=== PATIENT | female | born 1980 | race Caucasian/White ===

== ENCOUNTER 2021-03-23 13:53 | Outpatient (CLI) | payer MEDICAID, SELFPAY ==
--- NOTE | 2021-03-23 13:57 | US_ITS ---
WS: [id number] TRANSABDOMINAL PELVIC AND TRANSVAGINAL PELVIC ULTRASOUND HISTORY: Pelvic PAIN, RIGHT COMPARISON: None available. Uterus: 8.1 cm x 4.6 cm x 3.7 cm. Anteverted uterus is mildly heterogeneous. No discrete fibroids are identified. Endometrium: 0.4 cm. Normal homogeneity. No increased vascularity. Right ovary: 2.4 cm x 1.4 cm x 1.3 cm. Small caliber ovary with normal vascularity. No solid or cysti c mass. Left ovary: 2.4 cm x 1.3 cm x 1.3 cm. No solid or cystic mass. Small follicle with a maximum diameter of 1.8 cm. Normal vascularity. No free fluid. US/US pelvic with transvaginal IMPRESSION: 1. No adnexal masses or cysts. 2. Normal anteverted uterus.
== END 2021-03-23 13:54 | disposition home or self-care (01) ==
PROVIDERS: PCP Family Medicine; Visit Provider Family Medicine
DX: R10.2 Pelvic and perineal pain (principal)
CPT/HCPCS: 76830; 76856

== ENCOUNTER → 2021-04-26 08:32 | Outpatient (BNVA) | payer MEDICAID, SELFPAY | PROVIDERS: PCP Family Medicine; Referring Provider Family Medicine; Visit Provider Specialist | DX: G43.711 Chronic migraine without aura, intractable, with status migrainosus (principal) | CPT/HCPCS: 99204 ==

== ENCOUNTER → 2021-04-30 13:59 | Outpatient (BNVA) | payer SELFPAY | PROVIDERS: PCP Family Medicine; Visit Provider Nurse Practitioner Family | DX: N30.10 Interstitial cystitis (chronic) without hematuria (principal); N30.20 Other chronic cystitis without hematuria | CPT/HCPCS: 81003 ==

== ENCOUNTER 2021-05-25 12:38 | Outpatient (CLI) | payer MEDICAID, SELFPAY ==
--- NOTE | 2021-05-25 12:45 | XR_ITS ---
WS: [id number] Lumbar spine with flexion, extension, and neutral lateral, 05/25/2021 Clinical Data: VERTEBROGENIC LOW BACK PAIN Comparison: None. Findings: No compression fractures or subluxation is seen. No disc space narrowing is seen. No limitation of motion or subluxation is seen. There is minimal anterior spurring of the L2-L5 vertebral bodies. There are clips in the upper abdome n probably from a cholecystectomy. XR/XR lumbar spine f/e only [id number] Impression: Negative lateral lumbar spine.
== END 2021-05-25 12:39 | disposition home or self-care (01) ==
LOC: RAD 12:40
PROVIDERS: PCP Family Medicine; Visit Provider Nurse Practitioner
DX: M54.51 Vertebrogenic low back pain (principal)
CPT/HCPCS: 72120

== ENCOUNTER → 2021-07-04 09:54 | Outpatient (BNVA) | payer MEDICAID, SELFPAY | PROVIDERS: PCP Family Medicine; Visit Provider Obstetrics & Gynecology | DX: M54.50 Low back pain, unspecified (principal) | CPT/HCPCS: 76830 ==

== ENCOUNTER → 2021-07-05 08:07 | Outpatient (BNVA) | payer MEDICAID, SELFPAY | PROVIDERS: PCP Family Medicine; Visit Provider Orthopaedic Surgery | DX: M54.50 Low back pain, unspecified (principal) | CPT/HCPCS: 72050 ==

== ENCOUNTER → 2021-07-12 12:03 | Outpatient (BNVA) | payer MEDICAID, SELFPAY | PROVIDERS: PCP Family Medicine; Visit Provider Specialist | DX: G43.711 Chronic migraine without aura, intractable, with status migrainosus (principal); M50.80 Other cervical disc disorders, unspecified cervical region | CPT/HCPCS: 96372; 99213; 99214; J1885 ==

== ENCOUNTER → 2021-08-07 11:31 | Outpatient (BNVA) | payer MEDICAID, SELFPAY | PROVIDERS: PCP Family Medicine; Visit Provider Specialist | DX: G43.711 Chronic migraine without aura, intractable, with status migrainosus (principal) | CPT/HCPCS: 96374; 96375; 96376; J1110; J1200; J1885; J2405; J2930 ==

== ENCOUNTER 2021-08-13 13:51 | Outpatient (CLI) | payer MEDICAID, SELFPAY ==
--- NOTE | 2021-08-13 13:57 | MR_ITS ---
WS: [id number] MRI CERVICAL SPINE NONCONTRAST TECHNIQUE: Sagittal T1, T2 and STIR imaging. Axial T2, gradient, and fiesta imaging. CLINICAL INFORMATION: M54.2 - Cervicalgia COMPARISON: None. FINDINGS: Straightening of the normal cervical lordosis. Mild disc bulging C4-C5 C5-C6 and C6-C7. Cord signal i s normal. C2-C3: Normal C3-C4: Mild facet arthropathy. Spinal canal and foramen are patent. C4-C5: Mild osteophytic ridging. Mild facet arthropathy. Spinal canal and foramen are patent. C5-C6: Disc osteophytic ridging with mild LEFT greater than RIGHT foraminal narrowing. Mild facet art hropathy. C6-C7: Disc osteophyte complex with endplate ridging. Mild central canal stenosis. Mild bilateral bon y foraminal narrowing LEFT greater than RIGHT. C7-T1: Mild LEFT and no significant RIGHT foraminal narrowing. Spinal canal is patent. Visualized brain stem structures: Normal. Prevertebral soft tissues: Normal. MR/MR cervical spin wo con* [id number] IMPRESSION: 1. Straightening of the normal cervical lordosis. Cord signal is normal. 2. Disc osteophyte complex with endplate ridging C6-C7 and mild central canal stenosis. 3. Mild bony foraminal narrowing more prominent at LEFT C5-C6 and bilateral C6 -C7 worse in the LEFT. 4. Overall no significant changes since the outside cervical spine MRI July 10, 2020
--- NOTE | 2021-08-13 13:57 | MR_ITS ---
WS: [id number] MRI LUMBAR SPINE NONCONTRAST TECHNIQUE: Sagittal T1, T2 and STIR imaging. Axial T1 and T2 imaging. CLINICAL INFORMATION: M54.50 - Low back pain, unspecified COMPARISON: None. FINDINGS: Mild lumbar curve. No acute compression. Mild annular bulging L4-L5 with a small annular tear. L1-L2: No significant disc bulging. Mild facet arthropathy. Spinal canal and foramen are patent. L2-L3: No significant disc bulging. Mild facet arthropathy. Spinal canal and foramen are patent. L3-L4: Mild annular bulging. Mild to moderate facet arthropathy. Spinal canal and foramen are patent. L4-L5: Mild disc bulging with a small shallow central protrusion. Small annular tear. Impingement traversing L5 nerve roots bilaterally. Mild central canal stenosis. I mpingement traversing L5 nerve roots bilaterally. Mild bilateral foraminal narrowing. Moderate facet arthropathy. L5-S1: Mild annular bulging with slight effacement of ventral thecal sac. Mild LEFT and no significan t RIGHT foraminal narrowing. Mild to moderate facet arthropathy. Visualized pelvic bony structures: Normal. Paravertebral soft tissues: Normal. Overall no significant changes since May 17, 2020 MR/MR lumbar spine wo con* [id number] IMPRESSION: 1. Mild lumbar curve. No acute compression. 2. Shallow central protrusion L4-L5 with a small annular tear and impingement traversing L5 nerve roots bilaterally. Mild central canal stenosis. Recommend c orrelation with L5 nerve root symptoms. 3. Slight annular bulging L5-S1 with slight effacement of ventral thecal sac. Mild LEFT L5-S1 foraminal narrowing. 4. Mild bilateral L4-L5 foraminal narrowing. 5. Mild to moderate facet arthropathy L3-L4 L4-L5 and L5-S1.
== END 2021-08-13 13:52 | disposition home or self-care (01) ==
LOC: RAD 13:53
PROVIDERS: PCP Family Medicine; Visit Provider Orthopaedic Surgery
DX: M47.816 Spondylosis without myelopathy or radiculopathy, lumbar region (principal); M47.817 Spondylosis without myelopathy or radiculopathy, lumbosacral region; M51.27 Other intervertebral disc displacement, lumbosacral region; M25.78 Osteophyte, vertebrae
CPT/HCPCS: 72141; 72148

== ENCOUNTER → 2021-08-17 09:40 | Outpatient (BNVA) | payer MEDICAID, SELFPAY | PROVIDERS: PCP Family Medicine; Visit Provider Obstetrics & Gynecology | DX: G89.29 Other chronic pain (principal); R10.2 Pelvic and perineal pain | CPT/HCPCS: 87635 ==

== ENCOUNTER 2021-08-22 05:41 | Day surgery (SDC) | payer MEDICAID, SELFPAY ==
[2021-08-21 09:08] LABS: Basophils # 0.1 10^3/uL (0.0-0.1); Basophils % 0.7 %; Eosinophils # 0.2 10^3/uL (0.0-0.8); Hematocrit 42.8 % (37.0-47.0); Hemoglobin 13.7 g/dL (11.5-15.3); Lymphocytes # 1.9 10^3/uL (0.8-4.8); Lymphocytes % 24.3 %; Mean Corpuscular Hemoglobin 29.4 pg (28.0-34.0); Mean Corpuscular Volume 91.8 fl (81-99); Mean Platelet Volume 11.2 fL (7.4-10.4); Monocytes # 0.8 10^3/uL (0.2-0.9); Neutrophils # 4.75 10^3/uL (1.8-7.7); Neutrophils % 61.7 %; Nucleated Red Blood Cells % 0 %; Platelet Count 236 10^3/cmm (130-400); Red Blood Count 4.66 10^6/uL (4.1-5.3); White Blood Count 7.7 10^3/uL (4.0-10.0)
[2021-08-21 09:12] VITALS: BMI 24.7
[2021-08-21 09:13] LABS: Add Urine Microscopic? YES; Bilirubin Urine Neg (Negative); Blood Urine Neg (Negative); Glucose Urine UA Norm (Normal); Ketones Urine Negative (Negative); Leukocyte Esterase Urine Trace (Negative); Nitrate Urine Negative (Negative); Protein Urine Neg (Negative); Specific Gravity, Urine 1.015 (1.005-1.030); Urine Appearance SL Hazy (CLEAR); Urine Color Yellow (Yellow); Urobilinogen Urine Norm (Negative); pH Urine 6.5 (5-7)
--- NOTE | 2021-08-21 09:24 | ANES.PREANE2 ---
Pre-Anesthetic Assessment Height/Weight: Height 1.6 m Weight 63.503 kg Operation Date: 08/22/21 07:00 Proposed Procedures p Laparoscopy 65127/chronic pelvic pain R10.2(Not Applicable) - Kam Edmondson MD Familial anesthetic complications: None Social No alcohol and No tobacco Exam alert, oriented x 3, clear to auscultation bilaterally and regular rate & rhythm Airway Cervical ROM: Other (mildly limited extension, d/t bone spurs) Mallampati: Class II Dentition: other (missing) GI Gastroesophageal Reflux Disease gastroparesis, unknown etiology Anesthetic Plan ASA status: 2 Anesthesia: General Risk of > 500 ml blood loss (7ml/kg in children): No Medications/Allergies Home Medications Medication Instructions Recorded Confirmed Last Taken Type baclofen 10 mg tablet 10 mg PO BID 03/26/21 08/21/21 08/20/21 20:00 History clonazepam 0.5 mg tablet 0.5 mg PO DAILY PRN 03/26/21 08/21/21 08/20/21 08:00 History meloxicam 7.5 mg tablet 7.5 mg PO BID PRN tab 03/26/21 08/21/21 08/20/21 20:00 History omeprazole 20 mg capsule,delayed 20 mg PO DAILY 03/26/21 08/21/21 08/20/21 History release rizatriptan 10 mg tablet See Rx Instructions PO .COMPLEX 03/26/21 08/21/21 08/15/21 History sertraline 100 mg tablet 100 mg PO DAILY 03/26/21 08/21/21 08/20/21 History topiramate 25 mg tablet (Topamax) 25 mg PO DAILY #30 tab 04/26/21 08/20/21 Unknown Rx polyethylene glycol 3350 17 See Rx Instructions .ROUTE .COMPLEX 08/21/21 08/21/21 08/20/21 History gram/dose oral powder (Miralax) Allergies Allergy/AdvReac Type Severity Reaction Status Date / Time adhesive tape Allergy Severe whelps, Verified 08/20/21 09:20 peels skin azithromycin Allergy Severe vomiting, Verified 08/20/21 09:20 mouth ulcers erythromycin base Allergy Severe mouth Verified 08/20/21 09:20 ulcers, vomiting gabapentin Allergy Severe memory Verified 08/20/21 09:20 issues Penicillins Allergy Severe itching, Verified 08/20/21 09:20 vomiting,mouth ulcers PFSH Anesthesia Medical History Chronic cystitis Interstitial cystitis Surgical History History of appendectomy History of back surgery History of bladder surgery History of cholecystectomy History of tonsillectomy Family History Mother , AT AGE 63 SMALL CELL CARCINOMA Cancer Hypertension Hyperlipidemia Grandmother Cancer Dementia CAD (coronary artery disease) Diabetes paternal Stroke paternal Heart disease paternal Grandfather Cancer Dementia Diabetes paternal Colon cancer maternal, 60's Father Hypertension Hyperlipidemia Denies family history of Ovarian cancer Clotting disorder Breast cancer Anesthesia complication Bleeding disorder Uterine cancer Thyroid condition Social History History of recent travel: No Female Reproductive History Date of last menstrual period: 08/07/21 Data Anesthesia : 08/21/21 08:45 08/21/21 08:45 Short CBC 08/21/21 Range/Units 08:45 WBC 7.7 (4.0-10.0) 10^3/uL Hgb 13.7 (11.5-15.3) g/dL Hct 42.8 (37.0-47.0) % MCV 91.8 (81-99) fl Plt Count 236 (130-400) 10^3/cmm Neut % (Auto) 61.7 % Neut # (Auto) 4.75 (1.8-7.7) 10^3/uL Urine 08/21/21 Range/Units 08:45 Urine Color Yellow (Yellow) Urine Appearance Sl hazy (CLEAR) Urine pH 6.5 (5-7) Ur Specific [place] 1.015 (1.005-1.030) Urine Protein Neg (Negative) Urine Glucose (UA) Norm (Normal) Urine Ketones Negative (Negative) Urine Nitrate Negative (Negative) Urine Bilirubin Neg (Negative) Ur Leukocyte Esterase Trace H (Negative) Cardiac Studies: No Data to Display
[2021-08-21 09:27] LABS: Add Urine Culture? No; Alanine Aminotransferase 27 U/L (0-33); Albumin Level 4.7 g/dL (3.5-5.2); Alkaline Phosphatase 87 IU/L (35-105); Anion Gap 13.3 (5-19); Aspartate Amino Transferase 19 U/L (0-32); Bacteria Urine 2+ /hpf; Blood Urea Nitrogen 15 mg/dL (6-20); Calcium 10.4 mg/dL (8.5-10.5); Carbon Dioxide 28 mmol/L (22-29); Chloride 101 mmol/L (98-107); Creatinine Clr Calc Pharmacy 73.8146; Globulin 2.9 g/dL (1.3-4.6); Glucose 102 mg/dL (65-115); Osmolality Calculated 287 mOsm/kg (285-295); Potassium 4.3 mmol/L (3.5-5.1); RBC Urine 0-4 /hpf (0-2); Sodium 138 mmol/L (136-145); Squamous Epithelial Cell Urine 25-40 /hpf (0-5); Total Bilirubin 0.9 mg/dL (0.15-1.2); Total Protein 7.6 g/dL (6.6-8.7); WBC Urine 0-4 /hpf (0-5)
[2021-08-22] VITALS (10 sets, daily range): BP systolic 89–161; BP diastolic 55–96; PULSE 58–68; RESP 17–20; TEMP 36.2–37.2; O2SAT 96–98
[2021-08-22] MEDS: vancomycin 1,000 MG in sodium chloride 0.9% 250 ML 250 MG IV (06:18)
[2021-08-22] MEDS: scopolamine 1.5 Patch 1 PATCH TRANSDERMA (06:18)
[2021-08-22] MEDS: sodium chloride 0.9% 500 ML IV (06:19)
[2021-08-22 06:44] LABS: OR HCG Qualitative Urine Negative (Negative)
[2021-08-22] MEDS: sodium chloride 0.9% 1,000 ML 30 ML IV (06:47)
--- NOTE | 2021-08-22 06:54 | W.PM.OPSUD ---
Surgery/Procedure H&P Update DATE OF PROCEDURE: August 22, 2021 DATE H&P PERFORMED: 08/02/21 H&P UPDATE INFORMATION: I have reviewed H&P completed within last 30 days and No changes to prior documentation PREOP DIAGNOSIS: Chronic pelvic pain PLANNED PROCEDURE: Operation Date: 08/22/21 07:00 Proposed Procedures p Laparoscopy 85943/chronic pelvic pain R10.2(Not Applicable) - Kam Edmondson MD
--- NOTE | 2021-08-22 07:37 | P.ANESUD_ITS ---
Pre-Anesthetic Update Pre-Anesthetic Assessment: Date of Surgery/Procedure: 08/22/21 Preop Elenita gnosis: Chronic pelvic pain Proposed Procedure: Operation Date: 08/22/21 07:00 Proposed Procedures p Laparoscopy 04551/chronic pelvic pain R10.2(Not Applicable) - Kam Edmondson MD Any changes to Pre-Anesthetic Assessment?: No Last Intake: Intake Last Liquid Date 08/21/21 Last Liquid Time 19:00 Last Solid Date 08/20/21 Last Solid Time 16:00 Labs Last 48hrs: Short CBC 08/21/21 Range/Units 08:45 WBC 7.7 (4.0-10.0) 10^3/ uL Hgb 13.7 (11.5-15.3) g/dL Hct 42.8 (37.0-47.0) % MCV 91.8 (81-99) fl Plt Count 236 (130-400) 10^3/c mm Neut % (Auto) 61.7 % Neut # (Auto) 4.75 (1.8-7.7) 10^3/u L BMP 08/21/21 08:45 Sodium 138 Potassium 4.3 Chloride 101 Carbon Dioxide 28 BUN 15 Creatinine 0.9 Glucose 102 Calcium 10.4 Liver Function 08/21/21 Range/Units 08:45 Total Bilirubin 0.9 (0.15-1.2) mg/dL AST 19 (0-32) U/L ALT 27 (0-33) U/L Alkaline Phosphata se 87 (35-105) IU/L Albumin 4.7 (3.5-5.2) g/dL Urine 08/21/21 Range/Units 08:45 Urine Color Yellow (Yellow) Urine Appearance Sl hazy (CLEAR) Urine pH 6.5 (5-7) Ur Specific [place] y 1.015 (1.005-1.030) Urine Protein Neg (Negative) Urine Glucose (UA) Norm (Normal) Urine Ketones Negative (Negative) Urine Nitrate Negative (Negative) Urine Bilirubin Neg (Negative) Ur Leukocyte Vanna ase Trace H (Negative) Urine RBC 0-4 H (0-2) /hpf Urine WBC 0-4 H (0-5) /hpf Blood Bank 08/21/21 08:45 Blood Type O Positive Rho(D) Type Positive Antibody Screen Negative Vitals: Temperature 97.2 F L 08/22/21 06:14 Temperature Source Temporal Artery S can 08/22/21 06:14 Pulse Rate 58 L 08/22/21 06:14 Respiratory Rate 18 08/22/21 06:14 Blood Pressure 89/55 08/22/21 06:14 Blood Pressure Elizabeth n 66 08/22/21 06:14 Pulse Oximetry 98 08/22/21 06:14 Oxygen Delivery Me thod 08/22/21 06:14 Exam: Pre-Anes Outpt Exam: alert, oriented x 3, clear to auscultation bilaterally and regular rate & rhythm Cardiac Studies: No Data to Display
--- NOTE | 2021-08-22 07:53 | P.OP_ITS ---
Operative Report Date of procedure: August 22, 2021 Pre-op diagnosis: Preop Diagnosis Chronic pelvic pain Post-op diagnosis: Pelvic pain Endometriosis mild-moderate Post-op findings: Endometriotic lesions on the right side adnexa and cul-de-sac Procedure done: Diagnostic laparoscopy. Fulguration of endometriosis lesions Implants: None Surgeon: Kam Edmondson MD Estimated blood loss: Less than 5 mL IV fluids: 500 mL Urine output: 25 mL Findings: Endometriosis on right adnexa Procedure: After informed consent, the patient was taken to the operating room where general anesthesia was administered. The patient was examined under anesthesia and found to have a normal uterus with normal adnexa. She was placed in the dorsal lithotomy position and prepped and draped in sterile fashion. Pre- Procedure Time-Out verifying the correct patient identity, correct procedure verified with consent, correct site and side, correct patient position, availability of correct implants and any special equipment or requirements was performed and acknowledge by the OR team. A weighted speculum was placed in the vagina, and the anterior lip of cervix was grasped with the single toothed tenaculum. A uterine manipulator was advanced into the endocervical. Tenaculum was removed after uterine manipulator was secured. The speculum was removed from the vagina. An intraumbilical incision was made with a scalpel. While tenting up on the abdomen, a Verres needle with sleeve was admitted into the intra-abdominal cavity. A saline drop test was performed and noted to be within normal limits. Pneumoperitoneum was attained with 4 liters of carbon dioxide. The Verres needle was removed. A 5 mm trocar and sleeve were admitted into the abdomen and laparoscopic confirmation of location was achieved, A second incision was made 3 cm above the symphysis pubis, and a 5 mm trocar and sleeve were admitted into the abdomen under direct, laparoscopic visualization without complication. A survey revealed normal abdominal anatomy but pelvic survey showed endometriosis lesion on the right adnexa and cul-de-sac. Also Hulka clips noted bilaterally. The uterus, left and right ovaries appered normal. A 5 mm blunt probe was advanced through the second trocar sleeve, and light manipulation of ovaries and uterus to assess the posterior aspects was performed. The vision is stable endometriosis lesions were fulgurated with the bipolar Voyant device. Due to the amount of lesions and size endometriosis considered to be from mild to moderate. The carbon dioxide was allowed to escape from the abdomen. The instruments were removed, and skin cover with a bandage. The instruments were removed from the vagina, and excellent hemostasis was noted. The patient tolerated the procedure well, and sponge, lap and needle count were correct times two. The patient taken to the recovery room in good condition.
[2021-08-22] MEDS: ondansetron 2 mg/ML SDV 2 mL 4 MG IVP ×2 (08:10→09:12)
[2021-08-22] MEDS: diphenhydrAMINE 50 mg/mL SDV 1mL (08:29)
[2021-08-22] MEDS: HYDROcodone-acetaminophen 5-325 mg Tablet 1 TAB PO (09:03)
--- NOTE | 2021-08-22 12:49 | ANE.PACU2 ---
Inpatient post-anesthesia follow up: Airway intact: Yes Vital signs: Temperature 98.0 F Pulse Rate 59 Respiratory Rate 18 Blood Pressure 132/74 Pulse Oximetry 96 Oxygen Delivery Me thod Room Air Oxygen Flow Rate Fraction of Inspir ed Oxygen Hydration adequate: Yes Nausea and vomiting: No Pain level: 2 Mental status: Baseline
== END 2021-08-22 09:57 | disposition home or self-care (01) ==
PROVIDERS: Anesthesiology; PCP Family Medicine; Visit Provider Obstetrics & Gynecology
PROC: (CPT 49320; principal; 2021-08-22 07:00)
DX: N80.3 Endometriosis of pelvic peritoneum (principal); R10.2 Pelvic and perineal pain; G89.29 Other chronic pain; K21.9 Gastro-esophageal reflux disease without esophagitis
CPT/HCPCS: 58662; 36415; 80053; 81001; 81025; 84703; 85025; 86850; 86900; 96365; 96372; J1100; J1200; J2405; J2704; J2710; J3010; J3370; J3490; J7030; J7040; J7050

== ENCOUNTER → 2021-10-08 08:26 | Outpatient (BNVA) | payer MEDICAID, SELFPAY | PROVIDERS: PCP Family Medicine; Visit Provider Obstetrics & Gynecology | DX: N80.9 Endometriosis, unspecified (principal); Z01.812 Encounter for preprocedural laboratory examination | CPT/HCPCS: 80053; 81000; 81025; 85025; 86850; 86900; 87635 ==

== ENCOUNTER 2021-10-10 09:10 | Observation (INO) | payer MEDICAID, SELFPAY ==
[2021-10-08 09:47] VITALS: BMI 25.7
--- NOTE | 2021-10-08 15:59 | ANES.PREANE2 ---
Pre-Anesthetic Assessment Height/Weight: Height 1.6 m Weight 65.771 kg Preop Diagnosis: Chronic pelvic pain Operation Date: 10/10/21 09:35 Proposed Procedures p Total Vaginal Hysterectomy 60565/n80.9(Not Applicable) - Kam Edmondson MD Familial anesthetic complications: None Was Beta Edenilson taken within 24 hours: N/A Was Clonidine taken within 24 hours: N/A Social No alcohol (Denies hx of ETOH abuse) and No tobacco Airway Submandibular: within normal limits Cervical ROM: Other (Limited ROM d/t pain) Mallampati: Class II Dentition: false Pulmonary None reported CV/HEM Hx of pre syncopal episodes when on propanolol for migraines None reported Cystitis Hepatic None reported GI Gastroesophageal Reflux Disease Hx of gastroparesis from unknown cause Metabolic None reported Denies hx of DM Musc/skel Osteoarthritis/DJD DDD Neuropsych Headache (Migraines ) and Neuropathy (Neuropathy in b/l UE d/ cervical degenerative disk disease) Takes baclofen Anesthetic Plan ASA status: 3 (40 year old with hx of gastroparesis, neuropathy, and cervical disk disease . ) Anesthesia: Anesthesia Evaluation and General Other: We discussed risk and benefits of general anesthesia including PONV, sore throat (sometimes severe), corneal abrasion, positioning and peripheral nerve injuries, life threatening allergic reaction, post operative ICU admission requiring prolonged intubation, stroke, heart attack, , and rare incidences of recall. Patient consents to proceed with general anesthesia. Hx of gastroparesis Plan RSI w/ GETA Risk of > 500 ml blood loss (7ml/kg in children): No Other Pertinent Information Home prescription for metoclopramide Medications/Allergies Home Medications Medication Instructions Recorded Confirmed Last Taken Type baclofen 10 mg tablet 10 mg PO BID 03/26/21 10/08/21 08/21/21 History clonazepam 0.5 mg tablet 0.5 mg PO BEDTIME PRN 03/26/21 10/08/21 08/21/21 History meloxicam 7.5 mg tablet 7.5 mg PO BID PRN tab 03/26/21 10/08/21 08/21/21 History omeprazole 20 mg capsule,delayed 20 mg PO DAILY 03/26/21 10/08/21 08/20/21 History release rizatriptan 10 mg tablet See Rx Instructions PO .COMPLEX PRN 03/26/21 10/08/2122 History sertraline 100 mg tablet 100 mg PO DAILY 03/26/21 10/08/21 08/22/21 History polyethylene glycol 3350 17 See Rx Instructions .ROUTE .COMPLEX 08/21/21 10/08/21 08/21/21 History gram/dose oral powder (Miralax) acetaminophen 325 mg capsule 325 mg PO Q4H PRN #60 cap 08/22/21 10/08/21 Unknown Rx ibuprofen 800 mg tablet 800 mg PO TID PRN #60 tab 08/22/21 10/08/21 Unknown Rx metoclopramide HCl 10 mg tablet 10 mg PO BID 08/22/21 10/08/21 08/22/21 History (Reglan) Allergies Allergy/AdvReac Type Severity Reaction Status Date / Time adhesive tape Allergy Severe whelps, Verified 10/08/21 11:11 peels skin azithromycin Allergy Severe vomiting, Verified 10/08/21 11:11 mouth ulcers erythromycin base Allergy Severe mouth Verified 10/08/21 11:11 ulcers, vomiting gabapentin Allergy Severe memory Verified 10/08/21 11:11 issues Penicillins Allergy Severe itching, Verified 10/08/21 11:11 vomiting,mouth ulcers [facility] Anesthesia Medical History Aftercare following surgery of the genitourinary system Chronic cystitis Interstitial cystitis Surgical History H/O laparoscopy 08/22/2021- Diagnostic Laparoscopy. Fulguration of endometriosis lesions. Preformed by Dr. Edmondson at [facility]. History of appendectomy History of back surgery History of bladder surgery History of cholecystectomy History of tonsillectomy Family History Mother , AT AGE 63 SMALL CELL CARCINOMA Cancer Hypertension Hyperlipidemia Grandmother Cancer Dementia CAD (coronary artery disease) Diabetes paternal Stroke paternal Heart disease paternal Grandfather Cancer Dementia Diabetes paternal Colon cancer maternal, 60's Father Hypertension Hyperlipidemia CAD (coronary artery disease) Denies family history of Ovarian cancer Clotting disorder Breast cancer Anesthesia complication Bleeding disorder Uterine cancer Thyroid condition Social History History of recent travel: No Female Reproductive History Date of last menstrual period: 09/10/21 Data Anesthesia Cardiac Studies: No Data to Display
[2021-10-10] VITALS (24 sets, daily range): BP systolic 97–133; BP diastolic 57–94; PULSE 58–98; RESP 14–26; TEMP 36.4–37.1; O2SAT 93–100
[2021-10-10] MEDS: sodium chloride 0.9% 500 ML IV (06:22)
[2021-10-10] MEDS: scopolamine 1.5 Patch 1 PATCH TRANSDERMA (06:28)
[2021-10-10] MEDS: ondansetron 2 mg/ML SDV 2 mL 4 MG IVP ×2 (06:35→09:58)
[2021-10-10] MEDS: sodium chloride 0.9% 1,000 ML 30 ML IV (06:46)
--- NOTE | 2021-10-10 06:53 | P.ANESUD_ITS ---
Pre-Anesthetic Update Pre-Anesthetic Assessment: Date of Surgery/Procedure: 10/10/21 Preop Elenita gnosis: Pelvic pain, endometriosis Proposed Procedure: Operation Date: 10/10/21 07:00 Proposed Procedures p Total Vaginal Hysterectomy 60086/n80.9(Not Applicable) - Kam Edmondson MD Any changes to Pre-Anesthetic Assessment?: No Last Intake: Intake Last Liquid Date 10/09/21 Last Liquid Time 20:00 Last Solid Date 10/07/21 Last Solid Time 00:00 Vitals: Temperature 97.6 F 10/10/21 06:13 Temperature Source Temporal Artery S can 10/10/21 06:13 Pulse Rate 60 10/10/21 06:13 Respiratory Rate 16 10/10/21 06:13 Blood Pressure 107/65 10/10/21 06:13 Blood Pressure Elizabeth n 79 10/10/21 06:13 Pulse Oximetry 98 10/10/21 06:13 Oxygen Delivery Me thod 10/10/21 06:13 Exam: Pre-Anes Outpt Exam: alert, oriented x 3, clear to auscultation bilaterally and regular rate & rhythm Cardiac Studies: No Data to Display
--- NOTE | 2021-10-10 07:01 | W.PM.OPSUD ---
Surgery/Procedure H&P Update DATE OF PROCEDURE: October 10, 2021 DATE H&P PERFORMED: 10/08/21 H&P UPDATE INFORMATION: I have reviewed H&P completed within last 30 days, I have examined patient prior to procedure and No changes to prior documentation PREOP DIAGNOSIS: Pelvic pain, endometriosis PLANNED PROCEDURE: Operation Date: 10/10/21 07:00 Proposed Procedures p Total Vaginal Hysterectomy 40581/n80.9(Not Applicable) - Kam Edmondson MD
[2021-10-10] MEDS: levofloxacin-dextrose 5 % 500 MG/100 ML PREMIX 100 MG IV (07:03)
[2021-10-10] MEDS: vancomycin 1,000 MG in sodium chloride 0.9% 250 ML 250 MG IV (07:20)
--- NOTE | 2021-10-10 08:29 | PM.OP ---
Operative Report Date of procedure: October 10, 2021 Pre-op diagnosis: Preop Diagnosis Pelvic pain, endometriosis Post-op diagnosis: Same as above Post-op findings: Normal size uterus. Procedure done: Total vaginal hysterectomy Specimens removed/disposition: Uterus Pathology: Uterus Surgeon: Kam Edmondson MD Anesthesia: General Estimated blood loss (mL): 150 IV fluids (mL): 500 Urine output (mL): 300 Complications: None Findings: Normal-sized Procedure: After informed consent and risks, benefits, indications and alternatives reviewed with the patient was taken to the operating room. The patient was placed in dorsal lithotomy position prepped, and draped in the usual sterile fashion. The pre-procedure timeout verifying the correct patient, procedure, site and side, could not requirements was performed and acknowledge by the OR team. A Sheppard catheter was placed. A Bookwalter vaginal retractor was placed into the vagina in usual manner visualize the cervix. Cervix was grasped with a single tooth tenaculum and circumferentially infiltrated with 2% lidocaine with epi. Then cervix was circumferentially incised with bovie and the bladder was dissected off the pubovesical cervical fascia anteriorly with a sponge stick and Metzenbaum scissors. The anterior peritoneal reflection was identified and the anterior cul-de-sac was entered sharply with Metzenbaum scissors. The same procedure was performed posteriorly and a posterior colpotomy was made through the posterior cul-de-sac space without difficulty and the posterior blade of the Bookwalter vaginal retractor was advanced posteriorly into the cul-de-sac. At this time, the left and right uterosacral ligaments were isolated and ligated with 0 Vicryl. The Enseal device was placed over the uterosacral ligaments on either side and was then used in a serial fashion up through the cardinal ligaments bilaterally cross-clamped, cut, and sealed with the Enseal device. Finally, the uterine arteries were cross-clamped, cut, sealed and ligated with the Enseal device. Hemostasis was assured. The broad ligaments were then serially clamped, sealed and cut with the Enseal device on both sides. Excellent hemostasis was visualized. Both cornua were clamped, sealed and cut with the Enseal device. Then the pedicles were then suture ligated with excellent hemostasis. The uterus was excised and submitted for pathologic evaluation. No other abnormalities were noted in the pelvic cavity. The peritoneum was then closed in a pursestring fashion with 0 Vicryl suture. The patient was given IV methylene blue. The vaginal cuff angles were closed with [id number] #0 Vicryl suture on both sides and transfixed with the ipsilateral cardinal and uterosacral ligaments. The remainder of the vaginal cuff was closed with #0 Vicryl in a running locked fashion. At this time, instruments were removed from the vagina at hemostasis assured. Sheppard catheter was noted yielding clear pedro urine. The patient was taken out of dorsal lithotomy position and awakened from the general anesthesia. The patient tolerated the procedure well and was taken to the PACU recovery room in a stable condition. Sponge, lap, needle and instruments counts were correct x3. Related Problem List Diagnoses (1) Endometriosis determined by laparoscopy: (2) Chronic pelvic pain in female:
[2021-10-10] MEDS: HYDROmorphone 1 mg/mL INJ 1 mL 0.5 MG IVP ×4 (08:35→09:12)
--- NOTE | 2021-10-10 09:16 | SUR.PHASEI ---
0832 PT TO PACU AWAKE ALERT ON RA PT MOANS AND SHIVERS, WARM BLANKETS X 4 5O P5, P5 RATES LOWER ABD PAIN (CRAMPING PAIN ) AT 10 , ORDERS RECIEVED FROM CLAUDIA SILVA TO USE DILAUDID FIRST FOR PAIN PER DR FORMAN. PT ABDOMEN SOFT, NGUYỄN PAD D/I BILAT SCDS ON, PT LANTIGUA WITH CLEAR YELLOW URINE TO TUBING AND BAG STATLOCK TO RT THIGH, IV TO LT WRIST #20 WITH 500ML NS UP AT MOD RATE PER GRAVITY. 0845 PT MOANS AND STATES PAIN IS UNCHANGED VSS SEE MEDS GIVEN FOR PAIN URINE IS NOW LT BLUE TINGED BUT CLEAR 0900 PT CONTINUES TO CRY OUT RATES PAIN AT 9-10 SEE PAIN MEDS GIVEN.
[2021-10-10] MEDS: ketorolac 30 mg/mL INJ IVP ×3 (09:57→20:38)
[2021-10-10] MEDS: HYDROcodone-acetaminophen 5-325 mg Tablet PO ×3 (09:58→23:02)
[2021-10-10] MEDS: dextrose 5%-lactated ringers 1,000 ML 125 ML IV ×2 (09:58→18:32)
[2021-10-10] MEDS: fentaNYL 50 mcg/mL INJ 2mL IVP ×2 (12:34→21:23)
--- NOTE | 2021-10-10 17:35 | ANE.PACU2 ---
Inpatient post-anesthesia follow up: Airway intact: Yes Vital signs: Temperature 98.0 F Pulse Rate 75 Respiratory Rate 16 Blood Pressure 101/63 Pulse Oximetry 95 Oxygen Delivery Me thod Room Air Oxygen Flow Rate Fraction of Inspir ed Oxygen Hydration adequate: Yes Nausea and vomiting: No Pain level: 6 Mental status: Baseline
[2021-10-10] MEDS: docusate sodium 100 mg Capsule PO (18:32)
[2021-10-10] MEDS: metoclopramide 10 mg Tablet PO (18:32)
[2021-10-10] MEDS: baclofen 10 mg Tablet PO (18:32)
[2021-10-10] MEDS: CLONazepam 1 mg Tablet 0.5 MG PO (21:23)
[2021-10-11] MEDS: dextrose 5%-lactated ringers 1,000 ML 125 ML IV (01:49)
[2021-10-11 03:00] VITALS: BP 110/67; PULSE 58; TEMP 37.1
[2021-10-11] MEDS: ketorolac 30 mg/mL INJ IVP (03:03)
[2021-10-11] MEDS: HYDROcodone-acetaminophen 5-325 mg Tablet PO (04:50)
[2021-10-11 05:02] LABS: Hematocrit 32.1 % (37.0-47.0); Hemoglobin 10.6 g/dL (11.5-15.3); Mean Corpuscular Hemoglobin 30.3 pg (28.0-34.0); Mean Corpuscular Volume 91.7 fl (81-99); Mean Platelet Volume 11.6 fL (7.4-10.4); Platelet Count 191 10^3/cmm (130-400); Red Cell Distribution Width 12.8 % (12.1-15.1); White Blood Count 10.1 10^3/uL (4.0-10.0)
[2021-10-11 08:00] VITALS: BP 102/64; PULSE 60; RESP 18; TEMP 36.9
[2021-10-11] MEDS: docusate sodium 100 mg Capsule PO (09:07)
[2021-10-11] MEDS: sertraline 100 mg Tablet PO (09:08)
[2021-10-11] MEDS: pantoprazole DR 40 mg Tablet PO (09:08)
[2021-10-11] MEDS: ibuprofen 800 mg tablet PO (09:08)
[2021-10-11] MEDS: baclofen 10 mg Tablet PO (09:08)
[2021-10-11] MEDS: metoclopramide 10 mg Tablet PO (09:09)
--- NOTE | 2021-10-11 10:45 | P.DS_ITS ---
Discharge Providers ADMINISTRATOR Date of Admission: 10/10/21 09:10 Date of Discharge: 10/11/21 Attending Provider at Admission: Kam Edmondson MD Attending Provider at Discharge: Kam Edmondson MD Primary ADMINISTRATOR: Kam Edmondson MD Primary Care Provider: Huy Quintanilla MD Diagnoses at Discharge Discharge Diagnosis (1) Endometriosis determined by laparoscopy: Status: Acute (2) Chronic pelvic pain in female: Status: Acute Reason for Visit Reason for Visit: endometriosis Brief History: Mrs. Velasco 40-year-old female with a history of chronic pelvic pain and endometriosis diagnosed by laparoscopy. Hospital Course Hospital Course Mrs. Velasco 40-year-old female with a history of chronic pelvic pain admitted for planned total vaginal hysterectomy. The procedure was performed without complications. Overnight observation was uneventful. She is afebrile and hemodynamically stable postoperative day 1. Tolerating diet well. Ambulating without difficulty. Pain under control with medication. Physical Exam Narrative: GA: Alert and oriented ?3. HEENT: WNL. Heart: Regular rate and rhythm. Lungs: Clear to auscultation bilaterally. Abdomen: Bowel sounds present, nontender. STATION GATEMAN: No bleeding. Extremities: No edema, no cyanosis, no calves pain. Urinary Catheter Management: Sheppard Latex: Cath Placed During This Visit: yes, but has since been removed by the nurse Reason for Continuing Indwelling Catheter: Decision to DC Catheter Urinary Catheter Date of Insertion: 10/10/21 Urinary Catheter Time of Insertion: 07:28 Date Urinary Catheter Removed: 10/11/21 Time Urinary Catheter Discontinued: 04:57 History History History 5 Term 3 Miscarriages/Ectopic 2 0 Living Children 3 Discharge Data Studies Completed and Pending Pending at discharge Category Date Time Status Pathology: Surgical [PTH] Routine Pth 10/10/21 08:07 Received Laboratory Results WBC 10.1 10^3/uL (4.0-10.0) H 10/11/21 04:52 RBC 3.50 10^6/uL (4.1-5.3) L 10/11/21 04:52 Hgb 10.6 g/dL (11.5-15.3) L 10/11/21 04:52 Hct 32.1 % (37.0-47.0) L 10/11/21 04:52 MCV 91.7 fl (81-99) 10/11/21 04:52 MCH 30.3 pg (28.0-34.0) 10/11/21 04:52 MCHC 33.0 g/dL (30.0-36.0) 10/11/21 04:52 RDW 12.8 % (12.1-15.1) 10/11/21 04:52 Plt Count 191 10^3/cmm (130-400) 10/11/21 04:52 MPV 11.6 fL (7.4-10.4) H 10/11/21 04:52 Vitals Last Vital Signs Temp 98.4 F 10/11/21 08:00 Pulse 60 10/11/21 08:00 Resp 18 10/11/21 08:00 BP 102/64 10/11/21 08:00 Pulse Ox 95 10/10/21 15:00 Discharge Plan Discharge Patient Disposition: Home Condition: Stable Prescriptions: New hydrocodone-acetaminophen 5-325 mg tablet 1 tab PO Q4H PRN (Reason: pain) Qty: 30 0RF acetaminophen 325 mg capsule 325 mg PO Q4H PRN (Reason: fever or pain) Qty: 60 0RF ferrous sulfate [Iron (ferrous sulfate)] 325 mg (65 mg iron) tablet 325 mg PO BID Qty: 60 0RF docusate sodium [Colace] 100 mg capsule 100 mg PO BID Qty: 60 0RF ibuprofen 800 mg tablet 800 mg PO TID PRN (Reason: pain) Qty: 60 0RF Continued rizatriptan 10 mg tablet See Rx Instructions PO .COMPLEX PRN (Reason: migraine headache) 0RF Rx Instructions: take 1 tab at onset of headache; if no relief may repeat 1 tab after at least 2 hrs; max = 3 tabs/24 hr PO omeprazole 20 mg capsule,delayed release(DR/EC) 20 mg PO DAILY 0RF baclofen 10 mg tablet 10 mg PO BID 0RF clonazepam 0.5 mg tablet 0.5 mg PO BEDTIME PRN (Reason: Anxiety) 0RF meloxicam 7.5 mg tablet 7.5 mg PO BID PRN (Reason: Pain) 0RF sertraline 100 mg tablet 100 mg PO DAILY 0RF polyethylene glycol 3350 [Miralax] 17 gram/dose powder See Rx Instructions .ROUTE .COMPLEX 0RF Rx Instructions: as directed metoclopramide HCl [Reglan] 10 mg tablet 10 mg PO BID 0RF ibuprofen 800 mg tablet 800 mg PO TID PRN (Reason: pain) Qty: 60 0RF acetaminophen 325 mg capsule 325 mg PO Q4H PRN (Reason: fever or pain) Qty: 60 0RF Discharge Orders: Discharge Order (Routine); Ordered 10/11/21 Ordered By: Kam Edmondson Referrals: Kam Edmondson MD [Physician] - 2 weeks Discharge Diet: Advance as tolerated and Usual diet Discharge Activity: Limit activity as instructed Patient Instructions: Opioid Safety, Vaginal Hysterectomy (GEN) Activity Restrictions/Additional Instructions: 1. Please call [facility] on next working day to make your post-operative appointment in 2 weeks. 2. Please stay home until you come back to the clinic on first post-operative check up. 3. Please follow instructions on your medications CAREFULLY. 4. If you have abdominal incision, do not cover it unless dressing is necessary because of drainage. OK to shower, but avoid bath. Leave steri-strips until they fall off. If they are still on one week after surgery, you may remove them. 5. If you had vaginal surgery or vaginal repair, Dr. Edmondson may instruct you to take SITZ bath. 6. Yellow, blood tinged odorous vaginal discharge is usually normal after hysterectomy or vaginal surgeries. 7. No sexual intercourse, tampons, or douches until you are completely released from the post-operative care. 8. Avoid constipation by eating right and maybe using some Metamucil or Milk of Magnesia. 9. All prescription refills are given during the working hours. Please do no wait till it runs out. Call the clinic at [phone] before your medication runs out. The clinic will get in touch with your doctor to prescribe medications if necessary. 10. Please remain within 40 mile radius from our hospital because emergencies do happen now and then during the post-operative period. 11. If you have stairs at home, take one step at a time slowly and minimize the number of trips. It helps to stay in one floor for the next few days. No lifting except what you can lift by one hand until you are released from the post-operative care. 12. Driving is discouraged until you are well healed. It may be 3-4 weeks before you feel strong enough to drive. You should be able to turn and look through the rear window without pain and you should be able to push the brake pedal very hard without pain before you drive. No fast rules, but SAFETY should be your primary concern. DO NOT drive if you are on sedating medications such as narcotics. 13. Call the clinic (during working hours) to make urgent appointment or go to the Emergency room, if any of the following occurs: i. Vaginal bleeding becomes heavy, more than a period. ii. Incision becomes red and sore, or drains pus. iii. Your temperature is over 100.4 or you have chill. iv. IV site becomes red and swollen (a little ``knot?? is usually OK) v. Persistent nausea and vomiting vi. Persistent constipation or diarrhea vii. Rash or allergic reaction to medications. Discharge Attestations ADMINISTRATOR Time Spent in Discharge Care*: greater than 30 min Coding Level of Care Code Acute Animal Care Giver for g Fwd Diagnoses Endometriosis determined by laparoscopy N80.9 Chronic pelvic pain in female R10.2; G89.29
[2021-10-11 11:45] VITALS: BP 122/68; PULSE 60; RESP 18; TEMP 36.9
[2021-10-11 12:05] VITALS: BP 122/68; PULSE 60; RESP 18; TEMP 36.9
== END 2021-10-11 12:05 | disposition home or self-care (01) ==
LOC: OBGYN 09:11
PROVIDERS: Admitting Provider Obstetrics & Gynecology; PCP Family Medicine; Visit Provider Obstetrics & Gynecology
PROC: (CPT 58260; principal; 2021-10-10 07:00)
DX: N80.9 Endometriosis, unspecified (principal); R10.2 Pelvic and perineal pain; G89.29 Other chronic pain; K21.9 Gastro-esophageal reflux disease without esophagitis; M19.90 Unspecified osteoarthritis, unspecified site
CPT/HCPCS: 58260; 36415; 85027; 88307; G0378; J1100; J1170; J1885; J1956; J2250; J2405; J2704; J2710; J3010; J3370; J3490; J7030; J7040; J7050; J8597; Q9968

== ENCOUNTER → 2021-10-18 07:53 | Outpatient (BNVA) | payer MEDICAID, SELFPAY | PROVIDERS: PCP Family Medicine; Visit Provider Specialist | DX: M54.2 Cervicalgia (principal); G89.29 Other chronic pain; R20.0 Anesthesia of skin; R20.2 Paresthesia of skin; G43.711 Chronic migraine without aura, intractable, with status migrainosus | CPT/HCPCS: 95886; 95910; 99213; 99214 ==

== ENCOUNTER → 2021-10-26 15:54 | Outpatient (BNVA) | payer MEDICAID, SELFPAY | PROVIDERS: PCP Family Medicine; Visit Provider Obstetrics & Gynecology | DX: R61 Generalized hyperhidrosis (principal) | CPT/HCPCS: 83001 ==

== ENCOUNTER → 2021-10-29 15:50 | Outpatient (BNVA) | payer MEDICAID, SELFPAY | PROVIDERS: PCP Family Medicine; Visit Provider Urology | DX: N30.20 Other chronic cystitis without hematuria (principal); N30.10 Interstitial cystitis (chronic) without hematuria | CPT/HCPCS: 81003; 99213 ==

== ENCOUNTER → 2022-02-01 11:54 | Day surgery (SDC) | payer MEDICAID, SELFPAY ==
[2022-02-01] MEDS: ondansetron 2 mg/ML SDV 2 mL 4 MG IVP (12:23)
[2022-02-01] MEDS: diphenhydrAMINE 50 mg/mL SDV 1mL 25 MG IVP (12:23)
[2022-02-01 12:30] VITALS: BP 145/98; PULSE 83; RESP 18; TEMP 36.9; O2SAT 97
[2022-02-01] MEDS: dihydroergotamine 1 mg/mL Inj IVP ×2 (12:34→12:44)
[2022-02-01] MEDS: ketorolac 30 mg/mL INJ IVP (13:06)
== END ==
PROVIDERS: PCP Family Medicine; Visit Provider Specialist
DX: G43.711 Chronic migraine without aura, intractable, with status migrainosus (principal)
CPT/HCPCS: 96374; 96375; J1110; J1200; J1885; J2405

== ENCOUNTER → 2022-02-12 08:56 | Outpatient (BNVA) | payer MEDICAID, SELFPAY | PROVIDERS: PCP Family Medicine; Visit Provider Physician Assistant | DX: M47.22 Other spondylosis with radiculopathy, cervical region (principal); M48.061 Spinal stenosis, lumbar region without neurogenic claudication | CPT/HCPCS: 99214 ==

== ENCOUNTER → 2022-03-06 09:57 | Outpatient (BNVA) | payer MEDICAID, SELFPAY | PROVIDERS: PCP Family Medicine; Visit Provider Anesthesiology Pain Medicine | DX: G89.29 Other chronic pain (principal); M48.061 Spinal stenosis, lumbar region without neurogenic claudication; M47.22 Other spondylosis with radiculopathy, cervical region; M47.816 Spondylosis without myelopathy or radiculopathy, lumbar region; M51.36 Other intervertebral disc degeneration, lumbar region | CPT/HCPCS: 99205 ==

== ENCOUNTER → 2022-03-26 13:32 | Outpatient (BNVA) | payer MEDICAID, SELFPAY | PROVIDERS: PCP Family Medicine; Visit Provider Anesthesiology Pain Medicine | DX: G89.29 Other chronic pain (principal); M54.2 Cervicalgia; M54.16 Radiculopathy, lumbar region | CPT/HCPCS: 62323; J1040; J3490 ==

== ENCOUNTER → 2022-03-27 13:34 | Outpatient (BNVA) | payer MEDICAID, SELFPAY | PROVIDERS: PCP Family Medicine; Visit Provider Specialist | DX: G43.711 Chronic migraine without aura, intractable, with status migrainosus (principal) | CPT/HCPCS: 99214 ==

== ENCOUNTER 2022-04-05 11:08 | Outpatient (CLI) | payer MEDICAID, SELFPAY ==
--- NOTE | 2022-04-05 11:23 | MM_ITS ---
WS: [id number] SCREENING DIGITAL BREAST TOMOSYNTHESIS MAMMOGRAM WITH CAD HISTORY: Z12.39 - Encounter for other screening for malignant neoplasm. COMPARISON: None available. Bilateral CC and MLO with tomosynthesis and synthetic mammography submitted. Computer aided detection analyzed. Breast composition: The breasts are heterogeneously dense, which may obscure small masses. Focal asym metry in the mid to posterior breast near 12:00 needs further evaluation. This may be superimposed fi broglandular densities. The RIGHT breast is negative. Benign calcification central LEFT breast. MM/[place] [id number] IMPRESSION: BI-RADS: 0-Incomplete: Need additional imaging evaluation FOLLOW UP: Need Additional Imaging LEFT breast: Spot compression views (CC and MLO). True ML. Ultrasound to follow if abnormality persists.
== END 2022-04-05 11:09 | disposition home or self-care (01) ==
LOC: RAD 11:09
PROVIDERS: PCP Family Medicine; Visit Provider Obstetrics & Gynecology
DX: Z12.31 Encounter for screening mammogram for malignant neoplasm of breast (principal)
CPT/HCPCS: 77063; 77067

== ENCOUNTER → 2022-04-17 12:45 | Outpatient (BNVA) | payer MEDICAID, SELFPAY | PROVIDERS: PCP Family Medicine; Visit Provider Anesthesiology Pain Medicine | DX: G89.29 Other chronic pain (principal); M47.22 Other spondylosis with radiculopathy, cervical region; M48.061 Spinal stenosis, lumbar region without neurogenic claudication; M47.816 Spondylosis without myelopathy or radiculopathy, lumbar region; M51.36 Other intervertebral disc degeneration, lumbar region; M79.604 Pain in right leg; M79.605 Pain in left leg; F12.90 Cannabis use, unspecified, uncomplicated | CPT/HCPCS: 99214 ==

== ENCOUNTER 2022-04-24 14:10 | Outpatient (CLI) | payer MEDICAID, SELFPAY ==
--- NOTE | 2022-04-24 14:16 | MM_ITS ---
WS: [id number] ADDITIONAL VIEWS LEFT MAMMOGRAM WITH DIGITAL BREAST TOMOSYNTHESIS. HISTORY: Area of distortion on the screening mammogram. COMPARISON: 04/05/2022 Spot compression views LEFT breast in CC, MLO projections and true ML submitted with digital breast t omosynthesis and SM. The area of asymmetry and distortion seen on the LEFT MLO projection is no longer present with additi onal views. No additional imaging or ultrasound needed. MM/[place] [id number] IMPRESSION: BI-RADS: 2-Benign FOLLOW UP: 1 Year Follow-up Return to annual screening.
== END 2022-04-24 14:11 | disposition home or self-care (01) ==
LOC: RAD 14:10
PROVIDERS: PCP Family Medicine; Visit Provider Obstetrics & Gynecology
DX: R92.8 Other abnormal and inconclusive findings on diagnostic imaging of breast (principal)
CPT/HCPCS: 77061

== ENCOUNTER → 2022-05-01 14:41 | Outpatient (BNVA) | payer MEDICAID, SELFPAY | PROVIDERS: PCP Family Medicine; Visit Provider Anesthesiology Pain Medicine | DX: G89.29 Other chronic pain (principal); M47.816 Spondylosis without myelopathy or radiculopathy, lumbar region; M54.2 Cervicalgia | CPT/HCPCS: 64493; 64494; 64495 ==

== ENCOUNTER → 2022-06-04 10:58 | Outpatient (BNVA) | payer MEDICAID, SELFPAY | PROVIDERS: PCP Family Medicine; Visit Provider Anesthesiology Pain Medicine | DX: G89.29 Other chronic pain (principal); M48.061 Spinal stenosis, lumbar region without neurogenic claudication; M51.36 Other intervertebral disc degeneration, lumbar region; M47.816 Spondylosis without myelopathy or radiculopathy, lumbar region; M47.22 Other spondylosis with radiculopathy, cervical region; M79.604 Pain in right leg; M79.605 Pain in left leg | CPT/HCPCS: 99214 ==

== ENCOUNTER → 2022-07-01 13:56 | Outpatient (BNVA) | payer MEDICAID, SELFPAY | PROVIDERS: PCP Family Medicine; Visit Provider Anesthesiology Pain Medicine | DX: G89.29 Other chronic pain (principal); M47.816 Spondylosis without myelopathy or radiculopathy, lumbar region; M54.2 Cervicalgia | CPT/HCPCS: 64635; 64636; J1030 ==

== ENCOUNTER → 2022-07-25 13:03 | Outpatient (BNVA) | payer MEDICAID, SELFPAY | PROVIDERS: PCP Family Medicine; Visit Provider Specialist | DX: G43.711 Chronic migraine without aura, intractable, with status migrainosus (principal) | CPT/HCPCS: 96372; 99213; J1885; J2405 ==

== ENCOUNTER 2022-08-09 12:53 | Emergency (ER) | payer MEDICAID, SELFPAY ==
[2022-08-09 13:05] VITALS: BP 142/81; PULSE 61; RESP 14; TEMP 36.8; O2SAT 97; BMI 25.6
--- NOTE | 2022-08-09 13:39 | ED_ITS ---
HPI - Headache General: Chief Complaint: Headache Stated Complaint: headache x5 days Time Seen by Provider: 08/09/22 13:00 Source: patient Mode of arrival: ambulatory History of Present Illness: 41-year-old female who presents to the emergency room with complaints of a migraine headache for the last 5 days no recent head injury or fall she has been nauseous but not actually vomited some photophobia with that. She cannot recall anything that triggered it she tried various medications at home to relieve it including triptans with no improvement. Pertinent past history: HIV Onset (ago): day(s) (5) Location: right Severity: severe Quality & Timing: throbbing and constant Exacerbating factors: light and noise Relieving factors: nothing Associated symptoms: Reports eye pain, lightheadedness, malaise, nausea, photophobia and sound sensitivity; Deny confusion, diaphoresis, eye redness, fever(s), loss of vision, neck stiffness, paresthesias, pre-syncope or rash Treatments prior to arrival: acetaminophen, ibuprofen, prescription analgesic and migraine medication Review of Systems Const: Reports: malaise; Denies: fever(s), chills, fatigue or diaphoresis ENMT: Denies: throat pain, ear or mastoid pain, nasal discharge or nasal congestion Card: Reports: lightheadedness; Denies: pre-syncope Resp: Denies: dyspnea, productive cough or non-productive cough GI: Reports: nausea; Denies: abdominal pain : Denies: flank pain, difficulty voiding, dysuria, urinary frequency or urinary urgency Skin/Breast: Denies: rash or pruritus Neuro: Reports: headache(s); Denies: confusion PFSH ED PFSH: Medical History Aftercare following surgery of the genitourinary system Cervical disc herniation Chronic cystitis Depression GERD (gastroesophageal reflux disease) Interstitial cystitis Lumbar disc herniation Migraines Surgical History H/O laparoscopy 08/22/2021- Diagnostic Laparoscopy. Fulguration of endometriosis lesions. Preformed by Dr. Edmondson at [facility]. H/O ovarian cystectomy at age 15 H/O tubal ligation 2002 H/O: hysterectomy 10/10/2021: TVH performed by Dr. Edmondson at [facility] History of appendectomy History of back surgery History of bladder surgery History of cholecystectomy History of tonsillectomy Hx of adenoidectomy Family History Mother , AT AGE 63 SMALL CELL CARCINOMA Cancer Hypertension Hyperlipidemia Grandmother Cancer Dementia CAD (coronary artery disease) Diabetes paternal Stroke paternal Heart disease paternal Grandfather Cancer Dementia Diabetes paternal Colon cancer maternal, 60's Father Hypertension Hyperlipidemia CAD (coronary artery disease) Denies family history of Ovarian cancer Clotting disorder Breast cancer Anesthesia complication Bleeding disorder Uterine cancer Thyroid condition Social History Smoking and tobacco status: current every day smoker (MARIJUANA) Physical Exam Const: GENERAL APPEARANCE: cooperative and comfortable ORIENTATION/CONSCIOUSNESS: Yes awake, Yes oriented to person, Yes oriented to place and Yes oriented to time HENMT: COMMON NORMALS: normocephalic, atraumatic and hearing grossly normal bilaterally HEAD & SCALP: normocephalic and atraumatic Eye: DIRECT OPHTHALMOSCOPY: Yes photophobia Resp: COMMON NORMALS: normal respiratory effort, No retractions, No use of accessory muscles and clear to auscultation bilaterally AUSCULTATION: clear to auscultation bilaterally Cardio: COMMON NORMALS: regular rate, regular rhythm and No murmurs present (Cardio) RATE: regular rate RHYTHM: regular rhythm GI: COMMON NORMALS: Soft to palpation and No hepatosplenomegaly present AUSCULTATION: Yes normoactive bowel sounds PALPATION: Yes Soft to palpation, No Tenderness to palpation present (GI), No Guarding due to palpation present (GI) and Yes No hepatosplenomegaly present Extremity: COMMON NORMALS: normal to inspection, capillary refill normal, no clubbing, cyanosis or edema, no calf tenderness and no pedal edema Neuro: SENSORIUM/ORIENTATION: Yes oriented to person, Yes oriented to place and Yes oriented to time Skin: COMMON NORMALS: no rashes or lesions noted GENERAL SKIN EXAM: no rashes or lesions noted Course Vital Signs: Vital signs: Vital Signs Temperature 98.3 F 08/09/22 13:05 Pulse Rate 64 08/09/22 14:26 Respiratory Rate 16 08/09/22 14:26 Blood Pressure 128/84 08/09/22 14:26 Pulse Oximetry 99 02/17/23 14:26 Oxygen Delivery Me thod 08/09/22 14:26 MDM - Headache Medical Decision Making Headache improved with medications we will use promethazine as needed. Exam initially and at the time of discharge no focal neurologic deficits no sign of trauma. Medical Records I reviewed the patient's medical records. Lab Data I reviewed the patient's lab results. Discharge Plan Discharge Patient Disposition: Home Clinical Impression: Migraine Condition: Stable Prescriptions: New promethazine 25 mg tablet 25 mg PO Q6H PRN (Reason: nausea and vomiting) Qty: 20 0RF No Action omeprazole 20 mg capsule,delayed release(DR/EC) 20 mg PO DAILY baclofen 10 mg tablet 10 mg PO BID clonazepam 0.5 mg tablet 0.5 mg PO BEDTIME PRN (Reason: Anxiety) meloxicam 7.5 mg tablet 7.5 mg PO BID PRN (Reason: Pain) sertraline 100 mg tablet 100 mg PO QAM Emgality Pen 120 mg/mL pen injector 240 mg SUBCUT ONCE Qty: 1 0RF Rx Instructions: Loading dose for first month propranolol 20 mg tablet 20 mg PO BID Qty: 60 3RF polyethylene glycol 3350 [Miralax] 17 gram/dose powder 17 g PO DAILY metoclopramide HCl [Reglan] 10 mg tablet 10 mg PO BID multivitamin Tablet 1 tab PO DAILY mineral oil Oil 15 ml PO DAILY PRN (Reason: Constipation) Viqv-Cngy-Nmqko (vit C-biotin) 50 mg -1,250 mcg Tablet,Chewable 2 tab PO DAILY rizatriptan 10 mg tablet 10 mg PO DAILY PRN (Reason: migraine headache) Emgality Pen 120 mg/mL pen injector 120 mg SUBCUT Q30D Discharge Orders: Discharge ED (Routine); Ordered 08/09/22 Ordered By: Robby Ferguson Referrals: Huy Quintanilla MD [Primary Care Provider] - Discharge Diet: Usual diet Discharge Activity: Increase activity as tolerated Patient Instructions: Opioid Safety, Pain Management Activity Restrictions/Additional Instructions: You were seen today for migraine headaches. Treatments here in the emergency room seem to improve your symptoms. Recommend that you use the promethazine as needed along with the triptan you were given by Dr. Hendricks follow-up with Dr. Hendricks as scheduled. Coding Level of Care Code ED Stave Block Roller for Kaz Osborn
[2022-08-09] MEDS: promethazine 25 mg/mL SDV 1 mL IM (14:19)
[2022-08-09] MEDS: ketorolac 30 mg/mL INJ IVP (14:19)
[2022-08-09] MEDS: sodium chloride 0.9% 1,000 ML 999 ML IV (14:19)
[2022-08-09] MEDS: diphenhydrAMINE 50 mg/mL SDV 1mL IVP (14:19)
[2022-08-09 14:26] VITALS: BP 128/84; PULSE 64; RESP 16; O2SAT 99
[2022-08-09 16:34] VITALS: BP 128/84; PULSE 64; RESP 16; O2SAT 99
== END 2022-08-09 16:05 | disposition home or self-care (01) ==
PROVIDERS: Emergency Provider Family Medicine; PCP Family Medicine
DX: G43.909 Migraine, unspecified, not intractable, without status migrainosus (principal)
CPT/HCPCS: 96372; 96374; 96375; 99284; J1200; J1885; J2550; J7030

== ENCOUNTER → 2022-10-08 15:34 | Outpatient (BNVA) | payer MEDICAID, SELFPAY | PROVIDERS: PCP Family Medicine; Visit Provider Physician Assistant | DX: M51.36 Other intervertebral disc degeneration, lumbar region (principal); M47.816 Spondylosis without myelopathy or radiculopathy, lumbar region; M47.26 Other spondylosis with radiculopathy, lumbar region | CPT/HCPCS: 99213 ==

== ENCOUNTER → 2022-10-08 15:53 | Outpatient (BNVA) | payer MEDICAID, SELFPAY | PROVIDERS: PCP Family Medicine; Visit Provider Physician Assistant | DX: M51.36 Other intervertebral disc degeneration, lumbar region (principal); M47.816 Spondylosis without myelopathy or radiculopathy, lumbar region | CPT/HCPCS: 72100 ==

== ENCOUNTER 2022-10-25 13:02 | Outpatient (CLI) | payer MEDICAID, SELFPAY ==
--- NOTE | 2022-10-25 13:00 | MR_ITS ---
WS: [id number] MRI LUMBAR SPINE NONCONTRAST TECHNIQUE: Sagittal T1, T2 and STIR imaging. Axial T1 and T2 imaging. CLINICAL INFORMATION: pain COMPARISON: MRI August 13, 2021 FINDINGS: Mild lumbar curve. No acute compression. Disc bulging worse L4-L5 with a small annular tear. Central disc protrusion impinges the traversing L5 nerve roots bilaterally with moderate to severe central ca nal stenosis. This is progressed compared to previous. Moderate facet arthropathy. Mild bilateral for aminal narrowing. L1-L2: Mild facet arthropathy. Spinal canal and foramen are patent. L2-L3: No significant disc bulging. Mild facet arthropathy. Spinal canal and foramen are patent. L3-L4: Mild annular bulging. Slight narrowing of the subarticular recess bilaterally RIGHT greater th an LEFT. Mild RIGHT foraminal narrowing. Moderate facet arthropathy. L4-L5: Central disc protrusion with annular tear. Moderate central canal stenosis progressed compared to previous. Impingement traversing L5 nerve roots. Moderate facet arthropathy. Mild LEFT greater th an RIGHT foraminal narrowing. L5-S1: Mild mild disc osteophytic ridging. Spinal canal and foramen are patent. Slight narrowing of t he LEFT subarticular recess. Moderate facet arthropathy. Visualized pelvic bony structures: Normal. Paravertebral soft tissues: Normal. MR/MR lumbar spine wo con* [id number] IMPRESSION: 1. Mild lumbar curve. No acute compression. 2. Moderate to severe central canal stenosis L4-L5 with central disc protrusio n with annular tear. This is progressed compared to previous. Impingement trave rsing L5 nerve roots bilaterally. 3. Moderate facet arthropathy L4-L5 and L5-S1. 4. Slight narrowing of the RIGHT L3-L4 subarticular recess. Mild RIGHT L3-L4 f oraminal narrowing. 5. Mild bilateral L4-L5 foraminal narrowing.
== END 2022-10-25 13:03 | disposition home or self-care (01) ==
PROVIDERS: PCP Family Medicine; Visit Provider Physician Assistant
DX: M47.816 Spondylosis without myelopathy or radiculopathy, lumbar region (principal); M51.36 Other intervertebral disc degeneration, lumbar region; M48.061 Spinal stenosis, lumbar region without neurogenic claudication; M51.26 Other intervertebral disc displacement, lumbar region
CPT/HCPCS: 72148; 99213

== ENCOUNTER 2022-12-05 14:16 | Outpatient (CLI) | payer MEDICAID, SELFPAY ==
--- NOTE | 2022-12-05 14:23 | US_ITS ---
WS: [id number] US pelv w/transvag [id number] HISTORY: R10.2 - Pelvic and perineal pain COMPARISON: 07/04/2021 Prior hysterectomy since the prior study. No midline mass. Right ovary: 2.1 cm x 2.4 cm x 2.1 cm. Normal size and vascularity, no cystic or solid masses. Small follicles. No solid or cystic mass. Left ovary: 2.8 cm x 1.8 cm x 1.8 cm. Normal size and vascularity, no cystic or solid masses. Hemorrh agic follicle LEFT ovary 1.2 x 0.9 1.6 cm. No free fluid in the cul-de-sac. US/US pelv w/transvag [id number] IMPRESSION: 1. Status post hysterectomy since the prior examination. 2. Normal appearing bilateral ovaries.
== END 2022-12-05 14:17 | disposition home or self-care (01) ==
LOC: RAD 14:18
PROVIDERS: PCP Family Medicine; Visit Provider Obstetrics & Gynecology
DX: R10.2 Pelvic and perineal pain (principal); G89.29 Other chronic pain
CPT/HCPCS: 76830; 76856

== ENCOUNTER → 2022-12-12 15:25 | Outpatient (BNVA) | payer MEDICAID, SELFPAY | PROVIDERS: PCP Family Medicine; Visit Provider Orthopaedic Surgery | DX: M48.061 Spinal stenosis, lumbar region without neurogenic claudication (principal) | CPT/HCPCS: 99214 ==

== ENCOUNTER 2023-01-01 07:24 | Day surgery (SDC) | payer MEDICAID, SELFPAY ==
[2022-12-30 09:19] VITALS: BMI 25.7
[2022-12-30 09:34] LABS: Add Urine Microscopic? NO; Charge for UA Resulting for Rev
[2022-12-30 09:40] LABS: Basophils % 0.6 %; Eosinophils # 0.2 10^3/uL (0.0-0.8); Eosinophils % 3.6 %; Hematocrit 37.8 % (37.0-47.0); Hemoglobin 12.3 g/dL (11.5-15.3); Lymphocytes # 1.7 10^3/uL (0.8-4.8); Lymphocytes % 26.4 %; Mean Corpuscular HGB Conc 32.5 g/dL (30.0-36.0); Mean Corpuscular Hemoglobin 28.9 pg (28.0-34.0); Mean Corpuscular Volume 88.9 fl (81-99); Mean Platelet Volume 10.5 fL (7.4-10.4); Monocytes # 0.7 10^3/uL (0.2-0.9); Monocytes % 10.8 %; Neutrophils # 3.78 10^3/uL (1.8-7.7); Neutrophils % 58.4 %; Nucleated Red Blood Cells % 0 %; Platelet Count 254 10^3/cmm (130-400); Red Blood Count 4.25 10^6/uL (4.1-5.3); Red Cell Distribution Width 13.6 % (12.1-15.1); White Blood Count 6.5 10^3/uL (4.0-10.0)
--- NOTE | 2022-12-30 09:53 | ANES.PREANE2 ---
Pre-Anesthetic Assessment Height/Weight: Height 1.6 m Weight 65.771 kg Operation Date: 01/01/23 07:00 Proposed Procedures p Diagnostic laparoscopy 69885,R10.2(Not Applicable) - Kam Edmondson MD Familial anesthetic complications: none Social No alcohol and No tobacco marijuana Exam alert, oriented x 3, clear to auscultation bilaterally and regular rate & rhythm Airway Mallampati: Class II Dentition: full GI Gastroesophageal Reflux Disease gastroparesis Anesthetic Plan ASA status: 2 Anesthesia: General Risk of > 500 ml blood loss (7ml/kg in children): No Medications/Allergies Home Medications Medication Instructions Recorded Confirmed Last Taken Type baclofen 10 mg tablet 10 mg PO BID 03/26/21 12/30/22 12/29/22 History meloxicam 7.5 mg tablet 7.5 mg PO BID PRN Pain 03/26/21 12/30/22 12/29/22 History omeprazole 20 mg capsule,delayed 20 mg PO DAILY 03/26/21 12/30/22 12/29/22 History release sertraline 100 mg tablet 100 mg PO QAM 03/26/21 12/30/22 12/29/22 History polyethylene glycol 3350 17 17 g PO DAILY 08/21/21 12/30/22 12/27/22 History gram/dose oral powder (Miralax) metoclopramide HCl 10 mg tablet 10 mg PO BID 08/22/21 12/30/22 12/29/22 History (Reglan) galcanezumab-gnlm 120 mg/mL 120 mg SUBCUT Q30D 08/09/22 12/30/22 12/19/22 History subcutaneous pen injector (Emgality Pen) mineral oil 15 ml PO DAILY PRN Constipation 08/09/22 12/30/22 12/27/22 History multivitamin 1 tab PO DAILY 08/09/22 12/30/22 12/29/22 History promethazine 25 mg tablet 25 mg PO Q6H PRN nausea and 08/09/22 12/30/22 12/29/22 Rx vomiting #20 tabs rizatriptan 10 mg tablet 10 mg PO DAILY PRN migraine 08/09/22 12/30/22 12/28/22 History headache vitamin C 50 mg-biotin 1,250 mcg 2 tab PO DAILY 08/09/22 12/30/22 Unknown History chewable tablet (Wiqk-Urgs-Iuyzj (vit C-biotin)) propranolol 20 mg tablet 20 mg PO BID #60 tabs 10/25/22 12/30/22 12/29/22 Rx Allergies Allergy/AdvReac Type Severity Reaction Status Date / Time adhesive tape Allergy Severe whelps, Verified 12/30/22 09:12 peels skin azithromycin Allergy Severe vomiting, Verified 12/30/22 09:12 mouth ulcers erythromycin base Allergy Severe mouth Verified 12/30/22 09:12 ulcers, vomiting gabapentin Allergy Severe memory Verified 12/30/22 09:12 issues Penicillins Allergy Severe itching, Verified 12/30/22 09:12 vomiting,mouth ulcers [facility] Anesthesia Medical History Aftercare following surgery of the genitourinary system Cervical disc herniation Chronic cystitis Degenerative lumbar disc Depression GERD (gastroesophageal reflux disease) Interstitial cystitis Lumbar disc herniation Migraines Surgical History H/O laparoscopy 08/22/2021- Diagnostic Laparoscopy. Fulguration of endometriosis lesions. Preformed by Dr. Edmondson at [facility]. H/O ovarian cystectomy at age 15 H/O tubal ligation 2002 H/O: hysterectomy 10/10/2021: TVH performed by Dr. Edmondson at [facility] History of appendectomy History of back surgery History of bladder surgery History of cholecystectomy History of tonsillectomy Hx of adenoidectomy Family History Mother , AT AGE 63 SMALL CELL CARCINOMA Cancer Hypertension Hyperlipidemia Grandmother Cancer Dementia CAD (coronary artery disease) Diabetes paternal Stroke paternal Heart disease paternal Grandfather Cancer Dementia Diabetes paternal Colon cancer maternal, 60's Father Hypertension Hyperlipidemia CAD (coronary artery disease) Denies family history of Ovarian cancer Clotting disorder Breast cancer Anesthesia complication Bleeding disorder Uterine cancer Thyroid condition Social History Smoking and tobacco status: current every day smoker (MARIJUANA) Data Anesthesia 12/30/22 09:13 12/30/22 09:13 Short CBC 12/30/22 Range/Units 09:13 WBC 6.5 (4.0-10.0) 10^3/uL Hgb 12.3 (11.5-15.3) g/dL Hct 37.8 (37.0-47.0) % MCV 88.9 (81-99) fl Plt Count 254 (130-400) 10^3/cmm Neut % (Auto) 58.4 % Neut # (Auto) 3.78 (1.8-7.7) 10^3/uL Cardiac Studies: No Data to Display
[2022-12-30 09:56] LABS: Alanine Aminotransferase 26 U/L (0-33); Albumin Level 4.3 g/dL (3.5-5.2); Alkaline Phosphatase 105 U/L (35-105); Anion Gap 12.1 (5-19); Aspartate Amino Transferase 20 U/L (0-32); Blood Urea Nitrogen 14 mg/dL (6-20); Calcium 9.2 mg/dL (8.5-10.5); Carbon Dioxide 27 mmol/L (22-29); Chloride 104 mmol/L (98-107); Globulin 2.5 g/dL (1.3-4.6); Glomerular Filtration Rate 78.3 mL/min (90-130); Glucose 101 mg/dL (65-115); Osmolality Calculated 289 mOsm/kg (285-295); Potassium 4.1 mmol/L (3.5-5.1); Sodium 139 mmol/L (136-145); Total Bilirubin 0.6 mg/dL (0.15-1.2); Total Protein 6.8 g/dL (6.6-8.7)
[2022-12-30 09:56] LABS: Bilirubin Urine Neg (Negative); Blood Urine Neg (Negative); Glucose Urine UA Norm (Normal); Ketones Urine Negative (Negative); Leukocyte Esterase Urine Negative (Negative); Nitrate Urine Negative (Negative); Protein Urine Neg (Negative); Specific Gravity, Urine 1.015 (1.005-1.030); Urine Appearance Clear (CLEAR); Urine Color Yellow (Yellow); Urobilinogen Urine Norm (Negative); pH Urine 6 (5-7)
[2023-01-01] VITALS (9 sets, daily range): BP systolic 122–148; BP diastolic 76–90; PULSE 54–67; RESP 16–20; TEMP 36.1–36.6; O2SAT 97–100
[2023-01-01] MEDS: scopolamine 1.5 Patch 1 PATCH TRANSDERMA (07:40)
[2023-01-01] MEDS: sodium chloride 0.9% 500 ML IV (07:40)
[2023-01-01] MEDS: sodium chloride 0.9% 1,000 ML 30 ML IV (08:30)
--- NOTE | 2023-01-01 08:40 | P.ANESUD_ITS ---
Pre-Anesthetic Update Pre-Anesthetic Assessment: Date of Surgery/Procedure: 01/01/23 Preop Elenita gnosis: Pelvic pain Proposed Procedure: Operation Date: 01/01/23 09:25 Proposed Procedures p Diagnostic laparoscopy 71847,R10.2(Not Applicable) - Kam Edmondson MD Any changes to Pre-Anesthetic Assessment?: No Last Intake: Intake Last Liquid Date 12/31/22 Last Liquid Time 19:30 Last Solid Date 12/31/22 Last Solid Time 19:30 Labs Last 48hrs: Short CBC 12/30/22 Range/Units 09:13 WBC 6.5 (4.0-10.0) 10^3/ uL Hgb 12.3 (11.5-15.3) g/dL Hct 37.8 (37.0-47.0) % MCV 88.9 (81-99) fl Plt Count 254 (130-400) 10^3/c mm Neut % (Auto) 58.4 % Neut # (Auto) 3.78 (1.8-7.7) 10^3/u L BMP 12/30/22 09:13 Sodium 139 Potassium 4.1 Chloride 104 Carbon Dioxide 27 BUN 14 Creatinine 0.8 Glucose 101 Calcium 9.2 Liver Function 12/30/22 Range/Units 09:13 Total Bilirubin 0.6 (0.15-1.2) mg/dL AST 20 (0-32) U/L ALT 26 (0-33) U/L Alkaline Phosphata se 105 (35-105) U/L Albumin 4.3 (3.5-5.2) g/dL Urine 12/30/22 Range/Units 09:10 Urine Color Yellow (Yellow) Urine Appearance Clear (CLEAR) Urine pH 6 (5-7) Ur Specific Gravit y 1.015 (1.005-1.030) Urine Protein Neg (Negative) Urine Glucose (UA) Norm (Normal) Urine Ketones Negative (Negative) Urine Nitrate Negative (Negative) Urine Bilirubin Neg (Negative) Ur Leukocyte Vanna ase Negative (Negative) Blood Bank 12/30/22 09:13 Blood Type O Positive Rho(D) Type Positive Antibody Screen Negative Vitals: Temperature 97.8 F 01/01/23 07:34 Temperature Source Temporal Artery S can 01/01/23 07:34 Pulse Rate 54 L 01/01/23 07:34 Respiratory Rate 18 01/01/23 07:34 Blood Pressure 143/89 01/01/23 07:34 Blood Pressure Elizabeth n 107 01/01/23 07:34 Pulse Oximetry 99 01/01/23 07:34 Oxygen Delivery Me thod Room Air 01/01/23 07:35 Exam: Pre-Anes Outpt Exam: alert, oriented x 3, clear to auscultation bilaterally and regular rate & rhythm Cardiac Studies: No Data to Display
[2023-01-01] MEDS: ondansetron 2 mg/ML SDV 2 mL 4 MG IVP (08:41)
[2023-01-01] MEDS: vancomycin 1,000 MG in sodium chloride 0.9% 250 ML 250 MG IV (09:42)
--- NOTE | 2023-01-01 09:52 | W.PM.OPSUD ---
Surgery/Procedure H&P Update DATE OF PROCEDURE: January 01, 2023 DATE H&P PERFORMED: 12/30/22 H&P UPDATE INFORMATION: I have reviewed H&P completed within last 30 days, I have examined patient prior to procedure and No changes to prior documentation PREOP DIAGNOSIS: Pelvic pain PLANNED PROCEDURE: Operation Date: 01/01/23 09:25 Proposed Procedures p Diagnostic laparoscopy 26057,R10.2(Not Applicable) - Kam Edmondson MD
--- NOTE | 2023-01-01 11:07 | P.OP_ITS ---
Operative Report Date of procedure: January 01, 2023 Pre-op diagnosis: Preop Diagnosis Pelvic pain Post-op diagnosis: Same as above. Endometriosis Procedure done: Diagnostic laparoscopy Specimens removed/disposition: None Surgeon: Kam Edmondson MD Estimated blood loss (mL): 1 Urine output (mL): 200 Complications: None Findings: Endometriosis lesion over the right ureter. Procedure: DESCRIPTION OF PROCEDURE: After informed consent, the patient was taken to the operating room where general anesthesia was administered. The patient was examined under anesthesia and found to have a normal uterus with normal adnexa. She was placed in the dorsal lithotomy position and prepped and draped in sterile fashion. Pre- Procedure Time-Out verifying the correct patient identity, correct procedure verified with consent, correct site and side, correct patient position, availability of correct implants and any special equipment or requirements was performed and acknowledge by the OR team. A weighted speculum was placed in the vagina, and the anterior lip of cervix was grasped with the single toothed tenaculum. A uterine manipulator was advanced into the endocervical. Tenaculum was removed after uterine manipulator was secured. The speculum was removed from the vagina. An intraumbilical incision was made with a scalpel. While tenting up on the abdomen, a Verres needle with sleeve was admitted into the intra-abdominal cavity. A saline drop test was performed and noted to be within normal limits. Pneumoperitoneum was attained with 4 liters of carbon dioxide. The Verres needle was removed. A 5 mm trocar and sleeve were admitted into the abdomen and laparoscopic confirmation of location was achieved, A second incision was made 3 cm above the symphysis pubis, and a 5 mm trocar and sleeve were admitted into the abdomen under direct, laparoscopic visualization without complication. A survey revealed normal abdominal anatomy. The pelvic survey shows single endometriosis lesions over the right pelvic wall. A 5 mm blunt probe was advanced through the second trocar sleeve, and light manipulation manipulation of bowels to assess the posterior aspects was performed. A free [place] clip was noted in the cul-de-sac. A third incision was made in left lower quadrant, and a 5 mm trocar and sleeve were admitted into the abdomen under direct, laparoscopic visualization without complication. A atraumatic grasper was used to mobilized the rectum and with laparoscopic [place] the clip was grasped and extracted through the 5 mm trocar sleeve. The endometriosis lesion on the right fossa could not be cauterized because it was right over the right ureter. The carbon dioxide was allowed to escape from the abdomen. The instruments were removed, and skin cover with a bandage. The instruments were removed from the vagina, and excellent hemostasis was noted. The patient tolerated the procedure well, and sponge, lap and needle count were correct times two. The patient taken to the recovery room in good condition.
[2023-01-01] MEDS: HYDROcodone-acetaminophen 5-325 mg Tablet 1 TAB PO (12:01)
--- NOTE | 2023-01-01 12:29 | ANE.PACU2 ---
Inpatient post-anesthesia follow up: Airway intact: Yes Vital signs: Temperature 97.0 F Pulse Rate 54 Respiratory Rate 18 Blood Pressure 136/83 Pulse Oximetry 100 Oxygen Delivery Me thod Room Air Oxygen Flow Rate 6 Fraction of Inspir ed Oxygen Hydration adequate: Yes Nausea and vomiting: No Pain level: 2 Mental status: Baseline
== END 2023-01-01 12:35 | disposition home or self-care (01) ==
PROVIDERS: PCP Family Medicine; Visit Provider Obstetrics & Gynecology
PROC: (CPT 49320; principal; 2023-01-01 09:25)
DX: N80.A61 Endometriosis of right ureter, unspecified depth (principal); N80.351 Endometriosis of the right pelvic sidewall, unspecified depth; K21.9 Gastro-esophageal reflux disease without esophagitis; F32.A Depression, unspecified
CPT/HCPCS: 49320; 80053; 81003; 85025; 86850; 86900; J0330; J1100; J1200; J1885; J2250; J2405; J2704; J3010; J3370; J3490; J7030; J7040; J7050

== ENCOUNTER → 2023-02-12 09:35 | Outpatient (BNVA) | payer MEDICAID, SELFPAY | PROVIDERS: PCP Family Medicine; Visit Provider Family Medicine | DX: Z01.818 Encounter for other preprocedural examination (principal) | CPT/HCPCS: 80048; 85025 ==

== ENCOUNTER → 2023-02-18 15:16 | Outpatient (BNVA) | payer MEDICAID, SELFPAY | PROVIDERS: PCP Family Medicine; Visit Provider Specialist | DX: G43.711 Chronic migraine without aura, intractable, with status migrainosus (principal); R11.0 Nausea | CPT/HCPCS: 96372; 99214; J1885; J2405 ==

== ENCOUNTER 2023-02-26 05:47 | Day surgery (SDC) | payer MEDICAID, SELFPAY ==
[2023-02-25 11:41] VITALS: BMI 26.0
[2023-02-26] VITALS (8 sets, daily range): BP systolic 125–161; BP diastolic 74–101; PULSE 57–63; RESP 16–18; TEMP 35.9–36.5; O2SAT 95–99; BMI 26.0
--- NOTE | 2023-02-26 | XR_ITS ---
WS: [id number] INTRAOPERATIVE TECHNIQUE: 2 Spot fluoroscopic images for intraoperative purposes. FLUOROSCOPY TIME: 9.1 seconds CLINICAL INFORMATION: l4-5 decompression COMPARISON: None. FINDINGS: Localization marker projected over the L4-5 interspace. IMPRESSION: Images obtained for intraoperative purposes.
[2023-02-26] MEDS: sodium chloride 0.9% 1,000 ML 30 ML IV (06:24)
[2023-02-26] MEDS: vancomycin 1,000 MG in sodium chloride 0.9% 250 ML 250 MG IV (06:27)
[2023-02-26] MEDS: scopolamine 1.5 Patch 1 PATCH TRANSDERMA (06:27)
--- NOTE | 2023-02-26 06:39 | ANES.PREANE2 ---
Pre-Anesthetic Assessment Height/Weight: Height 1.6 m Weight 66.678 kg Temp Pulse Resp BP Pulse Ox O2 Del Method 97.7 F 63 18 161/101 99 Room Air 02/26/23 06:05 02/26/23 06:05 02/26/23 06:05 02/26/23 06:05 02/26/23 06:05 02/26/23 06:06 Preop Diagnosis: Lumbar stenosis Operation Date: 02/26/23 07:00 Proposed Procedures p bilat L4/5 decompression:45363,M48.061(Bilateral) - Kyle Olivas, Familial anesthetic complications: None Was Beta Edenilson taken within 24 hours: N/A Was Clonidine taken within 24 hours: N/A Last intake: Intake Last Liquid Date 02/25/23 Last Liquid Time 22:00 Last Solid Date 02/25/23 Last Solid Time 22:00 Social No alcohol and No tobacco Exam alert, oriented x 3, clear to auscultation bilaterally and regular rate & rhythm Airway Mallampati: Class II Dentition: full GI Gastroesophageal Reflux Disease gastroparesis - RSI Neuropsych Headache Anesthetic Plan ASA status: 2 Anesthesia: General Other: RSI for hx gastroparesis Risk of > 500 ml blood loss (7ml/kg in children): No Medications/Allergies Home Medications Medication Instructions Recorded Confirmed Last Taken Type baclofen 10 mg tablet 10 mg PO BID 03/26/21 02/25/23 02/24/23 History meloxicam 7.5 mg tablet 7.5 mg PO BID PRN Pain 03/26/21 02/25/23 02/22/23 History omeprazole 20 mg capsule,delayed 20 mg PO DAILY 03/26/21 02/26/23 02/26/23 History release sertraline 100 mg tablet 100 mg PO QAM 03/26/21 02/26/23 02/26/23 History polyethylene glycol 3350 17 17 g PO DAILY 08/21/21 02/25/23 02/20/23 History gram/dose oral powder (Miralax) mineral oil 15 ml PO DAILY PRN Constipation 08/09/22 02/25/23 02/12/23 History multivitamin 1 tab PO DAILY 08/09/22 02/25/23 02/24/23 History promethazine 25 mg tablet 25 mg PO Q6H PRN nausea and 0202/25/23 12/31/22 Rx vomiting #20 tabs rizatriptan 10 mg tablet 10 mg PO DAILY PRN migraine 08/09/22 02/25/23 02/23/23 History headache vitamin C 50 mg-biotin 1,250 mcg 2 tab PO DAILY 08/09/22 02/25/23 02/24/23 History chewable tablet (Mknd-Hwwa-Lrnsr (vit C-biotin)) ibuprofen 800 mg tablet 800 mg PO TID PRN pain #60 tabs 01/01/23 02/25/23 02/22/23 Rx propranolol 20 mg tablet 20 mg PO BID #60 tabs 02/06/23 02/26/23 02/26/23 Rx galcanezumab-gnlm 120 mg/mL 120 mg SUBCUT ONCE #3 mL 02/12/23 02/25/23 02/06/23 Rx subcutaneous pen injector (Emgality Pen) hydroxyzine HCl 25 mg tablet 25 mg PO Q6H PRN Anxiety 02/12/23 02/25/23 02/20/23 History diclofenac potassium 25 mg tablet 25 mg PO .twice a day 02/18/23 02/25/23 02/25/23 History Allergies Allergy/AdvReac Type Severity Reaction Status Date / Time adhesive tape Allergy Severe whelps, Verified 02/25/23 11:33 peels skin azithromycin Allergy Severe vomiting, Verified 02/25/23 11:33 mouth ulcers erythromycin base Allergy Severe mouth Verified 02/25/23 11:33 ulcers, vomiting gabapentin Allergy Severe memory Verified 02/25/23 11:33 issues Penicillins Allergy Severe itching, Verified 02/25/23 11:33 vomiting,mouth ulcers hydrocodone Allergy ADR-Nausea Verified 02/25/23 11:34 Current Medications Generic Name Dose Route Start Last Admin Trade Name Freq PRN Reason Stop Dose Admin Vancomycin HCl 1,000 mg/ 250 mls @ 250 mls/hr 02/26/23 05:55 02/26/23 06:27 Sodium Chloride IV 02/26/23 06:54 250 mls/hr ONCE ONE Administration Protocol Sodium Chloride 1,000 mls @ 30 mls/hr 02/26/23 06:00 02/26/23 06:24 Sodium Chloride 0.9% IV 02/27/23 05:59 30 mls/hr .Q24H APOLINAR Administration PFSH Anesthesia Medical History Aftercare following surgery of the genitourinary system Cervical disc herniation Chronic cystitis Degenerative lumbar disc Depression GERD (gastroesophageal reflux disease) Interstitial cystitis Lumbar disc herniation Migraines Surgical History H/O laparoscopy 08/22/2021- Diagnostic Laparoscopy. Fulguration of endometriosis lesions. Preformed by Dr. Edmondson at [facility]. H/O ovarian cystectomy at age 15 H/O tubal ligation 2002 H/O: hysterectomy 10/10/2021: TVH performed by Dr. Edmondson at [facility] History of appendectomy History of back surgery History of bladder surgery History of cholecystectomy History of tonsillectomy Hx of adenoidectomy Family History Mother , AT AGE 63 SMALL CELL CARCINOMA Cancer Hypertension Hyperlipidemia Grandmother Cancer Dementia CAD (coronary artery disease) Diabetes paternal Stroke paternal Heart disease paternal Grandfather Cancer Dementia Diabetes paternal Colon cancer maternal, 60's Father Hypertension Hyperlipidemia CAD (coronary artery disease) Denies family history of Ovarian cancer Clotting disorder Breast cancer Anesthesia complication Bleeding disorder Uterine cancer Thyroid condition Social History Smoking and tobacco status: current every day smoker (MARIJUANA) Data Anesthesia Cardiac Studies: No Data to Display
--- NOTE | 2023-02-26 06:44 | P.HP_ITS ---
Same Day Surgery H&P Indication for Procedure/HPI DATE OF PROCEDURE: February 26, 2023 CHIEF COMPLAINT/INDICATIONFOR SURGICAL PROCEDURE: back pain PREOP DIAGNOSIS: Lumbar stenosis with neurogenic claudication PLANNED PROCEDURE: Operation Date: 02/26/23 07:00 Proposed Procedures p bilat L4/5 decompression:58734,M48.061(Bilateral) - Kyle Olivas, DO Medications/Allergies* Home Medications Medication Instructions Recorded Confirmed Type baclofen 10 mg tablet 10 mg PO BID 03/26/21 02/25/23 History meloxicam 7.5 mg tablet 7.5 mg PO BID PRN Pain 03/26/21 02/25/23 History omeprazole 20 mg capsule,delayed 20 mg PO DAILY 03/26/21 02/26/23 History release sertraline 100 mg tablet 100 mg PO QAM 03/26/21 02/26/23 History polyethylene glycol 3350 17 17 g PO DAILY 08/21/21 02/25/23 History gram/dose oral powder (Miralax) mineral oil 15 ml PO DAILY PRN Constipation 08/09/22 02/25/23 History multivitamin 1 tab PO DAILY 08/09/22 02/25/23 History rizatriptan 10 mg tablet 10 mg PO DAILY PRN migraine 08/09/22 02/25/23 History headache vitamin C 50 mg-biotin 1,250 mcg 2 tab PO DAILY 08/09/22 02/25/23 History chewable tablet (Nhyl-Xjgz-Cklud (vit C-biotin)) hydroxyzine HCl 25 mg tablet 25 mg PO Q6H PRN Anxiety 02/12/23 02/25/23 History diclofenac potassium 25 mg tablet 25 mg PO .twice a day 02/18/23 02/25/23 History Allergies/Adverse Reactions Allergy/AdvReac Type Severity Reaction Status Date / Time adhesive tape Allergy Severe whelps, Verified 02/25/23 11:33 peels skin azithromycin Allergy Severe vomiting, Verified 02/25/23 11:33 mouth ulcers erythromycin base Allergy Severe mouth Verified 02/25/23 11:33 ulcers, vomiting gabapentin Allergy Severe memory Verified 02/25/23 11:33 issues Penicillins Allergy Severe itching, Verified 02/25/23 11:33 vomiting,mouth ulcers hydrocodone Allergy ADR-Nausea Verified 02/25/23 11:34 Current Medications: Generic Name Dose Route Start Last Admin Trade Name Freq PRN Reason Stop Dose Admin Vancomycin HCl 1,000 mg/ 250 mls @ 250 mls/hr 02/26/23 05:55 02/26/23 06:27 Sodium Chloride IV 02/26/23 06:54 250 mls/hr ONCE ONE Administration Protocol Sodium Chloride 1,000 mls @ 30 mls/hr 02/26/23 06:00 02/26/23 06:24 Sodium Chloride 0.9% IV 02/27/23 05:59 30 mls/hr .Q24H APOLINAR Administration Pertinent History/Comorbid Conditions* Medical History (Updated 12/13/22 @ 07:23 by Kam Edmondson MD) Aftercare following surgery of the genitourinary system Cervical disc herniation Chronic cystitis Degenerative lumbar disc Depression GERD (gastroesophageal reflux disease) Interstitial cystitis Lumbar disc herniation Migraines Surgical History (Updated 10/26/21 @ 15:52 by Kam Edmondson MD) H/O laparoscopy 08/22/2021- Diagnostic Laparoscopy. Fulguration of endometriosis lesions. Preformed by Dr. Edmondson at [facility]. H/O ovarian cystectomy at age 15 H/O tubal ligation 2002 H/O: hysterectomy 10/10/2021: TVH performed by Dr. Edmondson at [facility] History of appendectomy History of back surgery History of bladder surgery History of cholecystectomy History of tonsillectomy Hx of adenoidectomy Family History (Updated 09/04/21 @ 13:57 by Rubi Lynn LPN) Grandfather Grandmother Mother, AT AGE 63 SMALL CELL CARCINOMA Colon cancer Grandfather maternal, 60's Diabetes Grandmother paternal Grandfather paternal CAD (coronary artery disease) Grandmother Father Dementia Grandmother Grandfather Heart disease Grandmother paternal Hyperlipidemia Mother Father Cancer Mother Grandmother Grandfather Hypertension Mother Father Stroke Grandmother paternal Denies family history of Ovarian cancer Clotting disorder Breast cancer Anesthesia complication Bleeding disorder Uterine cancer Thyroid condition Social History Smoking and tobacco status: current every day smoker (MARIJUANA) Pertinent Exam Findings alert and oriented x 3 Recommendations Surgery/Procedure today Coding Level of Care Code Acute Code for Chg Fwd Diagnoses
[2023-02-26] MEDS: lidocaine-epi 1% 20 mL INJ INJECTION (07:34)
--- NOTE | 2023-02-26 08:00 | P.OP_ITS ---
Operative Report Date of procedure: February 26, 2023 Pre-op diagnosis: lumbar stenosis with neurogenic claudication Post-op diagnosis: same Procedure done: L4/5 laminectomy with partial facetectomy Surgeon: Kyle Olivas DO Lecturer In Computer Science: Ryan Rodriguez Lecturer In Computer Science: The neurosurgical physician assistant, Ryan Rodriguez, RHIANNON was needed for his expertise under the microscope. He was important and necessary throughout the procedure to complete in a safe and timely manner. He assisted with patient positioning prepping and draping tissue retraction suctioning of the operative field protection of the dural sac and tissue closure Estimated blood loss (mL): 5 Procedure: L4/5 laminectomy with partial facetectomy Patient is brought to the operative suite. After undergoing anesthesia they are placed in the prone position. All areas of impingement are well padded. Patient is then prepped and draped in the normal sterile fashion. A skin incision is made over the L4-5 level. This is confirmed under c-arm guidance. A series of dilators are passed and the tubular retractor is docked on the L4 lamina. A bovie is used to clear the soft tissue off the lamina and the L 4/5 facet joint. A high speed pratima is then used to perform the laminectomy and take down the medial aspect of the L 4/5 facet joint. A kerrison rongeure was then used to take down the remaining lamina and smooth the edged of the laminectomy up to the point where the ligamentum flavum attaches. Attention was then brought to the medial aspect of the facet joint. The remaining medial aspect of the superior and inferior aspect of the facet joint were taken down with the kerrison from the pedicle of L4 to L 5. The facet joint had significant hypertrophy. Attention was then brought to the Ligamentum Flavum. The ligament was taken down from the lamina of L4 to L5 and out medially to the remaining facet joint. The ligament was thick. The dura was then exposed. The dura was in good repair. The L4 nerve was then traced with a curette out the L4/5 foramen and found to be adequately decompressed. The L5 nerve was traced with a curette around the L5 pedicle. The lateral recess was opened with a kerrison helping to further decompress the L5 nerve. The tubular retractor was then tilted to the contralateral side. The bovie was used to take down the soft tissue on the spinous process. The high speed pratima was used to take down the spinous process and then the contralateral lamina of L4. The kerrison rongeur was used to take down the remaining lamina to the point where the ligamentum flavum attached and the ligamentum flavum was taken down from L4 to L5. The kerrison rongeur was then used to reach across and take down the medial aspect of the contralateral L4/5 facet joint.The currete was used to trace the contralateral L4 nerve out the L4/5 foramen to make sure it was decompressed adequatesly and the L5 was traced around the L5 pedicle. The lateral recess was opened further with the kerrison to ensure the L5 is adequately decompressed. Wound is then irrigated copiously with saline and surgiflo is used to stop any bleeding. The tubular retractor is removed and the wound is closed with vicryl and monocryl suture. Glue is then used to protect the wound. A sterile dressing is then placed. Patient was then placed in the supine position and transferred to the PACU in stable condition.
[2023-02-26] MEDS: HYDROcodone-acetaminophen 5-325 mg Tablet 2 TAB PO (08:49)
--- NOTE | 2023-02-26 09:40 | ANE.PACU2 ---
Inpatient post-anesthesia follow up: Airway intact: Yes Vital signs: Temperature 96.6 F Pulse Rate 58 Respiratory Rate 16 Blood Pressure 135/79 Pulse Oximetry 97 Oxygen Delivery Me thod Room Air Oxygen Flow Rate Fraction of Inspir ed Oxygen Hydration adequate: Yes Nausea and vomiting: No Pain level: 1 Mental status: Baseline
== END 2023-02-26 09:45 | disposition home or self-care (01) ==
PROVIDERS: PCP Family Medicine; Visit Provider Orthopaedic Surgery
PROC: (CPT 63005; principal; 2023-02-26 07:00)
DX: M48.062 Spinal stenosis, lumbar region with neurogenic claudication (principal); K21.9 Gastro-esophageal reflux disease without esophagitis
CPT/HCPCS: 63047; 72020; 76000; J0330; J1100; J1170; J1200; J2250; J2371; J2405; J2704; J2710; J3010; J3370; J3490; J7030; J7050

== ENCOUNTER → 2023-03-13 09:59 | Outpatient (BNVA) | payer MEDICAID, SELFPAY | PROVIDERS: PCP Family Medicine; Visit Provider Physician Assistant | DX: Z47.89 Encounter for other orthopedic aftercare (principal) | CPT/HCPCS: 99024 ==

== ENCOUNTER → 2023-03-27 11:47 | Outpatient (BNVA) | payer MEDICAID, SELFPAY | PROVIDERS: PCP Family Medicine; Visit Provider Specialist | DX: G43.711 Chronic migraine without aura, intractable, with status migrainosus (principal) | CPT/HCPCS: 64615; J0585 ==

== ENCOUNTER 2023-04-15 11:43 | Inpatient (IN) | payer MEDICAID, SELFPAY ==
[2023-04-15] VITALS (28 sets, daily range): BP systolic 131–176; BP diastolic 73–130; PULSE 68–124; RESP 14–28; TEMP 36.2–36.8; O2SAT 96–100; BMI 26.2
--- NOTE | 2023-04-15 11:48 | XR_ITS ---
WS: [id number] Exam: XR ankle LT min 3V* [id number] Date/Time of Exam: 04/15/2023 11:48 AM Reason For Exam: trauma There is a comminuted fracture of the lower tibia with nondisplaced fracture through the medial malle olus. Posterior tibial shelf fracture minimally displaced. Displaced angulated fracture of the distal fibula. No dislocation. Mild medial subluxation of the tibia upon the talar dome. IMPRESSION: 1. Trimalleolar fracture of the LEFT ankle with additional comminution of the lower tibia. Mild media l subluxation of the tibia upon the talar dome.
--- NOTE | 2023-04-15 11:50 | ED_ITS ---
HPI - Extremity Injury (Lower) General: Chief Complaint: Extremity Injury, Lower Stated Complaint: left ankle injury Time Seen by Provider: 04/15/23 11:45 Source: patient Mode of arrival: ambulatory History of Present Illness: 42-year-old female presents emergency room complaining of left ankle pain as she was outside doing some chores and slipped on the gravel had an inversion type injury of her left ankle has severe pain was unable to bear any weight. No other injury did not strike her head. No previous injuries to this ankle. MD complaint: ankle injury (Left) Onset (ago): minute(s) Type of Injury: inversion Place: home Severity: severe Relieving factors: immobilization Exacerbating factors: movement and palpation Context: fall and walking Associated symptoms: Reports inability to bear weight Review of Systems Const: Denies: fever(s) or chills Card: Denies: chest pain Resp: Denies: dyspnea GI: Denies: abdominal pain : Denies: dysuria, urinary frequency or urinary urgency Musc: Denies: neck pain or back pain Skin/Breast: Denies: rash PFSH ED PFSH: Medical History Aftercare following surgery of the genitourinary system Cervical disc herniation Chronic cystitis Degenerative lumbar disc Depression GERD (gastroesophageal reflux disease) Interstitial cystitis Lumbar disc herniation Migraines Surgical History H/O laparoscopy 08/22/2021- Diagnostic Laparoscopy. Fulguration of endometriosis lesions. Preformed by Dr. Edmondson at [facility]. H/O ovarian cystectomy at age 15 H/O tubal ligation 2002 H/O: hysterectomy 10/10/2021: TVH performed by Dr. Edmondson at [facility] History of appendectomy History of back surgery History of bladder surgery History of cholecystectomy History of tonsillectomy Hx of adenoidectomy Family History Mother , AT AGE 63 SMALL CELL CARCINOMA Cancer Hypertension Hyperlipidemia Grandmother Cancer Dementia CAD (coronary artery disease) Diabetes paternal Stroke paternal Heart disease paternal Grandfather Cancer Dementia Diabetes paternal Colon cancer maternal, 60's Father Hypertension Hyperlipidemia CAD (coronary artery disease) Denies family history of Ovarian cancer Clotting disorder Breast cancer Anesthesia complication Bleeding disorder Uterine cancer Thyroid disease Social History Smoking and tobacco/nicotine status: current every day tobacco/nicotine user Physical Exam Const: GENERAL APPEARANCE: cooperative and comfortable ORIENTATION/CONSCIOUSNESS: Yes awake, Yes oriented to person, Yes oriented to place and Yes oriented to time HENMT: COMMON NORMALS: normocephalic, atraumatic and hearing grossly normal bilaterally HEAD & SCALP: normocephalic and atraumatic Resp: COMMON NORMALS: normal respiratory effort, No retractions, No use of accessory muscles and clear to auscultation bilaterally AUSCULTATION: clear to auscultation bilaterally Cardio: COMMON NORMALS: regular rate, regular rhythm and No murmurs present (Cardio) RATE: regular rate RHYTHM: regular rhythm GI: COMMON NORMALS: Soft to palpation and No hepatosplenomegaly present AUSCULTATION: Yes normoactive bowel sounds PALPATION: Yes Soft to palpation, No Tenderness to palpation present (GI), No Guarding due to palpation present (GI) and Yes No hepatosplenomegaly present Extremity: COMMON NORMALS: capillary refill normal, no clubbing, cyanosis or edema, no calf tenderness and no pedal edema OTHER: Moderate swelling and ecchymosis of the lateral portion of the ankle dorsalis pedis pulse normal sensation and active motion at the toes normal due to pain and inability to dorsiflex or plantarflex at the ankle. Neuro: SENSORIUM/ORIENTATION: Yes oriented to person, Yes oriented to place and Yes oriented to time Skin: COMMON NORMALS: no rashes or lesions noted GENERAL SKIN EXAM: no rashes or lesions noted Course Vital Signs: Vital signs: Vital Signs Temperature 98.2 F 04/15/23 11:47 Pulse Rate 68 04/15/23 14:56 Respiratory Rate 17 04/15/23 15:11 Blood Pressure 135/94 04/15/23 14:56 Pulse Oximetry 98 04/15/23 15:11 Oxygen Delivery Me thod Room Air 04/15/23 14:56 MDM - Extremity Injury (Lower) Medical Decision Making Trimalleolar fracture left ankle moderate swelling difficult to control pain. Dr. Fernandez was kind enough to come and see the patient will admit to Dr. Omar Fine to consult. Medical Records I reviewed the patient's medical records. (X-ray reviewed) Lab Data I reviewed the patient's lab results. All radiology interpretation(s) finalized by discharge Discharge Plan Discharge Patient Disposition: Admitted As Inpatient Clinical Impression: Closed trimalleolar fracture Condition: Stable Coding Level of Care Code ED American History Professor for Kaz Osborn
[2023-04-15] MEDS: ondansetron 2 mg/ML SDV 2 mL 4 MG IVP (12:06)
[2023-04-15] MEDS: morphine 4 mg/mL SDV 1 mL IVP ×3 (12:06→12:36)
[2023-04-15] MEDS: HYDROmorphone 1 mg/mL INJ 1 mL IVP ×6 (13:07→23:37)
--- NOTE | 2023-04-15 15:38 | W.PM.OPSFHP ---
Same Day Surgery H&P Indication for Procedure/HPI DATE OF PROCEDURE: April 15, 2023 CHIEF COMPLAINT/INDICATIONFOR SURGICAL PROCEDURE: Left ankle pilon fracture PREOP DIAGNOSIS: Left ankle pilon fracture PLANNED PROCEDURE: Operation Date: 04/15/23 15:40 Proposed Procedures p External Fixator Lower Extremity External Fixator Ankle(Left) - Dewey Wallace DPM Medications/Allergies* Home Medications Medication Instructions Recorded Confirmed Type baclofen 10 mg tablet 10 mg PO BID 03/26/21 04/15/23 History meloxicam 7.5 mg tablet 7.5 mg PO BID PRN Pain 03/26/21 04/15/23 History omeprazole 20 mg capsule,delayed 20 mg PO DAILY 03/26/21 04/15/23 History release sertraline 100 mg tablet 100 mg PO QAM 03/26/21 04/15/23 History polyethylene glycol 3350 17 17 g PO DAILY PRN Constipation 08/21/21 04/15/23 History gram/dose oral powder (Miralax) multivitamin 1 tab PO DAILY 08/09/22 04/15/23 History rizatriptan 10 mg tablet 10 mg PO DAILY PRN migraine 08/09/22 04/15/23 History headache hydroxyzine HCl 25 mg tablet 25 mg PO Q6H PRN Anxiety 02/12/23 04/15/23 History diclofenac potassium 25 mg tablet 25 mg PO BID 02/18/23 04/15/23 History ibuprofen 200 mg capsule 800 mg PO Q6H PRN Pain 04/15/23 04/15/23 History Allergies/Adverse Reactions Allergy/AdvReac Type Severity Reaction Status Date / Time adhesive tape Allergy Severe whelps, Verified 04/15/23 12:39 peels skin azithromycin Allergy Severe vomiting, Verified 04/15/23 12:39 mouth ulcers erythromycin base Allergy Severe mouth Verified 04/15/23 12:39 ulcers, vomiting gabapentin Allergy Severe memory Verified 04/15/23 12:39 issues Penicillins Allergy Severe itching, Verified 04/15/23 12:39 vomiting,mouth ulcers hydrocodone Allergy ADR-Nausea Verified 04/15/23 12:39 Pertinent History/Comorbid Conditions* Medical History (Updated 12/13/22 @ 07:23 by Kam Edmondson MD) Aftercare following surgery of the genitourinary system Cervical disc herniation Chronic cystitis Degenerative lumbar disc Depression GERD (gastroesophageal reflux disease) Interstitial cystitis Lumbar disc herniation Migraines Surgical History (Updated 03/13/23 @ 10:18 by Ryan Rodriguez PA-C) H/O laparoscopy 08/22/2021- Diagnostic Laparoscopy. Fulguration of endometriosis lesions. Preformed by Dr. Edmondson at [facility]. H/O ovarian cystectomy at age 15 H/O tubal ligation 2002 H/O: hysterectomy 10/10/2021: TVH performed by Dr. Edmondson at [facility] History of appendectomy History of back surgery History of bladder surgery History of cholecystectomy History of tonsillectomy Hx of adenoidectomy Family History (Updated 09/04/21 @ 13:57 by Rubi Lynn LPN) Grandfather Grandmother Mother, AT AGE 63 SMALL CELL CARCINOMA Colon cancer Grandfather maternal, 60's Diabetes Grandmother paternal Grandfather paternal CAD (coronary artery disease) Grandmother Father Dementia Grandmother Grandfather Heart disease Grandmother paternal Hyperlipidemia Mother Father Cancer Mother Grandmother Grandfather Hypertension Mother Father Stroke Grandmother paternal Denies family history of Ovarian cancer Clotting disorder Breast cancer Anesthesia complication Bleeding disorder Uterine cancer Thyroid disease Social History Smoking and tobacco/nicotine status: current every day tobacco/nicotine user Pertinent Exam Findings alert, oriented x 3, clear to auscultation bilaterally, regular rate & rhythm, operative site marked and procedure specific exam findings GENERAL: A&O x 3 VASCULAR: DP/PT pulses palpable 2/4 with CFT intact, <3seconds to distal digits DERMATOLOGICAL: Skin turgor and temperature is within normal limits. No open wounds or skin lesions noted. Nails are well manicured and normotrophic. No interdigital maceration noted. MUSCULOSKELETAL: Pain left ankle. Full msk deferred secondary to post-traumatic state NEUROLOGICAL: Neurological sensation to the affected foot and ankle is present through L4-S1 dermatomes with no hyper/hypoesthesias, negative Tinel or Valleix's sign Recommendations Surgery/Procedure today Other Plans: ORIF left fibular fracture with application of external fixator Coding Level of Care Code Acute Code for Chg Fwd Diagnoses
[2023-04-15] MEDS: ceFAZolin 2,000 MG in sodium chloride 0.9% (plus) 50 ML 100 MG IV (15:40)
[2023-04-15] MEDS: sodium chloride 0.9% 1,000 ML 30 ML (15:41)
[2023-04-15] MEDS: BUPivacaine 0.5% INJ 30 mL INJECTION (16:26)
--- NOTE | 2023-04-15 16:51 | P.ANESASSM_ITS ---
Pre-Anesthetic Assessment Height/Weight: Height 1.6 m Weight 67.132 kg Temp Pulse Resp BP Pulse Ox O2 Del Method 98.2 F 68 17 135/94 98 Room Air 04/15/23 11:47 04/15/23 14:56 04/15/23 15:11 04/15/23 14:56 04/15/23 15:11 04/15/23 14:56 Preop Diagnosis: Left ankle pilon fracture Operation Date: 04/15/23 15:40 Proposed Procedures p External Fixator Lower Extremity External Fixator Ankle(Left) - Dewey Wallace DPM Familial anesthetic complications: none Was Beta Edenilson taken within 24 hours: Yes Was Clonidine taken within 24 hours: N/A Last intake: Intake Last Liquid Date 04/14/23 Last Liquid Time 18:00 Last Solid Date 04/14/23 Last Solid Time 18:00 Social No alcohol and No tobacco Exam alert, oriented x 3, clear to auscultation bilaterally and regular rate & rhythm Airway Submandibular: within normal limits Cervical ROM: within normal limits Mallampati: Class II Dentition: chipped GI Gastroesophageal Reflux Disease gastroparesis Musc/skel Lower Back Pain and Osteoarthritis/DJD Chronic pain Anesthetic Plan ASA status: 3 Anesthesia: General and Regional (specify below) (left pop blk) Medications/Allergies Home Medications Medication Instructions Recorded Confirmed Last Taken Type baclofen 10 mg tablet 10 mg PO BID 03/26/21 04/15/23 02/24/23 History meloxicam 7.5 mg tablet 7.5 mg PO BID PRN Pain 03/26/21 04/15/23 02/22/23 History omeprazole 20 mg capsule,delayed 20 mg PO DAILY 03/26/21 04/15/23 02/26/23 History release sertraline 100 mg tablet 100 mg PO QAM 03/26/21 04/15/23 02/26/23 History polyethylene glycol 3350 17 17 g PO DAILY PRN Constipation 08/21/21 04/15/23 02/20/23 History gram/dose oral powder (Miralax) multivitamin 1 tab PO DAILY 08/09/22 04/15/23 02/24/23 History rizatriptan 10 mg tablet 10 mg PO DAILY PRN migraine 08/09/22 04/15/23 02/23/23 History headache propranolol 20 mg tablet 20 mg PO BID #60 tabs 02/06/23 04/15/23 02/26/23 Rx hydroxyzine HCl 25 mg tablet 25 mg PO Q6H PRN Anxiety 02/12/23 04/15/23 02/20/23 History diclofenac potassium 25 mg tablet 25 mg PO BID 02/18/23 04/15/23 02/25/23 History ibuprofen 200 mg capsule 800 mg PO Q6H PRN Pain 04/15/23 04/15/23 Unknown History Allergies Allergy/AdvReac Type Severity Reaction Status Date / Time adhesive tape Allergy Severe whelps, Verified 04/15/23 12:39 peels skin azithromycin Allergy Severe vomiting, Verified 04/15/23 12:39 mouth ulcers erythromycin base Allergy Severe mouth Verified 04/15/23 12:39 ulcers, vomiting gabapentin Allergy Severe memory Verified 04/15/23 12:39 issues Penicillins Allergy Severe itching, Verified 04/15/23 12:39 vomiting,mouth ulcers hydrocodone Allergy ADR-Nausea Verified 04/15/23 12:39 [facility] Anesthesia Medical History Aftercare following surgery of the genitourinary system Cervical disc herniation Chronic cystitis Degenerative lumbar disc Depression GERD (gastroesophageal reflux disease) Interstitial cystitis Lumbar disc herniation Migraines Surgical History H/O laparoscopy 08/22/2021- Diagnostic Laparoscopy. Fulguration of endometriosis lesions. Preformed by Dr. Edmondson at [facility]. H/O ovarian cystectomy at age 15 H/O tubal ligation 2002 H/O: hysterectomy 10/10/2021: TVH performed by Dr. Edmondson at [facility] History of appendectomy History of back surgery History of bladder surgery History of cholecystectomy History of tonsillectomy Hx of adenoidectomy Family History Mother , AT AGE 63 SMALL CELL CARCINOMA Cancer Hypertension Hyperlipidemia Grandmother Cancer Dementia CAD (coronary artery disease) Diabetes paternal Stroke paternal Heart disease paternal Grandfather Cancer Dementia Diabetes paternal Colon cancer maternal, 60's Father Hypertension Hyperlipidemia CAD (coronary artery disease) Denies family history of Ovarian cancer Clotting disorder Breast cancer Anesthesia complication Bleeding disorder Uterine cancer Thyroid disease Social History Smoking and tobacco/nicotine status: current every day tobacco/nicotine user Data Anesthesia Cardiac Studies: No Data to Display Anesthesia Procedures Nerve Block Nerve Block 1: Main Anesthesia: general anesthesia Time Out Performed: Yes Consent: requested by attending/covering physician, from patient, risks and benefits reviewed and patient agrees to proceed Nerve block location: popliteal (left) Anesthesia monitors applied: pulse oximetry, EKG, BP cuff and oxygen Nerve block position: supine Anesthetic Used: ropivicaine 0.5% Amount of anesthesia used (mL): 30 Ultrasound used to: recognize landmarks Nerve Stimulator Used?: No Interscalene/Femoral BLK: 4 stimuplex 21 g needle used for position and inplane approach Injection: neg aspiration of heme Patient Tolerated Procedure: well Complications: none
--- NOTE | 2023-04-15 17:25 | P.BOP_ITS ---
Date of procedure: 04/15/23 Surgeon name: Dr. Dewey Wallace DPM Esthetician Makeup Artist(s) name(s): None Procedure(s) performed: ORIF left fibular fracture and application of external fixator left lower leg Description of findings: Left distal tibia and fibular fracture Estimated blood loss: less than 20 cc Specimen(s) removed: None Post-operative diagnosis: Left ankle pilon fracture
--- NOTE | 2023-04-15 17:34 | PM.CONSULT ---
Providers/Reason For Consult Consulting Physician/Specialty*: Dr. Dewey Wallace, D.P.M./podiatry Reason for Consult*: Left ankle pilon fracture Attending Physician: Dewey Wallace DPM Primary Care Provider: Huy Quintanilla MD History of Present Illness History of Present Illness Felicitas Velasco is a 42 year old female who presented to the emergency department earlier this afternoon 04/15/2023 with chief complaint of left ankle pain. Patient states that she was working in her yard when she slipped on gravel rolling her ankle. She had immediate onset of pain and instability to the left ankle. She presented to the emergency department in extreme pain. Work-up in the emergency department revealed a distal tib?fib fracture of the left ankle. Podiatry was consulted to evaluate and provide treatment recommendations. Patient has been n.p.o. since yesterday evening. Review of Systems General: Reports: 10 or more systems reviewed and unremarkable except in HPI and below Const: Denies: fever(s), chills or fatigue Eyes: Denies: change in vision ENMT: Denies: sinus pain Card: Denies: chest pain, palpitations or lightheadedness Resp: Denies: dyspnea GI: Denies: abdominal pain, nausea or vomiting Musc: Reports: extremity pain, extremity swelling and limited range of motion; Denies: neck pain or back pain Skin/Breast: Reports: skin swelling Neuro: Denies: numbness in extremities Medications/Allergies Home Medications Medication Instructions Recorded Confirmed Last Taken Type baclofen 10 mg tablet 10 mg PO BID 03/26/21 04/15/23 02/24/23 History meloxicam 7.5 mg tablet 7.5 mg PO BID PRN Pain 03/26/21 04/15/23 02/22/23 History omeprazole 20 mg capsule,delayed 20 mg PO DAILY 03/26/21 04/15/23 02/26/23 History release sertraline 100 mg tablet 100 mg PO QAM 03/26/21 04/15/23 02/26/23 History polyethylene glycol 3350 17 17 g PO DAILY PRN Constipation 08/21/21 04/15/23 02/20/23 History gram/dose oral powder (Miralax) multivitamin 1 tab PO DAILY 08/09/22 04/15/23 02/24/23 History rizatriptan 10 mg tablet 10 mg PO DAILY PRN migraine 08/09/22 04/15/23 02/23/23 History headache propranolol 20 mg tablet 20 mg PO BID #60 tabs 02/06/23 04/15/23 02/26/23 Rx hydroxyzine HCl 25 mg tablet 25 mg PO Q6H PRN Anxiety 02/12/23 04/15/23 02/20/23 History diclofenac potassium 25 mg tablet 25 mg PO BID 02/18/23 04/15/23 02/25/23 History ibuprofen 200 mg capsule 800 mg PO Q6H PRN Pain 04/15/23 04/15/23 Unknown History Allergies Allergy/AdvReac Type Severity Reaction Status Date / Time adhesive tape Allergy Severe whelps, Verified 04/15/23 12:39 peels skin azithromycin Allergy Severe vomiting, Verified 04/15/23 12:39 mouth ulcers erythromycin base Allergy Severe mouth Verified 04/15/23 12:39 ulcers, vomiting gabapentin Allergy Severe memory Verified 04/15/23 12:39 issues Penicillins Allergy Severe itching, Verified 04/15/23 12:39 vomiting,mouth ulcers hydrocodone Allergy ADR-Nausea Verified 04/15/23 12:39 PFSH Acute PFSH: Medical History Aftercare following surgery of the genitourinary system Cervical disc herniation Chronic cystitis Degenerative lumbar disc Depression GERD (gastroesophageal reflux disease) Interstitial cystitis Lumbar disc herniation Migraines Surgical History H/O laparoscopy 08/22/2021- Diagnostic Laparoscopy. Fulguration of endometriosis lesions. Preformed by Dr. Edmondson at [facility]. H/O ovarian cystectomy at age 15 H/O tubal ligation 2002 H/O: hysterectomy 10/10/2021: TVH performed by Dr. Edmondson at [facility] History of appendectomy History of back surgery History of bladder surgery History of cholecystectomy History of tonsillectomy Hx of adenoidectomy Family History Mother , AT AGE 63 SMALL CELL CARCINOMA Cancer Hypertension Hyperlipidemia Grandmother Cancer Dementia CAD (coronary artery disease) Diabetes paternal Stroke paternal Heart disease paternal Grandfather Cancer Dementia Diabetes paternal Colon cancer maternal, 60's Father Hypertension Hyperlipidemia CAD (coronary artery disease) Denies family history of Ovarian cancer Clotting disorder Breast cancer Anesthesia complication Bleeding disorder Uterine cancer Thyroid disease Social History Smoking and tobacco/nicotine status: current every day tobacco/nicotine user Vitals/I&O/Wt Last Vital Signs Temp 97.4 F L 04/15/23 17:26 Pulse 120 H 04/15/23 17:26 Resp 18 04/15/23 17:26 BP 154/96 04/15/23 17:26 Pulse Ox 100 04/15/23 17:26 O2 Del Method Room Air 04/15/23 17:26 04/15/23 04/15/23 04/15/23 06:59 14:59 22:59 Intake Total 50 / 50 Output Total Balance 40 / 40 Weight last 48 hrs Weight 148 lb Physical Exam Narrative: BELOW IS A FOCUSED LOWER EXTREMITY EXAM GENERAL: A&O x 3 VASCULAR: DP/PT pulses palpable 2/4 with CFT intact, <3seconds to distal digits DERMATOLOGICAL: Skin turgor and temperature is within normal limits. No interdigital maceration noted. MUSCULOSKELETAL: Obvious ankle deformity of left ankle. Left ankle is tender to touch. Full musculoskeletal exam deferred secondary to posttraumatic state. NEUROLOGICAL: Neurological sensation to the affected foot and ankle is present through L4-S1 dermatomes with no hyper/hypoesthesias, negative Tinel or Valleix's sign IMAGING: Three-view x-rays of the left ankle taken the emergency department personally interpreted by me which show displaced distal tibia/fibula fracture consistent with pilon variant and distal fibular fracture. A&P Assessment and plan (1) Pilon fracture of left tibia: (2) Closed fracture of left distal fibula: (3) Pain in left ankle: Plan -Left ankle distal tib/fib fracture -Labs and vitals reviewed -VSS -Diet: Okay for diet -Patient was taken to the operating room today 04/11/2023 for open reduction internal fixation of left distal fibular fracture and application of external fixator to stabilize the distal tibial fracture. Patient will be admitted for overnight postoperative pain control with likely discharge tomorrow morning. -Pain Mgmt: Per primary admitting physician. Recommend discharge with Percocet 5-325 mg tablets -Weight bearing: Nonweightbearing to left lower extremity. Recommend crutches. We will place PT consult to evaluate and treat and provide recommendations for DME for discharge -Dressings: Surgical dressing to be left clean, dry, intact -Discharge plan: Plan for discharge tomorrow morning 04/16/2023 if pain is well controlled postoperatively -Podiatry will round on patient tomorrow morning. Coding Level of Care Code Acute Code for [facility] Fwd Diagnoses Pilon fracture of left tibia S82.872A Closed fracture of left distal fibula S82.832A Pain in left ankle M25.572
--- NOTE | 2023-04-15 17:41 | P.OP_ITS ---
Operative Report Date of procedure: April 15, 2023 Pre-op diagnosis: Left distal tibia, fibula fracture Post-op diagnosis: Same Post-op findings: Distal tibia fracture well reduced after ORIF distal fibula fracture. Stabilized with external fixator Procedure done: 1. ORIF Left distal fibula fracture CPT 67145 2. Application external fixator left ankle CPT 26941 Implants: Distal fibula anatomic plate mikael with 3.5mm locking screws, delta frame external fixator Surgeon: Dewey Wallace DPM Estimated blood loss: 10cc 60 minutes Complications: none Findings: see above Procedure: Patient is a 42-year-old female that has a history of left ankle distal tibia?fibular fracture. The patient sustained this fracture earlier today while working in her yard. She rolled her left ankle. She presented to the emergency department where she was noted to have a distal tibia?fibular fracture. I discussed with the patient that the the instability of the fracture warrants at minimum external fixation. A lengthy discussion regarding the procedure, including risks and complications has been had with the patient and is noted in the recent clinic note. Written and verbal consent have been obtained. All patient questions have been answered to the patient?s satisfaction. No written or verbal guarantees have been given or implied. The patient has been NPO since yesterday evening. The history has been reviewed and the history and physical is current. The signed consent was confirmed and placed in the patient chart. Patient imaging has been reviewed and is consistent with the diagnosis. Under mild sedation, the patient was brought into the operating room and placed on the table in the position. IV antibiotics were given by the anesthesia team as preoperative surgical prophylaxis. General sedation was then performed by the anesthesiateam. A popliteal block was performed by the anesthesia department A pneumatic tourniquet was then placed about the left thigh. The operative extremity was then prepped and draped in the usual fashion. The extremity was then elevated and exsanguinated before the tourniquet was inflated to 325 mmHg. After inflation, the following procedure was then performed. Attention was directed to the lateral aspect of the fibula where an 8 cm incision was made using a #15 blade. Blunt dissection was carried down through subcutaneous and superficial fascia to the level of the level of deep fascia. This was then incised using a #15 blade. Debridement is carried down to level of periosteum which was dissected to expose the lateral aspect of the fibula. There was noted to be extensive hematoma formation at the area of the distal fibular fracture. The hematoma within the fracture site was removed using a dental pick before a lobster-claw reduction clamp was used to reduce the distal fibular fracture. Good reduction was visualized clinically as well as on C-arm imaging. A 3.5 mm nonlocking interfrag screw was placed in the fibula to maintain the length and positioning of the fracture fragment. Next an anatomic fibular plate from [employer] was placed on the lateral aspect of the fibula. The distal holes of the plate were drilled and filled per the manufacture protocol using 3.5 mm locking screws. Care was taken to avoid the joint. Next the proximal holes of the plate were drilled using 3.5 mm locking screws. Good positioning of the plate and screws was visualized clinically as well as on C- arm imaging. The site was then irrigated with copious muscle sterile saline before attention was directed to closure. Deep tissue was closed with 2-0 Vicryl followed by subcuticular closure with 3-0 Vicryl and skin closure with skin evon. Attention was then directed directed to the anterior surface of the left tibia. A #15 blade was used to make 2 small stab incisions over the anteromedial surface of the tibia. Mosquito hemostat was used to bluntly dissect down to the level of bone. Next, 2 tibial half pins were driven into the anterior medial tibia from anterior to posterior. Next, a transfixation pin was driven in the perpendicular plane to the tibial half pins from lateral to medial through the calcaneus. This was done after a small stab incision was made on the lateral and medial aspect of the calcaneus. Blunt dissection was carried down to the level of the lateral wall of the calcaneus before the transfixing pin was driven from lateral to medial until it was appropriately positioned in the body of the calcaneus. This was visualized on calcaneal axial view. Next, a mental health program director was attached to the tibial half pins. Under direct visualization of C-arm fluoroscopy the right ankle fracture was manually reduced to a more satisfactory anatomical alignment. With the ankle reduced to a satisfactory position, the mental health program director was then fixated to a carbon fiber bar measuring 350 mm that was then fixated to the transaxial pin of the calcaneus. This was performed on both the medial and lateral aspect of the right lower extremity in standard delta frame fashion. Good positioning and alignment of the fracture fragments was visualized on C-arm imaging as well as clinically. The pin sites were dressed with Xeroform, 4 x 4 gauze, Kerlix before the leg was wrapped in 4 inch Mike bandage. The left lateral ankle incision was also dressed with Xeroform, 4 x 4 gauze. The patient tolerated the procedure and anesthesia well and without comp lication. The patient was transported from the operating room to the recovery room with vital signs stable and vascular status intact to all digits of the left foot. The patient was instructed to remain non-weightbearing to the operative extremity, to keep surgical dressing clean, dry and intact. The patient will be transferred back to the floor once anesthesia criteria is met. I will continue to round on and follow the patient in the inpatient setting and provide recommendations to stabilize the patient for discharge.
--- NOTE | 2023-04-15 17:48 | PC.NURSE ---
7177 - DR ZHU AT PTS SIDE - NOTIFIED PER THIS NURSE OF ELEVATED HEART RATE
--- NOTE | 2023-04-15 18:03 | ANE.PACU2 ---
Inpatient post-anesthesia follow up: Airway intact: Yes Vital signs: Temperature 97.4 F Pulse Rate 104 Respiratory Rate 21 Blood Pressure 142/84 Pulse Oximetry 98 Oxygen Delivery Me thod Room Air Oxygen Flow Rate Fraction of Inspir ed Oxygen Hydration adequate: Yes Nausea and vomiting: No Pain level: 1 Mental status: Baseline
[2023-04-15] MEDS: sodium chloride 0.9% 1,000 ML 100 ML IV (18:50)
--- NOTE | 2023-04-15 18:51 | PM.HP ---
Providers/Chief Complaint Admitting Physician: Dewey Wallace DPM Primary Care Provider: Huy Quintanilla MD Chief Complaint: left ankle injury History of Present Illness Felicitas Velasco is a 42 year old female complaining of left ankle pain as she was outside doing some chores and slipped on the gravel had an inversion type injury of her left ankle has severe pain was unable to bear any weight.? No other injury did not strike her head.? No previous injuries to this ankle.? Due to severe pain and inability to control patient was taken to the OR emergently for external fixation of the tibia and was able to repair the fibula. Patient is seen postoperatively vital signs are stable no complaints. at the bedside. Review of Systems Const: Denies: fever(s) or chills Eyes: Denies: change in vision ENMT: Denies: throat pain or nasal congestion Card: Denies: chest pain or palpitations Resp: Denies: dyspnea or productive cough GI: Denies: abdominal pain, nausea, vomiting or change in stool character : Denies: dysuria Musc: Reports: back pain (chronic, s/p surgery) and extremity pain Skin/Breast: Denies: rash or lesions Neuro: Denies: headache(s) or dizziness Psych: Denies: anxiety or depression Cresencio/Lymph: Denies: easy bruising or easy bleeding Medications/Allergies Home Medications Medication Instructions Recorded Confirmed Last Taken Type baclofen 10 mg tablet 10 mg PO BID 03/26/21 04/15/23 02/24/23 History meloxicam 7.5 mg tablet 7.5 mg PO BID PRN Pain 03/26/21 04/15/23 02/22/23 History omeprazole 20 mg capsule,delayed 20 mg PO DAILY 03/26/21 04/15/23 02/26/23 History release sertraline 100 mg tablet 100 mg PO QAM 03/26/21 04/15/23 02/26/23 History polyethylene glycol 3350 17 17 g PO DAILY PRN Constipation 08/21/21 04/15/23 02/20/23 History gram/dose oral powder (Miralax) multivitamin 1 tab PO DAILY 08/09/22 04/15/23 02/24/23 History rizatriptan 10 mg tablet 10 mg PO DAILY PRN migraine 08/09/22 04/15/23 02/23/23 History headache propranolol 20 mg tablet 20 mg PO BID #60 tabs 02/06/23 04/15/23 02/26/23 Rx hydroxyzine HCl 25 mg tablet 25 mg PO Q6H PRN Anxiety 02/12/23 04/15/23 02/20/23 History diclofenac potassium 25 mg tablet 25 mg PO BID 02/18/23 04/15/23 02/25/23 History ibuprofen 200 mg capsule 800 mg PO Q6H PRN Pain 04/15/23 04/15/23 Unknown History Allergies Allergy/AdvReac Type Severity Reaction Status Date / Time adhesive tape Allergy Severe whelps, Verified 04/15/23 12:39 peels skin azithromycin Allergy Severe vomiting, Verified 04/15/23 12:39 mouth ulcers erythromycin base Allergy Severe mouth Verified 04/15/23 12:39 ulcers, vomiting gabapentin Allergy Severe memory Verified 04/15/23 12:39 issues Penicillins Allergy Severe itching, Verified 04/15/23 12:39 vomiting,mouth ulcers hydrocodone Allergy ADR-Nausea Verified 04/15/23 12:39 PFSH Acute PFSH: Medical History Aftercare following surgery of the genitourinary system Cervical disc herniation Chronic cystitis Degenerative lumbar disc Depression GERD (gastroesophageal reflux disease) Interstitial cystitis Lumbar disc herniation Migraines Surgical History H/O laparoscopy 08/22/2021- Diagnostic Laparoscopy. Fulguration of endometriosis lesions. Preformed by Dr. Edmondson at [facility]. H/O ovarian cystectomy at age 15 H/O tubal ligation 2002 H/O: hysterectomy 10/10/2021: TVH performed by Dr. Edmondson at [facility] History of appendectomy History of back surgery History of bladder surgery History of cholecystectomy History of tonsillectomy Hx of adenoidectomy Family History Mother , AT AGE 63 SMALL CELL CARCINOMA Cancer Hypertension Hyperlipidemia Grandmother Cancer Dementia CAD (coronary artery disease) Diabetes paternal Stroke paternal Heart disease paternal Grandfather Cancer Dementia Diabetes paternal Colon cancer maternal, 60's Father Hypertension Hyperlipidemia CAD (coronary artery disease) Denies family history of Ovarian cancer Clotting disorder Breast cancer Anesthesia complication Bleeding disorder Uterine cancer Thyroid disease Social History Smoking and tobacco/nicotine status: current every day tobacco/nicotine user Vitals/I&O/Wt Last Vital Signs Temp 97.4 F L 04/15/23 18:00 Pulse 104 H 04/15/23 18:00 Resp 21 H 04/15/23 18:00 BP 142/84 04/15/23 18:00 Pulse Ox 98 04/15/23 18:00 O2 Del Method Room Air 04/15/23 18:19 04/15/23 04/15/23 04/15/23 06:59 14:59 22:59 Intake Total 100 / 100 Output Total Balance 90 / 90 Weight last 48 hrs Weight 67.132 kg Physical Exam Narrative: Patient is postoperative sleepy but alert able to answer a few questions. HEENT head is normocephalic atraumatic PERRLA/EOMI. No scleral icterus mucous membranes are slightly dry. Neck is supple no JVD carotid bruits or lymphadenopathy Heart regular normal S1-S2 without murmurs clicks gallops or rubs Lungs clear to auscultation anteriorly Abdomen soft nontender nondistended positive bowel sounds Extremities right lower extremity without edema, left lower extremity is wrapped with an external fixation device. A&P Assessment and plan (1) Closed trimalleolar fracture: Status post ORIF left fibular fracture and application of external fixator left lower leg (2) Status post lumbar laminectomy: (3) Chronic neck and back pain: (4) Chronic migraine without aura, intractable, with status migrainosus: (5) Chronic pelvic pain in female: Plan We will continue home medications. Discussed with Dr. Wallace. Patient will be able to be discharged home. Patient will require crutches. Nonweightbearing status. Attestations Medical Necessity Statement*: Patient required urgent surgical intervention for a left ankle fracture. Patient will be kept overnight for monitoring and pain control plan to discharge home in a.m. Coding Level of Care Code Acute Code for [facility] Fwd Diagnoses Closed trimalleolar fracture S82.853A Status post lumbar laminectomy Z98.890 Chronic neck and back pain M54.2; M54.9; G89.29 Chronic migraine without aura, intractable, with status migrainosus G43.711 Chronic pelvic pain in female R10.2; G89.29
[2023-04-15] MEDS: HYDROmorphone 1 mg/mL INJ 1 mL 0.5 MG IVP (19:52)
--- NOTE | 2023-04-15 20:12 | XR_ITS ---
WS: [id number] Exam: XR ankle LT 1V [id number] Date/Time of Exam: 04/15/2023 8:12 PM Reason For Exam: OR PICS Intraoperative C-arm images of the LEFT ankle are submitted for evaluation. Final images demonstrate plate and screw fixation involving a fracture of the lower fibula. The ankle mortise has been restore d. Again noted is comminuted fracture of the lower tibia in satisfactory position for healing. Latera l surgical skin clips are noted. External traction pin noted in the calcaneus. No other significant f inding on this limited study.
[2023-04-15] MEDS: oxyCODONE-APAP 5-325 mg Tablet 1 TAB PO (21:11)
[2023-04-15] MEDS: baclofen 10 mg Tablet PO (21:12)
[2023-04-15] MEDS: hyDROXYzine 25 mg Capsule PO (21:12)
[2023-04-15] MEDS: meloxicam 7.5 mg tablet PO (21:12)
[2023-04-16] VITALS (23 sets, daily range): BP systolic 117–148; BP diastolic 70–85; PULSE 11–92; RESP 16–22; TEMP 36.4–36.8; O2SAT 96–99
[2023-04-16] MEDS: oxyCODONE-APAP 5-325 mg Tablet 1 TAB PO ×2 (01:05→05:16)
[2023-04-16] MEDS: sodium chloride 0.9% 1,000 ML 100 ML IV (03:35)
[2023-04-16] MEDS: ibuprofen 800 mg tablet PO ×2 (03:35→09:48)
[2023-04-16] MEDS: hyDROXYzine 25 mg Capsule PO ×3 (03:35→16:23)
[2023-04-16] MEDS: HYDROmorphone 1 mg/mL INJ 1 mL IVP ×2 (03:40→05:27)
[2023-04-16] MEDS: sertraline 100 mg Tablet PO (05:17)
[2023-04-16] MEDS: HYDROmorphone 1 mg/mL INJ 1 mL 2 MG IVP ×7 (06:04→21:42)
--- NOTE | 2023-04-16 06:04 | PC.NURSE ---
Pain medication patients pain has been uncontrolled overnight, despite multiple medication dose and frequency changes. contacted Dr Duran concerning patients pain 10/10 on pain scale despite IVP 1mg dilaudid 30 minutes ago. telephone order given to administer one time dose of 2 mg dilaudid and reassess patient's pain within an hour. If patients pain is controlled and has a therapeutic response, doctor gave order to make IVP dilaudid 2mg Q2H prn the standing order.
--- NOTE | 2023-04-16 06:17 | P.PN_ITS ---
Subjective Subjective: Patient seen at bedside this morning. States that her pain is not well controlled. Overnight there was difficulty controlling her pain medication. Despite cflatg-inf-fyups Dilaudid, oxycodone 5 mg, baclofen, meloxicam. In discussing with the patient she said that the liquid, oral Dilaudid seem to help the most with her pain control in the past in the outpatient setting. I asked the patient at what point her nerve block wore off. She states that her leg still feels numb but she can feel the pain at the break. Vitals/I&O/Wt Last Vital Signs Temp 98.2 F 04/16/23 05:35 Pulse 85 04/16/23 05:35 Resp 20 H 04/16/23 06:04 BP 127/83 04/16/23 05:35 Pulse Ox 99 04/16/23 05:35 O2 Del Method Room Air 04/16/23 05:35 04/15/23 04/15/23 04/16/23 14:59 22:59 06:59 Intake Total 100 / 100 875 / 975 Output Total 610 / 610 Balance -510 / -510 875 / 365 Weight last 48 hrs Weight 148 lb Physical Exam Narrative: BELOW IS A FOCUSED LOWER EXTREMITY EXAM GENERAL: A&O x 3 VASCULAR: DP/PT pulses palpable 2/4 with CFT intact, <3seconds to distal digits DERMATOLOGICAL: Surgical dressing to left lower extremity clean, dry, intact with no strikethrough noted MUSCULOSKELETAL: External fixator intact to left lower extremity. Full musculoskeletal exam deferred secondary to postoperative state NEUROLOGICAL: Neurological sensation to the affected foot and ankle is present through L4-S1 dermatomes with no hyper/hypoesthesias, negative Tinel or Valleix's sign A&P Assessment and plan (1) Pilon fracture of left tibia: (2) Closed fracture of left distal fibula: (3) Pain in left ankle: Plan -Left ankle distal tib/fib fracture -Labs and vitals reviewed -VSS -Diet: Okay for diet -Patient was taken to the operating room today 04/11/2023 for open reduction internal fixation of left distal fibular fracture and application of external fixator to stabilize the distal tibial fracture. Patient admitted for overnight postoperative pain control with likely discharge today. -Pain Mgmt: Per primary admitting physician. -Weight bearing: Nonweightbearing to left lower extremity. Recommend crutches. We will place PT consult to evaluate and treat and provide recommendations for DME for discharge -Dressings: Surgical dressing to be left clean, dry, intact -Discharge plan: Okay to discharge home from podiatry standpoint once pain is under control and appropriate outpatient pain management regimen is established for the patient -Patient is to follow-up with podiatry within 1 week of discharge from the hospital Attestations Medical Necessity Statement*: See hospitalist note. Status post left fibular fracture open reduction internal fixation with application of external fixator. Admission overnight for pain control. Coding Level of Care Code Acute Code for [facility] Fwd Diagnoses Pilon fracture of left tibia S82.872A Closed fracture of left distal fibula S82.832A Pain in left ankle M25.572
[2023-04-16] MEDS: propranolol 20 mg Tablet PO ×2 (08:01→17:22)
[2023-04-16] MEDS: pantoprazole DR 40 mg Tablet PO (08:01)
[2023-04-16] MEDS: baclofen 10 mg Tablet PO ×4 (09:14→22:58)
[2023-04-16] MEDS: multivitamin therapeutic Tablet 1 TAB PO (09:14)
[2023-04-16] MEDS: oxyCODONE-APAP 5-325 mg Tablet 2 TAB PO ×4 (09:14→22:58)
[2023-04-16] MEDS: meloxicam 7.5 mg tablet PO (09:18)
--- NOTE | 2023-04-16 10:58 | PC.CHAP ---
Pastoral Care Encounter/Spiritual Assessment Type of Contact [] Declined community support professional visit [] Patient/Family/Request visit [] Outpatient visit [] Follow-up visit [] Physician referral [] Code/Alert [x] Routine visit [] Staff referral [] Actively dying [] Patient sleeping [] Family support [] [] Out of room [] Palliative care [] [] Receiving care in room [] Pre-surgical visit [] Trauma [] Long length of stay [] ICU visit [] Other: Relational/Emotional Strength [] Patient feels connected with others/family/visitors/staff [] Distress [] Loneliness/isolation [] Abandonment Spirituality of Patient [] Person of Tuyet [] Attends Restoration of their Tuyet [] Believes in Prayer [] Reads Bible or Confucianist materials [] There are Spiritual issues to be addressed [employer] Interventions [x] Prayer [x] Active listening [] Non-anxious presence [] Spiritual/emotional support [] Crisis/trauma care [] Spiritual counseling [] Bereavement support [] Provided bereavement packet [] Provided Bible/devotional materials [] Provided toy/stuffed animal, coloring book to patient or family member [] Provided Communion [] Anointing/[place] [] Salvation [] Completed spiritual assessment [] Other: Impact on Illness or Injury [] Angry [] Fearful [] Anxious [] Often cries [] Exhaustion [] Unable to work [] Unable to attend taoism [] Unable to walk/stand [] Unable to read [] Unable to drive [] Unable to eat/drink [] Unable to sleep [] Unable to be with family [] Patient intubated [] Other: Summary Time spent with patient 15 min
[2023-04-16] MEDS: CELEcoxib 200 mg Capsule 400 MG PO (11:44)
[2023-04-16] MEDS: pregabalin 150 mg Capsule PO (11:44)
[2023-04-16] MEDS: duloxetine 30 mg Capsule PO (11:48)
[2023-04-16] MEDS: LORazepam 2 mg/mL INJ 1 mL 1 MG IVP ×2 (12:33→19:36)
--- NOTE | 2023-04-16 14:24 | PM.PN ---
Subjective Subjective: Patient in extreme pain. She complains of burning, shooting pain, intense fiery pain. She is currently receiving Dilaudid 2 mg every 2 hours and oxycodone 10 mg every 4 hours along with most of her home medications without much effect. She states that she gets about an hour of lessened pain after the Dilaudid. And that overall the oxycodone keeps it fairly tolerable. Vitals/I&O/Wt Last Vital Signs Temp 97.5 F L 04/16/23 13:16 Pulse 71 04/16/23 13:16 Resp 20 H 04/16/23 13:16 BP 122/78 04/16/23 13:16 Pulse Ox 98 04/16/23 13:16 O2 Del Method Room Air 04/16/23 13:16 04/15/23 04/16/23 04/16/23 22:59 06:59 14:59 Intake Total 100 / 100 875 / 975 1173.333 / 1173.333 Output Total 610 / 610 500 / 500 Balance -510 / -510 875 / 365 673.333 / 673.333 Weight last 48 hrs Weight 67.132 kg Physical Exam Narrative: Patient lying in bed with eyes wide open and she is holding onto the bed rails. She is shaking a bit and purposefully breathing fast. Heart regular slightly tacky normal S1-S2 without murmurs clicks gallops or rubs Lungs clear to auscultation anteriorly Abdomen soft nontender nondistended positive bowel sounds Extremities right lower extremity without edema, left lower extremity is wrapped with an external fixation device. A&P Assessment and plan (1) Acute pain: Adjusted patient's home meds and focused on acute and chronic pain control. Added Cymbalta 30 mg daily as the only antidepressant proven to help subjective pain. Changed nonsteroidal anti-inflammatories from as needed to scheduled Celebrex with high loading dose and high scheduled dosing. Started Lyrica with loading dose and 75 mg p.o. every 12. I did note allergy to gabapentin I feel that short-term Lyrica use in this situation the benefits are greater than risk. Increase Dilaudid to every hour since that is what working best for her. And lastly added Ativan 0.5 mg 3 times daily as needed with a give first dose now. (2) Closed trimalleolar fracture: Status post ORIF left fibular fracture and application of external fixator left lower leg (3) Status post lumbar laminectomy: (4) Chronic neck and back pain: (5) Chronic migraine without aura, intractable, with status migrainosus: (6) Chronic pelvic pain in female: Plan Patient without adequate pain control and requiring IV pain medications. Will likely need to stay 2 midnights past 2 midnights. Will change to full admit. Attestations Medical Necessity Statement*: Status post trimalleolar fracture with acute on chronic pain syndrome inability to manage pain in outpatient setting. Will require greater than 2 midnight hospital stay Coding Level of Care Code Acute Code for g Fwd Diagnoses Acute pain R52 Closed trimalleolar fracture S82.853A Status post lumbar laminectomy Z98.890 Chronic neck and back pain M54.2; M54.9; G89.29 Chronic migraine without aura, intractable, with status migrainosus G43.711 Chronic pelvic pain in female R10.2; G89.29
[2023-04-16] MEDS: pregabalin 75 mg Capsule PO (17:22)
--- NOTE | 2023-04-16 17:22 | CT_ITS ---
WS: [id number] CT LEFT ANKLE, NONCONTRAST. HISTORY: Post op Technique: All CT scans at [facility] use at least one of these dose optimization techniques: automated exposure control; mA and/or kV adjustment per patient size (includes targeted exams where dose is matched to clinical indication); or iterative reconstruction. DLP: 153.37 mGy.cm COMPARISON: LEFT ankle radiographs 04/15/2023 External fixation hardware extends from the mid tibia to the calcaneus. The hardware in the mid tibia was not included. Spiral type fracture extends over a length of 4.8 cm involving the distal tibia. Fracture is not sign ificantly displaced. Comminuted fracture through the tibial metaphysis extending to the tibial plafon d. Fracture is through both the anterior and posterior malleolus. Distal tibiotalar articulation is n ormal. Plate and screw fixation involving the distal fibula. Fibular fracture in good alignment. Overlying s utures along the lateral malleolus. No additional fractures are identified. Moderate amount of soft tissue edema surrounding the ankle. S mall amount of postoperative air at the ankle joint. Ankle mortise is normal and symmetric. IMPRESSION: 1. External fixator device extends from the mid tibia to the calcaneus. 2. Comminuted fracture involving the distal 4.8 cm of the tibia with extension through the metaphysis and tibial plafond. Fracture involves the medial and posterior malleolus. Normal alignment. 3. Plate and screw fixation distal fibular fracture in good alignment.
[2023-04-16] MEDS: CELEcoxib 200 mg Capsule PO (20:26)
[2023-04-17] VITALS (20 sets, daily range): BP systolic 127–153; BP diastolic 72–91; PULSE 63–84; RESP 15–18; TEMP 36.5–37.2; O2SAT 96–98
[2023-04-17] MEDS: HYDROmorphone 1 mg/mL INJ 1 mL 2 MG IVP ×3 (00:24→12:03)
[2023-04-17] MEDS: LORazepam 2 mg/mL INJ 1 mL 1 MG IVP ×2 (01:36→07:35)
[2023-04-17] MEDS: oxyCODONE-APAP 5-325 mg Tablet 2 TAB PO ×4 (03:28→15:48)
[2023-04-17] MEDS: hyDROXYzine 25 mg Capsule PO ×3 (04:08→23:09)
[2023-04-17] MEDS: baclofen 10 mg Tablet PO ×4 (05:55→23:08)
[2023-04-17] MEDS: sertraline 100 mg Tablet PO (05:55)
[2023-04-17] MEDS: pregabalin 75 mg Capsule PO ×2 (05:55→17:56)
--- NOTE | 2023-04-17 07:34 | PM.PN ---
Subjective Subjective: Patient was seen and evaluated at bedside this morning. Overall she states that her pain is better controlled. Surgical dressing is clean, dry, intact. Vitals/I&O/Wt Last Vital Signs Temp 98.9 F 04/17/23 07:20 Pulse 80 04/17/23 07:20 Resp 16 04/17/23 06:00 BP 132/82 04/17/23 07:20 Pulse Ox 96 04/17/23 07:20 O2 Del Method Room Air 04/17/23 07:20 04/16/23 04/17/23 04/17/23 22:59 06:59 14:59 Intake Total 306.667 / 1480.000 966 / 2446.000 Output Total 250 / 1550 425 / 1975 Balance 56.667 / -70.000 541 / 471.000 Weight last 48 hrs Weight 148 lb Physical Exam Narrative: BELOW IS A FOCUSED LOWER EXTREMITY EXAM GENERAL: A&O x 3 VASCULAR: Capillary refill intact to distal digits of the left lower extremity DERMATOLOGICAL: Surgical dressing to left lower extremity clean, dry, intact with no strikethrough noted MUSCULOSKELETAL: External fixator intact to left lower extremity. Full musculoskeletal exam deferred secondary to postoperative state NEUROLOGICAL: Neurological sensation to the affected foot and ankle is present through L4-S1 dermatomes with no hyper/hypoesthesias, negative Tinel or Valleix's sign A&P Assessment and plan (1) Pilon fracture of left tibia: (2) Closed fracture of left distal fibula: (3) Pain in left ankle: Plan -Left ankle distal tib/fib fracture -Labs and vitals reviewed -VSS -Diet: Okay for diet -Patient is status post open reduction internal fixation left fibula with application of external fixator. Unable to control pain adequately postoperatively. Patient has a long history of chronic pain. Patient was admitted for postoperative pain management. Patient does state the pain is improved at bedside this morning. -Pain Mgmt: Per primary admitting physician. -Weight bearing: Nonweightbearing to left lower extremity. Recommend crutches. We will place PT consult to evaluate and treat and provide recommendations for DME for discharge -Dressings: Surgical dressing to be left clean, dry, intact -Discharge plan: Okay to discharge home from podiatry standpoint once pain is under control and appropriate outpatient pain management regimen is established for the patient -Patient is to follow-up with podiatry within 1 week of discharge from the hospital Attestations Medical Necessity Statement*: Postoperative pain management admission after open reduction internal fixation left fibula and application of external fixator for distal tibia fracture Coding Level of Care Code Acute Code for g Fwd Diagnoses Pilon fracture of left tibia S82.872A Closed fracture of left distal fibula S82.832A Pain in left ankle M25.572
[2023-04-17] MEDS: CELEcoxib 200 mg Capsule PO ×2 (07:39→21:29)
[2023-04-17] MEDS: duloxetine 30 mg Capsule PO (07:39)
[2023-04-17] MEDS: propranolol 20 mg Tablet PO ×2 (07:40→17:56)
[2023-04-17] MEDS: multivitamin therapeutic Tablet 1 TAB PO (07:40)
[2023-04-17] MEDS: pantoprazole DR 40 mg Tablet PO (07:40)
[2023-04-17] MEDS: morphine IR 15 mg Tablet 30 MG PO ×4 (10:12→23:08)
[2023-04-17] MEDS: diazePAM 5 mg Tablet PO ×3 (10:12→21:30)
[2023-04-17] MEDS: morphine ER (12 HR) 30 mg tablet 90 MG PO ×2 (10:13→17:55)
--- NOTE | 2023-04-17 11:22 | PC.CHAP ---
Pastoral Care Encounter/Spiritual Assessment Type of Contact [] Declined teacher of the emotionally disturbed visit [] Patient/Family/Request visit [] Outpatient visit [] Follow-up visit [] Physician referral [] Code/Alert [x] Routine visit [] Staff referral [] Actively dying [] Patient sleeping [] Family support [] [] Out of room [] Palliative care [] [x] Receiving care in room [] Pre-surgical visit [] Trauma [] Long length of stay [] ICU visit [] Other: Relational/Emotional Strength [x] Patient feels connected with others/family/visitors/staff [] Distress [] Loneliness/isolation [] Abandonment Spirituality of Patient [x] Person of Tuyet [] Attends Roman Catholic of their Tuyet [x] Believes in Prayer [] Reads Bible or Gnosticist materials [] There are Spiritual issues to be addressed Junior Database Administrator Interventions [x] Prayer [x] Active listening [x] Non-anxious presence [x] Spiritual/emotional support [] Crisis/trauma care [x] Spiritual counseling [] Bereavement support [] Provided bereavement packet [] Provided Bible/devotional materials [] Provided toy/stuffed animal, coloring book to patient or family member [] Provided Communion [] Anointing/[place] [] Salvation [x] Completed spiritual assessment [] Other: Impact on Illness or Injury [] Angry [] Fearful [] Anxious [] Often cries [] Exhaustion [] Unable to work [] Unable to attend buddhism [] Unable to walk/stand [] Unable to read [] Unable to drive [] Unable to eat/drink [] Unable to sleep [] Unable to be with family [] Patient intubated [] Other: Summary negative had surgery well rehab at home has a good attitude in some pain Time spent with patient 10 mins
--- NOTE | 2023-04-17 16:22 | P.PN_ITS ---
Subjective Subjective: Patient is doing much better today. Her pain is between a level 3-5. When we discussed my goal to change her to morphine she wanted to let me know that morphine has never worked in the past. I suspect that she was never given the doses I will be giving. Vitals/I&O/Wt Last Vital Signs Temp 98.0 F 04/17/23 15:30 Pulse 84 04/17/23 15:30 Resp 15 04/17/23 15:48 BP 145/81 04/17/23 15:30 Pulse Ox 98 04/17/23 15:30 O2 Del Method Room Air 04/17/23 15:30 04/17/23 04/17/23 04/17/23 06:59 14:59 22:59 Intake Total 966 / 2446.000 360 / 360 Output Total 425 / 1975 Balance 541 / 471.000 360 / 360 Physical Exam Narrative: Very sleepy will awaken to talk but does not hardly open eyes. Heart regular rate and rhythm normal S1-S2 without murmurs clicks gallops or rubs Lungs clear to auscultation anteriorly Abdomen soft nontender nondistended positive bowel sounds Extremities right lower extremity without edema, left lower extremity is wrapped with an external fixation device. A&P Assessment and plan (1) Acute pain: Stop IV Dilaudid. Stop Percocet due to high doses of Tylenol. Converted Dilaudid IV and oxycodone p.o. doses to morphine milligram equivalents. Patient had been receiving 350 mme's. I am giving approximately half the dose and extended release form with MS ER and MS IR90 mg p.o. twice daily 30 mg every 4 hours as needed. Continue the following adjunctant medications: * Cymbalta 30 mg daily as the only antidepressant proven to help subjective pain. * Celebrex 200 mg twice daily * Lyrica with loading dose and 75 mg p.o. every 12. I did note allergy to gabapentin I feel that short-term Lyrica use in this situation the benefits are greater than risk. * Changed to Valium for muscle relaxant properties greater than Ativan. 5 mg every 6 hours scheduled I have ordered Dilaudid decreased to 1 mg every 4 hours for severe pain that is also objective and not just subjective. I had an extensive talk with Caro ROBERT to discuss that the patient will only use this if the RN feels appropriate. (2) Closed trimalleolar fracture: Status post ORIF left fibular fracture and application of external fixator left lower leg (3) Status post lumbar laminectomy: (4) Chronic neck and back pain: (5) Chronic migraine without aura, intractable, with status migrainosus: (6) Chronic pelvic pain in female: Plan Patient's pain is better. She has significant anxiety and previous uncontrolled pain issues that patient is doubtful and very anxious. I also feel the patient does better when her is not here he is left for the day and she should be allowed to rest overnight and I am hopeful that scheduling the Valium will help. Attestations Medical Necessity Statement*: Postoperative pain management admission after open reduction internal fixation left fibula and application of external fixator for distal tibia fracture Coding Level of Care Code Acute Code for [facility] Fwd Diagnoses Acute pain R52 Closed trimalleolar fracture S82.853A Status post lumbar laminectomy Z98.890 Chronic neck and back pain M54.2; M54.9; G89.29 Chronic migraine without aura, intractable, with status migrainosus G43.711 Chronic pelvic pain in female R10.2; G89.29
[2023-04-18] VITALS (16 sets, daily range): BP systolic 110–188; BP diastolic 72–101; PULSE 63–85; RESP 14–18; TEMP 36.4–36.8; O2SAT 92–98
[2023-04-18] MEDS: acetaminophen 325 mg Tablet 650 MG PO (01:45)
[2023-04-18] MEDS: morphine IR 15 mg Tablet 30 MG PO ×6 (03:20→22:59)
[2023-04-18] MEDS: diazePAM 5 mg Tablet PO ×3 (04:35→15:38)
[2023-04-18] MEDS: baclofen 10 mg Tablet PO ×4 (05:40→23:00)
[2023-04-18] MEDS: pregabalin 75 mg Capsule PO ×2 (05:40→18:04)
[2023-04-18] MEDS: sertraline 100 mg Tablet PO (05:40)
[2023-04-18] MEDS: HYDROmorphone 1 mg/mL INJ 1 mL IVP ×2 (08:09→22:03)
[2023-04-18] MEDS: morphine ER (12 HR) 30 mg tablet 90 MG PO (08:10)
[2023-04-18] MEDS: duloxetine 30 mg Capsule PO (08:11)
[2023-04-18] MEDS: multivitamin therapeutic Tablet 1 TAB PO (08:11)
[2023-04-18] MEDS: propranolol 20 mg Tablet PO ×2 (08:11→18:04)
[2023-04-18] MEDS: CELEcoxib 200 mg Capsule PO ×2 (08:11→21:13)
[2023-04-18] MEDS: pantoprazole DR 40 mg Tablet PO (08:11)
[2023-04-18] MEDS: hyDROXYzine 25 mg Capsule PO ×2 (08:16→14:24)
--- NOTE | 2023-04-18 13:17 | P.DS_ITS ---
Discharge Providers Date of Admission: 04/16/23 18:18 Date of Discharge: April 18, 2023 Attending Provider at Admission: Dewey Wallace DPM Attending Provider at Discharge: Hakeem Leslie DO Primary Care Provider: Huy Quintanilla MD Diagnoses at Discharge Discharge Diagnosis (1) Acute pain: Status: Acute Permanent problem details: post surgical/fx pain with underlying chronic pain syndrome (2) Closed trimalleolar fracture: Status: Acute (3) Status post lumbar laminectomy: Status: Acute (4) Chronic neck and back pain: Status: Acute (5) Chronic migraine without aura, intractable, with status migrainosus: Status: Acute (6) Chronic pelvic pain in female: Status: Acute Reason for Visit Reason for Visit: left ankle injury Brief History: Patient had fallen and had a trimalleolar fracture. Patient was in severe pain it was felt that surgical intervention would help control pain. Hospital Course Hospital Course Dr. Wallace performed ORIF left fibular fracture and application of external fixator left lower leg. The tibia would have to be fixed in his second stage surgical procedure. She was monitored overnight for pain control 04/16/2023. Patient's acute pain was severe; she lives with chronic neck back and pelvic pain as well as chronic daily migraines. She was utilizing significant amounts of IV Dilaudid. Thus, Adjusted patient's home meds and focused on acute and chronic pain control. Added Cymbalta 30 mg daily as the only antidepressant proven to help subjective pain. Changed nonsteroidal anti-inflammatories from as needed to scheduled Celebrex with high loading dose and high scheduled dosing. Started Lyrica with loading dose and 75 mg p.o. every 12.? I did note allergy to gabapentin I feel that short-term Lyrica use in this situation the benefits are greater than risk. Increase Dilaudid to every hour since that is what working best for her. And lastly added Ativan 0.5 mg 3 times daily as needed with a give first dose now. 04/17/2023. IV Dilaudid was discontinued. Percocet was also discontinued due to high doses of Tylenol. Dilaudid IV and oxycodone p.o. doses were converted to morphine milligram equivalents patient had been receiving 350 mm ED's. Thus MS ER was started at 90 mg p.o. twice daily and MS IR was started at 30 mg p.o. every 4 hours as needed. 04/18/2023. Dilaudid was on as needed med list and only to be given if patient had severe pain. She was startled and jerked her leg causing severe pain and she had a dose of 1 mg. Currently she is smiling although she does complain of a headache. She says that her pain is well controlled on the regimen. Please note multiple medications that she takes at home had to be discontinued to make adjustments for the new acute on chronic pain medication regimen. Physical Exam Narrative: More awake today. Actually smiling. She is markedly improved. Heart regular rate and rhythm normal S1-S2 without murmurs clicks gallops or rubs Lungs clear to auscultation anteriorly Abdomen soft nontender nondistended positive bowel sounds Extremities right lower extremity without edema, left lower extremity is wrapped with an external fixation device. Discharge Data Studies Completed and Pending Completed Studies During Hospitalization Category Date Time Status CT ankle LT wo con* [id number] Routine Cat Scan 04/16/23 17:22 Completed XR ankle LT 1V [id number] Routine Exams 04/15/23 20:12 Completed XR ankle LT min 3V* [id number] Stat Exams 04/15/23 11:48 Completed Vitals Last Vital Signs Temp 97.5 F L 04/18/23 12:00 Pulse 72 04/18/23 12:00 Resp 16 04/18/23 12:00 BP 163/98 04/18/23 12:00 Pulse Ox 97 04/18/23 12:00 O2 Del Method Room Air 04/18/23 12:00 Discharge Plan Discharge Condition: Stable Prescriptions: New celecoxib 200 mg Capsule 200 mg PO 0900,2100 Qty: 60 0RF morphine 30 mg Tablet Extended Release 90 mg PO BID Qty: 30 0RF morphine 15 mg Tablet 30 mg PO Q4H PRN (Reason: Severe Pain) Qty: 30 0RF diazepam 5 mg Tablet 5 mg PO Q6H Qty: 120 0RF duloxetine 30 mg Capsule,Delayed Release(Dr/Ec) 30 mg PO DAILY Qty: 30 0RF pregabalin 75 mg Capsule 75 mg PO 0600,1800 Qty: 60 0RF Continued omeprazole 20 mg capsule,delayed release(DR/EC) 20 mg PO DAILY sertraline 100 mg tablet 100 mg PO QAM hydroxyzine HCl 25 mg tablet 25 mg PO Q6H PRN (Reason: Anxiety) propranolol 20 mg tablet 20 mg PO BID Qty: 60 3RF polyethylene glycol 3350 [Miralax] 17 gram/dose powder 17 g PO DAILY PRN (Reason: Constipation) multivitamin Tablet 1 tab PO DAILY rizatriptan 10 mg tablet 10 mg PO DAILY PRN (Reason: migraine headache) Changed baclofen 10 mg tablet 10 mg PO QID PRN (Reason: Pain) Qty: 60 0RF Discontinued meloxicam 7.5 mg tablet 7.5 mg PO BID PRN (Reason: Pain) diclofenac potassium 25 mg tablet 25 mg PO BID ibuprofen 200 mg Capsule 800 mg PO Q6H PRN (Reason: Pain) Other Ambulatory Orders: DME: [employer] (Order) Location: None Selected Ordered By: Dewey Wallace DME: Walker (Order) Location: None Selected Ordered By: Dewey Wallace DME: Walker (Order) Location: None Selected Ordered By: Dewey Wallace DME: Wheelchair (Order) Location: None Selected Ordered By: Dewey Wallace Referrals: Huy Quintanilla MD [Primary Care Provider] - 04/23/23 1:30 pm Dewey Wallace DPM [Physician] - 04/30/23 3:30 pm () Discharge Diet: Usual diet Discharge Activity: Limit activity as instructed, Wheelchair as instructed and As per PT/OT instructions Patient Instructions: Opioid Safety Discharge Attestations Time Spent in Discharge Care*: less than 30 min Quality Metrics Clinical Quality Measures [ No reported AMI, CVA or VTE this stay] Coding Level of Care Code Acute Code for [facility] Diagnoses Acute pain R52 Closed trimalleolar fracture S82.853A Status post lumbar laminectomy Z98.890 Chronic neck and back pain M54.2; M54.9; G89.29 Chronic migraine without aura, intractable, with status migrainosus G43.711 Chronic pelvic pain in female R10.2; G89.29
--- NOTE | 2023-04-18 14:24 | P.PN_ITS ---
Subjective Subjective: 04/15/2023. Felicitas Velasco is a 42 year old female complaining of left ankle pain as she was outside doing some chores and slipped on the gravel had an inversion type injury of her left ankle has severe pain was unable to bear any weight.? No other injury did not strike her head.? No previous injuries to this ankle.? Due to severe pain and inability to control patient was taken to the OR rogelio gently for external fixation of the tibia and was able to repair the fibula.? Patient was receiving 2 mg Dilaudid every 2 hours; without significant improvement. 04/16/2023 Adjusted patient's home meds and focused on acute and chronic pain control. Added Cymbalta 30 mg daily as the only antidepressant proven to help subjective pain. Changed nonsteroidal anti-inflammatories from as needed to scheduled Celebrex with high loading dose and high scheduled dosing. Started Lyrica with loading dose and 75 mg p.o. every 12.? I did note allergy to gabapentin I feel that short-term Lyrica use in this situation the benefits are greater than risk. Increase Dilaudid to every hour since that is what working best for her. And lastly added Ativan 0.5 mg 3 times daily as needed with a give first dose now. 04/17/2023:Stop IV Dilaudid.? Stop Percocet due to high doses of Tylenol. Converted Dilaudid IV and oxycodone p.o. doses to morphine milligram equivalents.? Patient had been receiving 350 mme's.? I am giving approximately half the dose and extended release form with MS ER and MS IR90 mg p.o. twice daily 30 mg every 4 hours as needed. Continue the following adjunctant medications: * Cymbalta 30 mg daily as the only antidepressant proven to help subjective pain. * ?Celebrex 200 mg twice daily * ?Lyrica with loading dose and 75 mg p.o. every 12.? I did note allergy to gabapentin I feel that short-term Lyrica use in this situation the benefits are greater than risk. * Changed to Valium for muscle relaxant properties greater than Ativan.? 5 mg every 6 hours scheduled Patient's pain is better.? She has significant anxiety and previous uncontrolled pain issues that patient is doubtful and very anxious.? I also feel the patient does better when her is not here he is left for the day and she should be allowed to rest overnight and I am hopeful that scheduling the Valium will help. 04/18/2023: Patient was stable and improved to go home with the above regimen. Unfortunately there was problems with her Medicaid insurance that would not cover the morphine ER nor give more than a few days of the MS IR. By the time this was recognized it was 4 PM and unable to get pre-auth paperwork for Medicaid. The plan is to stay over the weekend Pt doing well today. Smiling. Vitals/I&O/Wt Last Vital Signs Temp 98.0 F 04/21/23 11:02 Pulse 64 04/21/23 11:02 Resp 14 04/21/23 11:02 BP 102/67 04/21/23 11:02 Pulse Ox 98 04/21/23 11:02 O2 Del Method Room Air 04/21/23 11:02 04/20/23 04/21/23 04/21/23 22:59 06:59 14:59 Intake Total 480 / 960 360 / 360 Output Total 1100 / 1100 Balance 480 / 960 -1100 / -140 360 / 360 Physical Exam Narrative: More awake today. Actually smiling. She is markedly improved. Heart regular rate and rhythm normal S1-S2 without murmurs clicks gallops or rubs Lungs clear to auscultation anteriorly Abdomen soft nontender nondistended positive bowel sounds Extremities right lower extremity without edema, left lower extremity is wrapped with an external fixation device. Data 04/21/23 13:18 04/21/23 13:18 A&P Assessment and plan (1) Acute pain: off dilaudid and percocet successfully. Converted Dilaudid IV and oxycodone p.o. doses to morphine milligram equi valents. Patient had been receiving 350 mme's. I am giving approximately half the dose and extended release form with MS ER and MS IR90 mg p.o. twice daily 30 mg every 4 hours as needed. This is a less expensive regiment and giving adequate control of pain. Continue the following adjunctant medications: * Cymbalta 30 mg daily as the only antidepressant proven to help subjective pain. * Celebrex 200 mg twice daily * Lyrica with loading dose and 75 mg p.o. every 12. I did note allergy to fiorella pentin I feel that short-term Lyrica use in this situation the benefits are greater than risk. * Changed to Valium for muscle relaxant properties greater than Ativan. 5 mg every 6 hours scheduled (2) Closed trimalleolar fracture: Status post ORIF left fibular fracture and application of external fixator left lower leg (3) Status post lumbar laminectomy: (4) Chronic neck and back pain: (5) Chronic migraine without aura, intractable, with status migrainosus: (6) Chronic pelvic pain in female: Plan Patient's pain is better. She has significant anxiety and previous uncontrolled pain issues that patient is doubtful and very anxious. I also feel the patient does better when her is not here he is left for the day and she should be allowed to rest overnight and I am hopeful that scheduling the Valium will help. Attestations Medical Necessity Statement*: At this time if her insurance would cover her pain medications patient could be discharged home however this is not the case and subsequently she cannot be d ischarged home Coding Level of Care Code Acute Code for [facility] Diagnoses Acute pain R52 Closed trimalleolar fracture S82.853A Status post lumbar laminectomy Z98.890 Chronic neck and back pain M54.2; M54.9; G89.29 Chronic migraine without aura, intractable, with status migrainosus G43.711 Chronic pelvic pain in female R10.2; G89.29
[2023-04-18] MEDS: morphine ER (12 HR) 30 mg tablet 60 MG PO (16:56)
[2023-04-18] MEDS: diazePAM 5 mg Tablet 10 MG PO (21:12)
[2023-04-19] VITALS (11 sets, daily range): BP systolic 120–129; BP diastolic 76–92; PULSE 60–84; RESP 16–18; TEMP 36.6–36.8; O2SAT 95–99
--- NOTE | 2023-04-19 01:37 | PC.NURSE ---
rounding pt eyes closed, resp equal and unlabored.
--- NOTE | 2023-04-19 01:40 | PC.NURSE ---
pt pain medicine this nurse had extensive discussion about pain medication with pt d/t pt asking for iv pain medication. this nurse educated that pt should hold off because our goal is to get pt home tomorrow and she wont have iv pain meds at home. she told this nurse she was told she had meds for breakthrough pain and wanted it anyway. pt has been asleep for my 2300 roundings and 0100 roundings.
[2023-04-19] MEDS: morphine IR 15 mg Tablet 30 MG PO ×4 (03:42→21:29)
--- NOTE | 2023-04-19 03:45 | PC.NURSE ---
pt bedside commode pt up to bathroom twice throughout the night.
[2023-04-19] MEDS: hyDROXYzine 25 mg Capsule PO (03:53)
--- NOTE | 2023-04-19 04:42 | PC.NURSE ---
ice pack pt up to bedside commode and given ice pack diring 0300/ 0400 roundings.
[2023-04-19] MEDS: diazePAM 5 mg Tablet PO (07:50)
[2023-04-19] MEDS: baclofen 10 mg Tablet PO ×3 (08:44→17:40)
[2023-04-19] MEDS: morphine ER (12 HR) 30 mg tablet 60 MG PO ×2 (08:44→16:04)
[2023-04-19] MEDS: multivitamin therapeutic Tablet 1 TAB PO (08:45)
[2023-04-19] MEDS: duloxetine 30 mg Capsule PO (08:45)
[2023-04-19] MEDS: propranolol 20 mg Tablet PO ×2 (08:45→17:40)
[2023-04-19] MEDS: CELEcoxib 200 mg Capsule PO ×2 (08:45→21:30)
[2023-04-19] MEDS: pantoprazole DR 40 mg Tablet PO (08:45)
[2023-04-19] MEDS: sertraline 100 mg Tablet PO (08:45)
[2023-04-19] MEDS: HYDROmorphone 1 mg/mL INJ 1 mL IVP (11:37)
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
[2023-04-19] MEDS: pregabalin 75 mg Capsule PO (17:40)
[2023-04-19] MEDS: diazePAM 5 mg Tablet 10 MG PO (21:30)
[2023-04-20] VITALS (16 sets, daily range): BP systolic 98–137; BP diastolic 68–88; PULSE 60–84; RESP 13–18; TEMP 36.4–36.8; O2SAT 93–99
[2023-04-20] MEDS: baclofen 10 mg Tablet PO ×5 (00:06→23:24)
[2023-04-20] MEDS: morphine ER (12 HR) 30 mg tablet 60 MG PO ×3 (00:06→16:53)
[2023-04-20] MEDS: morphine IR 15 mg Tablet 30 MG PO ×6 (01:37→23:24)
[2023-04-20] MEDS: acetaminophen 325 mg Tablet 650 MG PO (04:07)
[2023-04-20] MEDS: hyDROXYzine 25 mg Capsule PO (04:07)
[2023-04-20] MEDS: sertraline 100 mg Tablet PO (05:26)
[2023-04-20] MEDS: pregabalin 75 mg Capsule PO ×2 (05:26→17:53)
[2023-04-20] MEDS: pantoprazole DR 40 mg Tablet PO (08:02)
[2023-04-20] MEDS: duloxetine 30 mg Capsule PO (08:02)
[2023-04-20] MEDS: propranolol 20 mg Tablet PO ×2 (08:02→17:54)
[2023-04-20] MEDS: multivitamin therapeutic Tablet 1 TAB PO (08:02)
[2023-04-20] MEDS: CELEcoxib 200 mg Capsule PO ×2 (08:04→21:12)
[2023-04-20] MEDS: diazePAM 5 mg Tablet PO (08:10)
--- NOTE | 2023-04-20 11:14 | P.PN_ITS ---
Subjective Subjective: 04/15/2023. Felicitas Velasco is a 42 year old female complaining of left ankle pain as she was outside doing some chores and slipped on the gravel had an inversion type injury of her left ankle has severe pain was unable to bear any weight.? No other injury did not strike her head.? No previous injuries to this ankle.? Due to severe pain and inability to control patient was taken to the OR emergently for external fixation of the tibia and was able to repair the fibula.? Patient was receiving 2 mg Dilaudid every 2 hours; without significant improvement. 04/16/2023 Adjusted patient's home meds and focused on acute and chronic pain control. Added Cymbalta 30 mg daily as the only antidepressant proven to help subjective pain. Changed nonsteroidal anti-inflammatories from as needed to scheduled Celebrex with high loading dose and high scheduled dosing. Started Lyrica with loading dose and 75 mg p.o. every 12.? I did note allergy to gabapentin I feel that short-term Lyrica use in this situation the benefits are greater than risk. Increase Dilaudid to every hour since that is what working best for her. And lastly added Ativan 0.5 mg 3 times daily as needed with a give first dose now. 04/17/2023:Stop IV Dilaudid.? Stop Percocet due to high doses of Tylenol. Converted Dilaudid IV and oxycodone p.o. doses to morphine milligram equivalents.? Patient had been receiving 350 mme's.? I am giving approximately half the dose and extended release form with MS ER and MS IR90 mg p.o. twice daily 30 mg every 4 hours as needed. Continue the following adjunctant medications: * Cymbalta 30 mg daily as the only antidepressant proven to help subjective pain. * ?Celebrex 200 mg twice daily * ?Lyrica with loading dose and 75 mg p.o. every 12.? I did note allergy to gabapentin I feel that short-term Lyrica use in this situation the benefits are greater than risk. * Changed to Valium for muscle relaxant properties greater than Ativan.? 5 mg every 6 hours scheduled Patient's pain is better.? She has significant anxiety and previous uncontrolled pain issues that patient is doubtful and very anxious.? I also feel the patient does better when her is not here he is left for the day and she should be allowed to rest overnight and I am hopeful that scheduling the Valium will help. 04/18/2023: Patient was stable and improved to go home with the above regimen. Unfortunately there was problems with her Medicaid insurance that would not cover the morphine ER nor give more than a few days of the MS IR. By the time this was recognized it was 4 PM and unable to get pre-office and fill out the paperwork for Medicaid. The plan was to stay over the weekend 04/19/2023: Patient was doing remarkably better and wanting to go home. We tried again to get medications through [employer]. Patient and her family were willing to pay [id number] for the long-acting morphine. However, the pharmacist, Fazal Thomas, was not comfortable giving the long-acting morphine. Since our outpatient pharmacy here in the hospital was willing to obtain prior Auth and assist the patient will await until Friday. I have talked with her extensively this whole hospital stay to use other methods for controlling pain and relieving pain. She states that she meditates regularly I asked her to bring in meditative music or other music that would help she is allowed to bring in her dog and essential oils as needed. A more comfortable blanket and comfortable cloths would probably be helpful to. 04/19/2023: Patient has not been provided with any of the other means at anxiety and pain control from home. It is raining today and bringing the dog is probably unrealistic. Continue current regimen. Vitals/I&O/Wt Last Vital Signs Temp 97.5 F L 04/20/23 07:22 Pulse 73 04/20/23 07:22 Resp 16 04/20/23 09:48 BP 105/68 04/20/23 07:22 Pulse Ox 98 04/20/23 07:22 O2 Del Method Room Air 04/20/23 07:22 04/19/23 04/20/23 04/20/23 22:59 06:59 14:59 Intake Total 240 / 840 240 / 240 Balance 240 / 840 240 / 240 Physical Exam Narrative: Heart regular rate and rhythm normal S1-S2 without murmurs clicks gallops or rubs Lungs clear to auscultation anteriorly Abdomen soft nontender nondistended positive bowel sounds Extremities right lower extremity without edema, left lower extremity is wrapped with an external fixation device. A&P Assessment and plan (1) Acute pain: MS ER 60 mg every 8 hours and MS IR 30 mg every 4 hours as needed. Note she has better coverage with the MS ER 60 mg every 8 hours then the 90 mg every 12 hours. Continue the following adjunctant medications: * Cymbalta 30 mg daily as the only antidepressant proven to help subjective pain. * Celebrex 200 mg twice daily * Lyrica 75 mg p.o. every 12. I did note allergy to gabapentin I feel that short-term Lyrica use in this situation the benefits are greater than risk. * Valium for muscle relaxant properties greater than Ativan. 5 mg every 6 hours scheduled Stop Dilaudid or any other IV pain medication at this time (2) Closed trimalleolar fracture: Status post ORIF left fibular fracture and application of external fixator left lower leg (3) Status post lumbar laminectomy: (4) Chronic neck and back pain: (5) Chronic migraine without aura, intractable, with status migrainosus: (6) Chronic pelvic pain in female: Plan Her Medicaid insurance will not pay for long-acting morphine and only a few day supply of short acting. They need prior authorization to help cover the cost of multiple medications. [facility] outpatient pharmacy will assist with prior Auth and lower cost of [id number] expense. As above I encouraged her to bring home to her is much as possible. I have also encouraged her to stay out of bed most of the day and be more active. She has permission to allow her dog to visit. She will need to stay until Friday when the outpatient [facility] pharmacy and staff can assist with Medicaid preauthorization for these medications. Attestations Medical Necessity Statement*: At this time if her insurance would cover her pain medications patient could be discharged home however this is not the case and subsequently she cannot be discharged home Coding Level of Care Code Acute Code for [facility] Diagnoses Acute pain R52 Closed trimalleolar fracture S82.853A Status post lumbar laminectomy Z98.890 Chronic neck and back pain M54.2; M54.9; G89.29 Chronic migraine without aura, intractable, with status migrainosus G43.711 Chronic pelvic pain in female R10.2; G89.29
[2023-04-20] MEDS: diazePAM 5 mg Tablet 10 MG PO (21:12)
[2023-04-21] VITALS (10 sets, daily range): BP systolic 98–134; BP diastolic 67–87; PULSE 64–80; RESP 14–17; TEMP 36.4–36.7; O2SAT 96–98
[2023-04-21] MEDS: morphine ER (12 HR) 30 mg tablet 60 MG PO ×2 (00:54→07:55)
[2023-04-21] MEDS: morphine IR 15 mg Tablet 30 MG PO ×2 (03:26→10:52)
[2023-04-21] MEDS: pregabalin 75 mg Capsule PO ×2 (05:15→17:15)
[2023-04-21] MEDS: sertraline 100 mg Tablet PO (05:15)
[2023-04-21] MEDS: baclofen 10 mg Tablet PO ×3 (05:15→17:15)
[2023-04-21] MEDS: CELEcoxib 200 mg Capsule PO ×2 (07:55→20:37)
[2023-04-21] MEDS: propranolol 20 mg Tablet PO ×2 (07:55→17:15)
[2023-04-21] MEDS: multivitamin therapeutic Tablet 1 TAB PO (07:56)
[2023-04-21] MEDS: duloxetine 30 mg Capsule PO (07:56)
[2023-04-21] MEDS: pantoprazole DR 40 mg Tablet PO (07:56)
[2023-04-21 13:36] LABS: Basophils % 0.7 %; Eosinophils # 0.4 10^3/uL (0.0-0.8); Eosinophils % 5.7 %; Hematocrit 41.3 % (36-47); Lymphocytes % 32.7 %; Mean Corpuscular HGB Conc 32.2 g/dL (30-55); Mean Corpuscular Volume 90.2 fl (85-98); Mean Platelet Volume 10.4 fL (7.4-10.4); Monocytes # 0.8 10^3/uL (0.2-0.9); Monocytes % 13.7 %; Neutrophils # 2.88 10^3/uL (1.8-7.7); Neutrophils % 46.9 %; Nucleated Red Blood Cells % 0 %; Platelet Count 262 10^3/cmm (157-399); Red Blood Count 4.58 10^6/uL (3.85-5.65); Red Cell Distribution Width 12.8 % (12.1-15.1); White Blood Count 6.14 10^3/uL (3.29-11.43)
[2023-04-21 14:19] LABS: Alanine Aminotransferase 52 U/L (0-33); Albumin Level 3.7 g/dL (3.5-5.2); Alkaline Phosphatase 112 U/L (35-105); Anion Gap 11.7 (5-19); Aspartate Amino Transferase 44 U/L (0-32); Blood Urea Nitrogen 7 mg/dL (6-20); Calcium 9.2 mg/dL (8.5-10.5); Carbon Dioxide 31 mmol/L (22-29); Chloride 101 mmol/L (98-107); Glomerular Filtration Rate 109.1 mL/min (90-130); Glucose 97 mg/dL (65-115); Iron 42 ug/dL (37-145); Osmolality Calculated 288 mOsm/kg (285-295); Percent Saturation 18.5 % (20-50); Potassium 3.7 mmol/L (3.5-5.1); Sodium 140 mmol/L (136-145); Thyroid Stimulating Hormone 0.99 uIU/mL (0.27-4.20); Total Bilirubin 0.4 mg/dL (0.15-1.2); Total Iron Binding Capacity 227 mcg/dl; Total Protein 6.7 g/dL (6.6-8.7); Unsaturated Iron Binding 185 ug/dL (112-347); Vitamin B12 863 pg/mL (232-1245)
--- NOTE | 2023-04-21 16:14 | P.PN_ITS ---
Subjective Subjective: Hospital course, labs appreciated. Patient was discharged on Friday. But could not be discharged as pharmacies were uncomfortable prescribing high doses of pain medications. Discussed in detail with outpatient pharmacy today. As per the pharmacist patient's insurance company is not authorizing high dose of morphine. As per them patient cannot get more than 45 mg daily of morphine for now. No blood work in chart for this hospitalization. On examination patient sitting comfortably in bed without having any pain, denies any nausea, vomiting, headache. She did became emotional when discussing about decreasing pain medications. Vitals/I&O/Wt Last Vital Signs Temp 98.0 F 04/21/23 11:02 Pulse 75 04/21/23 15:47 Resp 16 04/21/23 15:47 BP 98/67 04/21/23 15:47 Pulse Ox 98 04/21/23 15:47 O2 Del Method Room Air 04/21/23 15:47 04/21/23 04/21/23 04/21/23 06:59 14:59 22:59 Intake Total 360 / 360 Output Total 1100 / 1100 Balance -1100 / -140 360 / 360 Physical Exam Narrative: No acute distress, AO x3, comfortable Heart regular rate and rhythm normal S1-S2 without murmurs clicks gallops or rubs Lungs clear to auscultation anteriorly Abdomen soft nontender nondistended positive bowel sounds Extremities right lower extremity without edema, left lower extremity is wrapped with an external fixation device. Data 04/21/23 13:18 04/21/23 13:18 A&P Assessment and plan (1) Acute pain: Postoperative status. Currently patient is on morphine immediate release 30 mg every 6 hourly as neede d, morphine sustained-release 60 mg every 8 hours scheduled, Lyrica 75 mg twice daily, Valium 5 mg by BD as needed, 10 mg nightly, Celebrex 200 mg twice daily. Patient is 7-day postoperative. Discussed in detail with the patient that we will need to decrease the frequency and strength of the pain medications for safe discharge. Discussed the concerns from the pharmacist and insurance companies in detail. Patient states she was on a lot of pain medication before for pain in her cervical and thoracic spine while she was in [place] and for migraine when she was in [place] but currently she was not taking any pain medication other than home grown CBD. Discussed in detail with patient for need to follow-up with pain management team as an outpatient. Discussed the need for decreased in strength and frequency of pain medications. Patient is reluctantly agreeable though is tearful about the same. Discussed for now we will change the morphine immediate release to 30 mg every 6 hourly as needed, Will need to start on oxycodone 10 mg every 8 hours as needed. Stop sustained-release morphine. Should avoid any withdrawal. Change Valium to 5 mg twice daily as needed and 5 mg nightly. For now continue with same dose of Lyrica and Celebrex. Plan for decrease in pain medication discussed in detail with nursing staff. (2) Closed trimalleolar fracture: Status post ORIF left fibular fracture and application of external fixator left lower leg. Appreciate podiatry recommendations. Physical therapy. (3) Status post lumbar laminectomy: (4) Chronic neck and back pain: (5) Chronic migraine without aura, intractable, with status migrainosus: (6) Chronic pelvic pain in female: Plan Check CBC, CMP. Full code Regular diet Heparin 5000 every 12 hourly for DVT prophylaxis Protonix for PUD prophylaxis. Attestations Medical Necessity Statement*: Requires further hospitalization while pain medications are gradually and safely tapered Diagnoses Acute pain R52 Closed trimalleolar fracture S82.853A Status post lumbar laminectomy Z98.890 Chronic neck and back pain M54.2; M54.9; G89.29 Chronic migraine without aura, intractable, with status migrainosus G43.711 Chronic pelvic pain in female R10.2; G89.29
--- NOTE | 2023-04-21 16:18 | P.PN_ITS ---
Subjective Subjective: Patient seen at bedside today. States that her pain is better managed than previously. However, she states that her pain does become excruciating at times. We are attempting to get her pain under control to a point that can be managed with outpatient medication that is a reasonable dose. Patient does state improvement of pain. Vitals/I&O/Wt Last Vital Signs Temp 98.0 F 04/21/23 11:02 Pulse 75 04/21/23 15:47 Resp 16 04/21/23 15:47 BP 98/67 04/21/23 15:47 Pulse Ox 98 04/21/23 15:47 O2 Del Method Room Air 04/21/23 15:47 04/21/23 04/21/23 04/21/23 06:59 14:59 22:59 Intake Total 360 / 360 Output Total 1100 / 1100 Balance -1100 / -140 360 / 360 Physical Exam Narrative: BELOW IS A FOCUSED LOWER EXTREMITY EXAM GENERAL: A&O x 3 VASCULAR: Capillary refill intact to distal digits of the left lower extremity DERMATOLOGICAL: Surgical dressing to left lower extremity clean, dry, intact with no strikethrough noted MUSCULOSKELETAL: External fixator intact to left lower extremity. Full musculoskeletal exam deferred secondary to postoperative state NEUROLOGICAL: Neurological sensation to the affected foot and ankle is present through L4-S1 dermatomes with no hyper/hypoesthesias, negative Tinel or Valleix's sign Data 04/21/23 13:18 04/21/23 13:18 A&P Assessment and plan (1) Pilon fracture of left tibia: (2) Closed fracture of left distal fibula: (3) Pain in left ankle: Plan -Left ankle distal tib/fib fracture -Labs and vitals reviewed -VSS -Diet: Okay for diet -Patient is status post open reduction internal fixation left fibula with application of external fixator. Unable to control pain adequately postoperatively. Patient has a long history of chronic pain. Lengthy discussion was had with patient patient's at bedside in regards to her current pain. We discussed that we need to taper her pain medication down to a manageable dose that can be taken in the outpatient setting safely. -Pain Mgmt: Per primary admitting physician. -Weight bearing: Nonweightbearing to left lower extremity. Recommend crutches. We will place PT consult to evaluate and treat and provide recommendations for DME for discharge -Dressings: Surgical dressing to be left clean, dry, intact -Discharge plan: Okay to discharge home from podiatry standpoint once pain is under control and appropriate outpatient pain management regimen is established for the patient -Patient is to follow-up with podiatry within 1 week of discharge from the hospital Attestations Medical Necessity Statement*: Patient needs continued admission for pain control. Tapering down to manageable pain medication dose that can be taken in the outpatient setting. Time Spent in Patient Care: 16 - 35 minutes Coding Level of Care Code Acute Code for [facility] Fwd Diagnoses Pilon fracture of left tibia S82.872A Closed fracture of left distal fibula S82.832A Pain in left ankle M25.572
[2023-04-21] MEDS: diazePAM 5 mg Tablet PO (20:37)
[2023-04-22] VITALS (9 sets, daily range): BP systolic 115–157; BP diastolic 74–97; PULSE 64–88; RESP 14–18; TEMP 36.4–36.9; O2SAT 96–99
[2023-04-22] MEDS: oxyCODONE 5 mg IR Tab/Cap 10 MG PO ×2 (05:02→13:39)
[2023-04-22] MEDS: sertraline 100 mg Tablet PO (05:18)
[2023-04-22] MEDS: pregabalin 75 mg Capsule PO ×2 (05:18→18:39)
[2023-04-22 07:12] LABS: Folate Level > 20.0 ng/mL (4.8-37.3)
--- NOTE | 2023-04-22 07:50 | PM.PN ---
Subjective Subjective: Patient seen at bedside this morning. Resting comfortably. States her pain is much controlled. She states that she does not think that she had any pain medication overnight. She is asking about how much pain medication she has received in the past 24 hours. Vitals/I&O/Wt Last Vital Signs Temp 97.5 F L 04/22/23 07:22 Pulse 88 04/22/23 07:22 Resp 16 04/22/23 07:22 BP 136/95 04/22/23 07:22 Pulse Ox 98 04/22/23 07:22 O2 Del Method Room Air 04/22/23 07:22 04/21/23 04/22/23 04/22/23 22:59 06:59 14:59 Intake Total 360 / 720 120 / 840 Balance 360 / 720 120 / 840 Physical Exam Narrative: BELOW IS A FOCUSED LOWER EXTREMITY EXAM GENERAL: A&O x 3 VASCULAR: Capillary refill intact to distal digits of the left lower extremity DERMATOLOGICAL: Surgical dressing to left lower extremity clean, dry, intact with no strikethrough noted MUSCULOSKELETAL: External fixator intact to left lower extremity. Full musculoskeletal exam deferred secondary to postoperative state NEUROLOGICAL: Neurological sensation to the affected foot and ankle is present through L4-S1 dermatomes with no hyper/hypoesthesias, negative Tinel or Valleix's sign Data 04/21/23 13:18 04/21/23 13:18 A&P Assessment and plan (1) Pilon fracture of left tibia: (2) Closed fracture of left distal fibula: (3) Pain in left ankle: Plan -Left ankle distal tib/fib fracture -Labs and vitals reviewed -VSS -Diet: Okay for diet -Patient is status post open reduction internal fixation left fibula with application of external fixator. Unable to control pain adequately postoperatively. Patient has a long history of chronic pain. Lengthy discussion was had with patient patient's at bedside in regards to her current pain. We discussed that we need to taper her pain medication down to a manageable dose that can be taken in the outpatient setting safely. This was discussed further with Dr. Blake. According to patient's insurance, she has passed past history of drug-seeking behavior -Pain Mgmt: Per primary admitting physician. -Weight bearing: Nonweightbearing to left lower extremity. Recommend crutches. We will place PT consult to evaluate and treat and provide recommendations for DME for discharge -Dressings: Surgical dressing to be left clean, dry, intact -Discharge plan: Okay to discharge home from podiatry standpoint once pain is under control and appropriate outpatient pain management regimen is established for the patient -Patient is to follow-up with podiatry within 1 week of discharge from the hospital Attestations Medical Necessity Statement*: Postoperative pain management. Working on getting patient to dose that can safely be taken in the outpatient setting and the insurance will approve Coding Level of Care Code Acute Code for [facility] Fwd Diagnoses Pilon fracture of left tibia S82.872A Closed fracture of left distal fibula S82.832A Pain in left ankle M25.572
[2023-04-22] MEDS: propranolol 20 mg Tablet PO ×2 (08:12→18:39)
[2023-04-22] MEDS: CELEcoxib 200 mg Capsule PO ×2 (08:12→20:54)
[2023-04-22] MEDS: duloxetine 30 mg Capsule PO (08:12)
[2023-04-22] MEDS: pantoprazole DR 40 mg Tablet PO (08:12)
[2023-04-22] MEDS: baclofen 10 mg Tablet PO ×2 (08:12→18:39)
[2023-04-22] MEDS: multivitamin therapeutic Tablet 1 TAB PO (08:12)
[2023-04-22] MEDS: morphine IR 15 mg Tablet 30 MG PO ×2 (08:13→18:39)
[2023-04-22 10:54] LABS: Alanine Aminotransferase 56 U/L (0-33); Albumin Level 3.7 g/dL (3.5-5.2); Alkaline Phosphatase 103 U/L (35-105); Anion Gap 10.9 (5-19); Aspartate Amino Transferase 44 U/L (0-32); Blood Urea Nitrogen 10 mg/dL (6-20); Carbon Dioxide 31 mmol/L (22-29); Chloride 100 mmol/L (98-107); Globulin 2.7 g/dL (1.3-4.6); Glomerular Filtration Rate 78.3 mL/min (90-130); Glucose 92 mg/dL (65-115); Osmolality Calculated 285 mOsm/kg (285-295); Potassium 3.9 mmol/L (3.5-5.1); Sodium 138 mmol/L (136-145); Total Bilirubin 0.4 mg/dL (0.15-1.2); Total Protein 6.4 g/dL (6.6-8.7)
[2023-04-22 11:10] LABS: Hepatitis A Antibody IgM Non-Reactive (Nonreactive); Hepatitis B Core AB, Total Non-Reactive (Nonreactive); Hepatitis B Surface Antigen Non-Reactive (Nonreactive); Hepatitis C Virus Antibody Non-Reactive (Nonreactive)
[2023-04-22 11:11] LABS: Hepatitis B Surface AB < 3.5 (11.5-1000)
[2023-04-22] MEDS: acetaminophen 325 mg Tablet 650 MG PO (12:55)
[2023-04-22] MEDS: polyethylene glycol 3350 Pkt 17 gm PO (13:39)
--- NOTE | 2023-04-22 14:44 | PM.PN ---
Subjective Subjective: No acute events overnight. Patient has remained hemodynamically stable and afebrile. Today morning on examination patient is awake and alert, in pleasant mood. Has doing well with tapering off pain medications. Denies any nausea, vomiting, headache. Complaining of mild constipation. Blood work appreciated for a normal CBC, CMP showing creatinine 0.8, stable electrolytes with AST/ALT of 44/56 Vitals/I&O/Wt Last Vital Signs Temp 97.5 F L 04/22/23 11:09 Pulse 76 04/22/23 11:09 Resp 15 04/22/23 13:39 BP 115/78 04/22/23 11:09 Pulse Ox 97 04/22/23 11:09 O2 Del Method Room Air 04/22/23 11:09 04/21/23 04/22/23 04/22/23 22:59 06:59 14:59 Intake Total 360 / 720 120 / 840 480 / 480 Balance 360 / 720 120 / 840 480 / 480 Physical Exam Narrative: No acute distress, AO x3, comfortable Heart regular rate and rhythm normal S1-S2 without murmurs clicks gallops or rubs Lungs clear to auscultation anteriorly Abdomen soft nontender nondistended positive bowel sounds Extremities right lower extremity without edema, left lower extremity is wrapped with an external fixation device. Data 04/21/23 13:18 04/22/23 04:50 A&P Assessment and plan (1) Acute pain: Postoperative status. Currently patient is on morphine immediate release 30 mg every 6 hourly as needed, morphine sustained-release 60 mg every 8 hours scheduled, Lyrica 75 mg twice daily, Valium 5 mg by BD as needed, 10 mg nightly, Celebrex 200 mg twice daily. Patient is 7-day postoperative. Discussed in detail with the patient that we will need to decrease the frequency and strength of the pain medications for safe discharge. Discussed the concerns from the pharmacist and insurance companies in detail. Patient states she was on a lot of pain medication before for pain in her cervical and thoracic spine while she was in [place] and for migraine when she was in [place] but currently she was not taking any pain medication other than home grown CBD. Discussed in detail with patient for need to follow-up with pain management team as an outpatient. Discussed the need for decreased in strength and frequency of pain medications. Patient is reluctantly agreeable though is tearful about the same. Discussed for now we will change the morphine immediate release to 30 mg every 6 hourly as needed, Will need to start on oxycodone 10 mg every 8 hours as needed. Stop sustained-release morphine. Should avoid any withdrawal. Change Valium to 5 mg twice daily as needed and 5 mg nightly. For now continue with same dose of Lyrica and Celebrex. 04/22: Patient is doing well with taper of pain medications. Will taper down further and change morphine immediate release to 30 mg every 12 hourly as needed, continue oxycodone 10 mg every 8 hours as needed. Further change Valium to 5 mg as needed daily, 5 mg nightly scheduled. Discussed taper in detail with the patient and she is agreeable. Plan for decrease in pain medication discussed in detail with nursing staff. (2) Closed trimalleolar fracture: Status post ORIF left fibular fracture and application of external fixator left lower leg. Appreciate podiatry recommendations. Physical therapy. (3) Status post lumbar laminectomy: (4) Chronic neck and back pain: (5) Chronic migraine without aura, intractable, with status migrainosus: (6) Chronic pelvic pain in female: Plan Transaminitis: Could be in setting of acute fracture and postoperative status or in setting of high-dose pain medications. Check hepatitis panel. Most likely patient will need to repeat LFTs in the next 1 month as an outpatient. Discussed in detail with the patient and she is agreeable. Aggressive bowel regimen. Full code Regular diet Heparin 5000 every 12 hourly for DVT prophylaxis Protonix for PUD prophylaxis. Attestations Medical Necessity Statement*: Requires further hospitalization as further pain medications are weaned down to avoid withdrawal and safe discharge in a patient who is post ORIF for closed trimalleolar fracture Diagnoses Acute pain R52 Closed trimalleolar fracture S82.853A Status post lumbar laminectomy Z98.890 Chronic neck and back pain M54.2; M54.9; G89.29 Chronic migraine without aura, intractable, with status migrainosus G43.711 Chronic pelvic pain in female R10.2; G89.29
[2023-04-22] MEDS: heparin 5,000 unit/mL INJ 1 mL 5000 UNIT SUBCUT (16:46)
[2023-04-22] MEDS: diazePAM 5 mg Tablet PO (20:54)
[2023-04-23 00:11] VITALS: RESP 16; O2SAT 99
[2023-04-23] MEDS: oxyCODONE 5 mg IR Tab/Cap 10 MG PO (00:11)
[2023-04-23] MEDS: heparin 5,000 unit/mL INJ 1 mL 5000 UNIT SUBCUT (02:25)
[2023-04-23 04:11] VITALS: BP 112/72; PULSE 66; RESP 15; TEMP 36.8; O2SAT 96
[2023-04-23] MEDS: sertraline 100 mg Tablet PO (05:06)
[2023-04-23] MEDS: pregabalin 75 mg Capsule PO (05:06)
[2023-04-23 07:45] VITALS: PULSE 68; RESP 16; TEMP 36.6; O2SAT 97
[2023-04-23] MEDS: duloxetine 30 mg Capsule PO (08:16)
[2023-04-23] MEDS: CELEcoxib 200 mg Capsule PO (08:16)
[2023-04-23] MEDS: baclofen 10 mg Tablet PO (08:16)
[2023-04-23] MEDS: multivitamin therapeutic Tablet 1 TAB PO (08:16)
[2023-04-23 08:17] VITALS: RESP 16
[2023-04-23] MEDS: pantoprazole DR 40 mg Tablet PO (08:17)
[2023-04-23] MEDS: morphine IR 15 mg Tablet 30 MG PO (08:17)
[2023-04-23] MEDS: propranolol 20 mg Tablet PO (08:17)
--- NOTE | 2023-04-23 09:58 | PM.DCS ---
Discharge Providers Date of Admission: 04/16/23 18:18 Date of Discharge: April 23, 2023 Attending Provider at Admission: Dewey Wallace DPM Attending Provider at Discharge: Eduardo Yuan MD Primary Care Provider: Huy Quintanilla MD Diagnoses at Discharge Discharge Diagnosis (1) Acute pain: Status: Acute Permanent problem details: post surgical/fx pain with underlying chronic pain syndrome (2) Closed trimalleolar fracture: Status: Acute (3) Status post lumbar laminectomy: Status: Acute (4) Chronic neck and back pain: Status: Acute (5) Chronic migraine without aura, intractable, with status migrainosus: Status: Acute (6) Chronic pelvic pain in female: Status: Acute Reason for Visit Reason for Visit: left ankle injury Brief History: History as per HPI: Felicitas Velasco is a 42 year old female complaining of left ankle pain as she was outside doing some chores and slipped on the gravel had an inversion type injury of her left ankle has severe pain was unable to bear any weight.? No other injury did not strike her head.? No previous injuries to this ankle.? Due to severe pain and inability to control patient was taken to the OR emergently for external fixation of the tibia and was able to repair the fibula.? Patient is seen postoperatively vital signs are stable no complaints.? at the bedside Hospital Course Hospital Course Dr. Wallace performed ORIF left fibular fracture and application of external fixator left lower leg. The tibia would have to be fixed in his second stage surgical procedure. She was monitored overnight for pain control 04/16/2023. Patient's acute pain was severe; she lives with chronic neck back and pelvic pain as well as chronic daily migraines. She was utilizing significant amounts of IV Dilaudid. Thus, Adjusted patient's home meds and focused on acute and chronic pain control. Added Cymbalta 30 mg daily as the only antidepressant proven to help subjective pain. Changed nonsteroidal anti-inflammatories from as needed to scheduled Celebrex with high loading dose and high scheduled dosing. Started Lyrica with loading dose and 75 mg p.o. every 12.? I did note allergy to gabapentin I feel that short-term Lyrica use in this situation the benefits are greater than risk. Increase Dilaudid to every hour since that is what working best for her. And lastly added Ativan 0.5 mg 3 times daily as needed with a give first dose now. 04/17/2023. IV Dilaudid was discontinued. Percocet was also discontinued due to high doses of Tylenol. Dilaudid IV and oxycodone p.o. doses were converted to morphine milligram equivalents patient had been receiving 350 mm ED's. Thus MS ER was started at 90 mg p.o. twice daily and MS IR was started at 30 mg p.o. every 4 hours as needed. 04/18/2023. Dilaudid was on as needed med list and only to be given if patient had severe pain. She was startled and jerked her leg causing severe pain and she had a dose of 1 mg. Currently she is smiling although she does complain of a headache. She says that her pain is well controlled on the regimen. Please note multiple medications that she takes at home had to be discontinued to make adjustments for the new acute on chronic pain medication regimen. Patient's hospitalization was unremarkable. She was discharged on 04/18 but she could not go home as the pain medications prescribed by the previous physician could not be refilled due to concerns by the pharmacist about the strength of the medications. For safe discharge patient's pain medications are gradually decreased to avoid withdrawal symptoms. Pain medication thus far has been safely weaned down. Patient working appropriately has been working appropriately with physical therapy and current pain medications. Pain medication with 1 week supply has been provided to the patient. All the other pain medication scripts have been discontinued. She is to follow-up with a primary care provider within next [address] Wallace in 1 week for further evaluation and management. Physical Exam Narrative: No acute distress, AO x3, comfortable Heart regular rate and rhythm normal S1-S2 without murmurs clicks gallops or rubs Lungs clear to auscultation anteriorly Abdomen soft nontender nondistended positive bowel sounds Extremities right lower extremity without edema, left lower extremity is wrapped with an external fixation device. Discharge Data Studies Completed and Pending Completed Studies During Hospitalization Category Date Time Status CT ankle LT wo con* [id number] Routine Cat Scan 04/16/23 17:22 Completed XR ankle LT 1V [id number] Routine Exams 04/15/23 20:12 Completed XR ankle LT min 3V* [id number] Stat Exams 04/15/23 11:48 Completed Laboratory Results WBC 6.14 10^3/uL (3.29-11.43) 04/21/23 13:18 RBC 4.58 10^6/uL (3.85-5.65) 04/21/23 13:18 Hgb 13.30 g/dL (11.27-16.99) 04/21/23 13:18 Hct 41.3 % (36-47) 04/21/23 13:18 MCV 90.2 fl (85-98) 04/21/23 13:18 MCH 29.0 pg (27-33) 04/21/23 13:18 MCHC 32.2 g/dL (30-55) 04/21/23 13:18 RDW 12.8 % (12.1-15.1) 04/21/23 13:18 Plt Count 262 10^3/cmm (157-399) 04/21/23 13:18 MPV 10.4 fL (7.4-10.4) 04/21/23 13:18 Neut % (Auto) 46.9 % 04/21/23 13:18 Lymph % (Auto) 32.7 % 04/21/23 13:18 Aurora % (Auto) 13.7 % 04/21/23 13:18 Eos % (Auto) 5.7 % 04/21/23 13:18 Baso % (Auto) 0.7 % 04/21/23 13:18 Neut # (Auto) 2.88 10^3/uL (1.8-7.7) 04/21/23 13:18 Lymph # (Auto) 2.0 10^3/uL (0.8-4.8) 04/21/23 13:18 Aurora # (Auto) 0.8 10^3/uL (0.2-0.9) 04/21/23 13:18 Eos # (Auto) 0.4 10^3/uL (0.0-0.8) 04/21/23 13:18 Baso # (Auto) 0.0 10^3/uL (0.0-0.1) 04/21/23 13:18 Nucleated RBC % (auto) 0 % 04/21/23 13:18 Nucleated RBCs # 0.0 /100WBC 04/21/23 13:18 Sodium 138 mmol/L (136-145) 04/22/23 04:50 Potassium 3.9 mmol/L (3.5-5.1) 04/22/23 04:50 Chloride 100 mmol/L (98-107) 04/22/23 04:50 Carbon Dioxide 31 mmol/L (22-29) H 04/22/23 04:50 Anion Gap 10.9 (5-19) 04/22/23 04:50 BUN 10 mg/dL (6-20) 04/22/23 04:50 Creatinine 0.8 mg/dL (0.5-0.9) 04/22/23 04:50 GFR Calculation 78.3 mL/min (90-130) L 04/22/23 04:50 Glucose 92 mg/dL (65-115) 04/22/23 04:50 Calculated Osmolality 285 mOsm/kg (285-295) 04/22/23 04:50 Calcium 9.0 mg/dL (8.5-10.5) 04/22/23 04:50 Iron 42 ug/dL (37-145) 04/21/23 13:18 TIBC 227 mcg/dl 04/21/23 13:18 % Saturation 18.5 % (20-50) L 04/21/23 13:18 Unsat Iron Binding 185 ug/dL (112-347) 04/21/23 13:18 Total Bilirubin 0.4 mg/dL (0.15-1.2) 04/22/23 04:50 AST 44 U/L (0-32) H 04/22/23 04:50 ALT 56 U/L (0-33) H 04/22/23 04:50 Alkaline Phosphatase 103 U/L (35-105) 04/22/23 04:50 Total Protein 6.4 g/dL (6.6-8.7) L 04/22/23 04:50 Albumin 3.7 g/dL (3.5-5.2) 04/22/23 04:50 Globulin 2.7 g/dL (1.3-4.6) 04/22/23 04:50 Vitamin B12 863 pg/mL (232-1245) 04/21/23 13:18 Folate > 20.0 ng/mL (4.8-37.3) 04/22/23 04:50 TSH 0.99 uIU/mL (0.27-4.20) 04/21/23 13:18 Hepatitis A IgM Ab Non-reactive (Nonreactive) 04/22/23 04:50 Hep Bs Antigen Non-reactive (Nonreactive) 04/22/23 04:50 Hep Bs Antibody < 3.5 (11.5-1000) L 04/22/23 04:50 Hep B Core Total Ab Non-reactive (Nonreactive) 04/22/23 04:50 Hepatitis C Antibody Non-reactive (Nonreactive) 04/22/23 04:50 Vitals Last Vital Signs Temp 97.8 F 04/23/23 07:45 Pulse 68 04/23/23 07:45 Resp 16 04/23/23 08:17 BP 112/72 04/23/23 04:11 Pulse Ox 97 04/23/23 07:45 O2 Del Method Room Air 04/23/23 07:45 Discharge Plan Discharge Patient Disposition: Home Condition: Stable Prescriptions: New celecoxib 200 mg Capsule 200 mg PO 0900,2100 14 Days Qty: 28 0RF baclofen 10 mg Tablet 10 mg PO BID Qty: 30 0RF morphine 15 mg Tablet 30 mg PO Q12H PRN (Reason: Severe Pain) 7 Days Qty: 28 0RF diazepam 5 mg Tablet 5 mg PO BEDTIME 14 Days Qty: 14 0RF oxycodone 5 mg Tablet 5 mg PO Q8H PRN (Reason: Severe Pain) 7 Days Qty: 21 0RF duloxetine 30 mg Capsule,Delayed Release(Dr/Ec) 30 mg PO DAILY 30 Days Qty: 30 0RF pregabalin 75 mg Capsule 75 mg PO 0600,1800 14 Days Qty: 28 0RF Continued omeprazole 20 mg capsule,delayed release(DR/EC) 20 mg PO DAILY sertraline 100 mg tablet 100 mg PO QAM hydroxyzine HCl 25 mg tablet 25 mg PO Q6H PRN (Reason: Anxiety) propranolol 20 mg tablet 20 mg PO BID Qty: 60 3RF polyethylene glycol 3350 [Miralax] 17 gram/dose powder 17 g PO DAILY PRN (Reason: Constipation) multivitamin Tablet 1 tab PO DAILY rizatriptan 10 mg tablet 10 mg PO DAILY PRN (Reason: migraine headache) Discontinued baclofen 10 mg tablet 10 mg PO BID meloxicam 7.5 mg tablet 7.5 mg PO BID PRN (Reason: Pain) diclofenac potassium 25 mg tablet 25 mg PO BID ibuprofen 200 mg Capsule 800 mg PO Q6H PRN (Reason: Pain) Discharge Orders: Discharge Order (Routine); Ordered 04/23/23 Ordered By: Eduardo Yuan Other Ambulatory Orders: DME: [employer] (Order) Location: None Selected Ordered By: Dewey Wallace DME: Walker (Order) Location: None Selected Ordered By: Dewey Wallace DME: Walker (Order) Location: None Selected Ordered By: Dewey Wallace DME: Wheelchair (Order) Location: None Selected Ordered By: Dewey Wallace Referrals: Huy Quintanilla MD [Primary Care Provider] - 04/29/23 10:30 am Dewey Wallace DPM [Physician] - 04/30/23 3:30 pm () Discharge Diet: Usual diet Discharge Activity: Limit activity as instructed, Wheelchair as instructed and As per PT/OT instructions Patient Instructions: Diazepam (By mouth), Morphine, Rapid Release (By mouth) (Roxanol), Celecoxib (By mouth) (Selebreks, eliksib), Morphine, Slow Release (By mouth), Duloxetine (By mouth), Pregabalin (By mouth), External Fixation of an Ankle Fracture (DC), Opioid Safety Activity Restrictions/Additional Instructions: Please make sure that you do not take more pain medications than has been prescribed to you. 1 week supply of pain medications have been sent over to the pharmacy. For further pain medication you should follow-up with a primary care provider or with pain management team. You have an appointment with podiatry/Dr. Wallace in 1 week. Please continue with physical therapy as discussed in detail. Discharge Attestations Time Spent in Discharge Care*: greater than 30 min Specific Discharge Activities: educating patient, educating and/or supporting family/caregiver, discussing with pcp/other providers, discussing with correctional case manager/social workers/dc planners, documenting/other paperwork and evaluating patient/reviewing data Status at Discharge: Cognitive status at discharge: cognitively intact, Behavioral status at discharge: cooperative, Functional status at discharge: uses cane/walker, Overall status at discharge: patient is progressing back to baseline Quality Metrics Clinical Quality Measures [ No reported AMI, CVA or VTE this stay] Coding Level of Care Code 79565 Total time (in minutes) for Discharge: 60 Diagnoses Acute pain R52 Closed trimalleolar fracture S82.853A Status post lumbar laminectomy Z98.890 Chronic neck and back pain M54.2; M54.9; G89.29 Chronic migraine without aura, intractable, with status migrainosus G43.711 Chronic pelvic pain in female R10.2; G89.29
[2023-04-23 11:34] VITALS: BP 128/86; PULSE 71; RESP 15; TEMP 36.4; O2SAT 97
[2023-04-23 14:10] VITALS: BP 128/86; PULSE 71; RESP 15; TEMP 36.4; O2SAT 97
== END 2023-04-23 14:12 | disposition home or self-care (01) | DRG 494 ==
LOC: ER 14:56 → OR 15:07 → MEDSURG 17:28
PROVIDERS: Admitting Provider Podiatrist Foot & Ankle Surgery; Emergency Provider Family Medicine; PCP Family Medicine; Visit Provider Student in an Organized Health Care Education/Training Program
PROC: 0QSK04Z Reposition Left Fibula with Internal Fixation Device, Open Approach (ICD-10-PCS; principal; 2023-04-15 15:30)
PROC: 0QSK04Z Reposition Left Fibula with Internal Fixation Device, Open Approach (ICD-10-PCS; 2023-04-15 15:30)
DX: S82.872A Displaced pilon fracture of left tibia, initial encounter for closed fracture (principal); S82.832A Other fracture of upper and lower end of left fibula, initial encounter for closed fracture; W18.09XA Striking against other object with subsequent fall, initial encounter; Y92.017 Garden or yard in single-family (private) house as the place of occurrence of the external cause; K21.9 Gastro-esophageal reflux disease without esophagitis; G89.29 Other chronic pain; M54.2 Cervicalgia; M54.9 Dorsalgia, unspecified; R10.2 Pelvic and perineal pain; G43.711 Chronic migraine without aura, intractable, with status migrainosus; F17.200 Nicotine dependence, unspecified, uncomplicated
CPT/HCPCS: 36415; 73600; 73610; 73700; 76000; 80053; 82607; 82746; 83540; 83550; 84443; 85025; 86705; 86706; 86709; 86803; 87340; 96365; 96372; 96375; 96376; 97161; 97530; 99285; C1713; G0378; J0690; J1100; J1170; J1200; J1644; J1885; J2060; J2250; J2270; J2405; J2704; J2795; J3010; J3490; J7030

== ENCOUNTER → 2023-04-30 15:18 | Outpatient (BNVA) | payer MEDICAID, SELFPAY | PROVIDERS: PCP Family Medicine; Visit Provider Podiatrist Foot & Ankle Surgery | DX: S82.832A Other fracture of upper and lower end of left fibula, initial encounter for closed fracture (principal); S82.872A Displaced pilon fracture of left tibia, initial encounter for closed fracture; X58.XXXA Exposure to other specified factors, initial encounter | CPT/HCPCS: 73610; 99024 ==

== ENCOUNTER 2023-05-09 12:34 | Outpatient (CLI) | payer MEDICAID, SELFPAY ==
[2023-05-09 14:11] LABS: Alanine Aminotransferase 33 U/L (0-33); Albumin Level 4.2 g/dL (3.5-5.2); Alkaline Phosphatase 104 U/L (35-105); Anion Gap 15.8 (5-19); Aspartate Amino Transferase 24 U/L (0-32); Blood Urea Nitrogen 17 mg/dL (6-20); Calcium 9.9 mg/dL (8.5-10.5); Carbon Dioxide 27 mmol/L (22-29); Chloride 101 mmol/L (98-107); Globulin 2.8 g/dL (1.3-4.6); Glomerular Filtration Rate 91.3 mL/min (90-130); Glucose 94 mg/dL (65-115); Osmolality Calculated 289 mOsm/kg (285-295); Potassium 4.8 mmol/L (3.5-5.1); Sodium 139 mmol/L (136-145); Total Bilirubin 0.6 mg/dL (0.15-1.2)
== END 2023-05-09 12:35 | disposition home or self-care (01) ==
PROVIDERS: PCP Family Medicine; Visit Provider Podiatrist Foot & Ankle Surgery
DX: R74.8 Abnormal levels of other serum enzymes (principal)
CPT/HCPCS: 36415; 80053

== ENCOUNTER → 2023-05-20 13:58 | Outpatient (BNVA) | payer MEDICAID, SELFPAY | PROVIDERS: PCP Family Medicine; Visit Provider Orthopaedic Surgery | DX: Z47.89 Encounter for other orthopedic aftercare (principal); Z98.1 Arthrodesis status | CPT/HCPCS: 99024; 99212 ==

== ENCOUNTER → 2023-05-21 13:03 | Outpatient (BNVA) | payer MEDICAID, SELFPAY | PROVIDERS: PCP Family Medicine; Visit Provider Podiatrist Foot & Ankle Surgery | DX: Z98.890 Other specified postprocedural states (principal); S82.832A Other fracture of upper and lower end of left fibula, initial encounter for closed fracture; S82.872A Displaced pilon fracture of left tibia, initial encounter for closed fracture; M25.572 Pain in left ankle and joints of left foot; X58.XXXA Exposure to other specified factors, initial encounter | CPT/HCPCS: 99024 ==

== ENCOUNTER 2023-05-27 05:42 | Day surgery (SDC) | payer MEDICAID, SELFPAY ==
[2023-05-27] VITALS (9 sets, daily range): BP systolic 118–137; BP diastolic 74–93; PULSE 72–83; RESP 10–22; TEMP 36.1; O2SAT 97–99
--- NOTE | 2023-05-27 | XR_ITS ---
WS: [id number] INTRAOPERATIVE TECHNIQUE: 2 Spot fluoroscopic images for intraoperative purposes. FLUOROSCOPY TIME: 14 seconds DLP: 48.77 mgy/cm CLINICAL INFORMATION: removal of ex fixator, left ankle, or pic COMPARISON: None. FINDINGS: Fluoroscopy used for intraoperative purposes. Plate and screw fixation involving the distal fibula an d lateral malleolus. Splint is in place. Normal ankle mortise. Previously described fracture involvin g the distal tibia. IMPRESSION: Images obtained for intraoperative purposes.
[2023-05-27] MEDS: sodium chloride 0.9% 1,000 ML 30 ML IV (06:25)
[2023-05-27] MEDS: acetaminophen 1,000 MG/100 ML PIGGYBACK 400 MG IV (06:25)
[2023-05-27] MEDS: ondansetron 2 mg/ML SDV 2 mL 4 MG IVP (06:44)
--- NOTE | 2023-05-27 06:50 | W.PM.OPSUD ---
Surgery/Procedure H&P Update DATE OF PROCEDURE: May 27, 2023 DATE H&P PERFORMED: 05/21/23 H&P UPDATE INFORMATION: I have reviewed H&P completed within last 30 days, I have examined patient prior to procedure, No changes to prior documentation and H&P is in [facility] [place] on date indicated PREOP DIAGNOSIS: Left ankle pilon fracture PLANNED PROCEDURE: Operation Date: 05/27/23 07:00 Proposed Procedures p Removal external fixator right ankle under anesthesia 50240, s82.876G(Right) - Dewey Wallace DPM
[2023-05-27] MEDS: vancomycin 1,000 MG in sodium chloride 0.9% 250 ML 250 MG IV (07:01)
[2023-05-27] MEDS: BUPivacaine 0.5% INJ 30 mL XX (07:30)
--- NOTE | 2023-05-27 07:40 | ANES.PREANE2 ---
Pre-Anesthetic Assessment Height/Weight: Height 1.6 m O2 Del Method Room Air 05/27/23 06:16 Preop Diagnosis: Left ankle pilon fracture Operation Date: 05/27/23 07:00 Proposed Procedures p Removal external fixator right ankle under anesthesia 50394, s82.872D(Right) - Dewey Wallace DPM Familial anesthetic complications: none Was Beta Edenilson taken within 24 hours: Yes Was Clonidine taken within 24 hours: N/A Last intake: Intake Last Liquid Date 05/26/23 Last Liquid Time 23:55 Last Solid Date 05/26/23 Last Solid Time 18:00 Social No alcohol and No tobacco Exam alert, oriented x 3, clear to auscultation bilaterally and regular rate & rhythm Airway Submandibular: within normal limits Cervical ROM: within normal limits Mallampati: Class II Dentition: chipped GI Gastroesophageal Reflux Disease Musc/skel Lower Back Pain and Osteoarthritis/DJD chronic pain Neuropsych Anxiety and Depression Anesthetic Plan ASA status: 3 Anesthesia: General Medications/Allergies Home Medications Medication Instructions Recorded Confirmed Last Taken Type omeprazole 20 mg capsule,delayed 20 mg PO DAILY 03/26/21 05/26/23 05/26/23 History release sertraline 100 mg tablet 100 mg PO QAM 03/26/21 05/26/23 05/27/23 History polyethylene glycol 3350 17 17 g PO DAILY PRN Constipation 08/21/21 05/26/23 05/19/23 History gram/dose oral powder (Miralax) multivitamin 1 tab PO DAILY 08/09/22 05/26/23 05/25/23 History rizatriptan 10 mg tablet 10 mg PO DAILY PRN migraine 08/09/22 05/26/23 05/24/23 History headache propranolol 20 mg tablet 20 mg PO BID #60 tabs 02/06/23 05/26/23 05/27/23 Rx hydroxyzine HCl 25 mg tablet 25 mg PO Q6H PRN Anxiety 02/12/23 05/26/23 05/24/23 History baclofen 10 mg tablet 10 mg PO BID #30 tabs 04/23/23 05/26/23 05/25/23 Rx diazepam 5 mg tablet 5 mg PO DAILY PRN anxiety #14 tabs 05/08/23 05/26/23 05/26/23 Rx oxycodone 5 mg tablet 5 mg PO Q8H PRN pain 7 days #21 05/08/23 05/26/23 05/26/23 Rx tabs Allergies Allergy/AdvReac Type Severity Reaction Status Date / Time adhesive tape Allergy Severe whelps, Verified 05/21/23 13:03 peels skin azithromycin Allergy Severe vomiting, Verified 05/21/23 13:03 mouth ulcers erythromycin base Allergy Severe mouth Verified 05/21/23 13:03 ulcers, vomiting gabapentin Allergy Severe memory Verified 05/21/23 13:03 issues Penicillins Allergy Severe itching, Verified 05/21/23 13:03 vomiting,mouth ulcers hydrocodone Allergy ADR-Nausea Verified 05/21/23 13:03 Current Medications Generic Name Dose Route Start Last Admin Trade Name Freq PRN Reason Stop Dose Admin Sodium Chloride 1,000 mls @ 30 mls/hr 05/27/23 06:00 05/27/23 06:25 Sodium Chloride 0.9% IV 05/28/23 05:59 30 mls/hr .Q24H APOLINAR Administration Ondansetron HCl 4 mg 05/27/23 05:52 05/27/23 06:44 Ondansetron 2 Mg/Ml Sdv 2 Ml IVP 4 mg ONCE PRN Administration NAUSEA AND VOMITING PFSH Anesthesia Medical History Degenerative lumbar disc Chronic neck and back pain Migraines Depression GERD (gastroesophageal reflux disease) Lumbar disc herniation Cervical disc herniation Chronic pelvic pain in female Aftercare following surgery of the genitourinary system Chronic migraine without aura, intractable, with status migrainosus Chronic cystitis Interstitial cystitis Surgical History Status post lumbar laminectomy Hx of adenoidectomy H/O ovarian cystectomy at age 15 H/O tubal ligation 2002 H/O: hysterectomy 10/10/2021: TVH performed by Dr. Edmondson at [facility] H/O laparoscopy 08/22/2021- Diagnostic Laparoscopy. Fulguration of endometriosis lesions. Preformed by Dr. Edmondson at [facility]. History of back surgery History of bladder surgery History of cholecystectomy History of appendectomy History of tonsillectomy Family History Mother , AT AGE 63 SMALL CELL CARCINOMA Cancer Hypertension Hyperlipidemia Grandmother Cancer Dementia CAD (coronary artery disease) Diabetes paternal Stroke paternal Heart disease paternal Grandfather Cancer Dementia Diabetes paternal Colon cancer maternal, 60's Father Hypertension Hyperlipidemia CAD (coronary artery disease) Denies family history of Ovarian cancer Clotting disorder Breast cancer Anesthesia complication Bleeding disorder Uterine cancer Thyroid disease Social History Smoking and tobacco/nicotine status: current every day tobacco/nicotine user Data Anesthesia Cardiac Studies: No Data to Display
--- NOTE | 2023-05-27 07:48 | W.PM.BPON ---
Date of procedure: 05/27/2023 Surgeon name: Placido LeviPEitan [employer] Consultant(s) name(s): Jorge Procedure(s) performed: Removal of external fixator left ankle under general anesthesia, cast application Description of findings: Healing left tibial fibular fracture Estimated blood loss: 5 cc Tourniquet time: No tourniquet Specimen(s) removed: None Post-operative diagnosis: Left ankle pilon fracture
--- NOTE | 2023-05-27 07:49 | PM.OP ---
Operative Report Date of procedure: May 27, 2023 Pre-op diagnosis: Left ankle pilon fracture Post-op diagnosis: Same Post-op findings: Anatomically reduced left ankle pilon fracture status post open reduction internal fixation left fibula Procedure done: 1. Removal external fixator under anesthesia CPT 36584 2. Closed treatment of distal tibial fracture requiring manipulation CPT 43677 Surgeon: Dewey Wallace DPM Estimated blood loss: 5 cc Complications: None Findings: Anatomically reduced pilon fracture left ankle Brief History: Felicitsa Velasco is a 42-year-old female who sustained a left ankle pilon fracture. Date of injury 04/15/2023. The patient went to the operating room on 04/15/2023 for open reduction internal fixation of left ankle fibular fracture. The left ankle then underwent distal tibial manipulation to reduce fracture fragments of tibia. External fixator was applied to left lower extremity. The outcome of the application of external fixator was unknown at that time and there was the possibility of subsequent surgery of open reduction and internal fixation of the tibia. Over the course of the following weeks and external fixator no further displacement was noted. Routine healing of the distal tibia fracture was noted. No further surgery was warranted. The patient returns the operating room today for removal of external fixator of left lower extremity and cast application. Distal tibia fracture care which was started on initial surgery on which included manipulation of distal tibial fracture will be continued today with fiberglass cast application. All patient questions were answered to patient's satisfaction. Consent form has been signed and is on the patient chart. No guarantees have been given or implied. The patient has been n.p.o. since midnight. The patient was brought to the operating room and placed on the table in supine position. General anesthesia was administered by the anesthesia department. The nonsterile portion of the external fixator was removed prior to prep. The transfixing calcaneal pin was left intact as well as the half pins of the tibia. After everything was removed except for the pins a Betadine prep was performed. After prep, the site was draped and the following procedure was then performed. Procedure: Attention was directed to the half tibial pins to the anterior surface of the left tibia. These were removed from the leg without incident. The transfixing calcaneal pin was then removed from the calcaneus. Care was taken to maintain anatomic position of the left lower extremity. 4-0 nylon was used to close the pin sites. The pin sites were then anesthetized using 0.5% Marcaine plain. They were then dressed with Xeroform, 4 x 4 gauze, Kerlix before a fiberglass cast was applied to the left lower extremity using Webril for padding. Good positioning of the distal tibia fracture was confirmed on imaging. The patient tolerated the procedure and anesthesia well and without complication. The patient was transported from the operating room to the recovery room with vital signs stable and vascular status intact to all digits of the left foot. Thepatient was given both written and verbal instructions to remain nonweightbearing to the operative extremity, to keep dressings/splint clean, dry and intact and to take pain medication as directed. The patient will follow-up in the outpatient setting at their scheduledappointment. The patient was discharged with my personal number and was instructed to call if any questions or issues should arise. They were discharged home once anesthesia criteria was met. -- CPT 92594 was not billed at initial surgery due to uncertainty if patient would undergo open reduction internal fixation of distal tibia. Patient did undergo manipulation and traction of distal tibial fracture. This anatomic position that was achieved through manipulation and traction was preserved with cast application during today's procedure. Patient does not need to undergo open reduction internal fixation of distal tibia at this time. We will proceed with closed treatment of distal tibia fracture at this time
--- NOTE | 2023-05-27 14:02 | ANE.PACU2 ---
Inpatient post-anesthesia follow up: Airway intact: Yes Vital signs: Temperature 97 F Pulse Rate 72 Respiratory Rate 16 Blood Pressure 118/74 Pulse Oximetry 97 Oxygen Delivery Me thod Room Air Oxygen Flow Rate Fraction of Inspir ed Oxygen Hydration adequate: Yes Nausea and vomiting: No Pain level: 2 Mental status: Baseline
== END 2023-05-27 09:04 | disposition home or self-care (01) ==
PROVIDERS: PCP Family Medicine; Visit Provider Podiatrist Foot & Ankle Surgery
PROC: (CPT 20694; principal; 2023-05-27 07:00)
DX: S82.872A Displaced pilon fracture of left tibia, initial encounter for closed fracture (principal); S82.832A Other fracture of upper and lower end of left fibula, initial encounter for closed fracture; X58.XXXA Exposure to other specified factors, initial encounter; K21.9 Gastro-esophageal reflux disease without esophagitis; F17.200 Nicotine dependence, unspecified, uncomplicated
CPT/HCPCS: 20694; 27825; 73600; 76000; J0131; J1100; J1200; J2250; J2405; J2704; J3010; J3370; J3490; J7030; J7050

== ENCOUNTER → 2023-06-11 13:10 | Outpatient (BNVA) | payer MEDICAID, SELFPAY | PROVIDERS: PCP Family Medicine; Visit Provider Podiatrist Foot & Ankle Surgery | DX: Z98.890 Other specified postprocedural states; S82.832D Other fracture of upper and lower end of left fibula, subsequent encounter for closed fracture with routine healing; S82.872D Displaced pilon fracture of left tibia, subsequent encounter for closed fracture with routine healing; X58.XXXD Exposure to other specified factors, subsequent encounter | CPT/HCPCS: 29405; 73610; 99024 ==

== ENCOUNTER → 2023-06-24 08:39 | Outpatient (BNVA) | payer MEDICAID, SELFPAY | PROVIDERS: PCP Family Medicine; Visit Provider Physician Assistant | DX: Z47.89 Encounter for other orthopedic aftercare (principal) | CPT/HCPCS: 99213 ==

== ENCOUNTER → 2023-06-25 13:52 | Outpatient (BNVA) | payer MEDICAID, SELFPAY | PROVIDERS: PCP Family Medicine; Visit Provider Podiatrist Foot & Ankle Surgery | DX: Z98.890 Other specified postprocedural states; S82.832D Other fracture of upper and lower end of left fibula, subsequent encounter for closed fracture with routine healing; S82.872D Displaced pilon fracture of left tibia, subsequent encounter for closed fracture with routine healing; X58.XXXD Exposure to other specified factors, subsequent encounter | CPT/HCPCS: 73610; 99024 ==

== ENCOUNTER → 2023-07-09 14:58 | Outpatient (BNVA) | payer MEDICAID, SELFPAY | PROVIDERS: PCP Family Medicine; Visit Provider Podiatrist Foot & Ankle Surgery | DX: Z98.890 Other specified postprocedural states; S82.832D Other fracture of upper and lower end of left fibula, subsequent encounter for closed fracture with routine healing; S82.872D Displaced pilon fracture of left tibia, subsequent encounter for closed fracture with routine healing; X58.XXXD Exposure to other specified factors, subsequent encounter | CPT/HCPCS: 36415; 73610; 80053; 99024 ==

== ENCOUNTER → 2023-07-10 09:37 | Outpatient (BNVA) | payer MEDICAID, SELFPAY | PROVIDERS: PCP Family Medicine; Visit Provider Specialist | DX: G43.711 Chronic migraine without aura, intractable, with status migrainosus (principal) | CPT/HCPCS: 64615; J0585 ==

== ENCOUNTER → 2023-07-23 14:34 | Outpatient (BNVA) | payer MEDICAID, SELFPAY | PROVIDERS: PCP Family Medicine; Visit Provider Podiatrist Foot & Ankle Surgery | DX: Z98.890 Other specified postprocedural states (principal); S82.832D Other fracture of upper and lower end of left fibula, subsequent encounter for closed fracture with routine healing; S82.872D Displaced pilon fracture of left tibia, subsequent encounter for closed fracture with routine healing; X58.XXXD Exposure to other specified factors, subsequent encounter | CPT/HCPCS: 73610; 99024 ==

== ENCOUNTER → 2023-08-13 13:53 | Outpatient (BNVA) | payer MEDICAID, SELFPAY | PROVIDERS: PCP Family Medicine; Visit Provider Podiatrist Foot & Ankle Surgery | DX: Z98.890 Other specified postprocedural states; S82.832D Other fracture of upper and lower end of left fibula, subsequent encounter for closed fracture with routine healing; S82.872D Displaced pilon fracture of left tibia, subsequent encounter for closed fracture with routine healing; X58.XXXD Exposure to other specified factors, subsequent encounter | CPT/HCPCS: 73610; 99213 ==

== ENCOUNTER → 2023-08-27 14:50 | Outpatient (BNVA) | payer MEDICAID, SELFPAY | PROVIDERS: PCP Family Medicine; Visit Provider Podiatrist Foot & Ankle Surgery | DX: Z98.890 Other specified postprocedural states; S82.832D Other fracture of upper and lower end of left fibula, subsequent encounter for closed fracture with routine healing; S82.872D Displaced pilon fracture of left tibia, subsequent encounter for closed fracture with routine healing; X58.XXXD Exposure to other specified factors, subsequent encounter | CPT/HCPCS: 73610; 99213 ==

== ENCOUNTER → 2023-08-28 12:34 | Outpatient (BNVA) | payer MEDICAID, SELFPAY | PROVIDERS: PCP Family Medicine; Visit Provider Orthopaedic Surgery | DX: M54.9 Dorsalgia, unspecified (principal); Z98.890 Other specified postprocedural states | CPT/HCPCS: 72100; 99214 ==

== ENCOUNTER 2023-09-19 12:24 | Outpatient (CLI) | payer MEDICAID, SELFPAY ==
--- NOTE | 2023-09-19 13:00 | MR_ITS ---
WS: [id number] MRI LUMBAR SPINE NONCONTRAST HISTORY: back pain COMPARISON: 10/25/2022 TECHNIQUE: Sagittal and axial multisequence imaging is submitted. Normal posterior lumbar alignment. No compression fractures or marrow edema. Mild disc desiccation at L4-5. Disc spaces and vertebral body heights are well-preserved. Conus terminates normally at L1-2 disc level. L1-L2: Mild facet arthropathy. No stenosis. L2-L3: Mild bilateral facet arthritis. No focal disc protrusion. No stenosis. L3-L4: Mild annular disc bulging with at least moderate facet joint and ligamentum flavum arthritis. Mild narrowing of the subarticular recesses, RIGHT greater than LEFT. Mild bilateral foraminal stenos is. Similar to the prior study. L4-L5: Diffuse annular disc bulging with a central disc protrusion and annular fissure. Disc encroach es upon the subarticular recesses and the traversing L5 nerve roots. Interval LEFT hemilaminectomy de fect. Slight improvement in the central canal stenosis. Mild bilateral foraminal stenosis. L5-S1: Mild annular disc bulging and facet arthritis. Very shallow LEFT foraminal disc protrusion and annular fissure. Mild bilateral foraminal stenosis, LEFT greater than RIGHT but similar to the prior study. Paravertebral soft tissues are normal. IMPRESSION: 1. Since the prior examination status post LEFT hemilaminectomy at L4-5. Slight improvement in the p reviously described central stenosis. 2. No significant progression or high-grade stenosis in the lumbar spine. 3. L3-4: Mild subarticular recess and foraminal stenosis slightly greater encroachment upon the RIGH T subarticular recess. 4. L4-5: Shallow central disc protrusion and annular fissure. There is mild disc encroachment upon t he subarticular recesses and mild foraminal stenosis. 5. L5-S1: Very shallow LEFT foraminal disc protrusion with fissure. Mild bilateral foraminal stenosi s, LEFT greater than RIGHT.
== END 2023-09-19 12:25 | disposition home or self-care (01) ==
LOC: RAD 12:25
PROVIDERS: PCP Family Medicine; Visit Provider Orthopaedic Surgery
DX: M48.061 Spinal stenosis, lumbar region without neurogenic claudication (principal); M51.26 Other intervertebral disc displacement, lumbar region; M51.27 Other intervertebral disc displacement, lumbosacral region
CPT/HCPCS: 72148

== ENCOUNTER 2023-09-25 18:32 | Inpatient (IN) | payer MEDICAID, SELFPAY ==
[2023-09-25] VITALS (19 sets, daily range): BP systolic 112–182; BP diastolic 71–140; PULSE 73–113; RESP 13–26; TEMP 36.8; O2SAT 93–100; BMI 26.5
--- NOTE | 2023-09-25 19:15 | ED_ITS ---
HPI - Abdominal Pain 2 General: Chief Complaint: Abdominal Pain Stated Complaint: Lower abd pain Time Seen by Provider: 09/25/23 18:55 History of Present Illness: Patient presents to the ER with a complaint of abdominal pain. Patient rates a 10 out of 10. Patient is rocking back and forth in pain unable to sit still patient also complains of nausea. Patient has a history of C. difficile, H. pylori and gastroparesis. Patient states that this episode is been going on for about a week and she is pretty sure gastroparesis may be flaring up again. Patient also states she is very antibiotic resistant and the last antibiotic she had to take for this was was vancomycin. Review of Systems 2 General: Reports: 10 or more systems reviewed and unremarkable except in HPI and below PFSH ED 2 PFSH: Medical History Chronic migraine without aura, intractable, with status migrainosus Degenerative lumbar disc Chronic neck and back pain Migraines Depression GERD (gastroesophageal reflux disease) Lumbar disc herniation Cervical disc herniation Chronic pelvic pain in female Aftercare following surgery of the genitourinary system Chronic cystitis Interstitial cystitis Surgical History Status post lumbar laminectomy Hx of adenoidectomy H/O ovarian cystectomy at age 15 H/O tubal ligation 2002 H/O: hysterectomy 10/10/2021: TVH performed by Dr. Edmondson at [facility] H/O laparoscopy 08/22/2021- Diagnostic Laparoscopy. Fulguration of endometriosis lesions. Preformed by Dr. Edmondson at [facility]. History of back surgery History of bladder surgery History of cholecystectomy History of appendectomy History of tonsillectomy Family History Mother , AT AGE 63 SMALL CELL CARCINOMA Cancer Hypertension Hyperlipidemia Grandmother Cancer Dementia CAD (coronary artery disease) Diabetes paternal Stroke paternal Heart disease paternal Grandfather Cancer Dementia Diabetes paternal Colon cancer maternal, 60's Father Hypertension Hyperlipidemia CAD (coronary artery disease) Denies family history of Ovarian cancer Clotting disorder Breast cancer Anesthesia complication Bleeding disorder Uterine cancer Thyroid disease Social History Smoking and tobacco/nicotine status: current every day tobacco/nicotine user Physical Exam 2 Const: COMMON NORMALS: no acute distress, average body habitus, patient oriented x3, no limitations, healthy appearing, alert and well nourished HENMT: COMMON NORMALS: normocephalic, atraumatic, hearing grossly normal bilaterally, external ears normal, Normal external nose present, moist oral mucous membranes and oropharynx normal HEAD & SCALP: normocephalic and atraumatic NOSE: Normal external nose present EXTERNAL EAR: Yes external ears normal Neck/C-Spine: COMMON NORMALS: no JVD Chest: COMMONS NORMALS: normal inspection of the chest and normal palpation of entire chest wall Resp: COMMON NORMALS: normal respiratory effort, No retractions, No use of accessory muscles and clear to auscultation bilaterally AUSCULTATION: clear to auscultation bilaterally Cardio: COMMON NORMALS: no JVD, regular rate, regular rhythm, S1 normal heart sound present, S2 normal heart sound present, No gallops present (Cardio), No clicks present (Cardio), No murmurs present (Cardio) and No rub (Cardio) R ATE: regular rate RHYTHM: regular rhythm HEART SOUNDS: S1 normal heart sound present and S2 normal heart sound present GI: COMMON NORMALS: Normal to inspection, nondistended, normoactive bowel sounds present, Soft to palpation, No hepatosplenomegaly present and no masses; negative for non-tender (Tender to palpation diffusely) PALPATION: Yes Soft to palpation and Yes No hepatosplenomegaly present Neuro: COMMON NORMALS: patient oriented x3 SENSORIUM/ORIENTATION: Yes alert Course 2 Vital Signs: Vital signs: Vital Signs Temperature 97.7 F 09/26/23 00:00 Pulse Rate 77 09/26/23 00:00 Respiratory Rate 20 H 09/26/23 00:00 Blood Pressure 151/95 09/26/23 00:00 Pulse Oximetry 98 09/26/23 00:00 Oxygen Delivery Me thod Room Air 09/25/23 21:01 MDM - Abdominal Pain Medical Decision Making Patient was given multiple doses of pain medicine to control her pain. Lab work was obtained as well as urinalysis and contrasted CT scan of her abdomen pelvis. CT scan showed findings consistent proctocolitis and abnormal position of the cecum. Dr. Parikh was consulted who agreed to place patient in [facility] for further evaluation and treatment. Dr. Valencia was consulted who wants the patient on a clear liquid diet. Differential Diagnosis Likely abdominal pain; Unlikely acute appendicitis, calculus of kidney, constipation, diverticulitis, endometriosis, gastroenteritis, pancreatitis or small bowel obstruction Medical Records I reviewed the patient's medical records. Lab Data I reviewed the patient's lab results. 09/25/23 19:05 09/25/23 19:05 Labs/Radiology: Radiology Impressions Abdomen/Pelvis CT 09/25/23 19:42 IMPRESSION: 1. Thickening of the large bowel extending to the rectum compatible with infectious or inflammatory proctocolitis. 2. Abnormal position of the cecum within the mid abdomen, but without significant cecal dilation to raise concern for volvulus. Laboratory Results WBC 11.73 10^3/uL (3.29-11.43) H 09/25/23 19:05 RBC 4.88 10^6/uL (3.85-5.65) 09/25/23 19:05 Hgb 14.10 g/dL (11.27-16.99) 09/25/23 19:05 Hct 42.4 % (36-47) 09/25/23 19:05 MCV 86.9 fl (85-98) 09/25/23 19:05 MCH 28.9 pg (27-33) 09/25/23 19:05 MCHC 33.3 g/dL (30-55) 09/25/23 19:05 RDW 13.7 % (12.1-15.1) 09/25/23 19:05 Plt Count 391 10^3/cmm (157-399) 09/25/23 19:05 MPV 11.3 fL (7.4-10.4) H 09/25/23 19:05 Neut % (Auto) 61.1 % 09/25/23 19:05 Lymph % (Auto) 25.7 % 09/25/23 19:05 Dickson % (Auto) 9.3 % 09/25/23 19:05 Eos % (Auto) 3.0 % 09/25/23 19:05 Baso % (Auto) 0.6 % 09/25/23 19:05 Neut # (Auto) 7.17 10^3/uL (1.8-7.7) 09/25/23 19:05 Lymph # (Auto) 3.0 10^3/uL (0.8-4.8) 09/25/23 19:05 Dickson # (Auto) 1.1 10^3/uL (0.2-0.9) H 09/25/23 19:05 Eos # (Auto) 0.4 10^3/uL (0.0-0.8) 09/25/23 19:05 Baso # (Auto) 0.1 10^3/uL (0.0-0.1) 09/25/23 19:05 Nucleated RBC % (auto) 0 % 09/25/23 19:05 Nucleated RBCs # 0.0 /100WBC 09/25/23 19:05 ESR 17 mm/hr (0-15) H 09/25/23 19:05 Sodium 137 mmol/L (136-145) 09/25/23 19:05 Potassium 4.5 mmol/L (3.5-5.1) 09/25/23 19:05 Chloride 102 mmol/L (98-107) 09/25/23 19:05 Carbon Dioxide 20 mmol/L (22-29) L 09/25/23 19:05 Anion Gap 19.5 (5-19) H 09/25/23 19:05 BUN 15 mg/dL (6-20) 09/25/23 19:05 Creatinine 0.9 mg/dL (0.5-0.9) 09/25/23 19:05 GFR Calculation 68.3 mL/min (90-130) L 09/25/23 19:05 Glucose 110 mg/dL (65-115) 09/25/23 19:05 Calculated Osmolality 285 mOsm/kg (285-295) 09/25/23 19:05 Lactic Acid 3.1 mmol/L (0.5-2.2) H 09/25/23 19:05 Calcium 10.0 mg/dL (8.5-10.5) 09/25/23 19:05 Total Bilirubin 0.7 mg/dL (0.15-1.2) 09/25/23 19:05 AST 30 U/L (0-32) 09/25/23 19:05 ALT 35 U/L (0-33) H 09/25/23 19:05 Alkaline Phosphatase 127 U/L (35-105) H 09/25/23 19:05 C-Reactive Protein 3.0 mg/L (0.0-4.9) 09/25/23 19:05 Total Protein 7.7 g/dL (6.6-8.7) 09/25/23 19:05 Albumin 4.8 g/dL (3.5-5.2) 09/25/23 19:05 Globulin 2.9 g/dL (1.3-4.6) 09/25/23 19:05 Lipase 31 U/L (13-60) 09/25/23 19:05 Procalcitonin 0.03 ng/mL (0-0.5) 09/25/23 19:05 TSH 0.96 uIU/mL (0.27-4.20) 09/25/23 19:05 HCG, Qual Negative (Negative) 09/25/23 19:05 Urine Color Yellow (Yellow) 09/25/23 21:43 Urine Appearance Clear (CLEAR) 09/25/23 21:43 Urine pH 5 (5-7) 09/25/23 21:43 Ur Specific [place] 1.005 (1.005-1.030) 09/25/23 21:43 Urine Protein Neg (Negative) 09/25/23 21:43 Urine Glucose (UA) Norm (Normal) 09/25/23 21:43 Urine Ketones 1+ (Negative) H 09/25/23 21:43 Urine Blood Neg (Negative) 09/25/23 21:43 Urine Nitrate Negative (Negative) 09/25/23 21:43 Urine Bilirubin Neg (Negative) 09/25/23 21:43 Urine Urobilinogen Neg mg/dL (Negative) 09/25/23 21:43 Ur Leukocyte Esterase Negative (Negative) 09/25/23 21:43 All radiology interpretation(s) finalized by discharge Discharge Plan Discharge Patient Disposition: Admitted As Inpatient Admit Provider: Raoul Gee Clinical Impression: Proctocolitis Abdominal pain Qualifiers: Abdominal location: generalized Qualified Code(s): R10.84 - Generalized abdominal pain Condition: Stable Coding Level of Care Code ED [employer] for Kaz Osborn
[2023-09-25] MEDS: sodium chloride 0.9% 1,000 ML 999 ML IV ×2 (19:25→21:24)
[2023-09-25 19:26] LABS: Basophils # 0.1 10^3/uL (0.0-0.1); Basophils % 0.6 %; Eosinophils # 0.4 10^3/uL (0.0-0.8); Hematocrit 42.4 % (36-47); Lymphocytes % 25.7 %; Mean Corpuscular HGB Conc 33.3 g/dL (30-55); Mean Corpuscular Hemoglobin 28.9 pg (27-33); Mean Corpuscular Volume 86.9 fl (85-98); Mean Platelet Volume 11.3 fL (7.4-10.4); Monocytes # 1.1 10^3/uL (0.2-0.9); Monocytes % 9.3 %; Neutrophils # 7.17 10^3/uL (1.8-7.7); Neutrophils % 61.1 %; Nucleated Red Blood Cells % 0 %; Platelet Count 391 10^3/cmm (157-399); Red Blood Count 4.88 10^6/uL (3.85-5.65); Red Cell Distribution Width 13.7 % (12.1-15.1); White Blood Count 11.73 10^3/uL (3.29-11.43)
[2023-09-25] MEDS: ondansetron 2 mg/ML SDV 2 mL 8 MG IVP (19:26)
[2023-09-25] MEDS: HYDROmorphone 1 mg/mL INJ 1 mL IVP ×2 (19:28→19:56)
[2023-09-25 19:33] LABS: HCG, Serum Qual Negative (Negative)
[2023-09-25 19:39] LABS: Alanine Aminotransferase 35 U/L (0-33); Albumin Level 4.8 g/dL (3.5-5.2); Alkaline Phosphatase 127 U/L (35-105); Anion Gap 19.5 (5-19); Aspartate Amino Transferase 30 U/L (0-32); Blood Urea Nitrogen 15 mg/dL (6-20); Carbon Dioxide 20 mmol/L (22-29); Chloride 102 mmol/L (98-107); Globulin 2.9 g/dL (1.3-4.6); Glomerular Filtration Rate 68.3 mL/min (90-130); Glucose 110 mg/dL (65-115); Lipase 31 U/L (13-60); Osmolality Calculated 285 mOsm/kg (285-295); Potassium 4.5 mmol/L (3.5-5.1); Sodium 137 mmol/L (136-145); Total Bilirubin 0.7 mg/dL (0.15-1.2); Total Protein 7.7 g/dL (6.6-8.7)
--- NOTE | 2023-09-25 19:42 | CTR_ITS ---
PROCEDURE INFORMATION: Exam: CT Abdomen And Pelvis With Contrast Exam date and time: 09/25/2023 8:07 PM Age: 42 years old Clinical indication: Abdominal pain; Localized; Right lower quadrant (rlq); Prior surgery; Surgery date: 6+ months; Surgery type: Tubal; Additional info: Abd pain, n/v, TECHNIQUE: Imaging protocol: Computed tomography of the abdomen and pelvis with contrast. Radiation optimization: All CT scans at this facility use at least one of these dose optimization techniques: automated exposure control; mA and/or kV adjustment per patient size (includes targeted exams where dose is matched to clinical indication); or iterative reconstruction. Contrast material: OMNI 350; Contrast volume: 100 ml; Contrast route: INTRAVENOUS (IV); COMPARISON: MR lumbar spine wo con* [id number] 09/19/2023 1:01 PM RADIATION DOSE METRICS: Total DLP (mGy-cm): 702.29 FINDINGS: Liver: Unremarkable. Gallbladder and bile ducts: Post cholecystectomy. Pancreas: Unremarkable. Spleen: Unremarkable. Adrenal glands: Unremarkable. Kidneys and ureters: Unremarkable. No hydronephrosis. Stomach and bowel: Thickening of the large bowel extending to the rectum. No bowel obstruction. Abnormal position of the cecum within the mid abdomen. Appendix: Appendix not definitely visualized, but no inflammatory changes in the right lower quadrant in the expected location of the appendix. Intraperitoneal space: Unremarkable. Vasculature: Multiple pelvic phleboliths. Retroaortic left renal vein. Lymph nodes: Unremarkable. Urinary bladder: Unremarkable as visualized. Reproductive: Post hysterectomy Bones/joints: No acute osseous abnormality. Soft tissues: Unremarkable. CT/CT abdomen pelvis w con* [id number] IMPRESSION: 1. Thickening of the large bowel extending to the rectum compatible with infectious or inflammatory proctocolitis. 2. Abnormal position of the cecum within the mid abdomen, but without significant cecal dilation to raise concern for volvulus.
[2023-09-25] MEDS: iohexol 350 mg/mL 500 mL Btl (per mL) IV (20:11)
[2023-09-25] MEDS: fentaNYL 50 mcg/mL INJ 2mL 100 MCG IVP (20:33)
[2023-09-25] MEDS: midazolam 1 mg/mL INJ 2 mL 2 MG IVP (20:46)
[2023-09-25] MEDS: fentaNYL 50 mcg/mL INJ 2mL IVP ×2 (21:51→23:25)
[2023-09-25 21:59] LABS: Add Urine Microscopic? NO; Charge for UA Resulting for Rev
[2023-09-25 22:03] LABS: Bilirubin Urine Neg (Negative); Blood Urine Neg (Negative); Glucose Urine UA Norm (Normal); Ketones Urine 1+ (Negative); Leukocyte Esterase Urine Negative (Negative); Nitrate Urine Negative (Negative); Protein Urine Neg (Negative); Specific Gravity, Urine 1.005 (1.005-1.030); Urine Appearance Clear (CLEAR); Urine Color Yellow (Yellow); Urobilinogen Urine Neg (Negative); pH Urine 5 (5-7)
[2023-09-25] MEDS: metoclopramide 5 mg/mL SDV 2 mL 10 MG IVP (22:30)
--- NOTE | 2023-09-25 23:25 | PM.HP ---
Providers/Chief Complaint Primary Care Provider: Huy Quintanilla MD Chief Complaint: Lower abd pain History of Present Illness Felicitas Velasco is a 42 year old female with a past medical history of gastroparesis, history of C. difficile, history of bilateral tubal ligation, history of endometriosis who presents [facility] due to sudden onset of abdominal pain. Patient tells me that she has been doing okay this week she has been belching more than usual, but this afternoon she had a sudden onset of lower abdominal pain, she tells me the pain is very severe, it comes out in spasms, she tells me that she has not had a bowel movement today, she is passing gas, she is urinating, denies any bloody or black stools, no history of food poisoning, she tells me that the pain came all of a sudden, no prodrome of symptoms, she has vomited, she does feel nauseous, her only abdominal surgery was her tubal ligation and her surgery for endometriosis, she has not had any other abdominal surgeries, in the emergency room, she has received a total of 150 mcg of fentanyl, 2 mg of Dilaudid, 2 mg of Versed several doses of Zofran, Reglan, promethazine but she continues to have severe abdominal pain currently rating the pain 9 out of 10, sitting in position due to severe pain, CAT scan CT/CT abdomen pelvis w con* [id number] IMPRESSION: 1. Thickening of the large bowel extending to the rectum compatible with infectious or inflammatory proctocolitis. 2. Abnormal position of the cecum within the mid abdomen, but without significant cecal dilation to raise concern for volvulus. I have advised ER physician to speak to general surgery as I am worried for the possibility of volvulus, we discussed starting her on IV antibiotics, getting her pain under control IV fluids will keep her n.p.o., will await surgery's recommendations Review of Systems Card: Denies: chest pain Resp: Denies: dyspnea GI: Reports: abdominal pain, nausea, vomiting and GI cramping : Denies: flank pain Medications/Allergies Home Medications Medication Instructions Recorded Confirmed Last Taken Type omeprazole 20 mg capsule,delayed 20 mg PO DAILY 03/26/21 08/28/23 05/26/23 History release sertraline 100 mg tablet 100 mg PO QAM 03/26/21 08/28/23 05/27/23 History polyethylene glycol 3350 17 17 g PO DAILY PRN Constipation 08/21/21 08/28/23 05/19/23 History gram/dose oral powder (Miralax) multivitamin 1 tab PO DAILY 08/09/22 08/28/23 05/25/23 History rizatriptan 10 mg tablet 10 mg PO DAILY PRN migraine 08/09/22 08/28/23 05/24/23 History headache hydroxyzine HCl 25 mg tablet 25 mg PO Q6H PRN Anxiety 02/12/23 08/28/23 05/24/23 History baclofen 10 mg tablet 10 mg PO BID #30 tabs 04/23/23 08/28/23 05/25/23 Rx diazepam 5 mg tablet 5 mg PO DAILY PRN anxiety #14 tabs 05/08/23 08/28/23 05/26/23 Rx propranolol 20 mg tablet 20 mg PO BID #60 tabs 06/24/23 08/28/23 Unknown Rx CAM boot #1 ea 06/25/23 08/28/23 Unknown Rx crutches #1 ea 07/09/23 08/28/23 Unknown Rx buspirone 5 mg tablet 5 mg PO BID 07/10/23 08/28/23 Unknown History ASO ankle brace #1 ea 08/27/23 08/28/23 Unknown Rx prednisone 20 mg tablet 20 mg PO DAILY #15 tabs 08/28/23 08/28/23 Unknown Rx Allergies Allergy/AdvReac Type Severity Reaction Status Date / Time adhesive tape Allergy Severe whelps, Verified 08/28/23 12:53 peels skin azithromycin Allergy Severe vomiting, Verified 08/28/23 12:53 mouth ulcers erythromycin base Allergy Severe mouth Verified 08/28/23 12:53 ulcers, vomiting gabapentin Allergy Severe memory Verified 08/28/23 12:53 issues Penicillins Allergy Severe itching, Verified 08/28/23 12:53 vomiting,mouth ulcers hydrocodone Allergy ADR-Nausea Verified 08/28/23 12:53 PFSH Acute PFSH: Medical History Chronic migraine without aura, intractable, with status migrainosus Degenerative lumbar disc Chronic neck and back pain Migraines Depression GERD (gastroesophageal reflux disease) Lumbar disc herniation Cervical disc herniation Chronic pelvic pain in female Aftercare following surgery of the genitourinary system Chronic cystitis Interstitial cystitis Surgical History Status post lumbar laminectomy Hx of adenoidectomy H/O ovarian cystectomy at age 15 H/O tubal ligation 2002 H/O: hysterectomy 10/10/2021: TVH performed by Dr. Edmondson at [facility] H/O laparoscopy 08/22/2021- Diagnostic Laparoscopy. Fulguration of endometriosis lesions. Preformed by Dr. Edmondson at [facility]. History of back surgery History of bladder surgery History of cholecystectomy History of appendectomy History of tonsillectomy Family History Mother , AT AGE 63 SMALL CELL CARCINOMA Cancer Hypertension Hyperlipidemia Grandmother Cancer Dementia CAD (coronary artery disease) Diabetes paternal Stroke paternal Heart disease paternal Grandfather Cancer Dementia Diabetes paternal Colon cancer maternal, 60's Father Hypertension Hyperlipidemia CAD (coronary artery disease) Denies family history of Ovarian cancer Clotting disorder Breast cancer Anesthesia complication Bleeding disorder Uterine cancer Thyroid disease Social History Smoking and tobacco/nicotine status: current every day tobacco/nicotine user Vitals/I&O/Wt Last Vital Signs Temp 98.3 F 09/25/23 18:41 Pulse 84 09/25/23 19:10 Resp 20 H 09/25/23 21:51 BP 182/140 09/25/23 19:10 Pulse Ox 98 09/25/23 21:51 O2 Del Method Room Air 09/25/23 18:41 09/25/23 09/25/23 09/26/23 14:59 22:59 06:59 Intake Total 1000 / 1000 Balance 1000 / 1000 Weight last 48 hrs Weight 68.039 kg Physical Exam Const: COMMON NORMALS: no acute distress and patient oriented x3 Eye: COMMON NORMALS: Equal, round and reactive pupils present and EOMs intact bilaterally Neck/C-Spine: COMMON NORMALS: full ROM and no lymphadenopathy Resp: COMMON NORMALS: normal respiratory effort, No retractions, No use of accessory muscles and clear to auscultation bilaterally AUSCULTATION: clear to auscultation bilaterally Cardio: COMMON NORMALS: no JVD, regular rate, regular rhythm, S1 normal heart sound present and S2 normal heart sound present RATE: regular rate RHYTHM: regular rhythm HEART SOUNDS: S1 normal heart sound present and S2 normal heart sound present GI: OTHER: Abdomen soft, slightly distended, no guarding, rebound, rigidity, diminished bowel sounds in all 4 quadrants, does have diffuse abdominal tenderness to palpation Extremity: COMMON NORMALS: no pedal edema Neuro: COMMON NORMALS: patient oriented x3, CN's II-XII intact bilaterally and moves all extremities Psych: COMMON NORMALS: mental status grossly normal Data 09/25/23 19:05 09/25/23 19:05 A&P Assessment and plan (1) Abdominal pain: 1. Thickening of the large bowel extending to the rectum compatible with infectious or inflammatory proctocolitis. 2. Abnormal position of the cecum within the mid abdomen, but without significant cecal dilation to raise concern for volvulus. I plan -Serial abdominal exams, ? Repeat KUB in the morning ? Dilaudid 1 mg every 4 hours as needed for pain ? Zofran, Reglan, promethazine for nausea and vomiting ? Will keep n.p.o., ? Start ciprofloxacin, start Flagyl ? Stool studies ? Full code Lovenox for DVT prophylaxis Qualifiers: Abdominal location: generalized Qualified Code(s): R10.84 - Generalized abdominal pain Attestations Medical Necessity Statement*: Patient requires hospitalization, inpatient, greater than 2 midnights, for abdominal pain intractable abdominal pain Diagnoses Abdominal pain R10.84 Abdominal location: generalized
[2023-09-25 23:34] LABS: Erythrocyte Sedimentation Rate 17 mm/hr (0-15)
[2023-09-25 23:51] LABS: Lactic Sepsis W/Reflex 3.1 mmol/L (0.5-2.2)
[2023-09-26] VITALS (14 sets, daily range): BP systolic 119–151; BP diastolic 73–95; PULSE 71–82; RESP 14–20; TEMP 36.5–37; O2SAT 95–100; BMI 26.5
[2023-09-26 00:01] LABS: Procalcitonin 0.03 ng/mL (0-0.5); Thyroid Stimulating Hormone 0.96 uIU/mL (0.27-4.20)
[2023-09-26] MEDS: sodium chloride 0.9% 1,000 ML 125 ML IV ×2 (00:30→07:54)
[2023-09-26] MEDS: metroNIDAZOLE IV 500 MG/100 ML PREMIX 100 MG IV ×3 (00:30→18:20)
[2023-09-26] MEDS: enoxaparin 40 mg/0.4 mL Syringe SUBCUT ×2 (00:31→23:00)
[2023-09-26] MEDS: pantoprazole 40 mg SDV IVP ×2 (00:52→23:00)
[2023-09-26] MEDS: HYDROmorphone 1 mg/mL INJ 1 mL IVP ×6 (00:53→23:02)
--- NOTE | 2023-09-26 01:03 | PC.NURSE ---
Addendum entered by Chelsi Arias RN 09/26/23 01:09: Patient also states she uses medical cannibas. Original Note: In addition to the medications listed on med rec, patient also takes the following at home: spirulina, mineral oil, probiotic, Vitamin D3, magnesium, and Shliget.
[2023-09-26 01:14] LABS: Reflex Lactate Order REFLEX LACTIC ORDERD
--- NOTE | 2023-09-26 01:15 | PC.NURSE ---
Patient states she has a prolapsed perineum and is scheduled for surgery in November as well as a bladder sling.
[2023-09-26 01:30] LABS: Basophils % 0.3 %; Eosinophils # 0.3 10^3/uL (0.0-0.8); Eosinophils % 2.7 %; Hematocrit 36.9 % (36-47); Lymphocytes # 2.3 10^3/uL (0.8-4.8); Lymphocytes % 24.1 %; Mean Corpuscular HGB Conc 32.5 g/dL (30-55); Mean Corpuscular Hemoglobin 28.4 pg (27-33); Mean Corpuscular Volume 87.2 fl (85-98); Mean Platelet Volume 10.6 fL (7.4-10.4); Monocytes # 1.1 10^3/uL (0.2-0.9); Monocytes % 11.3 %; Neutrophils # 5.88 10^3/uL (1.8-7.7); Neutrophils % 61.5 %; Nucleated Red Blood Cells % 0 %; Platelet Count 245 10^3/cmm (157-399); Red Blood Count 4.23 10^6/uL (3.85-5.65); Red Cell Distribution Width 13.9 % (12.1-15.1); White Blood Count 9.56 10^3/uL (3.29-11.43)
[2023-09-26] MEDS: promethazine 25 mg/mL SDV 1 mL 12.5 MG IM ×2 (01:34→22:59)
[2023-09-26] MEDS: ciprofloxacin 400 MG/200 ML PREMIX 200 MG IV ×3 (01:35→23:00)
[2023-09-26 01:47] LABS: Alanine Aminotransferase 27 U/L (0-33); Albumin Level 3.9 g/dL (3.5-5.2); Alkaline Phosphatase 102 U/L (35-105); Anion Gap 12.3 (5-19); Aspartate Amino Transferase 22 U/L (0-32); Blood Urea Nitrogen 11 mg/dL (6-20); Calcium 8.4 mg/dL (8.5-10.5); Carbon Dioxide 23 mmol/L (22-29); Chloride 104 mmol/L (98-107); Globulin 2.3 g/dL (1.3-4.6); Glomerular Filtration Rate 78.3 mL/min (90-130); Glucose 95 mg/dL (65-115); Magnesium 1.8 mg/dL (1.7-2.3); Osmolality Calculated 281 mOsm/kg (285-295); Phosphorus 1.9 mg/dL (2.5-4.5); Potassium 3.3 mmol/L (3.5-5.1); Sodium 136 mmol/L (136-145); Total Bilirubin 0.6 mg/dL (0.15-1.2); Total Protein 6.2 g/dL (6.6-8.7)
[2023-09-26 01:48] LABS: Lactic Acid level (Lactate) 0.8 mmol/L (0.5-2.2)
[2023-09-26] MEDS: ondansetron 2 mg/ML SDV 2 mL 4 MG IVP ×2 (05:26→18:22)
--- NOTE | 2023-09-26 06:00 | XRR_ITS ---
PROCEDURE INFORMATION: Exam: XR Abdomen Exam date and time: 09/26/2023 4:15 AM Age: 42 years old Clinical indication: Other: Distention; Prior surgery; Surgery date: 6+ months; Surgery type: Appendix, bladder, hyst, gb, spine, ovarian cystectomy TECHNIQUE: Imaging protocol: Radiologic exam of the abdomen. Views: Frontal supine view of the abdomen. 1 View. COMPARISON: CT abdomen pelvis w con* [id number] 09/25/2023 8:07 PM FINDINGS: Gastrointestinal tract: Gas within loops of colon and small bowel the definitely distended. No erect film obtained and I cannot evaluate gas fluid level. Bones/joints: Unremarkable. XR/XR KUB portable [id number] IMPRESSION: Nonspecific.
[2023-09-26] MEDS: metoclopramide 5 mg/mL SDV 2 mL IVP ×2 (07:54→13:55)
--- NOTE | 2023-09-26 08:08 | P.CONIM_ITS ---
Providers/Reason For Consult 2 Consulting Physician/Specialty*: Dr. Shaun Valencia, DO/General surgery Reason for Consult*: Abdominal pain nausea vomiting diarrhea Attending Physician: Raoul Gee MD Primary Care Provider: Huy Quintanilla MD History of Present Illness History of Present Illness Felicitas Velasco is a 42 year old female, with a history of H. pylori and C. difficile infections approximately 2 years ago, who presented to the hospital with 1 day history of diffuse abdominal pain which is mostly located over the epigastrium. Palpation makes pain worse. Nothing makes pain better. The pain does not radiate. She reports that she was having diarrhea prior to arrival but that she has not had a bowel movement since yesterday. She denies any hematemesis, hematochezia and/or melena. She denies any sick contacts, recent travel or possibly eating bad food. CT abdomen pelvis shows diffuse thickening of the colon concerning for possible infectious or inflammatory etiology with some midline displacement of the cecum without any evidence of obstruction Review of Systems 2 General: Reports: 10 or more systems reviewed and unremarkable except in HPI and below Medications/Allergies Home Medications Medication Instructions Recorded Confirmed Last Taken Type omeprazole 20 mg capsule,delayed 20 mg PO DAILY 03/26/21 09/26/23 05/26/23 History release sertraline 100 mg tablet 100 mg PO DAILY 03/26/21 09/26/23 05/27/23 History polyethylene glycol 3350 17 17 g PO DAILY PRN Constipation 08/21/21 09/26/23 05/19/23 History gram/dose oral powder (Miralax) multivitamin 1 tab PO DAILY 08/09/22 09/26/23 05/25/23 History rizatriptan 10 mg tablet 10 mg PO DAILY PRN migraine 08/09/22 09/26/23 05/24/23 History headache hydroxyzine HCl 25 mg tablet 25 mg PO Q6H PRN Anxiety 02/12/23 09/26/23 05/24/23 History baclofen 10 mg tablet 10 mg PO BID #30 tabs 04/23/23 09/26/23 05/25/23 Rx propranolol 20 mg tablet 20 mg PO BID #60 tabs 06/24/23 09/26/23 Unknown Rx CAM boot #1 ea 06/25/23 09/26/23 Unknown Rx crutches #1 ea 07/09/23 09/26/23 Unknown Rx buspirone 5 mg tablet 5 mg PO BID 07/10/23 09/26/23 Unknown History ASO ankle brace #1 ea 08/27/23 09/26/23 Unknown Rx diazepam 5 mg tablet 5 mg PO BEDTIME PRN Anxiety 09/26/23 09/26/23 Unknown History galcanezumab-gnlm 120 mg/mL See Rx Instructions .Route .COMPLEX 09/26/23 09/26/23 Unknown History subcutaneous pen injector (Emgality Pen) Allergies Allergy/AdvReac Type Severity Reaction Status Date / Time adhesive tape Allergy Severe whelps, Verified 08/28/23 12:53 peels skin azithromycin Allergy Severe vomiting, Verified 08/28/23 12:53 mouth ulcers erythromycin base Allergy Severe mouth Verified 08/28/23 12:53 ulcers, vomiting gabapentin Allergy Severe memory Verified 08/28/23 12:53 issues Penicillins Allergy Severe itching, Verified 08/28/23 12:53 vomiting,mouth ulcers hydrocodone Allergy ADR-Nausea Verified 08/28/23 12:53 Current Medications Generic Name Dose Route Start Last Admin Trade Name Freq PRN Reason Stop Dose Admin Enoxaparin Sodium 40 mg 09/25/23 23:30 09/26/23 00:31 Enoxaparin 40 Mg/0.4 Ml Syringe SUBCUT 40 mg Q24H APOLINAR Administration Hydromorphone HCl 1 mg 09/26/23 00:14 09/26/23 05:26 Hydromorphone 1 Mg/Ml Inj 1 Ml IVP 1 mg Q4H PRN Administration pain Ciprofloxacin/Dextrose 400 mg in 200 mls @ 200 mls/hr 09/25/23 23:30 09/26/23 02:47 Cipro IV Infused Q12H APOLINAR Infusion Protocol Metronidazole 500 mg in 100 mls @ 100 mls/hr 09/25/23 23:30 09/26/23 07:53 Flagyl Iv IV 100 mls/hr Q8H APOLINAR Administration Protocol Sodium Chloride 1,000 mls @ 125 mls/hr 09/25/23 23:30 09/26/23 07:54 Sodium Chloride 0.9% IV 125 mls/hr .Q8H APOLINAR Administration Metoclopramide HCl 5 mg 09/26/23 00:14 09/26/23 07:54 Metoclopramide 5 Mg/Ml Sdv 2 Ml IVP 5 mg Q6H PRN Administration NAUSEA AND VOMITING Ondansetron HCl 4 mg 09/25/23 23:21 09/26/23 05:26 Ondansetron 2 Mg/Ml Sdv 2 Ml IVP 4 mg Q8H PRN Administration vomiting, or N/V if npo Pantoprazole Sodium 40 mg 09/25/23 23:30 09/26/23 00:52 Pantoprazole 40 Mg Sdv IVP 40 mg Q24H APOLINAR Administration Promethazine HCl 12.5 mg 09/25/23 23:21 09/26/23 01:34 Promethazine 25 Mg/Ml Sdv 1 Ml IM 12.5 mg Q6H PRN Administration NAUSEA PFSH Acute 2 PFSH: Medical History Chronic migraine without aura, intractable, with status migrainosus Degenerative lumbar disc Chronic neck and back pain Migraines Depression GERD (gastroesophageal reflux disease) Lumbar disc herniation Cervical disc herniation Chronic pelvic pain in female Aftercare following surgery of the genitourinary system Chronic cystitis Interstitial cystitis Surgical History Status post lumbar laminectomy Hx of adenoidectomy H/O ovarian cystectomy at age 15 H/O tubal ligation 2002 H/O: hysterectomy 10/10/2021: TVH performed by Dr. Edmondson at [facility] H/O laparoscopy 08/22/2021- Diagnostic Laparoscopy. Fulguration of endometriosis lesions. Preformed by Dr. Edmondson at [facility]. History of back surgery History of bladder surgery History of cholecystectomy History of appendectomy History of tonsillectomy Family History Mother , AT AGE 63 SMALL CELL CARCINOMA Cancer Hypertension Hyperlipidemia Grandmother Cancer Dementia CAD (coronary artery disease) Diabetes paternal Stroke paternal Heart disease paternal Grandfather Cancer Dementia Diabetes paternal Colon cancer maternal, 60's Father Hypertension Hyperlipidemia CAD (coronary artery disease) Denies family history of Ovarian cancer Clotting disorder Breast cancer Anesthesia complication Bleeding disorder Uterine cancer Thyroid disease Social History Smoking and tobacco/nicotine status: current every day tobacco/nicotine user Vitals/I&O/Wt Last Vital Signs Temp 97.8 F 09/26/23 07:48 Pulse 78 09/26/23 07:48 Resp 16 09/26/23 07:48 BP 119/73 09/26/23 07:48 Pulse Ox 100 09/26/23 07:48 O2 Del Method Room Air 09/26/23 07:48 09/25/23 09/26/23 09/26/23 22:59 06:59 14:59 Intake Total 1000 / 1000 1300 / 2300 925 / 925 Balance 1000 / 1000 1300 / 2300 925 / 925 Weight last 48 hrs Weight 168 lb 3.2 oz Weight 150 lb Weight 150 lb Physical Exam 2 Narrative: General : Patient is well developed , no acute distress, oriented x3 Head : Normal cephalic, a-traumatic. Ears : Pinnae and external canal are normal. Hearing is normal. Eyes : PERRLA, Sclera and injection are normal. No conjunctival discharge. Nose : Mucous membranes are without erythema. Throat : buccal mucosa is normal, gums are without significant recession or hypertrophy. Lungs : Equal chest rise bilaterally, no use of accessory muscles, trachea is midline. Cor : Rate and rhythm are normal. Abdomen : Soft, mildly distended, diffusely tender to palpation but mildly and mostly located over the epigastrium no g/r/m Extremities : No edema, no cyanosis or clubbing, dorsalis pedis pulses are present bilaterally, non-tender to palpation of calves. Upper extremities are normal bilaterally. Back : non-tender to palpation, no CVA tenderness. Neuro : CN II - XII intact, Upper and lower extremities have equal and full strength Data 09/26/23 01:24 09/26/23 01:24 A&P Assessment and plan (1) Abdominal pain: Qualifiers: Abdominal location: generalized Qualified Code(s): R10.84 - Generalized abdominal pain (2) Colitis: (3) History of Clostridioides difficile infection: (4) History of Helicobacter pylori infection: Plan IV fluids Stool studies including C. difficile and H. pylori Possible endoscopy in the near future I am off today and over the weekend, there is a covering surgeon who will see her and make further surgical recommendations Medical management per hospitalist Coding Level of Care Code 71890 Diagnoses Abdominal pain R10.84 Abdominal location: generalized Colitis K52.9 History of Clostridioides difficile infection Z86.19 History of Helicobacter pylori infection Z86.19
--- NOTE | 2023-09-26 08:52 | PC.CHAP ---
Pastoral Care Encounter/Spiritual Assessment Type of Contact [] Declined stopping builder visit [] Patient/Family/Request visit [] Outpatient visit [] Follow-up visit [] Physician referral [] Code/Alert [] Routine visit [] Staff referral [] Actively dying [] Patient sleeping [] Family support [] [] Out of room [] Palliative care [] [] Receiving care in room [] Pre-surgical visit [] Trauma [] Long length of stay [] ICU visit [x] Other:Contact precautions. No visit. Relational/Emotional Strength [] Patient feels connected with others/family/visitors/staff [] Distress [] Loneliness/isolation [] Abandonment Spirituality of Patient [] Person of Tuyet [] Attends Holiness of their [place]uyet [] Believes in Prayer [] Reads Bible or Quaker materials [] There are Spiritual issues to be addressed Patient Care Interventions [] Prayer [] Active listening [] Non-anxious presence [] Spiritual/emotional support [] Crisis/trauma care [] Spiritual counseling [] Bereavement support [] Provided bereavement packet [] Provided Bible/devotional materials [] Provided toy/stuffed animal, coloring book to patient or family member [] Provided Communion [] Anointing/[place] [] Salvation [] Completed spiritual assessment [] Other: Impact on Illness or Injury [] Angry [] Fearful [] Anxious [] Often cries [] Exhaustion [] Unable to work [] Unable to attend hindu [] Unable to walk/stand [] Unable to read [] Unable to drive [] Unable to eat/drink [] Unable to sleep [] Unable to be with family [] Patient intubated [] Other: Summary Time spent with patient
[2023-09-26 11:49] LABS: Amphetamines Screen Urine Negative (Negative); Barbiturates Screen Urine Negative (Negative); Benzodiazepines Screen Urine Negative (Negative); Cocaine Screen Urine Negative (Negative); Opiate Screen Urine Positive (Negative); PCP Screen Urine Negative (Negative); THC Screen Urine Positive (Negative)
[2023-09-26] MEDS: magnesium hydroxide 30 mL UDC PO ×2 (12:01→20:25)
[2023-09-26] MEDS: hyDROXYzine 25 mg Capsule PO ×2 (12:01→18:20)
[2023-09-26] MEDS: baclofen 10 mg Tablet PO ×2 (12:01→18:21)
--- NOTE | 2023-09-26 13:33 | P.PN_ITS ---
Subjective 2 Subjective: Admitted overnight. Today morning patient seen laying in bed. Continues to complain of lower abdominal pain cramping in nature. Still no bowel movements. Occasional episodes of nausea but no vomiting. Passing flatus on and off. Vitals/I&O/Wt Last Vital Signs Temp 98.3 F 09/26/23 11:20 Pulse 76 09/26/23 11:20 Resp 14 09/26/23 11:20 BP 127/79 09/26/23 11:20 Pulse Ox 97 09/26/23 11:20 O2 Del Method Room Air 09/26/23 11:20 09/25/23 09/26/23 09/26/23 22:59 06:59 14:59 Intake Total 1000 / 1000 1300 / 2300 1225 / 1225 Balance 1000 / 1000 1300 / 2300 1225 / 1225 Weight last 48 hrs Weight 76.294 kg Weight 68.039 kg Weight 68.039 kg Physical Exam 2 Narrative: General: In distress from abdominal pain, AO x 3, no pallor HEENT: PERRLA, pupils bilaterally equal and reactive Chest: Normal vesicular breath sounds, no added sounds, equal good air entry bilaterally CVS: S1-S2 regular, no murmurs, no tachycardia, no gallops, no rubs Abdomen: Soft, tender in lower abdomen, no organomegaly, bowel sounds present sluggish Neuro: No focal deficits, no facial deformity, AO x3, power 5/5 in all limbs Data 09/26/23 01:24 09/26/23 01:24 A&P Assessment and plan (1) Abdominal pain: Qualifiers: Abdominal location: generalized Qualified Code(s): R10.84 - Generalized abdominal pain (2) Proctocolitis: (3) History of Helicobacter pylori infection: (4) History of Clostridioides difficile infection: (5) Hypokalemia: Plan Abdominal pain: Most likely in setting of proctocolitis. Appreciate CT abdomen pelvis results. Appreciate surgical recommendations. No concerns for volvulus for now as per surgical team. History of treated H pylori and C. difficile in past which as per the history and the patient had cleared up on testing. Aggressive bowel regimen with milk of magnesia and senna Colace. Trial of clear liquid diet Protonix daily, Zofran as needed Dilaudid 1 mg IV every 4 hours as needed. Follow-up stool studies including C. difficile, H. pylori, on ova and parasite. Continue with Cipro and Flagyl for now. Patient is allergic to penicillin so we will hold off on Zosyn for now. Restart other home medications including baclofen, BuSpar, Zoloft. Normal saline at 75 cc/h. Ambulate. Replete 40 mg of IV potassium. Full code Protonix for PUD prophylaxis Lovenox for DVT prophylaxis Attestations 2 Medical Necessity Statement*: Requires further hospitalization for management of abdominal pain in setting of proctocolitis in a patient with history of C. difficile and H. pylori Diagnoses Abdominal pain R10.84 Abdominal location: generalized Proctocolitis K52.9 History of Helicobacter pylori infection Z86.19 History of Clostridioides difficile infection Z86.19 Hypokalemia E87.6
[2023-09-26 14:37] LABS: H. Pylori IgG Antibody Negative (Negative)
[2023-09-26] MEDS: sennosides-docusate Tablet 1 TAB PO (18:20)
[2023-09-26] MEDS: BuSPIRONE 10 mg Tablet 5 MG PO (18:21)
[2023-09-26] MEDS: sodium chloride 0.9% 1,000 ML 75 ML IV (20:25)
[2023-09-26 23:20] LABS: C.Diff PCR (Lab) NEGATIVE (Negative)
[2023-09-27] VITALS (11 sets, daily range): BP systolic 118–141; BP diastolic 72–89; PULSE 66–112; RESP 16–18; TEMP 36.4–36.9; O2SAT 95–98
[2023-09-27] MEDS: metroNIDAZOLE IV 500 MG/100 ML PREMIX 100 MG IV ×3 (01:13→17:44)
[2023-09-27 05:22] LABS: Basophils % 0.6 %; Eosinophils # 0.3 10^3/uL (0.0-0.8); Eosinophils % 5.7 %; Hematocrit 36.5 % (36-47); Lymphocytes # 1.9 10^3/uL (0.8-4.8); Lymphocytes % 39.3 %; Mean Corpuscular HGB Conc 32.1 g/dL (30-55); Mean Corpuscular Hemoglobin 28.9 pg (27-33); Mean Corpuscular Volume 90.1 fl (85-98); Monocytes # 0.6 10^3/uL (0.2-0.9); Monocytes % 13.5 %; Neutrophils # 1.92 10^3/uL (1.8-7.7); Neutrophils % 40.7 %; Nucleated Red Blood Cells % 0 %; Platelet Count 223 10^3/cmm (157-399); Red Blood Count 4.05 10^6/uL (3.85-5.65); Red Cell Distribution Width 14.2 % (12.1-15.1); White Blood Count 4.73 10^3/uL (3.29-11.43)
[2023-09-27 05:35] LABS: Alanine Aminotransferase 25 U/L (0-33); Albumin Level 3.6 g/dL (3.5-5.2); Alkaline Phosphatase 97 U/L (35-105); Anion Gap 11.5 (5-19); Aspartate Amino Transferase 24 U/L (0-32); Blood Urea Nitrogen 3 mg/dL (6-20); Calcium 8.3 mg/dL (8.5-10.5); Carbon Dioxide 28 mmol/L (22-29); Chloride 107 mmol/L (98-107); Creatinine Clr Calc Pharmacy 78.8334; Glomerular Filtration Rate 68.3 mL/min (90-130); Glucose 91 mg/dL (65-115); Osmolality Calculated 292 mOsm/kg (285-295); Potassium 3.5 mmol/L (3.5-5.1); Sodium 143 mmol/L (136-145); Total Bilirubin 0.6 mg/dL (0.15-1.2); Total Protein 5.6 g/dL (6.6-8.7)
[2023-09-27 05:37] LABS: Estmated Average Glucose 103; Hemoglobin A1C 5.2 % (4.0-6.0)
[2023-09-27 05:40] LABS: Magnesium 2.3 mg/dL (1.7-2.3)
[2023-09-27 06:00] LABS: Folate Level > 20.0 ng/mL (4.8-37.3)
[2023-09-27] MEDS: HYDROmorphone 1 mg/mL INJ 1 mL IVP (06:51)
[2023-09-27] MEDS: metoclopramide 5 mg/mL SDV 2 mL IVP (06:51)
[2023-09-27] MEDS: baclofen 10 mg Tablet PO ×2 (07:53→17:44)
[2023-09-27] MEDS: BuSPIRONE 10 mg Tablet 5 MG PO ×2 (07:53→17:44)
[2023-09-27] MEDS: sertraline 100 mg Tablet PO (07:54)
--- NOTE | 2023-09-27 09:44 | P.PN_ITS ---
Subjective 2 Subjective: No acute events overnight. Decreasing abdominal pain. Vitals/I&O/Wt Last Vital Signs Temp 97.5 F L 09/27/23 07:54 Pulse 87 09/27/23 07:54 Resp 16 09/27/23 07:54 BP 120/76 09/27/23 07:54 Pulse Ox 96 09/27/23 07:54 O2 Del Method Room Air 09/27/23 07:54 09/26/23 09/27/23 09/27/23 22:59 06:59 14:59 Intake Total 617.917 / 2595.000 820 / 3415.000 480 / 480 Balance 617.917 / 2595.000 820 / 3415.000 480 / 480 Weight last 48 hrs Weight 170 lb 6.4 oz Weight 168 lb 3.2 oz Weight 150 lb Weight 150 lb Physical Exam 2 Const: COMMON NORMALS: no acute distress, average body habitus, patient oriented x3, alert and well nourished GENERAL APPEARANCE: cooperative HENMT: COMMON NORMALS: normocephalic and atraumatic HEAD & SCALP: n ormocephalic and atraumatic Eye: COMMON NORMALS: EOMs intact bilaterally and no scleral icterus GENERAL EYE: appearance normal, both eyes and all related structures Neck/C-Spine: COMMON NORMALS: full ROM and supple GENERAL: Yes normal visual inspection Resp: COMMON NORMALS: normal respiratory effort EFFORT & INSPECTION: Yes able to speak in complete sentences and Yes symmetric chest movement Cardio: COMMON NORMALS: regular rate and regular rhythm RATE: regular rate RHYTHM: regular rhythm GI: COMMON NORMALS: Soft to palpation INSPECTION: Yes normal to inspection PALPATION: Yes Soft to palpation, Yes Tenderness to palpation present (GI) Details: RLQ (mild), No Guarding due to palpation present (GI) and No Rigid due to palpation Extremity: COMMON NORMALS: normal to inspection Neuro: COMMON NORMALS: patient oriented x3 SENSORIUM/ORIENTATION: Yes alert Psych: COMMON NORMALS: mental status grossly normal, Normal thought process present and speech normal ATTITUDE: Yes calm and Yes engaged A CTIVITY/MOTOR BEHAVIOR: Yes appropriate eye contact SPEECH: Yes normal speech MOOD & AFFECT: Yes euthymic mood THOUGHT PROCESS: Normal thought process present THOUGHT CONTENT: Yes Normal thought content present A TTENTION/CONCENTRATION: Yes attention grossly intact Skin: COMMON NORMALS: no rashes or lesions noted GENERAL SKIN EXAM: no rashes or lesions noted Data 09/27/23 03:28 09/27/23 03:28 Other Labs: C diff PCR negative H pylori IgG serology negative, stool pending Micro: Microbiology 09/26/23 21:40 Stool Lactoferrin - Final Stool Occult Blood (FIT) - Final A&P Assessment and plan (1) History of Helicobacter pylori infection: (2) History of Clostridioides difficile infection: (3) Colitis: (4) Abdominal pain: Qualifiers: Abdominal location: generalized Qualified Code(s): R10.84 - Generalized abdominal pain Plan H. pylori serology negative, stool evaluation pending Leukocytosis resolved, pain improving with antibiotic treatment of colitis, no surgical/endoscopic intervention recommended at this time Medical management per hospitalist Attestations 2 Medical Necessity Statement*: Requires further hospitalization for management of abdominal pain in setting of proctocolitis in a patient with history of C. difficile and H. pylori Coding Level of Care Code Acute Code for Chg Fwd Diagnoses History of Helicobacter pylori infection Z86.19 History of Clostridioides difficile infection Z86.19 Colitis K52.9 Abdominal pain R10.84 Abdominal location: generalized
[2023-09-27] MEDS: sodium chloride 0.9% 1,000 ML 75 ML IV (10:47)
[2023-09-27] MEDS: ciprofloxacin 400 MG/200 ML PREMIX 200 MG IV (10:50)
--- NOTE | 2023-09-27 15:14 | P.PN_ITS ---
Subjective 2 Subjective: No acute events overnight. Patient states he is feeling slightly better. Abdominal pain is improving. Able to tolerate diet. Had multiple bowel movements overnight. Vitals/I&O/Wt Last Vital Signs Temp 98.5 F 09/27/23 11:34 Pulse 112 H 09/27/23 11:34 Resp 18 09/27/23 11:34 BP 141/89 09/27/23 11:34 Pulse Ox 96 09/27/23 11:34 O2 Del Method Room Air 09/27/23 11:34 09/27/23 09/27/23 09/27/23 06:59 14:59 22:59 Intake Total 820 / 3415.000 2140 / 2140 Balance 820 / 3415.000 2140 / 2140 Weight last 48 hrs Weight 77.292 kg Weight 76.294 kg Weight 68.039 kg Weight 68.039 kg Physical Exam 2 Narrative: General: In distress from abdominal pain, AO x 3, no pallor HEENT: PERRLA, pupils bilaterally equal and reactive Chest: Normal vesicular breath sounds, no added sounds, equal good air entry bilaterally CVS: S1-S2 regular, no murmurs, no tachycardia, no gallops, no rubs Abdomen: Soft, tender in lower abdomen, no organomegaly, bowel sounds present sluggish Neuro: No focal deficits, no facial deformity, AO x3, power 5/5 in all limbs Data 09/27/23 03:28 09/27/23 03:28 Micro: Microbiology 09/26/23 21:40 Stool Lactoferrin - Final Stool Occult Blood (FIT) - Final A&P Assessment and plan (1) Abdominal pain: Qualifiers: Abdominal location: generalized Qualified Code(s): R10.84 - Generalized abdominal pain (2) Proctocolitis: (3) History of Helicobacter pylori infection: (4) History of Clostridioides difficile infection: Plan Abdominal pain: Most likely in setting of proctocolitis. Appreciate CT abdomen pelvis results. Appreciate surgical recommendations. No concerns for volvulus for now as per surgical team. History of treated H pylori and C. difficile in past which as per the history and the patient had cleared up on testing. Switch to full liquid diet. Follow-up stool studies. C. difficile negative. H. pylori pending. Continue with empiric Cipro and Flagyl. Leukocytosis resolved. Dilaudid 0.5 every 4 as needed. Multiple bowel movements overnight. Switch milk of magnesia to as needed. Protonix daily, Zofran as needed Continue chronic home medications including baclofen, BuSpar, Zoloft. Appreciate surgical recommendations. Normal saline at 75 cc/h. Ambulate. Replete potassium. Full code Protonix for PUD prophylaxis Lovenox for DVT prophylaxis Attestations 2 Medical Necessity Statement*: Requires further hospitalization for management of abdominal pain in setting of proctocolitis Diagnoses Abdominal pain R10.84 Abdominal location: generalized Proctocolitis K52.9 History of Helicobacter pylori infection Z86.19 History of Clostridioides difficile infection Z86.19
[2023-09-27] MEDS: promethazine 25 mg/mL SDV 1 mL 12.5 MG IM (17:46)
[2023-09-28] MEDS: enoxaparin 40 mg/0.4 mL Syringe SUBCUT (00:19)
[2023-09-28] MEDS: ciprofloxacin 400 MG/200 ML PREMIX 200 MG IV (00:19)
[2023-09-28] MEDS: pantoprazole 40 mg SDV IVP (00:19)
[2023-09-28] MEDS: sodium chloride 0.9% 1,000 ML 75 ML IV (00:21)
[2023-09-28] MEDS: metroNIDAZOLE IV 500 MG/100 ML PREMIX 100 MG IV ×2 (01:29→09:50)
[2023-09-28 02:55] LABS: Basophils % 0.7 %; Eosinophils # 0.4 10^3/uL (0.0-0.8); Eosinophils % 6.6 %; Hematocrit 36.8 % (36-47); Lymphocytes # 1.9 10^3/uL (0.8-4.8); Lymphocytes % 30.8 %; Mean Corpuscular HGB Conc 32.6 g/dL (30-55); Mean Corpuscular Hemoglobin 29.1 pg (27-33); Mean Corpuscular Volume 89.3 fl (85-98); Mean Platelet Volume 10.8 fL (7.4-10.4); Monocytes # 0.9 10^3/uL (0.2-0.9); Monocytes % 14.5 %; Neutrophils # 2.87 10^3/uL (1.8-7.7); Neutrophils % 47.1 %; Nucleated Red Blood Cells % 0 %; Platelet Count 261 10^3/cmm (157-399); Red Blood Count 4.12 10^6/uL (3.85-5.65); White Blood Count 6.08 10^3/uL (3.29-11.43)
[2023-09-28 03:18] LABS: Magnesium 1.9 mg/dL (1.7-2.3)
[2023-09-28 03:21] LABS: Alanine Aminotransferase 27 U/L (0-33); Albumin Level 3.7 g/dL (3.5-5.2); Alkaline Phosphatase 100 U/L (35-105); Anion Gap 11.8 (5-19); Aspartate Amino Transferase 26 U/L (0-32); Blood Urea Nitrogen 2 mg/dL (6-20); Calcium 8.8 mg/dL (8.5-10.5); Carbon Dioxide 25 mmol/L (22-29); Chloride 109 mmol/L (98-107); Globulin 2.1 g/dL (1.3-4.6); Glomerular Filtration Rate 78.3 mL/min (90-130); Glucose 97 mg/dL (65-115); Osmolality Calculated 290 mOsm/kg (285-295); Potassium 3.8 mmol/L (3.5-5.1); Sodium 142 mmol/L (136-145); Total Bilirubin 0.5 mg/dL (0.15-1.2); Total Protein 5.8 g/dL (6.6-8.7)
[2023-09-28 03:49] VITALS: BP 144/78; PULSE 73; RESP 18; TEMP 36.3; O2SAT 97
[2023-09-28 03:50] VITALS: BMI 23.8
[2023-09-28 06:00] VITALS: PULSE 65
[2023-09-28] MEDS: ondansetron 2 mg/ML SDV 2 mL 4 MG IVP (06:30)
[2023-09-28 06:44] VITALS: RESP 18; O2SAT 97
[2023-09-28] MEDS: HYDROmorphone 1 mg/mL INJ 1 mL 0.5 MG IVP (06:44)
[2023-09-28 08:13] VITALS: BP 144/83; PULSE 88; RESP 19; TEMP 36.7; O2SAT 97
[2023-09-28] MEDS: BuSPIRONE 10 mg Tablet 5 MG PO (09:46)
[2023-09-28] MEDS: baclofen 10 mg Tablet PO (09:46)
[2023-09-28] MEDS: sertraline 100 mg Tablet PO (09:46)
--- NOTE | 2023-09-28 10:25 | P.DS_ITS ---
Discharge Providers Date of Admission: 09/25/23 23:26 Date of Discharge: September 28, 2023 Attending Provider at Admission: Raoul Gee MD Attending Provider at Discharge: Eduardo Yuan MD Consults: Surgery: Dr. Valencia Primary Care Provider: Huy Quintanilla MD Diagnoses at Discharge Discharge Diagnosis (1) Abdominal pain: Status: Acute Qualifiers: Abdominal location: generalized Qualified Code(s): R10.84 - Generalized abdominal pain (2) Proctocolitis: Status: Acute (3) History of Helicobacter pylori infection: Status: Acute (4) History of Clostridioides difficile infection: Status: Acute Reason for Visit Reason for Visit: Lower abd pain Brief History: History as per HPI: Felicitas Velasco is a 42 year old female with a past medical history of gastr oparesis, history of C. difficile, history of bilateral tubal ligation, history of endometriosis who presents [facility] due to sudden onset of abdominal pain. Patient tells me that she has been doing okay this week she has been belching more than usual, but this afternoon she had a sudden onset of lower abdominal pain, she tells me the pain is very severe, it comes out in spasms, she tells me that she has not had a bowel movement today, she is passing gas, she is urinating, denies any bloody or black stools, no history of food poisoning, she tells me that the pain came all of a sudden, no prodrome of symptoms, she has vomited, she does feel nauseous, her only abdominal surgery was her tubal ligation and her surgery for endometriosis, she has not had any other abdominal surgeries, in the emergency room, she has received a total of 150 mcg of fentanyl, 2 mg of Dilaudid, 2 mg of Versed several doses of Zofran, Reglan, promethazine but she continues to have severe abdominal pain currently rating the pain 9 out of 10, sitting in position due to severe pain, CAT scan Hospital Course Hospital Course Patient was admitted to the hospital further evaluation and management of abdominal pain in setting of proctocolitis seen on CT abdomen pelvis done on admission. There was a concern for volvulus on admission which was ruled out by surgical consultation. She was started on IV antibiotics and aggressive bowel regimen. Patient has been able to tolerate full liquid diet. Her symptoms gr adually improved. Patient is having soft bowel movements. She has been discharged hemodynamic stable condition on oral antibiotics for 5 more days, with advised to continue full liquid diet for the next 2 days and then advance gradually to a regular diet within next 1 week. She advised to follow-up with a primary care provider within next 10 days and with the surgical team within next 2 weeks for a possible colonoscopy. Stool studies are pending for now though C. difficile is negative. Physical Exam Narrative: General: In distress from abdominal pain, AO x 3, no pallor HEENT: PERRLA, pupils bilaterally equal and reactive Chest: Normal vesicular breath sounds, no added sounds, equal good air entry bilaterally CVS: S1-S2 regular, no murmurs, no tachycardia, no gallops, no rubs Abdomen: Soft, tender in lower abdomen, no organomegaly, bowel sounds present sluggish Neuro: No focal deficits, no facial deformity, AO x3, power 5/5 in all limbs Discharge Data Studies Completed and Pending Completed Studies During Hospitalization Category Date Time Status CT abdomen pelvis w con* [id number] Stat Cat Scan 09/25/23 19:42 Completed XR KUB portable [id number] QAM Exams 09/26/23 06:00 Completed Pending at discharge Category Date Time Status Helicobacter Pylori AG Stool Routine Lab 09/26/23 21:54 Received MAG [Magnesium] AM LABS Lab 09/29/23 04:00 Ordered OVA and Parasites, Conc and PE Routine Lab 09/26/23 13:35 Received Salmonella / Shigella / Campy Routine Lab 09/26/23 13:35 Received Radiology Impressions Abdomen/Pelvis CT 09/25/23 19:42 IMPRESSION: 1. Thickening of the large bowel extending to the rectum compatible with infectious or inflammatory proctocolitis. 2. Abnormal position of the cecum within the mid abdomen, but without significant cecal dilation to raise concern for volvulus. KUB X-Ray 09/26/23 06:00 IMPRESSION: Nonspecific. Laboratory Results WBC 6.08 10^3/uL (3.29-11.43) 09/28/23 02:06 RBC 4.12 10^6/uL (3.85-5.65) 09/28/23 02:06 Hgb 12.00 g/dL (11.27-16.99) 09/28/23 02:06 Hct 36.8 % (36-47) 09/28/23 02:06 MCV 89.3 fl (85-98) 09/28/23 02:06 MCH 29.1 pg (27-33) 09/28/23 02:06 MCHC 32.6 g/dL (30-55) 09/28/23 02:06 RDW 14.0 % (12.1-15.1) 09/28/23 02:06 Plt Count 261 10^3/cmm (157-399) 09/28/23 02:06 MPV 10.8 fL (7.4-10.4) H 09/28/23 02:06 Neut % (Auto) 47.1 % 09/28/23 02:06 Lymph % (Auto) 30.8 % 09/28/23 02:06 [place] % (Auto) 14.5 % 09/28/23 02:06 Eos % (Auto) 6.6 % 09/28/23 02:06 Baso % (Auto) 0.7 % 09/28/23 02:06 Neut # (Auto) 2.87 10^3/uL (1.8-7.7) 09/28/23 02:06 Lymph # (Auto) 1.9 10^3/uL (0.8-4.8) 09/28/23 02:06 [place] # (Auto) 0.9 10^3/uL (0.2-0.9) 09/28/23 02:06 Eos # (Auto) 0.4 10^3/uL (0.0-0.8) 09/28/23 02:06 Baso # (Auto) 0.0 10^3/uL (0.0-0.1) 09/28/23 02:06 Nucleated RBC % (auto) 0 % 09/28/23 02:06 Nucleated RBCs # 0.0 /100WBC 09/28/23 02:06 ESR 17 mm/hr (0-15) H 09/25/23 19:05 Sodium 142 mmol/L (136-145) 09/28/23 02:06 Potassium 3.8 mmol/L (3.5-5.1) 09/28/23 02:06 Chloride 109 mmol/L (98-107) H 09/28/23 02:06 Carbon Dioxide 25 mmol/L (22-29) 09/28/23 02:06 Anion Gap 11.8 (5-19) 09/28/23 02:06 BUN 2 mg/dL (6-20) L 09/28/23 02:06 Creatinine 0.8 mg/dL (0.5-0.9) 09/28/23 02:06 GFR Calculation 78.3 mL/min (90-130) L 09/28/23 02:06 Glucose 97 mg/dL (65-115) 09/28/23 02:06 Estimat Average Glucose 103 09/27/23 03:28 Hemoglobin A1c 5.2 % (4.0-6.0) 09/27/23 03:28 Calculated Osmolality 290 mOsm/kg (285-295) 09/28/23 02:06 Lactic Acid 3.1 mmol/L (0.5-2.2) H 09/25/23 19:05 Lactic Acid (Sepsis) 0.8 mmol/L (0.5-2.2) 09/26/23 01:24 Calcium 8.8 mg/dL (8.5-10.5) 09/28/23 02:06 Phosphorus 1.9 mg/dL (2.5-4.5) L 09/26/23 01:24 Magnesium 1.9 mg/dL (1.7-2.3) 09/28/23 02:06 Total Bilirubin 0.5 mg/dL (0.15-1.2) 09/28/23 02:06 AST 26 U/L (0-32) 09/28/23 02:06 ALT 27 U/L (0-33) 09/28/23 02:06 Alkaline Phosphatase 100 U/L (35-105) 09/28/23 02:06 C-Reactive Protein 3.0 mg/L (0.0-4.9) 09/25/23 19:05 Total Protein 5.8 g/dL (6.6-8.7) L 09/28/23 02:06 Albumin 3.7 g/dL (3.5-5.2) 09/28/23 02:06 Globulin 2.1 g/dL (1.3-4.6) 09/28/23 02:06 Lipase 31 U/L (13-60) 09/25/23 19:05 Folate > 20.0 ng/mL (4.8-37.3) 09/27/23 03:28 Procalcitonin 0.03 ng/mL (0-0.5) 09/25/23 19:05 TSH 0.96 uIU/mL (0.27-4.20) 09/25/23 19:05 HCG, Qual Negative (Negative) 09/25/23 19:05 Urine Color Yellow (Yellow) 09/25/23 21:43 Urine Appearance Clear (CLEAR) 09/25/23 21:43 Urine pH 5 (5-7) 09/25/23 21:43 Ur Specific [place] 1.005 (1.005-1.030) 09/25/23 21:43 Urine Protein Neg (Negative) 09/25/23 21:43 Urine Glucose (UA) Norm (Normal) 09/25/23 21:43 Urine Ketones 1+ (Negative) H 09/25/23 21:43 Urine Blood Neg (Negative) 09/25/23 21:43 Urine Nitrate Negative (Negative) 09/25/23 21:43 Urine Bilirubin Neg (Negative) 09/25/23 21:43 Urine Urobilinogen Neg mg/dL (Negative) 09/25/23 21:43 Ur Leukocyte Esterase Negative (Negative) 09/25/23 21:43 Urine Opiates Screen Positive ng/mL (Negative) H 09/25/23 21:43 Ur Barbiturates Screen Negative ng/mL (Negative) 09/25/23 21:43 Ur Phencyclidine Scrn Negative ng/mL (Negative) 09/25/23 21:43 Ur Amphetamines Screen Negative ng/mL (Negative) 09/25/23 21:43 U Benzodiazepines Scrn Negative ng/mL (Negative) 09/25/23 21:43 Urine Cocaine Screen Negative ng/mL (Negative) 09/25/23 21:43 U Marijuana (THC) Screen Positive ng/mL (Negative) H 09/25/23 21:43 C. difficile (PCR) Negative (Negative) 09/26/23 21:40 H. pylori IgG Antibody Negative (Negative) 09/26/23 12:41 Vitals Last Vital Signs Temp 98.0 F 09/28/23 08:13 Pulse 88 09/28/23 08:13 Resp 19 H 09/28/23 08:13 BP 144/83 09/28/23 08:13 Pulse Ox 97 09/28/23 08:13 O2 Del Method Room Air 09/28/23 08:13 Discharge Plan Discharge Patient Disposition: Home Condition: Stable Prescriptions: New Stool Softener-Laxative 8.6-50 mg Tablet 1 tab PO BID Qty: 20 0RF Cipro 500 mg tablet 500 mg PO BID Qty: 10 0RF metronidazole 500 mg tablet 500 mg PO BID 5 Days Qty: 10 0RF Milk of Magnesia 400 mg/5 mL suspension 5 ml PO DAILY PRN (Reason: constipation) Qty: 355 0RF Continued omeprazole 20 mg capsule,delayed release(DR/EC) 20 mg PO DAILY sertraline 100 mg tablet 100 mg PO DAILY hydroxyzine HCl 25 mg tablet 25 mg PO Q6H PRN (Reason: Anxiety) buspirone 5 mg tablet 5 mg PO BID (DME) CAM boot See Rx Instructions .Route .MEDSUPPLY Qty: 1 0RF Rx Instructions: As directed (DME) ASO ankle brace See Rx Instructions .Route .MEDSUPPLY Qty: 1 0RF Rx Instructions: As directed (DME) crutches See Rx Instructions .Route .MEDSUPPLY Qty: 1 0RF Rx Instructions: As directed propranolol 20 mg tablet 20 mg PO BID Qty: 60 3RF polyethylene glycol 3350 [Miralax] 17 gram/dose powder 17 g PO DAILY PRN (Reason: Constipation) baclofen 10 mg Tablet 10 mg PO BID Qty: 30 0RF multivitamin Tablet 1 tab PO DAILY rizatriptan 10 mg tablet 10 mg PO DAILY PRN (Reason: migraine headache) diazepam 5 mg Tablet 5 mg PO BEDTIME PRN (Reason: Anxiety) Emgality Pen 120 mg/mL Pen Injector See Rx Instructions .ROUTE .COMPLEX Rx Instructions: taken once a month; last dose received in August (unknown day) Discharge Orders: Discharge Order (Routine); Ordered 09/28/23 Ordered By: Eduardo Yuan Referrals: Huy Quintanilla MD [Primary Care Provider] - 7-10 days (You will need to call the office Friday to make an appointment with your primary care office due to the office being closed today. ) Shaun Valencia DO [Physician] - 2 weeks Patient Instructions: [place] Diet - Adult, Ciprofloxacin (By mouth), Laxative, Stimulant (By mouth), Metronidazole (By mouth), Magnesium Hydroxide (By mouth) (Dulcolax Milk of Magnesia, Milk Of..., Full Liquid Diet, Colitis (ED), Opioid Safety Activity Restrictions/Additional Instructions: Ciprofloxacin and Flagyl are the antibiotics which he should take for next 2 weeks. Continue with bowel regimen with senna Colace twice daily and milk of magnesia as needed. You should be able to have 1-2 soft bowel movements daily. Please follow-up with a primary care provider within next [address] Valencia from surgery within next 2 weeks. Continue take full liquid diet for next 2 days and advance gradually to a regular diet within next 1 week. Discharge Attestations Time Spent in Discharge Care*: greater than 30 min Specific Discharge Activities: educating patient, educating and/or supporting family/caregiver, discussing with pcp/other providers, discussing with pillowcase sewer/social workers/dc planners, documenting/other paperwork and evaluating patient/reviewing data Status at Discharge: Cognitive status at discharge: cognitively intact , Behavioral status at discharge: cooperative , Functional status at discharge: independent ambulation , Overall status at discharge: patient is progressing back to baseline Quality Metrics Clinical Quality Measures [ No reported AMI, CVA or VTE this stay] Coding Level of Care Code 88207 Total time (in minutes) for Discharge: 60 Diagnoses Abdominal pain R10.84 Abdominal location: generalized Proctocolitis K52.9 History of Helicobacter pylori infection Z86.19 History of Clostridioides difficile infection Z86.19
--- NOTE | 2023-09-28 10:42 | P.PN_ITS ---
Subjective 2 Subjective: No acute events overnight. Passing stool and flatus. Tolerating diet. Abdominal pain resolved however nausea remains constant. Vitals/I&O/Wt Last Vital Signs Temp 98.0 F 09/28/23 08:13 Pulse 88 09/28/23 08:13 Resp 19 H 09/28/23 08:13 BP 144/83 09/28/23 08:13 Pulse Ox 97 09/28/23 08:13 O2 Del Method Room Air 09/28/23 08:13 09/27/23 09/28/23 09/28/23 22:59 06:59 14:59 Intake Total 700 / 2840 1780 / 4620 360 / 360 Balance 700 / 2840 1780 / 4620 360 / 360 Weight last 48 hrs Weight 166 lb 6.4 oz Weight 170 lb 6.4 oz Physical Exam 2 Const: COMMON NORMALS: no acute distress, average body habitus and patient oriented x3 GENERAL APPEARANCE: cooperative, comfortable and well developed HENMT: COMMON NORMALS: normocephalic, atraumatic, external ears normal and Normal external nose present HEAD & SCALP: normocephalic and atraumatic N OSE: Normal external nose present EXTERNAL EAR: Yes external ears normal Eye: COMMON NORMALS: EOMs intact bilaterally ALIGNMENT: Yes alignment normal PERIORBITAL: periorbital findings normal EYELID: eyelids normal Neck/C-Spine: COMMON NORMALS: full ROM and supple GENERAL: Yes normal visual inspection and Yes trachea midline Resp: COMMON NORMALS: normal respiratory effort, No retractions and No use of accessory muscles EFFORT & INSPECTION: Yes able to speak in complete sentences and Yes symmetric chest movement Cardio: COMMON NORMALS: regular rate and regular rhythm RATE: regular rate RHYTHM: regular rhythm PERIPHERAL PULSES: radial pulses present GI: COMMON NORMALS: Soft to palpation and non-tender INSPECTION: Yes normal to inspection AUSCULTATION: Yes normoactive bowel sounds PALPATION: Yes Soft to palpation, No Tenderness to palpation present (GI), No Guarding due to palpation present (GI) and No Rigid due to palpation Neuro: COMMON NORMALS: patient oriented x3 Psych: COMMON NORMALS: mental status grossly normal, Normal thought process present, cooperative, normal affect, speech normal and activity/motor behavior normal APPEARANCE: Yes grossly normal ATTITUDE: Yes calm and Yes engaged ACTIVITY/MOTOR BEHAVIOR: Yes appropriate eye contact SPEECH: Yes normal speech THOUGHT PROCESS: Normal thought process present Data 09/28/23 02:06 09/28/23 02:06 A&P Assessment and plan (1) Abdominal pain: Qualifiers: Abdominal location: generalized Qualified Code(s): R10.84 - Generalized abdominal pain (2) Proctocolitis: (3) History of Helicobacter pylori infection: (4) History of Clostridioides difficile infection: Plan Abdominal pain: Most likely in setting of proctocolitis. History of treated H pylori and C. difficile in past which as per the history and the patient had cleared up on testing, negative studies this admission. Normal bowel function has resumed and pain resolved. Nausea management per primary medical service. Stable for discharge from Surgical perspective. Attestations 2 Medical Necessity Statement*: Required hospitalization for management of abdominal pain in setting of proctocolitis Coding Level of Care Code Acute Code for Chg Fwd Diagnoses Abdominal pain R10.84 Abdominal location: generalized Proctocolitis K52.9 History of Helicobacter pylori infection Z86.19 History of Clostridioides difficile infection Z86.19
[2023-09-28 12:02] VITALS: BP 117/79; PULSE 81; RESP 20; TEMP 36.2; O2SAT 97
[2023-09-28 12:03] VITALS: BP 117/79; PULSE 81; RESP 20; TEMP 36.2; O2SAT 97
== END 2023-09-28 12:06 | disposition home or self-care (01) | DRG 387 ==
LOC: ER 23:17 → MEDSURG 23:26
PROVIDERS: Emergency Medicine; Admitting Provider Family Medicine; Emergency Provider Emergency Medicine; PCP Family Medicine; Visit Provider Student in an Organized Health Care Education/Training Program
DX: K51.219 Ulcerative (chronic) proctitis with unspecified complications (principal); F32.A Depression, unspecified; K21.9 Gastro-esophageal reflux disease without esophagitis
CPT/HCPCS: 36415; 74018; 74177; 80053; 80306; 81003; 82274; 82746; 83036; 83605; 83630; 83690; 83735; 84100; 84145; 84443; 84703; 85025; 85651; 86140; 86677; 87045; 87177; 87209; 87338; 87427; 87449; 87493; 96365; 96367; 96372; 96375; 96376; 99285; C9113; J0744; J1170; J1650; J2250; J2405; J2550; J2765; J3010; J3490; J7030; Q9967

== ENCOUNTER → 2023-10-08 14:48 | Outpatient (BNVA) | payer MEDICAID, SELFPAY | PROVIDERS: PCP Family Medicine; Visit Provider Podiatrist Foot & Ankle Surgery | DX: Z98.890 Other specified postprocedural states (principal); S82.832D Other fracture of upper and lower end of left fibula, subsequent encounter for closed fracture with routine healing; S82.872D Displaced pilon fracture of left tibia, subsequent encounter for closed fracture with routine healing; X58.XXXD Exposure to other specified factors, subsequent encounter | CPT/HCPCS: 99213 ==

== ENCOUNTER → 2023-10-13 14:17 | Outpatient (BNVA) | payer MEDICAID, SELFPAY | PROVIDERS: PCP Family Medicine; Visit Provider Surgery | DX: K52.9 Noninfective gastroenteritis and colitis, unspecified (principal); R10.13 Epigastric pain; K92.1 Melena; K21.9 Gastro-esophageal reflux disease without esophagitis | CPT/HCPCS: 99204 ==

== ENCOUNTER → 2023-10-16 11:15 | Outpatient (BNVA) | payer MEDICAID, SELFPAY | PROVIDERS: PCP Family Medicine; Visit Provider Specialist | DX: G43.711 Chronic migraine without aura, intractable, with status migrainosus (principal) | CPT/HCPCS: 64615; J0585 ==

== ENCOUNTER 2023-11-12 10:40 | Day surgery (SDC) | payer MEDICAID, SELFPAY ==
[2023-11-12 11:07] VITALS: BP 113/79; PULSE 71; RESP 18; TEMP 36.5; O2SAT 98
[2023-11-12] MEDS: sodium chloride 0.9% 1,000 ML 30 ML IV (11:12)
--- NOTE | 2023-11-12 12:04 | ANES.PREANE2 ---
Pre-Anesthetic Assessment Height/Weight: Height 1.6 m Weight 68.039 kg Temp Pulse Resp BP Pulse Ox O2 Del Method 97.7 F 71 18 113/79 98 Room Air 11/12/23 11:07 11/12/23 11:07 11/12/23 11:07 11/12/23 11:07 11/12/23 11:11/12/23 11:07 Operation Date: 11/12/23 12:15 Proposed Procedures p EGD 04971, 95841, G0105, K52.9, R10.13, K92.1, K21.9(Not Applicable) - Shaun Valencia DO s Colonoscopy(Not Applicable) - Shaun Valencia DO Familial anesthetic complications: none Was Beta Edenilson taken within 24 hours: N/A Was Clonidine taken within 24 hours: N/A Last intake: Intake Last Liquid Date 11/12/23 Last Liquid Time 07:00 Last Solid Date 11/10/23 Last Solid Time 16:00 Social No alcohol and No tobacco Exam alert, oriented x 3, clear to auscultation bilaterally and regular rate & rhythm Airway Mallampati: Class I Dentition: other (3 missing) GI Gastroesophageal Reflux Disease gastroparesis - feels her stomach is empty though with no active nausea at the moment Anesthetic Plan ASA status: 2 Anesthesia: MAC Risk of > 500 ml blood loss (7ml/kg in children): No Medications/Allergies Home Medications Medication Instructions Recorded Confirmed Last Taken Type sertraline 100 mg tablet 100 mg PO DAILY 03/26/21 11/10/23 11/10/23 History polyethylene glycol 3350 17 17 g PO DAILY PRN Constipation 08/21/21 11/10/23 11/10/23 History gram/dose oral powder (Miralax) multivitamin 1 tab PO DAILY 08/09/22 11/10/23 11/10/23 History rizatriptan 10 mg tablet 10 mg PO DAILY PRN migraine 08/09/22 11/10/23 11/10/23 History headache hydroxyzine HCl 25 mg tablet 25 mg PO Q6H PRN Anxiety 02/12/23 11/10/23 11/12/23 History baclofen 10 mg tablet 10 mg PO BID #30 tabs 04/23/23 11/10/23 11/10/23 Rx propranolol 20 mg tablet 20 mg PO BID #60 tabs 06/24/23 11/10/23 11/12/23 Rx CAM boot #1 ea 06/25/23 10/16/23 11/10/23 Rx crutches #1 ea 07/09/23 10/16/23 11/10/23 Rx buspirone 5 mg tablet 5 mg PO BID 07/10/23 11/10/23 11/10/23 History ASO ankle brace #1 ea 08/27/23 10/16/23 11/10/23 Rx diazepam 5 mg tablet 5 mg PO BEDTIME PRN Anxiety 09/26/23 11/10/23 11/10/23 History galcanezumab-gnlm 120 mg/mL See Rx Instructions .Route .COMPLEX 09/26/23 11/10/23 11/10/23 History subcutaneous pen injector (Emgality Pen) magnesium hydroxide 400 mg/5 mL 5 ml PO DAILY PRN constipation 09/28/23 11/10/23 11/10/23 Rx oral suspension (Milk of Magnesia) #355 mL sennosides 8.6 mg-docusate sodium 1 tab PO BID #20 tabs 09/28/23 11/10/23 11/10/23 Rx 50 mg tablet (Stool Softener-Laxative) pantoprazole 40 mg tablet,delayed 40 mg PO BID 6 weeks #84 tabs 10/13/23 11/10/23 11/10/23 Rx release (Protonix) Allergies Allergy/AdvReac Type Severity Reaction Status Date / Time adhesive tape Allergy Severe whelps, Verified 11/10/23 10:55 peels skin azithromycin Allergy Severe vomiting, Verified 11/10/23 10:55 mouth ulcers erythromycin base Allergy Severe mouth Verified 11/10/23 10:55 ulcers, vomiting gabapentin Allergy Severe memory Verified 11/10/23 10:55 issues Penicillins Allergy Severe itching, Verified 11/10/23 10:55 vomiting,mouth ulcers hydrocodone Allergy ADR-Nausea Verified 11/10/23 10:55 Current Medications Generic Name Dose Route Start Last Admin Trade Name Freq PRN Reason Stop Dose Admin Sodium Chloride 1,000 mls @ 30 mls/hr 11/12/23 11:00 11/12/23 11:12 Sodium Chloride 0.9% IV 11/13/23 10:59 30 mls/hr .Q24H APOLINAR Administration PFSH Anesthesia Medical History Chronic migraine without aura, intractable, with status migrainosus Degenerative lumbar disc Chronic neck and back pain Migraines Depression GERD (gastroesophageal reflux disease) Lumbar disc herniation Cervical disc herniation Chronic pelvic pain in female Aftercare following surgery of the genitourinary system Chronic cystitis Interstitial cystitis Surgical History Status post lumbar laminectomy Hx of adenoidectomy H/O ovarian cystectomy at age 15 H/O tubal ligation 2002 H/O: hysterectomy 10/10/2021: TVH performed by Dr. Edmondson at [facility] H/O laparoscopy 08/22/2021- Diagnostic Laparoscopy. Fulguration of endometriosis lesions. Preformed by Dr. Edmondson at [facility]. History of back surgery History of bladder surgery History of cholecystectomy History of appendectomy History of tonsillectomy Family History Mother , AT AGE 63 SMALL CELL CARCINOMA Cancer Hypertension Hyperlipidemia Grandmother Cancer Dementia CAD (coronary artery disease) Diabetes paternal Stroke paternal Heart disease paternal Grandfather Cancer Dementia Diabetes paternal Colon cancer maternal, 60's Father Hypertension Hyperlipidemia CAD (coronary artery disease) Denies family history of Ovarian cancer Clotting disorder Breast cancer Anesthesia complication Bleeding disorder Uterine cancer Thyroid disease Social History Smoking and tobacco/nicotine status: current every day tobacco/nicotine user Data Anesthesia Cardiac Studies: No Data to Display
--- NOTE | 2023-11-12 12:22 | W.PM.OPSUD ---
Surgery/Procedure H&P Update DATE OF PROCEDURE: November 12, 2023 DATE H&P PERFORMED: 10/13/23 H&P UPDATE INFORMATION: I have reviewed H&P completed within last 30 days, I have examined patient prior to procedure and No changes to prior documentation PLANNED PROCEDURE: Operation Date: 11/12/23 12:15 Proposed Procedures p EGD 37144, 22812, G0105, K52.9, R10.13, K92.1, K21.9(Not Applicable) - DO aysha Angel Colonoscopy(Not Applicable) - Shaun Valencia DO
[2023-11-12 12:51] VITALS: BP 125/82; PULSE 62; RESP 16; TEMP 36.1; O2SAT 100
--- NOTE | 2023-11-12 12:53 | ANE.PACU2 ---
Inpatient post-anesthesia follow up: Airway intact: Yes Vital signs: Temperature 97.7 F Pulse Rate 71 Respiratory Rate 18 Blood Pressure 113/79 Pulse Oximetry 98 Oxygen Delivery Me thod Room Air Oxygen Flow Rate Fraction of Inspir ed Oxygen Hydration adequate: Yes Nausea and vomiting: No Pain level: 1 Mental status: Baseline
[2023-11-12 13:06] VITALS: BP 123/85; PULSE 56; RESP 16; O2SAT 100
[2023-11-12 14:58] LABS: C.Diff PCR (Lab) POSITIVE (Negative)
[2023-11-12 17:10] LABS: Clostridioides Difficile Toxin NEGATIVE (Negative)
== END 2023-11-12 13:39 | disposition home or self-care (01) ==
PROVIDERS: PCP Family Medicine; Visit Provider Surgery
PROC: 0DJ08ZZ Inspection of Upper Intestinal Tract, Via Natural or Artificial Opening Endoscopic (ICD-10-PCS; CPT 43235; principal; 2023-11-12 12:15)
PROC: 0DJD8ZZ Inspection of Lower Intestinal Tract, Via Natural or Artificial Opening Endoscopic (ICD-10-PCS; CPT 45378; 2023-11-12 12:15)
DX: K52.9 Noninfective gastroenteritis and colitis, unspecified (principal); R10.13 Epigastric pain; K64.8 Other hemorrhoids; K29.50 Unspecified chronic gastritis without bleeding; K92.1 Melena; K21.9 Gastro-esophageal reflux disease without esophagitis; F17.200 Nicotine dependence, unspecified, uncomplicated
CPT/HCPCS: 43239; 45385; 82274; 83630; 87045; 87177; 87209; 87324; 87427; 87449; 87493; 88305; J2704; J7030

== ENCOUNTER → 2023-12-01 09:35 | Outpatient (BNVA) | payer MEDICAID, SELFPAY | PROVIDERS: PCP Family Medicine; Visit Provider Surgery | DX: K21.9 Gastro-esophageal reflux disease without esophagitis (principal); K92.1 Melena; R10.13 Epigastric pain; R10.84 Generalized abdominal pain; R11.0 Nausea; K31.84 Gastroparesis; A04.72 Enterocolitis due to Clostridium difficile, not specified as recurrent | CPT/HCPCS: 99214 ==

== ENCOUNTER 2023-12-01 12:04 | Outpatient (CLI) | payer MEDICAID, SELFPAY ==
[2023-12-03 19:12] LABS: Beef (27) IgE <0.10 kU/L; Beef Class 0; Lamb (F88) IgE <0.10 kU/L; Lamb Class 0; Pork (F26) IgE <0.10 kU/L; Pork Class 0
== END 2023-12-01 12:05 | disposition home or self-care (01) ==
LOC: LAB 12:05
PROVIDERS: PCP Family Medicine; Visit Provider Surgery
DX: K92.1 Melena (principal); R10.13 Epigastric pain; R10.84 Generalized abdominal pain
CPT/HCPCS: 86003; 86008

== ENCOUNTER 2023-12-02 12:32 | Observation (INO) | payer MEDICAID, SELFPAY ==
[2023-12-01 12:06] LABS: Add Urine Microscopic? NO; Charge for UA Resulting for Rev
--- NOTE | 2023-12-01 12:07 | P.ANESASSM_ITS ---
Pre-Anesthetic Assessment Height/Weight: Height 1.6 m Operation Date: 12/02/23 07:00 Proposed Procedures p Anterior Repair 51855, 05004, N81.6, N81.10, R32(Not Applicable) - Kam Edmondson MD s Posterior Repair(Not Applicable) - Kam Edmondson MD s Sling(Not Applicable) - Kam Edmondson MD Familial anesthetic complications: none Was Beta Edenilson taken within 24 hours: Yes Was Clonidine taken within 24 hours: N/A Social No alcohol and No tobacco Exam alert, oriented x 3, clear to auscultation bilaterally and regular rate & rhythm Airway Submandibular: within normal limits Cervical ROM: within normal limits Mallampati: Class II Dentition: full GI Gastroesophageal Reflux Disease gastroparesis Musc/skel Lower Back Pain and Osteoarthritis/DJD Neuropsych Anxiety, Depression and Headache Anesthetic Plan ASA status: 2 Anesthesia: General Medications/Allergies Home Medications Medication Instructions Recorded Confirmed Last Taken Type sertraline 100 mg tablet 100 mg PO DAILY 03/26/21 12/01/23 12/01/23 History polyethylene glycol 3350 17 17 g PO DAILY PRN Constipation 08/21/21 12/01/23 12/01/23 History gram/dose oral powder (Miralax) multivitamin 1 tab PO DAILY 08/09/22 12/01/23 12/01/23 History rizatriptan 10 mg tablet 10 mg PO DAILY PRN migraine 08/09/22 12/01/23 12/01/23 History headache hydroxyzine HCl 25 mg tablet 25 mg PO Q6H PRN Anxiety 02/12/23 12/01/23 12/01/23 History baclofen 10 mg tablet 10 mg PO BID #30 tabs 04/23/23 12/01/23 12/01/23 Rx propranolol 20 mg tablet 20 mg PO BID #60 tabs 06/24/23 12/01/23 12/01/23 Rx CAM boot #1 ea 06/25/23 12/01/23 11/10/23 Rx crutches #1 ea 07/09/23 12/01/23 11/10/23 Rx buspirone 5 mg tablet 5 mg PO BID 07/10/23 12/01/23 12/01/23 History ASO ankle brace #1 ea 08/27/23 12/01/23 11/10/23 Rx diazepam 5 mg tablet 5 mg PO BEDTIME PRN Anxiety 09/26/23 12/01/23 12/01/23 History galcanezumab-gnlm 120 mg/mL 120 mg SUBCUT DIRECTED 09/26/23 12/01/23 11/10/23 History subcutaneous pen injector (Emgality Pen) sennosides 8.6 mg-docusate sodium 1 tab PO BID #20 tabs 09/28/23 12/01/23 12/01/23 Rx 50 mg tablet (Stool Softener-Laxative) pantoprazole 40 mg tablet,delayed 40 mg PO BID 6 weeks #84 tabs 10/13/23 12/01/23 12/01/23 Rx release (Protonix) Allergies Allergy/AdvReac Type Severity Reaction Status Date / Time adhesive tape Allergy Severe whelps, Verified 12/01/23 09:36 peels skin azithromycin Allergy Severe vomiting, Verified 12/01/23 09:36 mouth ulcers erythromycin base Allergy Severe mouth Verified 12/01/23 09:36 ulcers, vomiting gabapentin Allergy Severe memory Verified 12/01/23 09:36 issues Penicillins Allergy Severe itching, Verified 12/01/23 09:36 vomiting,mouth ulcers hydrocodone Allergy ADR-Nausea Verified 12/01/23 09:36 [facility] Anesthesia Medical History (Updated 12/01/23 @ 11:09 by Shaun Valencia DO) Chronic migraine without aura, intractable, with status migrainosus Degenerative lumbar disc Chronic neck and back pain Migraines Depression GERD (gastroesophageal reflux disease) Lumbar disc herniation Cervical disc herniation Chronic pelvic pain in female Aftercare following surgery of the genitourinary system Chronic cystitis Interstitial cystitis Surgical History (Updated 12/01/23 @ 11:36 by Yamile Benitez RN) Status post lumbar laminectomy Hx of adenoidectomy H/O ovarian cystectomy at age 15 H/O tubal ligation 2002 H/O: hysterectomy 10/10/2021: TVH performed by Dr. Edmondson at [facility] H/O laparoscopy 08/22/2021- Diagnostic Laparoscopy. Fulguration of endometriosis lesions. Preformed by Dr. Edmondson at [facility]. History of back surgery History of bladder surgery History of cholecystectomy History of appendectomy History of tonsillectomy Family History Mother , AT AGE 63 SMALL CELL CARCINOMA Cancer Hypertension Hyperlipidemia Grandmother Cancer Dementia CAD (coronary artery disease) Diabetes paternal Stroke paternal Heart disease paternal Grandfather Cancer Dementia Diabetes paternal Colon cancer maternal, 60's Father Hypertension Hyperlipidemia CAD (coronary artery disease) Denies family history of Ovarian cancer Clotting disorder Breast cancer Anesthesia complication Bleeding disorder Uterine cancer Thyroid disease Social History Smoking and tobacco/nicotine status: current every day tobacco/nicotine user Data Anesthesia 12/01/23 11:55 12/01/23 11:55 Cardiac Studies: 2 No Data to Display
[2023-12-01 12:08] LABS: Basophils % 0.4 %; Eosinophils # 0.2 10^3/uL (0.0-0.8); Eosinophils % 1.8 %; Hematocrit 43.7 % (36-47); Lymphocytes # 1.8 10^3/uL (0.8-4.8); Lymphocytes % 18.5 %; Mean Corpuscular Volume 88.1 fl (85-98); Mean Platelet Volume 11.2 fL (7.4-10.4); Monocytes # 0.8 10^3/uL (0.2-0.9); Monocytes % 7.6 %; Neutrophils # 7.03 10^3/uL (1.8-7.7); Neutrophils % 71.3 %; Nucleated Red Blood Cells % 0 %; Platelet Count 295 10^3/cmm (157-399); Red Blood Count 4.96 10^6/uL (3.85-5.65); Red Cell Distribution Width 13.7 % (12.1-15.1); White Blood Count 9.87 10^3/uL (3.29-11.43)
[2023-12-01 12:11] LABS: Bilirubin Urine Neg (Negative); Blood Urine Neg (Negative); Glucose Urine UA Norm (Normal); Ketones Urine Negative (Negative); Leukocyte Esterase Urine Negative (Negative); Nitrate Urine Negative (Negative); Protein Urine Neg (Negative); Urine Appearance Clear (CLEAR); Urine Color Yellow (Yellow); Urobilinogen Urine Norm (Negative); pH Urine 5 (5-7)
[2023-12-01 12:32] LABS: Alanine Aminotransferase 22 U/L (0-33); Albumin Level 4.8 g/dL (3.5-5.2); Alkaline Phosphatase 80 U/L (35-105); Aspartate Amino Transferase 20 U/L (0-32); Blood Urea Nitrogen 12 mg/dL (6-20); Carbon Dioxide 26 mmol/L (22-29); Chloride 101 mmol/L (98-107); Glomerular Filtration Rate 91.3 mL/min (90-130); Glucose 102 mg/dL (65-115); Osmolality Calculated 286 mOsm/kg (285-295); Sodium 138 mmol/L (136-145); Total Bilirubin 1.5 mg/dL (0.15-1.2); Total Protein 7.8 g/dL (6.6-8.7)
[2023-12-02] VITALS (17 sets, daily range): BP systolic 97–134; BP diastolic 56–80; PULSE 60–95; RESP 8–25; TEMP 36.8–37.6; O2SAT 98–100; BMI 25.7
--- NOTE | 2023-12-02 09:19 | ANES.PAUD2 ---
Pre-Anesthetic Update Pre-Anesthetic Assessment: Date of Surgery/Procedure: 12/02/23 Proposed Procedure: Operation Date: 12/02/23 10:20 Proposed Procedures p Anterior Repair 37282, 52941, N81.6, N81.10, R32(Not Applicable) - Kam Edmondson MD s Posterior Repair(Not Applicable) - Kam Edmondson MD s Sling(Not Applicable) - Kam Edmondson MD Any changes to Pre-Anesthetic Assessment?: No Labs Last 48hrs: Short CBC 12/01/23 Range/Units 11:55 WBC 9.87 (3.29-11.43) 10^ 3/uL Hgb 14.40 (11.27-16.99) g/ dL Hct 43.7 (36-47) % MCV 88.1 (85-98) fl Plt Count 295 (157-399) 10^3/c mm Neut % (Auto) 71.3 % Neut # (Auto) 7.03 (1.8-7.7) 10^3/u L BMP 12/01/23 11:55 Sodium 138 Potassium 4.0 Chloride 101 Carbon Dioxide 26 BUN 12 Creatinine 0.7 Glucose 102 Calcium 10.0 Liver Function 12/01/23 Range/Units 11:55 Total Bilirubin 1.5 H (0.15-1.2) mg/dL AST 20 (0-32) U/L ALT 22 (0-33) U/L Alkaline Phosphata se 80 (35-105) U/L Albumin 4.8 (3.5-5.2) g/dL Urine 12/01/23 Range/Units 11:59 Urine Color Yellow (Yellow) Urine Appearance Clear (CLEAR) Urine pH 5 (5-7) Ur Specific Gravit y 1.020 (1.005-1.030) Urine Protein Neg (Negative) Urine Glucose (UA) Norm (Normal) Urine Ketones Negative (Negative) Urine Nitrate Negative (Negative) Urine Bilirubin Neg (Negative) Ur Leukocyte Vanna ase Negative (Negative) Blood Bank 12/01/23 11:55 Blood Type O Positive Rho(D) Type Rh positive Antibody Screen Negative Vitals: Temperature 98.4 F 12/02/23 09:16 Temperature Source Temporal Artery S can 12/02/23 09:16 Pulse Rate 91 12/02/23 09:16 Respiratory Rate 18 06/11/24 09:16 Blood Pressure 134/76 06/11/24 09:16 Blood Pressure Elizabeth n 95 12/02/23 09:16 Pulse Oximetry 100 12/02/23 09:16 Oxygen Delivery Me thod Room Air 12/02/23 09:16 Exam: Pre-Anes Outpt Exam: alert, oriented x 3, clear to auscultation bilaterally and regular rate & rhythm Cardiac Studies: No Data to Display
[2023-12-02] MEDS: sodium chloride 0.9% 500 ML IV (09:53)
[2023-12-02] MEDS: levofloxacin-dextrose 5 % 500 MG/100 ML PREMIX 100 MG IV (09:57)
[2023-12-02] MEDS: scopolamine 1.5 Patch 1 PATCH TRANSDERMA (10:07)
[2023-12-02] MEDS: famotidine 20 mg/2 mL INJ IVP (10:07)
[2023-12-02] MEDS: ondansetron 2 mg/ML SDV 2 mL 4 MG IVP ×2 (10:07→14:08)
--- NOTE | 2023-12-02 10:13 | W.PM.OPSUD ---
Surgery/Procedure H&P Update DATE OF PROCEDURE: December 02, 2023 DATE H&P PERFORMED: 12/01/23 H&P UPDATE INFORMATION: I have reviewed H&P completed within last 30 days, I have examined patient prior to procedure and No changes to prior documentation PREOP DIAGNOSIS: Cystocele, rectocele, incontinence PLANNED PROCEDURE: Operation Date: 12/02/23 10:20 Proposed Procedures p Anterior Repair 78373, 01449, N81.6, N81.10, R32(Not Applicable) - Kam Edmondson MD s Posterior Repair(Not Applicable) - Kam Edmondson MD s Sling(Not Applicable) - Kam Edmondson MD
[2023-12-02] MEDS: diphenhydrAMINE 50 mg/mL SDV 1mL 12.5 MG IVP (10:32)
[2023-12-02] MEDS: sodium chloride 0.9% 1,000 ML 30 ML IV (10:39)
[2023-12-02] MEDS: lidocaine-epi 2% PF 1:200,000 20 mL SDV XX (11:10)
[2023-12-02] MEDS: vancomycin 1,000 MG in sodium chloride 0.9% 250 ML 250 MG IV (11:11)
--- NOTE | 2023-12-02 12:45 | W.PM.BPON ---
Date of Procedure: 12/02/23 Surgeon: Kam Edmondson MD Automotive Manufacturer(s): Procedure(s) performed: Anterior colporrhaphy augmented with allograft, single incision midurethral sling, posterior colporrhaphy Findings of the procedure(s): cystocele, rectocele Estimated blood loss: 20 ml Specimen(s) removed: none Post-operative diagnosis: cystocele, rectocele
--- NOTE | 2023-12-02 12:47 | P.OP_ITS ---
Operative Report Date of procedure: December 02, 2023 Pre-op diagnosis: Cystocele stage II Rectocele stage III Post-op diagnosis: same Procedure done: Anterior colporrhaphy augmented with allograft Midurethral sling Posterior colporrhaphy Implants: Coloplast Altis sling Coloplast dermis allograft Surgeon: Kam Edmondson MD Estimated blood loss (mL): 20 IV fluids (mL): 700 Urine output (mL): 100 Procedure: After obtaining informed consent, the patient was taken to the operating room and placed in the supine position, given general anesthesia, and prepped and draped in sterile fashion. The abdomen, vulva and vagina were prepped and draped in a sterile manner. A time out procedure was performed. The anterior vaginal mucosa beneath the midurethra was infiltrated with 2% lidocaine with epinephrine. A vertical midline incision was made beneath the midurethra, nearly 1.5 cm length. Careful submucosal dissection was performed bilaterally up to the interior portion of the inferior pubic ramus. The insertion of adductor longus tendon on the patient?s pubic ramus was identified as reference land jhon. Palpated the notch along the internal edge of ischiopubic ramus where the adductor longus tendon and the inferior pubic ramus meet. The Altis single incision sling (SIS) was selected. Then the needle of the SIS inserted aiming at the location of this notch. One of the integrated self- fixating tips place onto the needle by sliding it over the end of the needle. The needle/sling assembly was inserted toward the location of identified reference notch making sure that the flat of the handle is perpendicular to the desired path. The needle was tracked along the posterior surface of the ischiopubic ramus until the midline jhon on the mesh is approximately at the midline position under the urethra. The needle was removed and the same was repeated on the contralateral side until the appropriate sling tension under the urethra was achieved ensuring that the mesh lays flat. The needle was removed and vaginal incision was closed in a running interlocking fashion with 2-0 Vicryl. The vaginal mucosa was then injected in the midline with 2% lidocaine with epinephrine. The vaginal mucosa was scored in the midline with the Bovie approximately 1 cm medial to the urethral meatus to 1 cm distal to the vaginal cuff. This vaginal mucosa was then undermined and then incised in the midline with the Metzenbaum scissors. The lateral aspects of the vaginal mucosa were then grasped with the Allis clamps and the vaginal mucosa was then dissected off the underlying fascia with the Metzenbaum scissors. Again, there was noted to be quite a bit of oozing at the incision, which was controlled with cautery. After adequate dissection was performed, bilaterally. The Coloplast dermis allograft modified at time of application to fit spacea, 3 x 3 cm piece . The Coloplast allograft placed in front of cystocele ready to be implanted facing the vagina mucosa. Suture is placed at distal end of graft and placed towards vaginal cuff. Final suture is placed on proximal portion of the graft to complete the placement overlying the bladder. Then Interrupted vertical mattress sutures of 0 Vicryl were used to elevate the cystocele superiorly. The excessive vaginal mucosa was then trimmed with the Metzenbaum scissors and the vaginal mucosa was then reapproximated in the running interlocking fashion with 2-0 Vicryl. A 2% lidocaine with epinephrine solution was infiltrated under the posterior vaginal mucosa midline and into the perineal body. An inverted triangle incision was cut in the perineum. The posterior vaginal wall was opened vertically and midline up to the apex of the rectocele. The cut edges were held and splayed laterally with a series of Allis clamps. The open vaginal mucosa was then dissected laterally with a combination of sharp and blunt dissection, exposing the perirectal fascia. The perirectal fascia was then reapproximated with interrupted #2-0 Vicryl sutures to draw the lateral folds together and tuck the rectocele back. Deep interrupted sutures of #0 Vicryl were used to reapproximate the fibers of the levator ani muscles. The excess vaginal mucosa was trimmed. The posterior vaginal wall was closed with a running locked #0 Vicryl to the hymenal tags. The superficial perineal muscles were closed with running unlocked #0 Vicryl and the perineal skin was closed with running subcuticular #2-0 Vicryl. Bludigo was given IV Then the Sheppard catheter was removed and cystoscope was inserted. The bladder was filled with sterile water. Complete evaluation of the bladder mucosa was performed noting no lacerations, dimpling, tears, bleeding of the mucosa or muscular layers. Both ureteral orifices were identified. Prompt excretion of urine from both ureteral orifices was noted. Cystoscope was withdrawn. The Sheppard catheter was replaced. Excellent hemostasis was obtained. A vaginal pack is placed overnight as postoperative support for the vaginal tissues after graft placement and closure of vaginal incisions. Sponge, lap, needle, and instrument counts were correct times three. The patient was taken to the recovery room, awake and in stable condition.
[2023-12-02] MEDS: ketorolac 30 mg/mL INJ IVP ×2 (13:49→18:53)
[2023-12-02] MEDS: dextrose 5%-lactated ringers 1,000 ML 125 ML IV ×2 (13:50→22:56)
--- NOTE | 2023-12-02 14:10 | ANE.PACU2 ---
Inpatient post-anesthesia follow up: Airway intact: Yes Vital signs: Temperature 99.3 F Pulse Rate 67 Respiratory Rate 16 Blood Pressure 110/60 Pulse Oximetry 100 Oxygen Delivery Me thod Room Air Oxygen Flow Rate 8 Fraction of Inspir ed Oxygen Hydration adequate: Yes Nausea and vomiting: No Pain level: 2 Mental status: Baseline
[2023-12-02] MEDS: HYDROmorphone 1 mg/mL INJ 1 mL 0.400000000000000022 MG IVP (17:01)
[2023-12-02] MEDS: propranolol 20 mg Tablet PO (17:11)
[2023-12-02] MEDS: docusate sodium 100 mg Capsule PO (17:11)
[2023-12-02] MEDS: pantoprazole DR 40 mg Tablet PO (17:12)
[2023-12-02] MEDS: baclofen 10 mg Tablet PO (17:12)
[2023-12-02] MEDS: BuSPIRONE 10 mg Tablet 5 MG PO (17:12)
[2023-12-02] MEDS: sennosides-docusate Tablet 1 TAB PO (17:12)
[2023-12-02] MEDS: HYDROmorphone 1 mg/mL INJ 1 mL 0.599999999999999978 MG IVP (18:53)
[2023-12-02] MEDS: fentaNYL 50 mcg/mL INJ 2mL IVP (22:53)
[2023-12-03] VITALS (9 sets, daily range): BP systolic 105–116; BP diastolic 52–80; PULSE 66–76; RESP 16–18; TEMP 36.6–36.8
[2023-12-03] MEDS: ketorolac 30 mg/mL INJ IVP ×2 (00:26→07:17)
[2023-12-03] MEDS: fentaNYL 50 mcg/mL INJ 2mL IVP ×4 (00:26→05:38)
[2023-12-03] MEDS: BuSPIRONE 10 mg Tablet 5 MG PO (07:54)
[2023-12-03] MEDS: baclofen 10 mg Tablet PO (07:55)
[2023-12-03] MEDS: docusate sodium 100 mg Capsule PO (07:55)
[2023-12-03] MEDS: sennosides-docusate Tablet 1 TAB PO (07:55)
[2023-12-03] MEDS: propranolol 20 mg Tablet PO (07:55)
[2023-12-03] MEDS: pantoprazole DR 40 mg Tablet PO (07:56)
[2023-12-03] MEDS: multivitamin therapeutic Tablet 1 TAB PO (07:56)
--- NOTE | 2023-12-03 08:48 | PC.NURSE ---
PATIENT VOIDED 250ML ULTRASOUND SCAN SHOWED 150
--- NOTE | 2023-12-03 09:28 | P.DS_ITS ---
Discharge Providers WIRE WEAVER CLOTH Date of Admission: 12/02/23 12:32 Date of Discharge: 12/03/23 Attending Provider at Admission: Kam Edmondson MD Attending Provider at Discharge: Kam Edmondson MD Primary Care Provider: Huy Quintanilla MD Reason for Visit Reason for Visit: N81.6, N81.10, R32 Hospital Course Hospital Course Mrs. Velasco 43-year-old female with a history of a cystocele with urinary incontinence and rectocele and associated with splinting when having a bowel movement. She was admitted for planned anterior colporrhaphy augmented with allograft, mid urethral sling and posterior colporrhaphy. Overnight observation has been uneventful. She is afebrile and hemodynamically stable postoperative day 1. Tolerating diet well. Ambulating without difficulty. PVR within normal limits. She was counseled regarding pelvic rest for 6 weeks (no sex, no tampons, no vaginal douches). Return to the emergency room if any fever, increased bleeding or pain. Physical Exam Narrative: GA: Alert and oriented ?3. HEENT: WNL. Heart: Regular rate and rhythm. Lungs: Clear to auscultation bilaterally. Abdomen: Bowel sounds present, nontender, minimal tenderness, incision clean and dry, no redness, pain or edema. BOOKSEAMER BLINDSTITCH: No bleeding. Extremities: No edema, no cyanosis, no calves pain. Urinary Catheter Management: Latex: Cath Placed During This Visit: yes, but has since been removed by the nurse Reason for Continuing Indwelling Catheter: Decision to DC Catheter Urinary Catheter Date of Insertion: 12/02/23 Urinary Catheter Time of Insertion: 11:10 Date Urinary Catheter Removed: 12/03/23 Time Urinary Catheter Discontinued: 05:20 History History History 5 Term 3 0 Miscarriages/Ectopic 2 Living Children 3 Discharge Data Studies Completed and Pending Pending at discharge Category Date Time Status Hemagram Timed Lab 12/03/23 05:45 Ordered Laboratory Results WBC 9.87 10^3/uL (3.29-11.43) 12/01/23 11:55 RBC 4.96 10^6/uL (3.85-5.65) 12/01/23 11:55 Hgb 14.40 g/dL (11.27-16.99) 12/01/23 11:55 Hct 43.7 % (36-47) 12/01/23 11:55 MCV 88.1 fl (85-98) 12/01/23 11:55 MCH 29.0 pg (27-33) 12/01/23 11:55 MCHC 33.0 g/dL (30-55) 12/01/23 11:55 RDW 13.7 % (12.1-15.1) 12/01/23 11:55 Plt Count 295 10^3/cmm (157-399) 12/01/23 11:55 MPV 11.2 fL (7.4-10.4) H 12/01/23 11:55 Neut % (Auto) 71.3 % 12/01/23 11:55 Lymph % (Auto) 18.5 % 12/01/23 11:55 [place] % (Auto) 7.6 % 12/01/23 11:55 Eos % (Auto) 1.8 % 12/01/23 11:55 Baso % (Auto) 0.4 % 12/01/23 11:55 Neut # (Auto) 7.03 10^3/uL (1.8-7.7) 12/01/23 11:55 Lymph # (Auto) 1.8 10^3/uL (0.8-4.8) 12/01/23 11:55 [place] # (Auto) 0.8 10^3/uL (0.2-0.9) 12/01/23 11:55 Eos # (Auto) 0.2 10^3/uL (0.0-0.8) 12/01/23 11:55 Baso # (Auto) 0.0 10^3/uL (0.0-0.1) 12/01/23 11:55 Nucleated RBC % (auto) 0 % 12/01/23 11:55 Nucleated RBCs # 0.0 /100WBC 12/01/23 11:55 Sodium 138 mmol/L (136-145) 12/01/23 11:55 Potassium 4.0 mmol/L (3.5-5.1) 12/01/23 11:55 Chloride 101 mmol/L (98-107) 12/01/23 11:55 Carbon Dioxide 26 mmol/L (22-29) 12/01/23 11:55 Anion Gap 15.0 (5-19) 12/01/23 11:55 BUN 12 mg/dL (6-20) 12/01/23 11:55 Creatinine 0.7 mg/dL (0.5-0.9) 12/01/23 11:55 GFR Calculation 91.3 mL/min (90-130) 12/01/23 11:55 Glucose 102 mg/dL (65-115) 12/01/23 11:55 Calculated Osmolality 286 mOsm/kg (285-295) 12/01/23 11:55 Calcium 10.0 mg/dL (8.5-10.5) 12/01/23 11:55 Total Bilirubin 1.5 mg/dL (0.15-1.2) H 12/01/23 11:55 AST 20 U/L (0-32) 12/01/23 11:55 ALT 22 U/L (0-33) 12/01/23 11:55 Alkaline Phosphatase 80 U/L (35-105) 12/01/23 11:55 Total Protein 7.8 g/dL (6.6-8.7) 12/01/23 11:55 Albumin 4.8 g/dL (3.5-5.2) 12/01/23 11:55 Globulin 3.0 g/dL (1.3-4.6) 12/01/23 11:55 Urine Color Yellow (Yellow) 12/01/23 11:59 Urine Appearance Clear (CLEAR) 12/01/23 11:59 Urine pH 5 (5-7) 12/01/23 11:59 Ur Specific [place] 1.020 (1.005-1.030) 12/01/23 11:59 Urine Protein Neg (Negative) 12/01/23 11:59 Urine Glucose (UA) Norm (Normal) 12/01/23 11:59 Urine Ketones Negative (Negative) 12/01/23 11:59 Urine Blood Neg (Negative) 12/01/23 11:59 Urine Nitrate Negative (Negative) 12/01/23 11:59 Urine Bilirubin Neg (Negative) 12/01/23 11:59 Urine Urobilinogen Norm mg/dL (Negative) 12/01/23 11:59 Ur Leukocyte Esterase Negative (Negative) 12/01/23 11:59 Blood Type O Positive 12/01/23 11:55 Rho(D) Type Rh positive 12/01/23 11:55 Antibody Screen Negative 12/01/23 11:55 Vitals Last Vital Signs Temp 97.8 F 12/03/23 08:00 Pulse 71 12/03/23 08:00 Resp 16 12/03/23 08:00 BP 116/80 12/03/23 08:00 Pulse Ox 98 12/02/23 18:26 O2 Del Method Room Air 12/02/23 18:26 O2 Flow Rate 8 12/02/23 12:42 Results Labs OB ([facility]): Blood Type O Positive 12/01/23 Antibody Screen Negative 12/01/23 Hct 43.7 % (36-47) 12/01/23 Hgb 14.40 g/dL (11.27-16.99) 12/01/23 Rho(D) Type Rh positive 12/01/23 Plt Count 295 10^3/cmm (157-399) 12/01/23 Hep Bs Antigen Non-reactive (Nonreactive) 04/22/23 Hep B Core Total Ab Non-reactive (Nonreactive) 04/22/23 Hep Bs Antibody < 3.5 (11.5-1000) L 04/22/23 Hepatitis C Antibody Non-reactive (Nonreactive) 04/22/23 TSH 0.96 uIU/mL (0.27-4.20) 09/25/23 Hemoglobin A1c 5.2 % (4.0-6.0) 09/27/23 FSH 8.0 mIU/mL 10/26/21 HCG, Qual Negative (Negative) 09/25/23 Urine Opiates Screen Positive ng/mL (Negative) H 09/25/23 Ur Barbiturates Screen Negative ng/mL (Negative) 09/25/23 Ur Phencyclidine Scrn Negative ng/mL (Negative) 09/25/23 Ur Amphetamines Screen Negative ng/mL (Negative) 09/25/23 U Benzodiazepines Scrn Negative ng/mL (Negative) 09/25/23 Urine Cocaine Screen Negative ng/mL (Negative) 09/25/23 U Marijuana (THC) Screen Positive ng/mL (Negative) H Discharge Plan Discharge Patient Disposition: Home Condition: Stable Prescriptions: New hydrocodone-acetaminophen 5-325 mg tablet 1 tab PO Q4H PRN (Reason: pain) Qty: 30 0RF acetaminophen 325 mg capsule 325 mg PO Q4H PRN (Reason: fever or pain) Qty: 60 0RF docusate sodium [Colace] 100 mg capsule 100 mg PO BID Qty: 60 0RF ibuprofen 800 mg tablet 800 mg PO TID PRN (Reason: pain) Qty: 60 0RF Continued sertraline 100 mg tablet 100 mg PO DAILY hydroxyzine HCl 25 mg tablet 25 mg PO Q6H PRN (Reason: Anxiety) buspirone 5 mg tablet 5 mg PO BID (DME) CAM boot See Rx Instructions .Route .MEDSUPPLY Qty: 1 0RF Rx Instructions: As directed (DME) ASO ankle brace See Rx Instructions .Route .MEDSUPPLY Qty: 1 0RF Rx Instructions: As directed pantoprazole [Protonix] 40 mg tablet,delayed release (DR/EC) 40 mg PO BID 42 Days Qty: 84 1RF (DME) crutches See Rx Instructions .Route .MEDSUPPLY Qty: 1 0RF Rx Instructions: As directed propranolol 20 mg tablet 20 mg PO BID Qty: 60 3RF polyethylene glycol 3350 [Miralax] 17 gram/dose powder 17 g PO DAILY PRN (Reason: Constipation) baclofen 10 mg Tablet 10 mg PO BID Qty: 30 0RF Hold Instructions: Resume on 11/14/23. multivitamin Tablet 1 tab PO DAILY rizatriptan 10 mg tablet 10 mg PO DAILY PRN (Reason: migraine headache) diazepam 5 mg Tablet 5 mg PO BEDTIME PRN (Reason: Anxiety) Emgality Pen 120 mg/mL Pen Injector 120 mg SUBCUT DIRECTED Rx Instructions: taken once a month; last dose received in August (unknown day) sennosides-docusate sodium [Stool Softener-Laxative] 8.6-50 mg Tablet 1 tab PO BID Qty: 20 0RF Discharge Orders: Discharge Order (Routine); Ordered 12/03/23 Ordered By: Kam Edmondson Referrals: Kam Edmondson MD [Physician] - 12/23/23 2:15 pm (6 WEEK POSTOP: 01/12/24 @ 10:30) Discharge Diet: Soft Mechanical Discharge Activity: Limit activity as instructed Patient Instructions: Anterior Vaginal Repair (DC), Posterior Vaginal Repair (DC), OB Discharge Report, OB Food/Drug Interaction Guide, Opioid Safety Activity Restrictions/Additional Instructions: 1. Please call [facility] on next working day to make your post-operative appointment in 2 weeks. 2. Please stay home until you come back to the clinic on first post- hospatilization check up. 3. Please follow instructions on your medications CAREFULLY. 4. If you have abdominal incision, do not cover it unless dressing is necessary because of drainage. OK to shower, but avoid bath. Leave steri-strips until they fall off. If they are still on one week after surgery, you may remove them. 5. If you had vaginal surgery or vaginal repair, Dr. Edmondson may instruct you to take SITZ bath. 6. Yellow, blood tinged odorous vaginal discharge is usually normal after hysterectomy or vaginal surgeries. 7. No SEXUAL INTERCOURSE, tampons, or douches until you are completely released from the post-operative care. 8. Avoid constipation by eating right and maybe using some Metamucil or Milk of Magnesia. 9. All prescription refills are given during the working hours. Please do no wait till it runs out. Call the clinic at [phone] before your medication runs out. The clinic will get in touch with your doctor to prescribe medications if necessary. 10. Please remain within 40 mile radius from our hospital because emergencies do happen now and then during the post-operative period. 11. If you have stairs at home, take one step at a time slowly and minimize the number of trips. It helps to stay in one floor for the next few days. No lifting except what you can lift by one hand until you are released from the post-operative care. 12. Driving is discouraged until you are well healed. It may be 3-4 weeks before you feel strong enough to drive. You should be able to turn and look through the rear window without pain and you should be able to push the brake pedal very hard without pain before you drive. No fast rules, but SAFETY should be your primary concern. DO NOT drive if you are on sedating medications such as narcotics. 13. Call the clinic (during working hours) to make urgent appointment or go to the Emergency room, if any of the following occurs: i. Vaginal bleeding becomes heavy, more than a period. ii. Incision becomes red and sore, or drains pus. iii. Your TEMPERATURE is over 100.4F or you have chill. iv. IV site becomes red and swollen (a little ``knot?? is usually OK) v. Persistent nausea and vomiting vi. Persistent constipation or diarrhea vii. Rash or allergic reaction to medications. Discharge Attestations WIRE WEAVER CLOTH Time Spent in Discharge Care*: greater than 30 min Status at Discharge: Cognitive status at discharge: cognitively intact , Behavioral status at discharge: cooperative , Coding Level of Care Code Acute Code for Chg Fwd
[2023-12-03] MEDS: ibuprofen 800 mg tablet PO (10:12)
[2023-12-03 10:33] LABS: Hematocrit 33.7 % (36-47); Mean Corpuscular Hemoglobin 29.6 pg (27-33); Mean Corpuscular Volume 92.3 fl (85-98); Platelet Count 197 10^3/cmm (157-399); Red Blood Count 3.65 10^6/uL (3.85-5.65); Red Cell Distribution Width 14.2 % (12.1-15.1); White Blood Count 14.49 10^3/uL (3.29-11.43)
== END 2023-12-03 10:55 | disposition home or self-care (01) ==
LOC: OBGYN 12:32
PROVIDERS: Admitting Provider Obstetrics & Gynecology; PCP Family Medicine; Visit Provider Obstetrics & Gynecology
PROC: 0JQC0ZZ Repair Pelvic Region Subcutaneous Tissue and Fascia, Open Approach (ICD-10-PCS; CPT 57240; principal; 2023-12-02 10:20)
PROC: (CPT 57250; 2023-12-02 10:20)
PROC: (CPT 57288; 2023-12-02 10:20)
DX: N81.10 Cystocele, unspecified (principal); N81.6 Rectocele; K21.9 Gastro-esophageal reflux disease without esophagitis; F17.200 Nicotine dependence, unspecified, uncomplicated; Z90.49 Acquired absence of other specified parts of digestive tract
CPT/HCPCS: 57260; 57288; 36415; 51798; 80053; 81003; 85025; 85027; 86850; 86900; C1713; C1762; G0378; J1100; J1170; J1200; J1885; J1956; J2250; J2405; J2704; J2710; J3010; J3370; J3490; J7030; J7040; J7050; J7121

== ENCOUNTER 2023-12-10 14:18 | Outpatient (CLI) | payer MEDICAID, SELFPAY ==
[2023-12-10 15:20] LABS: C.Diff PCR (Lab) NEGATIVE (Negative)
== END 2023-12-10 14:19 | disposition home or self-care (01) ==
LOC: LAB 14:19
PROVIDERS: PCP Family Medicine; Visit Provider Surgery
DX: K92.1 Melena (principal); R10.13 Epigastric pain; R10.84 Generalized abdominal pain
CPT/HCPCS: 87493

== ENCOUNTER → 2024-01-12 14:43 | Outpatient (BNVA) | payer MEDICAID, SELFPAY | PROVIDERS: PCP Family Medicine; Visit Provider Podiatrist Foot & Ankle Surgery | DX: L60.3 Nail dystrophy (principal) | CPT/HCPCS: 36415; 80053 ==

== ENCOUNTER 2024-01-18 08:47 | Emergency (ER) | payer MEDICAID, SELFPAY ==
[2024-01-18 08:51] VITALS: BP 126/91; PULSE 75; RESP 16; TEMP 37.2; O2SAT 99; BMI 26.5
--- NOTE | 2024-01-18 08:58 | XRR_ITS ---
PROCEDURE INFORMATION: Exam: XR Chest Exam date and time: 01/18/2024 9:15 AM Age: 43 years old Clinical indication: Fever TECHNIQUE: Imaging protocol: Radiologic exam of the chest. Views: 1 view. COMPARISON: CR XR KUB portable [id number] 09/26/2023 4:15 AM FINDINGS: Lungs: Unremarkable. No consolidation. Pleural spaces: Unremarkable. No pleural effusion. No pneumothorax. Heart/Mediastinum: Unremarkable. No cardiomegaly. Bones/joints: Unremarkable. XR/XR chest 1V portable [id number] IMPRESSION: No acute findings.
--- NOTE | 2024-01-18 09:02 | W.ED.URI ---
HPI - URI/Sore Throat General: Chief Complaint: Upper Respiratory Infection Stated Complaint: headache, soar throat, neck pain Time Seen by Provider: 01/18/24 08:48 Source: patient Mode of arrival: ambulatory Limitations: no limitations History of Present Illness: 43-year-old female states that she had some cough congestion throat and sinus pain with body aches over the last 2 days. She states she has been around multiple sick contacts with similar symptoms daughter is here as well with similar symptoms. She denies any shortness of breath she had a mild cough. Associated symptoms: Reports chills; Deny abdominal pain, chest pain, diarrhea, fever(s), headache(s), nausea or vomiting Review of Systems Const: Reports: chills, body aches and fatigue; Denies: fever(s) or change in appetite Eyes: Denies: blurry vision or eye discomfort ENMT: Denies: throat pain or dental pain Card: Denies: chest pain Resp: Reports: non-productive cough; Denies: dyspnea GI: Denies: abdominal pain, nausea, vomiting or diarrhea : Denies: dysuria Musc: Denies: neck pain or back pain Skin/Breast: Denies: rash Neuro: Denies: headache(s) PFSH ED PFSH: Medical History Stress incontinence in female Chronic migraine without aura, intractable, with status migrainosus Degenerative lumbar disc Chronic neck and back pain Migraines Depression GERD (gastroesophageal reflux disease) Lumbar disc herniation Cervical disc herniation Chronic pelvic pain in female Aftercare following surgery of the genitourinary system Chronic cystitis Interstitial cystitis Surgical History Cystocele with rectocele (~12/02/23) Anterior colporrhaphy augmented with allograft, mid urethral sling, posterior colporrhaphy performed by Dr. Edmondson at [facility] for stage II cystocele and stage III rectocele History of ankle surgery History of hemorrhoidectomy Status post lumbar laminectomy Hx of adenoidectomy H/O ovarian cystectomy at age 15 H/O tubal ligation 2002 H/O: hysterectomy 10/10/2021: TVH performed by Dr. Edmondson at [facility] H/O laparoscopy 08/22/2021- Diagnostic Laparoscopy. Fulguration of endometriosis lesions. Preformed by Dr. Edmondson at [facility]. History of back surgery History of bladder surgery History of cholecystectomy History of appendectomy History of tonsillectomy Family History Mother , AT AGE 63 SMALL CELL CARCINOMA Cancer Hypertension Hyperlipidemia Grandmother Cancer Dementia CAD (coronary artery disease) Diabetes paternal Stroke paternal Heart disease paternal Grandfather Cancer Dementia Diabetes paternal Colon cancer maternal, 60's Father Hypertension Hyperlipidemia CAD (coronary artery disease) Denies family history of Ovarian cancer Clotting disorder Breast cancer Anesthesia complication Bleeding disorder Uterine cancer Thyroid disease Social History Smoking and tobacco/nicotine status: never used tobacco/nicotine Physical Exam Const: COMMON NORMALS: no acute distress, patient oriented x3 and healthy appearing HENMT: COMMON NORMALS: normocephalic, atraumatic and TM's normal bilaterally HEAD & SCALP: normocephalic and atraumatic TYMPANIC MEMBRANE: TM's normal bilaterally THROAT: posterior oropharynx normal Eye: COMMON NORMALS: conjunctivae normal CONJUNCTIVA: Yes conjunctivae normal Neck/C-Spine: COMMON NORMALS: full ROM and supple Chest: COMMONS NORMALS: normal inspection of the chest and normal palpation of entire chest wall Resp: COMMON NORMALS: normal respiratory effort, No retractions, No use of accessory muscles and clear to auscultation bilaterally AUSCULTATION: clear to auscultation bilaterally Cardio: COMMON NORMALS: regular rate, regular rhythm and No murmurs present (Cardio) RATE: regular rate RHYTHM: regular rhythm Extremity: COMMON NORMALS: normal to inspection and full ROM Neuro: COMMON NORMALS: patient oriented x3, moves all extremities and no focal motor deficits Psych: COMMON NORMALS: mental status grossly normal, Normal thought process present and cooperative THOUGHT PROCESS: Normal thought process present Skin: COMMON NORMALS: no rashes or lesions noted and no wounds GENERAL SKIN EXAM: no rashes or lesions noted Course Vital Signs: Vital signs: Vital Signs Temperature 98.9 F 01/18/24 08:51 Pulse Rate 75 01/18/24 08:51 Respiratory Rate 16 01/18/24 08:51 Blood Pressure 126/91 01/18/24 08:51 Pulse Oximetry 99 01/18/24 08:51 MDM - URI/Sore Throat Medical Decision Making Patient presents here with symptoms consistent with a viral upper respiratory infection x-ray shows no signs of pneumonia she has no signs of bacterial illness a viral panel is pending she is stable for discharge at this time follow-up with PCP return if worsening. Medical Records I reviewed the patient's medical records. Lab Data I reviewed the patient's lab results. Radiology Impressions Chest X-Ray 01/18/24 08:58 IMPRESSION: No acute findings. All radiology interpretation(s) finalized by discharge Discharge Plan Discharge Patient Disposition: Home Clinical Impression: Upper respiratory infection Condition: Stable Prescriptions: No Action pantoprazole [Protonix] 40 mg tablet,delayed release (DR/EC) 40 mg PO BID 42 Days Qty: 84 1RF propranolol 20 mg tablet 20 mg PO BID Qty: 60 3RF baclofen 10 mg Tablet 10 mg PO BID Qty: 30 0RF Hold Instructions: Resume on 11/14/23. Discharge Orders: Discharge ED (Routine); Ordered 01/18/24 Ordered By: Dionna Sunshine Referrals: Huy Quintanilla MD [Primary Care Provider] - 4-7 days Discharge Diet: Advance as tolerated Discharge Activity: Resume usual activity Patient Instructions: Upper Respiratory Infection (ED) Coding Level of Care Code ED Molder Apprentice for Kaz Osborn
[2024-01-18] MEDS: dexamethasone 10 mg/mL INJ IM (09:12)
[2024-01-18] MEDS: ibuprofen 600 mg Tablet PO (09:12)
[2024-01-18 11:06] LABS: Adenovirus Not Detected (NOT DETECT); Chlamydia Pneumoniae Not Detected (NOT DETECT); Coronavirus 229E,HKU1,NL63,OC4 Not Detected (NOT DETECT); Human Metapneumovirus Not Detected (NOT DETECT); Human Rhinovirus/Enterovirus Not Detected (NOT DETECT); Influenza A Not Detected (NOT DETECT); Influenza A H1 Not Detected (NOT DETECT); Influenza A H1-2009 Not Detected (NOT DETECT); Influenza A H3 Not Detected (NOT DETECT); Influenza B Not Detected (NOT DETECT); Mycoplasma Pneumoniae Not Detected (NOT DETECT); Parainfluenza Virus Type 1 Not Detected (NOT DETECT); Parainfluenza Virus Type 2 Not Detected (NOT DETECT); Parainfluenza Virus Type 3 Not Detected (NOT DETECT); Parainfluenza Virus Type 4 Not Detected (NOT DETECT); Respiratory Syncytial Virus A Not Detected (NOT DETECT); Respiratory Syncytial Virus B Not Detected (NOT DETECT)
[2024-01-18 11:14] LABS: SARS-COV-2 Detected (NOT DETECT)
--- NOTE | 2024-01-18 11:16 | PC.NURSE ---
Notified patient that she came back COVID + and that we just advise patient's to treat the symptoms. If she gets worse or has any trouble breathing that she is more than welcome to come back to the ER or her primary care tomorrow.
== END 2024-01-18 09:53 | disposition home or self-care (01) ==
PROVIDERS: Emergency Provider Emergency Medicine; PCP Family Medicine
DX: J06.9 Acute upper respiratory infection, unspecified (principal)
CPT/HCPCS: 71045; 87486; 87581; 87633; 96372; 99284; J1100

== ENCOUNTER → 2024-02-19 08:15 | Outpatient (BNVA) | payer MEDICAID, SELFPAY | PROVIDERS: PCP Family Medicine; Visit Provider Specialist | DX: G43.711 Chronic migraine without aura, intractable, with status migrainosus (principal) | CPT/HCPCS: 64615; J0585 ==

== ENCOUNTER → 2024-06-11 12:40 | Outpatient (BNVA) | payer MEDICAID, SELFPAY | PROVIDERS: PCP Family Medicine; Visit Provider Specialist | DX: G43.711 Chronic migraine without aura, intractable, with status migrainosus (principal) | CPT/HCPCS: 64615; J0585 ==

== ENCOUNTER → 2024-09-03 10:20 | Outpatient (BNVA) | payer MEDICAID, SELFPAY | PROVIDERS: PCP Family Medicine; Visit Provider Specialist | DX: G43.711 Chronic migraine without aura, intractable, with status migrainosus (principal) | CPT/HCPCS: 64615; J0585; J9999 ==

== ENCOUNTER 2024-12-03 21:41 | Emergency (ER) | payer MEDICAID, SELFPAY ==
[2024-12-03 21:48] VITALS: BP 118/74; PULSE 92; RESP 16; TEMP 36.7; O2SAT 100; BMI 21.9
[2024-12-03 22:26] VITALS: BP 120/87; PULSE 91; O2SAT 96
[2024-12-03 23:07] LABS: Basophils # 0.1 10^3/uL (0.0-0.1); Eosinophils # 0.6 10^3/uL (0.0-0.8); Hematocrit 38.3 % (36-47); Lymphocytes # 2.5 10^3/uL (0.8-4.8); Lymphocytes % 40.2 %; Mean Corpuscular HGB Conc 32.9 g/dL (30-55); Mean Corpuscular Hemoglobin 28.4 pg (27-33); Mean Corpuscular Volume 86.5 fl (85-98); Monocytes # 0.7 10^3/uL (0.2-0.9); Monocytes % 11.5 %; Neutrophils # 2.38 10^3/uL (1.8-7.7); Neutrophils % 38.1 %; Nucleated Red Blood Cells % 0 %; Platelet Count 217 10^3/cmm (157-399); Red Blood Count 4.43 10^6/uL (3.85-5.65); Red Cell Distribution Width 13.5 % (12.1-15.1); White Blood Count 6.24 10^3/uL (3.29-11.43)
[2024-12-03 23:12] VITALS: BP 100/73; PULSE 83; O2SAT 100
[2024-12-03 23:20] LABS: D Dimer <= 0.27 ug/mLFEU (0-0.59)
--- NOTE | 2024-12-03 23:27 | W.ED.EXTPRO ---
HPI - Extremity Problem General: Chief complaint: Extremity Problem,Nontraumatic Stated complaint: Has Blood Clots in R arm having Pain in R leg Time Seen by Provider: 12/03/24 21:56 History of Present Illness: Patient is a 44-year-old female with complex medical history, gastroparesis, status post gastric bypass, with complications, PPN/TPN, PICC line, with coagulopathy association, that returns to the emergency room for right groin swelling and pain. Patient is under the care of hematology, and being worked up further for coagulopathy. Her previous clot was induced by PICC line. She is concerned this is going on as well. Network Security Architect noted D-dimer elevation last week, and placed her on Eliquis, which she states complete compliance. She noted this swelling in her right groin over the course of the last 24 hours. She has pain exclusively in this area. No nausea, or vomiting. Patient's fear is clot. Associated symptoms: Deny chest pain, fever(s) or rash Related Data Previous Rx's ?Medication ?Instructions ?Recorded baclofen 10 mg tablet 10 mg PO BID #30 tabs 04/23/23 propranolol 20 mg tablet 20 mg PO BID #60 tabs 06/24/23 pantoprazole 40 mg tablet,delayed 40 mg PO BID 6 weeks #84 tabs 10/13/23 release (Protonix) galcanezumab-gnlm 120 mg/mL 120 mg SUBCUT .once monthly #1 mL 02/27/24 subcutaneous pen injector (Emgality Pen) rimegepant 75 mg disintegrating See Rx Instructions .Route 07/14/24 tablet (Nurtec ODT) .COMPLEX #10 tabs sulfamethoxazole 800 1 tab PO BID 2 weeks #28 tabs 12/03/24 mg-trimethoprim 160 mg tablet (Bactrim DS) Allergies Allergy/AdvReac Type Severity Reaction Status Date / Time adhesive tape Allergy Severe whelps, Verified 12/03/24 21:52 peels skin azithromycin Allergy Severe vomiting, Verified 12/03/24 21:52 mouth ulcers erythromycin base Allergy Severe mouth Verified 12/03/24 21:52 ulcers, vomiting gabapentin Allergy Severe memory Verified 12/03/24 21:52 issues Penicillins Allergy Severe itching, Verified 12/03/24 21:52 vomiting,mouth ulcers hydrocodone Allergy ADR-Nausea Verified 12/03/24 21:52 Review of Systems General: Reports: 10 or more systems reviewed and unremarkable except in HPI and below Const: Denies: fever(s) or chills Card: Denies: chest pain or palpitations Resp: Denies: dyspnea or productive cough GI: Denies: abdominal pain, nausea or vomiting : Denies: flank pain or difficulty voiding Musc: Reports: extremity pain and extremity swelling; Denies: neck pain or back pain Skin/Breast: Denies: rash or pruritus Neuro: Denies: headache(s) or numbness in extremities Psych: Denies: anxiety or depression Endo: Denies: polyuria or polydipsia PFSH ED PFSH: Medical History Stress incontinence in female Chronic migraine without aura, intractable, with status migrainosus Degenerative lumbar disc Chronic neck and back pain Migraines Depression GERD (gastroesophageal reflux disease) Lumbar disc herniation Cervical disc herniation Chronic pelvic pain in female Aftercare following surgery of the genitourinary system Chronic cystitis Interstitial cystitis Surgical History Cystocele with rectocele (~12/02/23) Anterior colporrhaphy augmented with allograft, mid urethral sling, posterior colporrhaphy performed by Dr. Edmondson at [facility] for stage II cystocele and stage III rectocele History of ankle surgery History of hemorrhoidectomy Status post lumbar laminectomy Hx of adenoidectomy H/O ovarian cystectomy at age 15 H/O tubal ligation 2002 H/O: hysterectomy 10/10/2021: TVH performed by Dr. Edmondson at [facility] H/O laparoscopy 08/22/2021- Diagnostic Laparoscopy. Fulguration of endometriosis lesions. Preformed by Dr. Edmondson at [facility]. History of back surgery History of bladder surgery History of cholecystectomy History of appendectomy History of tonsillectomy Family History Mother , AT AGE 63 SMALL CELL CARCINOMA Cancer Hypertension Hyperlipidemia Grandmother Cancer Dementia CAD (coronary artery disease) Diabetes paternal Stroke paternal Heart disease paternal Grandfather Cancer Dementia Diabetes paternal Colon cancer maternal, 60's Father Hypertension Hyperlipidemia CAD (coronary artery disease) Denies family history of Ovarian cancer Clotting disorder Breast cancer Anesthesia complication Bleeding disorder Uterine cancer Thyroid disease Social History Smoking and tobacco/nicotine status: never used tobacco/nicotine Physical Exam Const: COMMON NORMALS: no acute distress, average body habitus, patient oriented x3, no limitations, healthy appearing and alert HENMT: COMMON NORMALS: normocephalic and atraumatic HEAD & SCALP: normocephalic and atraumatic Lymph: LYMPHATIC: lymphadenopathy (right groin) Resp: COMMON NORMALS: normal respiratory effort and clear to auscultation bilaterally AUSCULTATION: clear to auscultation bilaterally Cardio: COMMON NORMALS: regular rate and regular rhythm RATE: regular rate RHYTHM: regular rhythm GI: COMMON NORMALS: Normal to inspection, nondistended, normoactive bowel sounds present and non-tender : COMMON NORMALS: Yes no CVA tenderness BLADDER/KIDNEY EXAM: Yes no CVA tenderness Back/Pelvis: COMMON NORMALS: no CVA tenderness THORACIC SPINE/UPPER BACK: Yes normal to inspection and Yes thoracic ROM normal Extremity: RIGHT LOWER EXTREMITY: Yes lower leg Right lower leg: Yes inspection (Lymphadenopathy to right groin, mild swelling) Neuro: COMMON NORMALS: patient oriented x3 SENSORIUM/ORIENTATION: Yes alert Psych: COMMON NORMALS: mental status grossly normal, Normal thought process present and cooperative THOUGHT PROCESS: Normal thought process present Course Vital Signs: Vital signs: Vital Signs Temperature 98.0 F 12/03/24 21:48 Pulse Rate 83 12/03/24 23:12 Respiratory Rate 16 12/03/24 21:48 Blood Pressure 100/73 12/03/24 23:12 Pulse Oximetry 100 12/03/24 23:12 Oxygen Delivery Me thod Room Air 12/03/24 23:12 MDM - Extremity (Nontraumatic) Medical Decision Making Routine labs were obtained with D-dimer. Discussed with patient that physical examination was associated with lymphadenopathy. Typically recommendations are course of antibiotics, and since she is affiliated with hematology, she can have further follow-up with them as well. She is compliant to her Eliquis. Since D-dimer was negative for acute coagulopathy, will treat with antibiotic course and send to hematology for further follow-up for any concern of biopsy. As well, patient relates that there is a spot on her left side of her chest that is concerning for mass that will be followed up with hematology. All of her questions were answered to her satisfaction. Lab Data 12/03/24 22:45 12/03/24 22:45 Laboratory Results WBC 6.24 10^3/uL (3.29-11.43) 12/03/24 22:45 RBC 4.43 10^6/uL (3.85-5.65) 12/03/24 22:45 Hgb 12.60 g/dL (11.27-16.99) 12/03/24 22:45 Hct 38.3 % (36-47) 12/03/24 22:45 MCV 86.5 fl (85-98) 12/03/24 22:45 MCH 28.4 pg (27-33) 12/03/24 22: MCHC 32.9 g/dL (30-55) 12/03/24 22:45 RDW 13.5 % (12.1-15.1) 12/03/24 22:45 Plt Count 217 10^3/cmm (157-399) 12/03/24 22:45 MPV 12.0 fL (7.4-10.4) H 12/03/24 22:45 Neut % (Auto) 38.1 % 12/03/24 22:45 Lymph % (Auto) 40.2 % 12/03/24 22:45 Meade % (Auto) 11.5 % 12/03/24 22:45 Eos % (Auto) 9.0 % 12/03/24:45 Baso % (Auto) 1.0 % 12/03/24:45 Neut # (Auto) 2.38 10^3/uL (1.8-7.7) 12/03/24 22:45 Lymph # (Auto) 2.5 10^3/uL (0.8-4.8) 12/03/24 22:45 Meade # (Auto) 0.7 10^3/uL (0.2-0.9) 12/03/24:45 Eos # (Auto) 0.6 10^3/uL (0.0-0.8) 12/03/24 22:45 Baso # (Auto) 0.1 10^3/uL (0.0-0.1) 12/03/24 22:45 Nucleated RBC % (auto) 0 % 06/13/25 22:45 Nucleated RBCs # 0.0 /100WBC 12/03/24 22:45 D-Dimer <= 0.27 ug/mLFEU (0-0.59) 12/03/24 22:45 Sodium 139 mmol/L (136-145) 12/03/24 22:45 Potassium 3.8 mmol/L (3.5-5.1) 12/03/24 22:45 Chloride 105 mmol/L (98-107) 12/03/24 22:45 Carbon Dioxide 23 mmol/L (22-29) 12/03/24 22:45 Anion Gap 14.8 (5-19) 12/03/24 22:45 BUN 14 mg/dL (6-20) 12/03/24 22:45 Creatinine 0.8 mg/dL (0.5-0.9) 12/03/24 22:45 Glucose 85 mg/dL (65-115) 12/03/24 22:45 Calculated Osmolality 288 mOsm/kg (285-295) 12/03/24 22:45 Calcium 9.2 mg/dL (8.5-10.5) 12/03/24 22:45 Total Bilirubin 0.8 mg/dL (0.15-1.2) 12/03/24 22:45 AST 16 U/L (0-32) 12/03/24 22:45 ALT 14 U/L (0-33) 12/03/24 22:45 Alkaline Phosphatase 89 U/L (35-105) 12/03/24 22:45 Total Protein 6.7 g/dL (6.6-8.7) 12/03/24 22:45 Albumin 4.4 g/dL (3.5-5.2) 12/03/24 22:45 Globulin 2.3 g/dL (1.3-4.6) 12/03/24 22:45 No radiology studies performed this visit Discharge Plan Discharge Patient Disposition: Home Clinical Impression: Acute inguinal lymphadenitis Condition: Stable Prescriptions: New sulfamethoxazole-trimethoprim [Bactrim DS] 800-160 mg tablet 1 tab PO BID 14 Days Qty: 28 0RF No Action pantoprazole [Protonix] 40 mg tablet,delayed release (DR/EC) 40 mg PO BID 42 Days Qty: 84 1RF propranolol 20 mg tablet 20 mg PO BID Qty: 60 3RF Emgality Pen 120 mg/mL pen injector 120 mg SUBCUT .once monthly Qty: 1 6RF Nurtec ODT 75 mg tablet,disintegrating See Rx Instructions .ROUTE .COMPLEX Qty: 10 0RF Dose Instruction: DISSOLVE ONE TABLET UNDER THE TONGUE soon THE HEADACHE starts Rx Instructions: DISSOLVE ONE TABLET UNDER THE TONGUE soon THE HEADACHE starts baclofen 10 mg Tablet 10 mg PO BID Qty: 30 0RF Discharge Orders: Discharge ED (Routine); Ordered 12/03/24 Ordered By: Karina Daniel Referrals: Huy Quintanilla MD [Primary Care Provider, Family Practice] Patient Instructions: Lymphadenopathy (ED) Activity Restrictions/Additional Instructions: Take probiotics or active culture yogurt daily for antibiotics. This will help avoid infectious diarrhea. Follow-up with your it support consultant as planned next week Continue all your other medications as directed. You may utilize ice in this area if it helps. You may use Tylenol for pain. Print Language: Mohawk Coding Level of Care Code ED Preanalytics Team Lead for Kaz Osborn
[2024-12-03 23:33] LABS: Alanine Aminotransferase 14 U/L (0-33); Albumin Level 4.4 g/dL (3.5-5.2); Alkaline Phosphatase 89 U/L (35-105); Anion Gap 14.8 (5-19); Aspartate Amino Transferase 16 U/L (0-32); Blood Urea Nitrogen 14 mg/dL (6-20); Calcium 9.2 mg/dL (8.5-10.5); Carbon Dioxide 23 mmol/L (22-29); Chloride 105 mmol/L (98-107); Creatinine Clr Calc Pharmacy 72.6643; Globulin 2.3 g/dL (1.3-4.6); Glomerular Filtration Rate 77.6 mL/min (90-130); Glucose 85 mg/dL (65-115); Osmolality Calculated 288 mOsm/kg (285-295); Potassium 3.8 mmol/L (3.5-5.1); Sodium 139 mmol/L (136-145); Total Bilirubin 0.8 mg/dL (0.15-1.2); Total Protein 6.7 g/dL (6.6-8.7)
--- NOTE | 2024-12-04 00:04 | ED_ITS ---
HPI - Extremity Problem 2 General: Chief complaint: Extremity Problem,Nontraumatic Stated complaint: Has Blood Clots in R arm having Pain in R leg Time Seen by Provider: 12/03/24 21:56 History of Present Illness: Patient is a 44-year-old female that presents emergency room with increased pain to her right groin. Patient was diagnosed with right upper extremity DVT due to PICC line. PICC line was after complicated history with gastroparesis, status post gastric bypass, and PPN/TPN. Patient followed up with hematology that is working her up further for coagulopathy per patient, and mass on her left chest wall. She noted this today. No fever, no chills. No urinary complaints. Associated symptoms: Deny chest pain, fever(s) or rash Related Data Previous Rx's ?Medication ?Instructions ?Recorded baclofen 10 mg tablet 10 mg PO BID #30 tabs propranolol 20 mg tablet 20 mg PO BID #60 tabs pantoprazole 40 mg tablet,delayed 40 mg PO BID 6 weeks #84 tabs 10/13/23 release (Protonix) galcanezumab-gnlm 120 mg/mL 120 mg SUBCUT .once monthl y #1 mL 02/27/24 subcutaneous pen injector (Emgality Pen) rimegepant 75 mg disintegrating See Rx Instructions .R oute 07/14/24 tablet (Nurtec ODT) .COMPLEX #10 tabs sulfamethoxazole 800 1 tab PO BID 2 weeks #28 tab s 12/03/24 mg-trimethoprim 160 mg tablet (Bactrim DS) sulfamethoxazole 200 20 ml PO BID 10 days #400 mL 12/04/24 mg-trimethoprim 40 mg/5 mL oral suspension Allergies Allergy/AdvReac Type Severity Reaction Status Date / Time adhesive tape Allergy Severe whelps, Verified 12/03/24 21:52 peels skin azithromycin Allergy Severe vomiting, Verified 12/03/24 21:52 mouth ulcers erythromycin base Allergy Severe mouth Verified 12/03/24 21:52 ulcers, vomiting gabapentin Allergy Severe memory Verified 12/03/24 21:52 issues Penicillins Allergy Severe itching, Verified 12/03/24 21:52 vomiting,mouth ulcers hydrocodone Allergy ADR-Nausea Verified 12/03/24 21:52 Review of Systems 2 General: Reports: 10 or more systems reviewed and unremarkable except in HPI and below Const: Denies: fever(s) or chills Card: Denies: chest pain or palpitations Resp: Denies: dyspnea, productive cough or non-productive cough GI: Denies: abdominal pain, nausea or vomiting Musc: Reports: extremity swelling Skin/Breast: Denies: rash or pruritus Neuro: Denies: headache(s) or numbness in extremities Psych: Denies: anxiety or depression PFSH ED 2 PFSH: Medical History Stress incontinence in female Chronic migraine without aura, intractable, with status migrainosus Degenerative lumbar disc Chronic neck and back pain Migraines Depression GERD (gastroesophageal reflux disease) Lumbar disc herniation Cervical disc herniation Chronic pelvic pain in female Aftercare following surgery of the genitourinary system Chronic cystitis Interstitial cystitis Surgical History Cystocele with rectocele (~12/02/23) Anterior colporrhaphy augmented with allograft, mid urethral sling, posterior colporrhaphy performed by Dr. Edmondson at [facility] for stage II cystocele and stage III rectocele History of ankle surgery History of hemorrhoidectomy Status post lumbar laminectomy Hx of adenoidectomy H/O ovarian cystectomy at age 15 H/O tubal ligation 2002 H/O: hysterectomy 10/10/2021: TVH performed by Dr. Edmondson at [facility] H/O laparoscopy 08/22/2021- Diagnostic Laparoscopy. Fulguration of endometriosis lesions. Preformed by Dr. Edmondson at [facility]. History of back surgery History of bladder surgery History of cholecystectomy History of appendectomy History of tonsillectomy Family History Mother , AT AGE 63 SMALL CELL CARCINOMA Cancer Hypertension Hyperlipidemia Grandmother Cancer Dementia CAD (coronary artery disease) Diabetes paternal Stroke paternal Heart disease paternal Grandfather Cancer Dementia Diabetes paternal Colon cancer maternal, 60's Father Hypertension Hyperlipidemia CAD (coronary artery disease) Denies family history of Ovarian cancer Clotting disorder Breast cancer Anesthesia complication Bleeding disorder Uterine cancer Thyroid disease Social History Smoking and tobacco/nicotine status: never used tobacco/nicotine Physical Exam 2 Const: COMMON NORMALS: no acute distress and patient oriented x3 HENMT: COMMON NORMALS: normocephalic and atraumatic HEAD & SCALP: n ormocephalic and atraumatic Lymph: LYMPHATIC: lymphadenopathy (right groin) Resp: COMMON NORMALS: normal respiratory effort, No retractions and clear to auscultation bilaterally AUSCULTATION: clear to auscultation bilaterally Cardio: COMMON NORMALS: regular rate and regular rhythm RATE: regular rate RHYTHM: regular rhythm GI: COMMON NORMALS: Normal to inspection, nondistended, normoactive bowel sounds present, Soft to palpation and non-tender PALPATION: Yes Soft to palpation : COMMON NORMALS: Yes no CVA tenderness BLADDER/KIDNEY EXAM: Yes no CVA tenderness Back/Pelvis: COMMON NORMALS: no CVA tenderness Extremity: COMMON NORMALS: normal to inspection and full ROM RIGHT LOWER EXTREMITY: Yes lower leg (mild swelling in prox right leg) Neuro: COMMON NORMALS: patient oriented x3 Course 2 Vital Signs: Vital signs: Vital Signs Temperature 98.0 F 12/03/24 21:48 Pulse Rate 83 12/03/24 23:12 Respiratory Rate 16 12/03/24 21:48 Blood Pressure 100/73 12/03/24 23:12 Pulse Oximetry 100 12/03/24 23:12 Oxygen Delivery Me thod Room Air 12/03/24 23:12 MDM - Extremity (Nontraumatic) Medical Decision Making Patient is a pleasant 44-year-old female with history of DVT to right upper extremity perpetuated by PICC line when utilizing PPN/TPN after gastric bypass due to gastroparesis. Discussed with patient course of care. To avoid additional radiation, would be appropriate to obtain D-dimer. Since obtaining D-dimer, will obtain routine labs. Physical examination is consistent with lymphadenopathy. Discussed with patient first-line's antibiotic run, and follow-up with hematology with any concern of biopsy of her right groin. She can utilize ice to this area. All of her questions were answered to her satisfaction. Of note, patient is quite compliant to her Eliquis. Lab Data 12/03/24 22:45 12/03/24 22:45 Laboratory Results WBC 6.24 10^3/uL (3.29-11.43) 12/03/24 22:45 RBC 4.43 10^6/uL (3.85-5.65) 12/03/24 22:45 Hgb 12.60 g/dL (11.27-16.99) 12/03/24 22:45 Hct 38.3 % (36-47) 12/03/24 22:45 MCV 86.5 fl (85-98) 12/03/24 22:45 MCH 28.4 pg (27-33) 12/03/24 22:45 MCHC 32.9 g/dL (30-55) 12/03/24 22:45 RDW 13.5 % (12.1-15.1) 12/03/24 22:45 Plt Count 217 10^3/cmm (157-399) 12/03/24:45 MPV 12.0 fL (7.4-10.4) H 12/03/24 22:45 Neut % (Auto) 38.1 % 12/03/24 22:45 Lymph % (Auto) 40.2 % 12/03/24 22:45 [place] % (Auto) 11.5 % 12/03/24 22:45 Eos % (Auto) 9.0 % 12/03/24 22:45 Baso % (Auto) 1.0 % 12/03/24: Neut # (Auto) 2.38 10^3/uL (1.8-7.7) 12/03/24: Lymph # (Auto) 2.5 10^3/uL (0.8-4.8) 12/03/24:45 [place] # (Auto) 0.7 10^3/uL (0.2-0.9) 12/03/24:45 Eos # (Auto) 0.6 10^3/uL (0.0-0.8) 12/03/24:45 Baso # (Auto) 0.1 10^3/uL (0.0-0.1) 12/03/24:45 Nucleated RBC % (auto) 0 % 12/03/24: Nucleated RBCs # 0.0 /100WBC 12/03/24: D-Dimer <= 0.27 ug/mLFEU (0-0.59) 12/03/24 22:45 Sodium 139 mmol/L (136-145) 12/03/24:45 Potassium 3.8 mmol/L (3.5-5.1) 12/03/24 22:45 Chloride 105 mmol/L (98-107) 12/03/24 22:45 Carbon Dioxide 23 mmol/L (22-29) 12/03/24 22:45 Anion Gap 14.8 (5-19) 12/03/24 22:45 BUN 14 mg/dL (6-20) 12/03/24 22:45 Creatinine 0.8 mg/dL (0.5-0.9) 12/03/24 22:45 GFR Calculation 77.6 mL/min (90-130) L 12/03/24 22:45 Glucose 85 mg/dL (65-115) 12/03/24 22:45 Calculated Osmolality 288 mOsm/kg (285-295) 12/03/24 22:45 Calcium 9.2 mg/dL (8.5-10.5) 12/03/24 22:45 Total Bilirubin 0.8 mg/dL (0.15-1.2) 12/03/24 22:45 AST 16 U/L (0-32) 12/03/24 22:45 ALT 14 U/L (0-33) 12/03/24 22:45 Alkaline Phosphatase 89 U/L (35-105) 12/03/24 22:45 Total Protein 6.7 g/dL (6.6-8.7) 12/03/24 22:45 Albumin 4.4 g/dL (3.5-5.2) 12/03/24 22:45 Globulin 2.3 g/dL (1.3-4.6) 12/03/24 22:45 No radiology studies performed this visit Discharge Plan Discharge Patient Disposition: Home Clinical Impression: Acute inguinal lymphadenitis Condition: Stable Prescriptions: New sulfamethoxazole-trimethoprim [Bactrim DS] 800-160 mg tablet 1 tab PO BID 14 Days Qty: 28 0RF sulfamethoxazole-trimethoprim 200-40 mg/5 mL suspension 20 ml PO BID 10 Days Qty: 400 0RF No Action pantoprazole [Protonix] 40 mg tablet,delayed release (DR/EC) 40 mg PO BID 42 Days Qty: 84 1RF propranolol 20 mg tablet 20 mg PO BID Qty: 60 3RF Emgality Pen 120 mg/mL pen injector 120 mg SUBCUT .once monthly Qty: 1 6RF Nurtec ODT 75 mg tablet,disintegrating See Rx Instructions .ROUTE .COMPLEX Qty: 10 0RF Dose Instruction: DISSOLVE ONE TABLET UNDER THE TONGUE soon THE HEADACHE starts Rx Instructions: DISSOLVE ONE TABLET UNDER THE TONGUE soon THE HEADACHE starts baclofen 10 mg Tablet 10 mg PO BID Qty: 30 0RF Discharge Orders: Discharge ED (Routine); Ordered 12/03/24 Ordered By: Karina Daniel Referrals: Huy Quintanilla MD [Primary Care Provider, Family Practice] Discharge Diet: Usual diet Discharge Activity: Resume usual activity Patient Instructions: Lymphadenopathy (ED) Activity Restrictions/Additional Instructions: Take probiotics or active culture yogurt daily for antibiotics. This will help avoid infectious diarrhea. Follow-up with your oracle programmer analyst as planned next week Continue all your other medications as directed. You may utilize ice in this area if it helps. You may use Tylenol for pain. Print Language: Greek Coding Level of Care Code ED [employer] for Kaz Osborn
[2024-12-04] MEDS: sulfamethoxazole-trimeth Oral Susp 30 mL Btl 20 ML PO (00:19)
[2024-12-04 00:20] VITALS: BP 103/74; PULSE 84; O2SAT 100
== END 2024-12-04 00:24 | disposition home or self-care (01) ==
PROVIDERS: Emergency Provider Physician Assistant; PCP Family Medicine
DX: L04.1 Acute lymphadenitis of trunk (principal)
CPT/HCPCS: 36415; 80053; 85025; 85378; 99283; J9999

== ENCOUNTER 2024-12-06 13:00 | Outpatient (CLI) | payer MEDICAID, SELFPAY ==
--- NOTE | 2024-12-06 13:07 | MM_ITS ---
WS: [id number] BILATERAL 3D TOMOSYNTHESIS DIGITAL DIAGNOSTIC MAMMOGRAPHY WITH CAD CLINICAL INFORMATION: BREAST MASS/CHEST WALL MASS HISTORY: Palpable LEFT breast lumps COMPARISON: 2021 TECHNIQUE: Bilateral CC, MLO, and ML views. FINDINGS: The breasts are composed of heterogeneous fibroglandular density, which can limit the detection of small underlying mass lesions. Lucent centered calcification RIGHT breast No suspicious focal mass, asymmetry, calcifications, or architectural distortion. Ultrasound is pending ULTRASOUND BREAST LEFT TECHNIQUE: Ultrasound left breast focused area of concern. CLINICAL INFORMATION: BREAST MASS/CHEST WALL MASS FINDINGS: Ultrasound LEFT breast areas of concern at the 3 o'clock position to 6 o'clock position. Normal underlying parenchymal tissue. Visualized underlying ribs. No cystic or solid lesions. No suspicious findings. MM/MM diag BI tomosynthesis [id number] IMPRESSION: DENSITY: The breasts are heterogeneously dense, which may obscure small masses. BI-RADS: 2 - Benign FOLLOW UP: 1 Year Follow-up Recommend return to annual screening mammography.
== END 2024-12-06 13:01 | disposition home or self-care (01) ==
PROVIDERS: PCP Family Medicine; Visit Provider Family Medicine
DX: R92.30 Dense breasts, unspecified (principal)
CPT/HCPCS: 76642; 77062; G0279

== ENCOUNTER → 2024-12-10 09:11 | Outpatient (BNVA) | payer MEDICAID, SELFPAY | PROVIDERS: PCP Family Medicine; Visit Provider Specialist | DX: G43.711 Chronic migraine without aura, intractable, with status migrainosus (principal) | CPT/HCPCS: 64615; J0585; J9999 ==

== ENCOUNTER 2024-12-15 15:42 | Outpatient (CLI) | payer MEDICAID, SELFPAY ==
--- NOTE | 2024-12-15 15:54 | US_ITS ---
WS: [id number] Ultrasound chest, limited. HISTORY: Chest wall mass. COMPARISON: Rib radiograph 12/15/2024. Ultrasound is performed along the posterior LEFT ribs in the site of the mass as directed by the patient. No mass identified. There is a slightly prominent rib which may be responsible for the palpable abnormality. No soft tissue mass. US/US chest [id number] IMPRESSION: No soft tissue mass associated with the posterior LEFT chest wall.
--- NOTE | 2024-12-15 16:19 | XR_ITS ---
WS: [id number] Exam: XR ribs LT 2V* [id number] Date/Time of Exam: 12/15/2024 4:29 PM Reason For Exam: ANTERIOR LEFT LOWER RIB PAIN No acute LEFT rib fracture. The LEFT lung is fully expanded and clear. No pulmonary or pleural reactive changes. XR/XR ribs LT 2V* [id number] IMPRESSION: 1. No acute LEFT rib fracture or pneumothorax.
== END 2024-12-15 15:43 | disposition home or self-care (01) ==
PROVIDERS: PCP Family Medicine; Visit Provider Family Medicine
DX: R22.2 Localized swelling, mass and lump, trunk (principal)
CPT/HCPCS: 71100; 76604

== ENCOUNTER 2025-01-04 07:38 | Outpatient (CLI) | payer MEDICAID, SELFPAY ==
--- NOTE | 2025-01-04 07:46 | CT_ITS ---
WS: [id number] CT chest wo con [id number] HISTORY: CHEST WALL MASS TECHNIQUE: Axial imaging performed through the thorax. Coronal and sagittal reformats are submitted. All CT scans at [facility] use at least one of these dose optimization techniques: automated exposure control; mA and/or kV adjustment per patient size (includes targeted exams where dose is matched to clinical indication); or iterative reconstruction. CONTRAST: None DLP: 214.13 mGy.cm COMPARISON: Rib radiograph 12/15/2024, ultrasound chest wall 12/15/2024 Lungs and central airway: Mild hyperinflation of the lungs. No mass or nodule. No pneumonia. Pleura: Normal. No pleural effusion. Heart and pericardium: Normal size heart with no pericardial effusion. Mediastinum and jean paul: No mediastinum or hilar adenopathy. Vessels: Normal size aortic and pulmonary artery. No coronary artery calcifications. Chest wall and lower neck: No soft tissue masses. Upper abdomen: Changes associated with gastric bypass. No adrenal mass. Osseous structures: Marker is placed along the inferior anterior LEFT chest wall. This corresponds to a very slightly expansile anterior seventh medial rib. This is very similar in configuration to the adjacent ribs and the ribs on the RIGHT side at this level. There may be very slightly more prominence of the rib. There is no obvious mass identified. Remaining osseous structures are normal. CT/CT chest wo con [id number] IMPRESSION: 1. Palpable area along the anterior LEFT chest wall corresponds to a slightly prominent LEFT seventh rib. Very similar configuration to the adjacent ribs and the RIGHT sided ribs. No obvious mass. History of growth and progression was p rovided. Probably the most helpful study at this time would be a bone scan exam to ensure there is no increased uptake. 2. No lung mass or nodule. 3. No adenopathy.
== END 2025-01-04 07:39 | disposition home or self-care (01) ==
LOC: RAD 07:39
PROVIDERS: PCP Family Medicine; Visit Provider Family Medicine
DX: R22.2 Localized swelling, mass and lump, trunk (principal)
CPT/HCPCS: 71250

== ENCOUNTER → 2025-01-19 12:40 | Outpatient (BNVA) | payer MEDICAID, SELFPAY | PROVIDERS: PCP Family Medicine; Visit Provider Specialist | DX: G43.711 Chronic migraine without aura, intractable, with status migrainosus (principal); N88.8 Other specified noninflammatory disorders of cervix uteri; R42 Dizziness and giddiness; R55 Syncope and collapse | CPT/HCPCS: 96372; 99214; J1885; J2405 ==

== ENCOUNTER 2025-01-25 11:19 | Outpatient (CLI) | payer MEDICAID, SELFPAY ==
--- NOTE | 2025-01-25 15:30 | MR_ITS ---
WS: [id number] MRI HEAD WITHOUT CONTRAST TECHNIQUE: Sagittal T1, T2 axial, T2 axial FLAIR, axial and coronal T1 images, axial susceptibility weighted imaging, axial diffusion weighted images, and coronal T2 images were obtained. CLINICAL INFORMATION: G43.711 - Chronic migraine without aura, intractable, wit... COMPARISON: None. FINDINGS: No evidence of restricted diffusion to suggest acute ischemia. No suspicious intracranial signal abnormalities. Normal posterior fossa. Normal vascular flow voids at the skull base. No extra-axial fluid collections. Paranasal sinuses and mastoid air cells are well aerated. Normal posterior nasopharynx. No hemosiderin on the susceptibility weighted images. Normal optic chiasm and pituitary infundibulum. Temporal lobes and hippocampal formations are normal in appearance. No other suspicious findings. MR/MR head wo con* [id number] IMPRESSION: 1. No evidence of restricted diffusion to suggest acute ischemia. 2. No suspicious intracranial signal abnormalities. 3. No hemosiderin on susceptibility-weighted images. 4. No other suspicious findings.
--- NOTE | 2025-01-25 16:15 | MR_ITS ---
WS: [email or web address] MRA HEAD TECHNIQUE: Axial 3-D TOF images obtained with axial images and axial, sagittal, and coronal 2-D reformatted images. CLINICAL INFORMATION: G43.711 - Chronic migraine without aura, intractable, wit... COMPARISON: None. FINDINGS: Distal vertebral arteries are patent. Basilar artery is patent. Normal vascularity to the MAINFRAME ANALYST territory bilaterally. Both ICAs are patent at the skull base. Normal vascularity to the RAYMOND and MCA territories bilaterally. Patent anterior communicating artery. No proximal flow- limiting stenosis. MR/MR angio head con [id number] IMPRESSION: Normal intracranial MRA.
== END 2025-01-25 11:20 | disposition home or self-care (01) ==
LOC: RAD 11:20
PROVIDERS: PCP Family Medicine; Visit Provider Specialist
DX: G43.711 Chronic migraine without aura, intractable, with status migrainosus (principal); N88.8 Other specified noninflammatory disorders of cervix uteri; R42 Dizziness and giddiness; R55 Syncope and collapse
CPT/HCPCS: 70544; 70551

== ENCOUNTER 2025-03-01 07:48 | Outpatient (CLI) | payer MEDICAID, SELFPAY ==
--- NOTE | 2025-03-01 07:55 | NM_ITS ---
WS: [id number] NUCLEAR MEDICINE BONE SCAN Radiopharmaceutical: 26.3 Tc-99m MDP mCi IV Injection site: Antecubital Postinjection imaging delay: 1 hr CLINICAL INFORMATION: BREAST MASS, CHEST WALL MASS COMPARISON: Chest CT 01/04/2025 FINDINGS: Bone lesions: There are no osseous lesions suspicious for metastatic disease. No abnormalities in the LEFT ribs to correspond to the area of palpable concern Soft tissue contours: Normal. Kidneys: Normal. Other findings: Areas of uptake in the LEFT tibia and ankle likely from prior tib-fib fracture with external fixator and hardware fixation NM/NM bone scan whole body* [id number] IMPRESSION: No evidence of osseous metastatic disease or abnormal uptake involving the LEFT ribs.
== END 2025-03-01 07:49 | disposition home or self-care (01) ==
LOC: RAD 07:49
PROVIDERS: PCP Family Medicine; Visit Provider Family Medicine
DX: N63.0 Unspecified lump in unspecified breast (principal); R22.2 Localized swelling, mass and lump, trunk
CPT/HCPCS: 78306; A9561

== ENCOUNTER 2025-05-12 15:14 | Emergency (ER) | payer MEDICAID, SELFPAY ==
[2025-05-12 15:21] VITALS: BP 142/88; PULSE 81; RESP 16; TEMP 37; O2SAT 99
--- NOTE | 2025-05-12 16:38 | ED_ITS ---
HPI - Headache General: Chief Complaint: Headache Stated Complaint: headache Time Seen by Provider: 05/12/25 16:33 History of Present Illness: Patient is 44-year-old female with history of migraines, presents to the emergency room with ongoing migraine. This has been on and off for the last 1 month. Patient has been seeing Dr. Hendricks through neurology on outpatient basis. She stated she wanted to do that today instead of coming to the ER. Dr. Hendricks recommended she come to the ED when there was no openings. She is having difficulty with vision, photophobia, and phonophobia. The headache is the back of her head. She does have full range of motion of her neck. No fevers. No known triggering issue. Associated symptoms: Deny chest pain, fever(s), nausea, rash or syncope Related Data Previous Rx's ?Medication ?Instructions ?Recorded baclofen 10 mg tablet 10 mg PO BID #30 tabs propranolol 20 mg tablet 20 mg PO BID #60 tabs pantoprazole 40 mg tablet,delayed 40 mg PO BID 6 weeks #84 tabs 10/13/23 release (Protonix) rimegepant 75 mg disintegrating See Rx Instructions .R oute 07/14/24 tablet (Nurtec ODT) .COMPLEX #10 tabs fcqedeqzof-uxexnosknjvai-otmvqcri 2 cap PO Q6H PRN hea dache #30 caps 05/12/25 50 mg-300 mg-40 mg capsule (Fioricet) Allergies Allergy/AdvReac Type Severity Reaction Status Date / Time adhesive tape Allergy Severe whelps, Verified 05/12/25 14:06 peels skin azithromycin Allergy Severe vomiting, Verified 05/12/25 14:06 mouth ulcers erythromycin base Allergy Severe mouth Verified 05/12/25 14:06 ulcers, vomiting gabapentin Allergy Severe memory Verified 05/12/25 14:06 issues Penicillins Allergy Severe itching, Verified 05/12/25 14:06 vomiting,mouth ulcers hydrocodone Allergy ADR-Nausea Verified 05/12/25 14:06 Review of Systems General: Reports: 10 or more systems reviewed and unremarkable except in HPI and below Const: Denies: fever(s), chills, change in weight or fatigue Eyes: Reports: change in vision, blurry vision and photophobia; Denies: blind spots, eye discomfort or seeing flashes ENMT: Denies: odynophagia, hoarseness, change in hearing, tinnitus, disequilibrium, nasal discharge, sinus pain or other (Loss of taste/smell) Card: Denies: chest pain, palpitations, syncope or other (Calf cramps) Resp: Denies: dyspnea, non-productive cough, wheezing or hemoptysis GI: Denies: abdominal pain, nausea, heartburn, diarrhea, constipation or hematochezia : Denies: urinary frequency or urinary incontinence Musc: Denies: neck pain, muscle weakness or other (Muscle pain) Skin/Breast: Denies: rash, new lesions or breast mass Neuro: Reports: headache(s); Denies: numbness in extremities, weakness in extremities, sensory changes, difficulty walking, Slurred speech present or seizure-like activity Psych: Denies: depression, irritability, memory loss, difficulty concentrating or other (Personality changes) Endo: Denies: polyuria, polydipsia, excessive sweating or change in body appearance Cresencio/Lymph: Denies: easy bruising, easy bleeding or enlarged lymph nodes PFSH ED PFSH: Medical History (Updated 05/12/25 @ 17:21 by DANIE Freitas) Stress incontinence in female Chronic migraine without aura, intractable, with status migrainosus Degenerative lumbar disc Chronic neck and back pain Migraines Depression GERD (gastroesophageal reflux disease) Lumbar disc herniation Cervical disc herniation Chronic pelvic pain in female Aftercare following surgery of the genitourinary system Chronic cystitis Interstitial cystitis Surgical History Cystocele with rectocele (~12/02/23) Anterior colporrhaphy augmented with allograft, mid urethral sling, posterior colporrhaphy performed by Dr. Edmondson at [facility] for stage II cystocele and stage III rectocele History of ankle surgery History of hemorrhoidectomy Status post lumbar laminectomy Hx of adenoidectomy H/O ovarian cystectomy at age 15 H/O tubal ligation 2002 H/O: hysterectomy 10/10/2021: TVH performed by Dr. Edmondson at [facility] H/O laparoscopy 08/22/2021- Diagnostic Laparoscopy. Fulguration of endometriosis lesions. Preformed by Dr. Edmondson at [facility]. History of back surgery History of bladder surgery History of cholecystectomy History of appendectomy History of tonsillectomy Family History Mother , AT AGE 63 SMALL CELL CARCINOMA Cancer Hypertension Hyperlipidemia Grandmother Cancer Dementia CAD (coronary artery disease) Diabetes paternal Stroke paternal Heart disease paternal Grandfather Cancer Dementia Diabetes paternal Colon cancer maternal, 60's Father Hypertension Hyperlipidemia CAD (coronary artery disease) Denies family history of Ovarian cancer Clotting disorder Breast cancer Anesthesia complication Bleeding disorder Uterine cancer Thyroid disease Social History Smoking and tobacco/nicotine status: never used tobacco/nicotine Physical Exam Const: COMMON NORMALS: no acute distress, average body habitus, patient oriented x3, no limitations, healthy appearing and alert ORIENTATION/CONSCIOUSNESS: Yes oriented to person, Yes oriented to place and Yes oriented to time HENMT: COMMON NORMALS: normocephalic and atraumatic HEAD & SCALP: normocephalic and atraumatic Neck/C-Spine: COMMON NORMALS: full ROM, no lymphadenopathy, supple, no meningeal signs, no JVD and Thyroid normal THYROID: Thyroid normal Resp: COMMON NORMALS: normal respiratory effort, No retractions and clear to auscultation bilaterally AUSCULTATION: clear to auscultation bilaterally Cardio: COMMON NORMALS: no JVD, regular rate and regular rhythm RATE: regular rate RHYTHM: regular rhythm GI: COMMON NORMALS: Normal to inspection, nondistended, normoactive bowel sounds present, Soft to palpation, non-tender and No hepatosplenomegaly present PALPATION: Yes Soft to palpation and Yes No hepatosplenomegaly present : COMMON NORMALS: Yes no CVA tenderness BLADDER/KIDNEY EXAM: Yes no CVA tenderness Back/Pelvis: COMMON NORMALS: no CVA tenderness Extremity: COMMON NORMALS: normal to inspection, full ROM and capillary refill normal Neuro: COMMON NORMALS: patient oriented x3, CN's II-XII intact bilaterally and moves all extremities SENSORIUM/ORIENTATION: Yes alert, Yes oriented to person, Yes oriented to place and Yes oriented to time MENINGEAL SIGNS: Yes no meningeal signs, No nuccal rigidity, No Brudzinski's sign present and No Kernig's sign presnet Psych: COMMON NORMALS: mental status grossly normal, Normal thought process present, cooperative, normal affect, speech normal and activity/motor behavior normal SPEECH: Yes normal speech THOUGHT PROCESS: Normal thought process present Skin: COMMON NORMALS: no rashes or lesions noted and no wounds GENERAL SKIN EXAM: no rashes or lesions noted Course Reevaluation(s): Reevaluation #1: 1720: Patient is interactive, smiling, u tilizing both eyes, and states her migraine is improving down to a 6, and continues to improve. She is happy. Vital Signs: Vital signs: Vital Signs Temperature 98.6 F 05/12/25 15:21 Pulse Rate 71 05/12/25 17:38 Respiratory Rate 16 05/12/25 17:38 Blood Pressure 128/76 05/12/25 17:38 Pulse Oximetry 92 05/12/25 17:38 Oxygen Delivery Me thod Room Air 05/12/25 17:21 MDM - Headache Medical Decision Making Patient is a 44-year-old female that presents to the emergency room with intractable migraine. Will give Benadryl, dexamethasone, Toradol, Norflex and reevaluate patient. She has full range of motion of her neck. This has occurred with patient multiple times. Previous MRI and MRA reviewed. Improved after Toradol/Norflex/dexamethasone/diphenhydramine. Will send home to follow-up with neurology Medical Records I reviewed the patient's medical records. Lab Data I reviewed the patient's lab results. No radiology studies performed this visit Discharge Plan Discharge Patient Disposition: Home Clinical Impression: Migraine Qualifiers: Migraine type: chronic migraine (15 or more days per month) with aura Status migrainosus presence: with status migrainosus Intractability: not intractable Qualified Code(s): G43.E01 - Chronic migraine with aura, not intractable, with status migrainosus Condition: Stable Prescriptions: New stccsxicmw-fppcsjovfwmap-qggz [Fioricet] 50-300-40 mg capsule 2 cap PO Q6H PRN (Reason: headache) Qty: 30 0RF No Action pantoprazole [Protonix] 40 mg tablet,delayed release (DR/EC) 40 mg PO BID 42 Days Qty: 84 1RF propranolol 20 mg tablet 20 mg PO BID Qty: 60 3RF Nurtec ODT 75 mg tablet,disintegrating See Rx Instructions .ROUTE .COMPLEX Qty: 10 0RF Dose Instruction: DISSOLVE ONE TABLET UNDER THE TONGUE soon THE HEADACHE starts Rx Instructions: DISSOLVE ONE TABLET UNDER THE TONGUE soon THE HEADACHE starts baclofen 10 mg Tablet 10 mg PO BID Qty: 30 0RF Discharge Orders: Discharge ED (Routine); Ordered 05/12/25 Ordered By: Karina Daniel Referrals: Huy Quintanilla MD [Primary Care Provider, Family Practice] Discharge Diet: Usual diet Discharge Activity: Resume usual activity Patient Instructions: Migraine Headache (ED), Patient Portal & Angel Instructions Activity Restrictions/Additional Instructions: - Fioricet is at the pharmacy. Use for mild to moderate headache. - Return to ED if you have intractable migrainous pain like when I met you. Also if you have a fever greater than 100.4 ?F. - Follow-up with your Dr. Hendricks as planned Thank you for choosing [facility] for your healthcare needs today. You have been screened and evaluated and felt safe for discharge. Health conditions do change or evolve sometimes and as such it is important that you follow up with your Primary Doctor to be re checked, 3-5 days is a general good time frame for follow up. You are always welcome to return to the ED for re assessment if your symptoms are worsening or you have new concerns Print Language: Tajik Coding Level of Care Code ED [employer] Building for Kaz Osborn
[2025-05-12] MEDS: diphenhydrAMINE 50 mg/mL SDV 1mL IM (16:48)
[2025-05-12] MEDS: orphenadrine 30 mg/mL Inj 2 mL 60 MG IM (16:48)
[2025-05-12 16:49] VITALS: BP 142/105; O2SAT 99
[2025-05-12 17:21] VITALS: BP 133/86; O2SAT 99
[2025-05-12 17:38] VITALS: BP 128/76; PULSE 71; RESP 16; O2SAT 92
--- NOTE | 2025-05-16 16:24 | PC.NURSE ---
PATIENT RX DID NOT PRINT. PATIENT CALLED [facility] AND WAS LOOKING FOR RX. [facility] STATES IT WOULD NOT SEND AND WE COULD NOT PRINT RX PAPER DUE TO PRINTER BEING DOWN. [facility]ADEGE ROB CALLED [facility] AND PRESCRIBED DISCHARGE MEDS.
== END 2025-05-12 17:37 | disposition home or self-care (01) ==
PROVIDERS: Emergency Provider Physician Assistant; PCP Family Medicine
DX: G43.E01 Chronic migraine with aura, not intractable, with status migrainosus (principal)
CPT/HCPCS: 64615; 96372; 99284; J0585; J1100; J1200; J1885; J2360; J9999